=== PATIENT | male | born 1940 | race Caucasian/White ===

== ENCOUNTER 2022-05-11 12:30 | Emergency (ER) | payer MEDICARE, OTHER, SELFPAY ==
[2022-05-11 12:31] VITALS: BP 90/69; PULSE 108; RESP 16; TEMP 36; O2SAT 96; BMI 24.8
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
--- NOTE | 2022-05-11 14:10 | CT_ITS ---
STUDY: CT BRAIN WITHOUT CONTRAST REASON FOR EXAM: Male, 81 years old. Change in mental status, hallucinations RADIATION DOSAGE (If Supplied By Facility): CTDIvol = ( 44.99 ) mGy, DLP = ( 796.11 ) mGycm TECHNIQUE: Transaxial CT imaging of the brain was performed without administration of intravenous contrast material. Individualized dose optimization techniques were used for this CT. COMPARISON: No relevant priors. FINDINGS: Normal soft tissue structures. Normal calvarium. There is mild cerebral atrophy with widening of the extra-axial spaces and ventricular dilatation. There are areas of decreased attenuation within the white matter tracts of the supratentorial brain, consistent with microvascular disease changes. There are small punctate calcifications of the basal ganglia which are seen in the aging brain as a normal variant. Normal brainstem. There is mild cerebellar atrophy. There is no intracranial hemorrhage. There are no findings of an acute ischemic infarction. There is mucoperiosteal inflammatory disease of the paranasal sinuses consistent with moderate chronic sinusitis. CT/Brain/Head without Contrast IMPRESSION: Chronic involutional changes of the brain, no acute hemorrhage. Paranasal sinusitis Electronically Signed: Edgar Mahoney MD at 14:46 EDT ,
[2022-05-11 14:38] LABS: Absolute Lymphocyte Count 2.82 X10^3/uL (0.83-4.51); Absolute Neutrophil Count 9.4 X10^3/uL (2.0-7.7); Basophil# 0.03 X10^3/uL; Basophil% 0.2 % (0-1); Eosinophil# 0.06 X10^3/uL; Eosinophils% 0.4 % (0-5); Hematocrit 38.9 % (40-54); Hemoglobin 12.5 g/dL (13.0-16.5); Lymphocyte # 2.82 X10^3/ul (0.83-4.51); Lymphocyte % 21.1 % (19-41); Mean Corp Hgb Conc 32.1 g/dL (32-36); Mean Corpuscular Volume 90.3 fL (80-94); Mean Platelet Vol. 9.6 fl (6.2-12.0); Monocyte# 0.97 X10^3/uL; Monocyte% 7.3 % (0-10); NRBC Flagged by Analyzer 0 % (0-5); Neutrophil % 70.4 % (47-70); Platelet Count 256 K/mm3 (150-450); RBC Distribution Width CV 14.3 % (11.6-14.6); RBC Distribution Width SD 46.4 fl (35.1-43.9); Red Blood Count 4.31 M/mm3 (4.6-6.2); White Blood Count 13.4 K/mm3 (4.4-11.0)
[2022-05-11 14:55] LABS: Anion Gap 7 (5-15); BUN 29 mg/dL (7-18); BUN/Creat Ratio 23.6 RATIO (10-20); Calcium,Total 9.1 mg/dL (8.5-10.1); Chloride 107 mmol/L (98-107); Creatinine, Serum 1.23 mg/dL (0.70-1.30); EST Glomerular Filtration Rate 60 mL/min (>60); Est Glom Filt Rate - Afr Amer 72 mL/min (>60); Estimated Creatinine Clearance 46.99 ml/min; Glucose 115 mg/dL (74-106); Potassium 4.3 mmol/L (3.5-5.1); Sodium Level 138 mmol/L (136-145)
[2022-05-11 15:15] LABS: Red Blood Cells-Urine 0 SEEN /hpf (0-5)
[2022-05-11 15:17] LABS: Color, Urine Yellow (Yellow); Glucose, Dipstick Normal (Normal); Ketone-Dipstick 5 mg/dl (Negative); Leukocyte Esterase-Dipstick Negative /ul (Negative); Nitrite-Dipstick Negative (Negative); Occult Blood-Urine Negative /ul (Negative); Protein-Dipstick 15 mg/dl (Negative); Specific Gravity, Urine 1.015 (1.002-1.030); Urine Bilirubin Dipstick Negative (Negative); Urine Clarity Clear (Clear); Urine Urobilinogen Normal (Normal)
[2022-05-11 15:28] LABS: Bacteria 1+ /hpf (None Seen); Squamous Epithelial Cells - UA 0-5 SEEN /hpf (0-5); White Blood Cells 0-5 SEEN /hpf (0-5)
[2022-05-11 15:29] LABS: Mucous, Urine 2+ /hpf (<or=2+)
== END 2022-05-11 16:45 | disposition home or self-care (01) ==
PROVIDERS: Emergency Provider Emergency Medicine; Visit Provider Emergency Medicine
DX: S82.441A Displaced spiral fracture of shaft of right fibula, initial encounter for closed fracture (principal); S20.212A Contusion of left front wall of thorax, initial encounter; V18.0XXA Pedal cycle driver injured in noncollision transport accident in nontraffic accident, initial encounter; Y93.55 Activity, bike riding; Y99.8 Other external cause status; Y92.410 Unspecified street and highway as the place of occurrence of the external cause; R41.0 Disorientation, unspecified; E66.9 Obesity, unspecified; Z68.24 Body mass index [BMI] 24.0-24.9, adult
CPT/HCPCS: 70450; 71101; 73610; 80048; 81001; 85025; 87086; 87088; 99284; A4216

== ENCOUNTER 2022-05-19 10:47 | Observation (INO) | payer MEDICARE, SELFPAY ==
[2022-05-19 10:49] VITALS: BP 138/88; PULSE 81; RESP 18; TEMP 36.6; O2SAT 96; BMI 26.3
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
--- NOTE | 2022-05-19 11:50 | EKG12_ITS ---
Test Reason : CONFUSION Blood Pressure : / mmHG Vent. Rate : 083 BPM Atrial Rate : 083 BPM P-R Int : 134 ms QRS Dur : 086 ms QT Int : 374 ms P-R-T Axes : 013 021 012 degrees QTc Int : 439 ms Sinus rhythm with frequent Premature ventricular complexes Otherwise normal ECG Confirmed by FRANCISCO JAVIER TAYLOR, NELSON ([id number]), metropolitan editor MORENITA ARRIAZA ([id number]) on 05/20/2022 2:37:09 P M Referred By: Confirmed By:OUMAR MCINTYRE MD
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
[2022-05-19 12:19] LABS: Absolute Lymphocyte Count 3.65 X10^3/uL (0.83-4.51); Absolute Neutrophil Count 6.6 X10^3/uL (2.0-7.7); Basophil# 0.06 X10^3/uL; Basophil% 0.5 % (0-1); Eosinophil# 0.38 X10^3/uL; Eosinophils% 3.3 % (0-5); Lymphocyte # 3.65 X10^3/ul (0.83-4.51); Lymphocyte % 31.9 % (19-41); Mean Corp Hgb Conc 33.3 g/dL (32-36); Mean Corpuscular Hgb 30.3 pg (27.0-32.0); Mean Corpuscular Volume 90.9 fL (80-94); Mean Platelet Vol. 9.4 fl (6.2-12.0); Monocyte# 0.71 X10^3/uL; Monocyte% 6.2 % (0-10); NRBC Flagged by Analyzer 0 % (0-5); Neutrophil # 6.56 X10^3/uL (2.7-7.7); Neutrophil % 57.4 % (47-70); Platelet Count 243 K/mm3 (150-450); RBC Distribution Width CV 13.8 % (11.6-14.6); RBC Distribution Width SD 45.8 fl (35.1-43.9); Red Blood Count 3.96 M/mm3 (4.6-6.2); White Blood Count 11.4 K/mm3 (4.4-11.0)
--- NOTE | 2022-05-19 12:25 | RAD_ITS ---
STUDY: X-RAY CHEST REASON FOR EXAM: Male, 82 years old. Weakness TECHNIQUE: Single AP portable view of the chest. COMPARISON: Comparison is made with prior study dated 05/11/2021. FINDINGS: EKG electrodes are seen. There is evidence of vascular congestion and mild CHF. Elevation of the right hemidiaphragm. Normal size heart. Normal mediastinum and efrain. Normal visualized pulmonary arteries. There is atherosclerotic calcification of the aortic arch with tortuosity. There are diffuse degenerative changes of the visualized thoracic spine. Dextroscoliosis. Normal visualized ribs, clavicles, and shoulders. There is no demonstrated abnormality of the visualized soft tissue structures of the upper abdomen. RAD/Chest 1 View (Portable) IMPRESSION: Vascular congestion and mild CHF. Electronically Signed: Abimael Isaac MD at 12:58 EDT ,
[2022-05-19 12:32] LABS: ALB/GLOB Ratio 0.7 RATIO (0.9-2.4); AST(SGOT) 26 U/L (15-37); Alanine Aminotransfer ALT/SGPT 54 U/L (16-61); Albumin, Serum 2.8 g/dL (3.2-5.0); Alkaline Phosphatase 106 U/L (45-117); Anion Gap 7 (5-15); BUN 26 mg/dL (7-18); BUN/Creat Ratio 23.4 RATIO (10-20); Calcium,Total 8.6 mg/dL (8.5-10.1); Chloride 103 mmol/L (98-107); Creatinine, Serum 1.11 mg/dL (0.70-1.30); EST Glomerular Filtration Rate 67 mL/min (>60); Est Glom Filt Rate - Afr Amer 81 mL/min (>60); Estimated Creatinine Clearance 47.93 ml/min; Globulin 3.8 g/dL (2.2-4.2); Glucose 102 mg/dL (74-106); Potassium 3.9 mmol/L (3.5-5.1); Protein, Total 6.6 g/dL (6.4-8.2); Sodium Level 135 mmol/L (136-145); Troponin-I HS 15 pg/mL (3.0-78.0)
[2022-05-19 12:48] LABS: Ammonia < 10.0 umol/L (11-32)
[2022-05-19 13:12] VITALS: BP 180/75; PULSE 88; RESP 14; O2SAT 95
[2022-05-19 13:28] LABS: Color, Urine Yellow (Yellow); Glucose, Dipstick Normal (Normal); Ketone-Dipstick Negative (Negative); Leukocyte Esterase-Dipstick Negative /ul (Negative); Nitrite-Dipstick Negative (Negative); Occult Blood-Urine Negative /ul (Negative); Protein-Dipstick 30 mg/dl (Negative); Specific Gravity, Urine 1.015 (1.002-1.030); Urine Bilirubin Dipstick Negative (Negative); Urine Clarity Clear (Clear); Urine Urobilinogen Normal (Normal)
--- NOTE | 2022-05-19 13:32 | NURSING ---
DR ENRIQUEZ FOR DR ELMORE
[2022-05-19 13:36] LABS: BNP,B-Type NATRIURETIC PEPTIDE 51.4 pg/mL (0-100)
[2022-05-19 13:42] LABS: Amphetamine Urine VISTA NEGATIVE (<1000 ng/mL); Barbiturate Urine VISTA NEGATIVE (< 200 ng/mL); Benzodiazepine Urine VISTA NEGATIVE (< 200 ng/mL); Cocaine Urine VISTA NEGATIVE (< 300 ng/mL); Ecstacy Urine VISTA NEGATIVE (< 500 ng/mL); Methadone Urine VISTA NEGATIVE (< 300 ng/mL); PCP Urine VISTA NEGATIVE (< 25 ng/mL); THC Urine VISTA NEGATIVE (< 50 ng/mL); Vista UDS pH Range 5
[2022-05-19 13:44] VITALS: BP 193/91; PULSE 79; RESP 19; TEMP 36.5; O2SAT 95
--- NOTE | 2022-05-19 13:45 | NURSING ---
MED SURG [facility]
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
--- NOTE | 2022-05-19 14:35 | CM.ED ---
SW Note MD Alvarez spoke to this teletypewriter installer. He indicated that patient was sent to the ER from PCP office. said that patient has no history of psych issues but is having hallucinations. SRINIVAS asked if SW needs to do SW assessment for patient and indicated no. said that patient is weak so he thinks that family is interested in SNF. SRINIVAS met with patient and his daughter in law and daughter. SW educated the family that patient does not have traditional medicare but has [employer] which will require precert. Daughter in law said that she had confirmed with the MD that patient does not want extreme measure to be completed (DNR) . Patient said that he has completed the paperwork for that at home but did not bring it with him. SW provided family with [employer] information. SRINIVAS updated MD Alvarez that patient wants a DNR and he indicated hospitalist will take care of that. SRINIVAS called Ilana Rosenbaum and updated her regarding patient. SRINIVAS called Jessica Gutiérrez and updated her regarding patient. Plan: To be determined Velvet LEYVA
[2022-05-19 14:50] VITALS: BMI 27.9
[2022-05-19 14:56] VITALS: BP 170/70; PULSE 88; RESP 18; TEMP 36.8; O2SAT 97
[2022-05-19 15:09] VITALS: PULSE 80
[2022-05-19] MEDS: Aspirin 81 MG TAB.CHEW PO (15:44)
[2022-05-19] MEDS: Ensure Plus High Protein 120 ML LIQUID PO (15:44)
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
[2022-05-19] MEDS: Atorvastatin Calcium 40 MG Tablet PO (21:47)
[2022-05-19 22:00] VITALS: BP 149/63; PULSE 88; RESP 18; TEMP 36.9; O2SAT 98
[2022-05-19] MEDS: MELATONIN 3 MG TABLET PO (23:40)
[2022-05-20 05:00] VITALS: BP 161/84; PULSE 88; RESP 16; TEMP 37.1; O2SAT 96
[2022-05-20 05:06] LABS: Absolute Lymphocyte Count 3.88 X10^3/uL (0.83-4.51); Absolute Neutrophil Count 7.1 X10^3/uL (2.0-7.7); Basophil# 0.08 X10^3/uL; Basophil% 0.6 % (0-1); Eosinophil# 0.42 X10^3/uL; Eosinophils% 3.4 % (0-5); Hematocrit 40.1 % (40-54); Hemoglobin 12.7 g/dL (13.0-16.5); Lymphocyte # 3.88 X10^3/ul (0.83-4.51); Lymphocyte % 31.4 % (19-41); Mean Corp Hgb Conc 31.7 g/dL (32-36); Mean Corpuscular Hgb 29.8 pg (27.0-32.0); Mean Corpuscular Volume 94.1 fL (80-94); Mean Platelet Vol. 9.8 fl (6.2-12.0); Monocyte# 0.76 X10^3/uL; Monocyte% 6.1 % (0-10); NRBC Flagged by Analyzer 0 % (0-5); Neutrophil # 7.12 X10^3/uL (2.7-7.7); Neutrophil % 57.6 % (47-70); Platelet Count 238 K/mm3 (150-450); RBC Distribution Width CV 14.1 % (11.6-14.6); RBC Distribution Width SD 48.6 fl (35.1-43.9); Red Blood Count 4.26 M/mm3 (4.6-6.2); White Blood Count 12.4 K/mm3 (4.4-11.0)
[2022-05-20 05:29] LABS: Anion Gap 6 (5-15); BUN 29 mg/dL (7-18); BUN/Creat Ratio 24.8 RATIO (10-20); Calcium,Total 8.5 mg/dL (8.5-10.1); Chloride 103 mmol/L (98-107); Creatinine, Serum 1.17 mg/dL (0.70-1.30); EST Glomerular Filtration Rate 63 mL/min (>60); Est Glom Filt Rate - Afr Amer 76 mL/min (>60); Estimated Creatinine Clearance 45.47 ml/min; Glucose 105 mg/dL (74-106); Potassium 4.1 mmol/L (3.5-5.1); Sodium Level 135 mmol/L (136-145)
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
[2022-05-20] MEDS: Enoxaparin 40 MG/0.4 ML Syringe SC (08:04)
[2022-05-20] MEDS: Aspirin 81 MG TAB.CHEW PO (08:05)
[2022-05-20 08:24] VITALS: BP 179/78; PULSE 88; RESP 18; TEMP 36.4; O2SAT 97
[2022-05-20] MEDS: Ensure Plus High Protein 120 ML LIQUID PO ×3 (09:38→15:42)
--- NOTE | 2022-05-20 10:03 | ECHOCS_ITS ---
Reason For Study: Heart Failure Procedure This was a 2D Doppler, Color Flow transthoracic echocardiogram. The study was technically difficult. Contrast injection was performed. Exam performed portable in patient room. Left Ventricle Normal LV size. Left ventricular systolic function is normal. The estimated ejection fraction is 65 %. Diastolic function is indeterminate. No regional wall motion abnormalities noted. Right Ventricle Normal RV size. Normal systolic function. Atria The left atrium is mildly enlarged. Normal right atrium. No doppler evidence for ASD. Bubble contrast study negative for right to left interatrial shunt. Mitral Valve There is no mitral annular calcification. Normal mitral valve. Trivial mitral valve insufficiency. Tricuspid Valve Normal tricuspid valve. Trivial tricuspid valve insufficiency. Right ventricular systolic pressure estimated to be 35 mmHg. Aortic Valve Trisinus/trileaflet aortic valve. Mild focal aortic valve thickening. Mild focal aortic valve calcification. Pulmonic Valve The pulmonic valve is not well visualized. Trivial pulmonic valve insufficiency. Great Vessels Normal sized aortic root. Pericardium/Pleural No pericardial effusion. Medication Diluted definity 3ml given slow IV push to enhance endocardial definition. Performed a rapid injection of agitated mix of 9 cc saline and 1cc air to assess for atrial septal defect. MMode/2D Measurements & Calculations LVIDd: 4.9 cm IVSd: 1.2 cm Ao root diam: 3.7 cm LVIDs: 3.7 cm LVPWd: 1.5 cm LA dimension: 3.9 cm RVDd: 3.2 cm FS: 25.4 % LAV(MOD-sp4): 36.5 ml LA A4 area: 15.0 cm2 RA A4 area: 12.2 cm2 Time Measurements MV dec time: 0.24 sec Doppler Measurements & Calculations MV E max talha: 30.3 cm/sec Lat Peak E' Talha: 8.8 cm/sec Med Peak E' Talha: 7.6 cm/sec MV A max talha: 84.9 cm/sec E/E' lat: 3.5 E/E' med: 4.0 MV E/A: 0.36 MV V2 max: 108.9 cm/sec MV P1/2t max talha: 63.4 cm/sec Ao V2 max: 113.9 cm/sec MV max P.7 mmHg MV P1/2t: 106.5 msec Ao max P.2 mmHg MV V2 mean: 51.2 cm/sec MV dec slope: 174.2 cm/sec2 MV mean P.3 mmHg MV V2 VTI: 23.7 cm MVA(P1/2t): 2.1 cm2 LV V1 max: 115.1 cm/sec PA V2 max: 103.8 cm/sec TR max talha: 280.3 cm/sec LV V1 max P.3 mmHg PA V2 mean: 73.0 cm/sec TR max P.5 mmHg ECHO/Echo Complete W/ Contrast Interpretation Summary The study was technically difficult. Contrast injection was performed. Left ventricular systolic function is normal. The estimated ejection fraction is 65 %. The left atrium is mildly enlarged. Trivial mitral valve insufficiency. Trivial tricuspid valve insufficiency. Mild focal aortic valve thickening. Mild focal aortic valve calcification. Trivial pulmonic valve insufficiency. Right ventricular systolic pressure estimated to be 35 mmHg. Diastolic function is indeterminate. Ordering Physician: Oskar Romo Referring Physician: Vinnie Perry M.D. Performed By: Kameron Ramey RCS
[2022-05-20] MEDS: Furosemide 20 MG/2 ML VIAL IV (11:34)
[2022-05-20] MEDS: guaiFENesin/D-Methorphan TAB.SR.12H 1 TABLET PO ×2 (11:34→21:29)
--- NOTE | 2022-05-20 11:52 | CASEMGMT ---
Social Work SRINIVAS met with pt's son and daughter in law Valenzuela and Franny Knott. SW discussed discharge plan and informed family physician feels pt may be ready for discharge tomorrow. Pt family preference to stay at [facility] and also inquiring about Inpatient Rehab options. The following facilities were called and have no bed availability over the weekend: [facility], [facility], [facility], [facility], [facility]. [facility] would have beds available and are in network with insurance. SRINIVAS spoke with [facility] in TCU who states they do have bed availability tomorrow. SRINIVAS met with pt family and informed of above. SW offered to call other SNFs if family would prefer. Family choosing placement at [facility] TCU at this time. Referral to [facility] in TCU and they are able to accept. Family updated and agreeable to TCU. Precert submitted with pt insurance for authorization. Plan: TCU, pending insurance CARMEN Tilley
[2022-05-20 13:48] LABS: BNP,B-Type NATRIURETIC PEPTIDE 39.3 pg/mL (0-100)
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
--- NOTE | 2022-05-20 15:10 | RAD_ITS ---
STUDY: X-RAY - RIGHT ANKLE REASON FOR EXAM: Male, 82 years old. ankle fracture TECHNIQUE: 3 view(s) of the ankle. COMPARISON: 05/11/2022 FINDINGS: No change in the nondisplaced oblique fracture the distal right fibula the level tibial plafond. Normal medial and lateral malleoli. Normal tibiotalar articulation and ankle mortise. Normal visualized talus and calcaneus. Small plantar posterior calcaneal enthesophytes. The visualized subtalar, talonavicular, calcaneocuboid and tarsal articulations are normal. The soft tissue structures are unremarkable. RAD/Ankle min 3 Views IMPRESSION: No change in nondisplaced oblique fracture the distal right fibula the level tibial plafond. Electronically Signed: Brett Paredes MD at 16:42 EDT ,
[2022-05-20] MEDS: Lisinopril 10 MG Tablet PO (15:42)
[2022-05-20 15:45] VITALS: BP 176/81; PULSE 84; RESP 18; TEMP 36.4; O2SAT 94
--- NOTE | 2022-05-20 15:45 | CASEMGMT ---
LISANDRA KHAN completed [place] form with patient's daughter Katy Knott as patient is confused. RN BILL explained M[place] form with daughter, daughter voiced understanding. Daughter signed MCK[place] form and filed in chart. Daughter provided with copy of signed M[place] form. Family had no further questions or concerns at this time.
--- NOTE | 2022-05-20 16:59 | CASEMGMT ---
Social Work Return call from pt insurance and precert has been given for TCU. Auth# [id number]. Pt can discharge to TCU when medically ready. Physician updated. CARMEN Tarango
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
[2022-05-20 21:29] VITALS: BP 154/77; PULSE 84; RESP 16; TEMP 36.5; O2SAT 96
[2022-05-20] MEDS: MELATONIN 3 MG TABLET PO (21:29)
[2022-05-20] MEDS: Atorvastatin Calcium 40 MG Tablet PO (21:29)
[2022-05-21 02:30] VITALS: BP 167/89; PULSE 90; RESP 16; TEMP 36.5; O2SAT 96
[2022-05-21 06:26] LABS: Absolute Lymphocyte Count 3.69 X10^3/uL (0.83-4.51); Absolute Neutrophil Count 7.5 X10^3/uL (2.0-7.7); Basophil# 0.06 X10^3/uL; Basophil% 0.5 % (0-1); Eosinophil# 0.39 X10^3/uL; Eosinophils% 3.1 % (0-5); Hematocrit 37.2 % (40-54); Hemoglobin 12.4 g/dL (13.0-16.5); Lymphocyte # 3.69 X10^3/ul (0.83-4.51); Lymphocyte % 29.5 % (19-41); Mean Corp Hgb Conc 33.3 g/dL (32-36); Mean Corpuscular Hgb 29.6 pg (27.0-32.0); Mean Corpuscular Volume 88.8 fL (80-94); Mean Platelet Vol. 9.2 fl (6.2-12.0); Monocyte% 5.6 % (0-10); NRBC Flagged by Analyzer 0 % (0-5); Neutrophil # 7.54 X10^3/uL (2.7-7.7); Neutrophil % 60.4 % (47-70); Platelet Count 265 K/mm3 (150-450); RBC Distribution Width CV 13.8 % (11.6-14.6); RBC Distribution Width SD 44.5 fl (35.1-43.9); Red Blood Count 4.19 M/mm3 (4.6-6.2); White Blood Count 12.5 K/mm3 (4.4-11.0)
[2022-05-21 06:47] LABS: Anion Gap 7 (5-15); BUN 25 mg/dL (7-18); BUN/Creat Ratio 25.3 RATIO (10-20); Chloride 103 mmol/L (98-107); Creatinine, Serum 0.99 mg/dL (0.70-1.30); EST Glomerular Filtration Rate 77 mL/min (>60); Est Glom Filt Rate - Afr Amer 93 mL/min (>60); Estimated Creatinine Clearance 53.74 ml/min; Glucose 99 mg/dL (74-106); Potassium 4.2 mmol/L (3.5-5.1); Sodium Level 134 mmol/L (136-145)
[2022-05-21] MEDS: Aspirin 81 MG TAB.CHEW PO (08:10)
[2022-05-21] MEDS: Lisinopril 10 MG Tablet PO (08:11)
[2022-05-21] MEDS: guaiFENesin/D-Methorphan TAB.SR.12H 1 TABLET PO (08:11)
[2022-05-21] MEDS: Enoxaparin 40 MG/0.4 ML Syringe SC (08:11)
[2022-05-21] MEDS: Ensure Plus High Protein 120 ML LIQUID PO (08:14)
[2022-05-21] MEDS: Acetaminophen 325 MG Tablet 650 MG PO (08:15)
[2022-05-21 08:30] VITALS: BP 152/79; PULSE 81; RESP 18; TEMP 36.9; O2SAT 95
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
[2022-05-21] MEDS: Carvedilol 6.25 MG Tablet PO (12:52)
[2022-05-21] MEDS: Furosemide 20 MG Tablet PO (12:52)
--- NOTE | 2022-05-21 13:11 | NURSING ---
report called to Padmini in rehab-covid neg
== END 2022-05-21 14:33 | disposition skilled nursing facility (03) ==
LOC: ED 13:28 → MS3 14:01
PROVIDERS: Admitting Provider Family Medicine; Emergency Provider Student in an Organized Health Care Education/Training Program; PCP Internal Medicine; Visit Provider Internal Medicine
DX: G93.89 Other specified disorders of brain (principal); I11.0 Hypertensive heart disease with heart failure; I50.33 Acute on chronic diastolic (congestive) heart failure; M17.0 Bilateral primary osteoarthritis of knee; J32.4 Chronic pansinusitis; S82.61XA Displaced fracture of lateral malleolus of right fibula, initial encounter for closed fracture; Z87.891 Personal history of nicotine dependence; R53.81 Other malaise; V18.9XXD Unspecified pedal cyclist injured in noncollision transport accident in traffic accident, subsequent encounter; R44.1 Visual hallucinations; R44.0 Auditory hallucinations; R06.02 Shortness of breath
CPT/HCPCS: 36415; 70450; 71045; 73610; 80048; 80053; 80307; 81002; 82077; 82140; 83880; 84484; 85025; 87426; 93005; 93306; 96372; 96374; 97162; 97167; 97530; 97535; 99218; 99251; 99284; Q9957; A4216; C8929; G0378; G0463; J1940

== ENCOUNTER 2022-05-21 14:43 | Inpatient (IN) | payer MEDICARE, OTHER, SELFPAY ==
[2022-05-21 15:01] VITALS: BP 108/56; PULSE 80; RESP 16; TEMP 37.2; O2SAT 93; BMI 28.0
--- NOTE | 2022-05-21 15:36 | HP.PCM_ITS ---
HPI - General General Date of Admission: 05/21/22 Date of Service: 05/23/22 Chief Complaint: Here for rehab. HPI Narrative 05/19/2022 ROLAND KASPER, is a 82 Male who presents to [facility] Emergency Department with confusion. Confusion, visual hallucinations (people doing construction on house). Sees hands from behind curtains, no auditory hallucinations. Recent right ankle fracture, CT brain negative urinalysis negative. Weakness of left body, left leg, leg arm, but resolving. Concern with stroke, family borrowed lieft to care for him. WBC 11.4, CMP okay, LFT okay, Ammonia level normal, urinalysis negative. CT brain new encephalomalacia anterior right frontal lobe. Outside window for TPA, Chest X-ray showed mild congestion. 05/19/2022 Admit to Hospital. Aspirin, Atorvastatin, PT/OT/ST for stroke. Hydralazine as needed for elevated blood pressure. Right ankle fracture treated with walking boot. 05/20/2022 Cough for 1 month. 05/20/2022 Echo Left ventricular systolic function normal. EF 65%. RVSP 35mm HG. 05/20/2022 Dr. Kiser recommended CAM walker boot for right ankle fracture. 05/20/2022 Dr. Almonte recommended CAM walker boot for right ankle fracture. 05/21/2022 Admit to TCU with debility, here for rehabilitation, strengthening, prior to discharge home. [facility] Medical History Hearing loss Home Medications acetaminophen 325 mg tablet (Tylenol) 650 mg PO Q4H PRN PRN Pain 1-10 Or Fever #0 tabs 05/21/22 [Rx Last Taken Unknown] aspirin 81 mg tablet,delayed release (Enteric Coated Aspirin) 81 mg PO BID blood thinner 05/21/22 [History Last Taken Unknown] atorvastatin 40 mg tablet 40 mg PO QHS cholesterol 05/21/22 [History Last Taken Unknown] carvedilol 6.25 mg tablet 6.25 mg PO BID BP 05/21/22 [History Last Taken Unknown] dextromethorphan-guaifenesin 30 mg-600 mg tablet extended [id number] hr (Mucinex DM) 1 tab PO BID congestion 05/21/22 [History Last Taken Unknown] furosemide 20 mg tablet 20 mg PO DAILY diuretic 05/21/22 [History Last Taken Unknown] lisinopril 10 mg tablet 10 mg PO DAILY BP 05/21/22 [History Last Taken Unknown] melatonin 3 mg tablet 3 mg PO QHS PRN PRN Insomnia #0 tabs 05/21/22 [Rx Last Taken Unknown] pantoprazole 40 mg tablet,delayed release (Protonix) 40 mg PO DAILY reflux 05/21/22 [History Last Taken Unknown] Allergy/AdvReac Type Severity Reaction Status Date / Time No Known Allergies Allergy Verified 05/19/22 10:52 Social History household members: none Smoking Status: Former smoker alcohol intake: never substance use type: does not use ROS Constitutional Constitutional: Denies chills, fever(s) or weight gain ENT HEENT: Denies headache(s), nasal congestion or nasal discharge Cardiovascular Cardiovascular: Denies chest pain or palpitations Respiratory/Chest Respiratory/Chest: Denies cough, excessive phlegm production or shortness of breath with exertion Gastrointestinal Gastrointestinal: Denies abdominal pain, nausea or vomiting Genitourinary Genitourinary: Denies dysuria Musculoskeletal Musculoskeletal: Denies joint pain or joint swelling Integumentary Integumentary: Denies rash or wounds Neurologic Neurologic: Denies focal weakness, numbness or tingling Psychiatric Psychiatric: Denies anxiety, auditory hallucinations, depression, homicidal ideation or suicidal ideation Vital Signs Vital Signs Vital Signs: 05/21/22 15:01 Temperature 98.9 F Temperature Source Oral Pulse Rate 80 Respiratory Rate 16 Blood Pressure 108/56 L Blood Pressure Mean 73 Blood Pressure Source Monitor Blood Pressure Position Supine Blood Pressure Location Left Arm Pulse Ox 93 Oxygen Delivery Method Room Air Weight Weight: 83.8 kg Body Mass Index (BMI) 28.0 Physical Exam Const alert General Appearance: cooperative HEENT normocephalic Eyes PERRL and EOMs intact bilaterally Neck supple, no JVD and no carotid bruits Resp normal respiratory effort, normal air movement and clear to auscultation bilat erally Cardio regular rate and regular rhythm GI normal to inspection, nondistended, normoactive bowel sounds, non-tender and non-distended Extremity normal capillary refill General Extremity: Negative for edema Skin no rashes or lesions noted General Skin Exam: no breakdown Psych affect normal Appearance: appropriate Results Lab / Micro Data Result Diagrams: 05/22/22 06:01 05/22/22 06:01 Assessment & Plan Assessment/Plan (1) Debility: (2) Acute encephalopathy: (3) Visual hallucination: (4) Stroke: (5) Fracture of lateral malleolus of right ankle: (6) Hearing loss: PLAN: Plan 82 year old male with below past medical history significant for recent right ankle fracture, hospitalized for stroke, admitted to TCU with debility, here for rehabilitation, strengthening, prior to discharge home alone. * Debility - PT/OT/ST. * Pain - Tylenol 650mg q4h prn. * Bowel - senna/colace 1 tablet bid, MOM 30ml po x 1 prn. * Adult immunization - Administer pneumonia vaccine, covid19 vaccine, flu vaccine as appropriate. * DVT prophylaxis - HAS-BLED 3, high risk of bleeding, Tiffani 7 High risk of blood clots, overall risk high, Rx Xarelto 10mg daily x 14 days. * Stroke - Aspirin 81mg daily. * Hyperlipidemia - Atorvastatin 40mg qhs. * Hypertension - Coreg 6.25mg bid, Lisinopril 10mg daily. * Edema - Furosemide 20mg daily. * Insomnia - Melatonin 3mg qhs prn. * GERD - Pantoprazole 40mg daily.
[2022-05-21 17:42] VITALS: BP 132/66; PULSE 60
[2022-05-21] MEDS: Acetaminophen 325 MG Tablet 650 MG PO (17:51)
[2022-05-21] MEDS: Carvedilol 6.25 MG Tablet PO (17:52)
[2022-05-21] MEDS: Rivaroxaban 10 MG Tablet PO (17:52)
[2022-05-21] MEDS: guaiFENesin/D-Methorphan TAB.SR.12H 1 TABLET PO (17:53)
[2022-05-21] MEDS: Senna/Docusate Sodium 1 Tablet PO (17:53)
--- NOTE | 2022-05-21 20:15 | NURSING ---
[id number] from [place] who is an RN is present and would like bladder scan completed. Scan for 290 ml. Unsure when pt last voided. Pt is a poor historian. No bladder distention noted. Abdomen softly distended. Bowel sounds slightly hyperactive x 4 quadrants. No tenderness upon palpation. Denies any abdominal pain when questioned. Will continue to monitor.
[2022-05-21] MEDS: Atorvastatin Calcium 40 MG Tablet PO (21:26)
[2022-05-22] MEDS: Pantoprazole Sodium 40 MG Tablet PO (05:48)
[2022-05-22] MEDS: Senna/Docusate Sodium 1 Tablet PO ×2 (05:48→16:07)
[2022-05-22] MEDS: guaiFENesin/D-Methorphan TAB.SR.12H 1 TABLET PO ×2 (05:48→16:08)
[2022-05-22] MEDS: Furosemide 20 MG Tablet PO (05:49)
[2022-05-22] MEDS: Lisinopril 10 MG Tablet PO (05:49)
[2022-05-22 05:55] VITALS: BP 137/68; PULSE 76
[2022-05-22 06:14] LABS: Absolute Neutrophil Count 6.3 X10^3/uL (2.0-7.7); Basophil# 0.08 X10^3/uL; Basophil% 0.7 % (0-1); Eosinophil# 0.41 X10^3/uL; Eosinophils% 3.6 % (0-5); Hematocrit 35.4 % (40-54); Hemoglobin 11.9 g/dL (13.0-16.5); Lymphocyte % 35.6 % (19-41); Mean Corp Hgb Conc 33.6 g/dL (32-36); Mean Corpuscular Hgb 30.4 pg (27.0-32.0); Mean Corpuscular Volume 90.3 fL (80-94); Mean Platelet Vol. 9.2 fl (6.2-12.0); Monocyte# 0.53 X10^3/uL; Monocyte% 4.6 % (0-10); NRBC Flagged by Analyzer 0 % (0-5); Neutrophil # 6.28 X10^3/uL (2.7-7.7); Neutrophil % 54.5 % (47-70); Platelet Count 261 K/mm3 (150-450); RBC Distribution Width SD 46.4 fl (35.1-43.9); Red Blood Count 3.92 M/mm3 (4.6-6.2); White Blood Count 11.5 K/mm3 (4.4-11.0)
[2022-05-22 06:49] LABS: Anion Gap 7 (5-15); BUN 36 mg/dL (7-18); BUN/Creat Ratio 30.8 RATIO (10-20); Calcium,Total 8.8 mg/dL (8.5-10.1); Chloride 103 mmol/L (98-107); Creatinine, Serum 1.17 mg/dL (0.70-1.30); EST Glomerular Filtration Rate 63 mL/min (>60); Est Glom Filt Rate - Afr Amer 76 mL/min (>60); Estimated Creatinine Clearance 45.47 ml/min; Glucose 101 mg/dL (74-106); Potassium 4.4 mmol/L (3.5-5.1); Sodium Level 133 mmol/L (136-145)
[2022-05-22 08:10] VITALS: BP 159/78; PULSE 74
[2022-05-22] MEDS: Aspirin E.C. 81 MG Tablet PO (08:12)
[2022-05-22] MEDS: Carvedilol 6.25 MG Tablet PO ×2 (08:12→16:07)
[2022-05-22] MEDS: Tuberculin,Purif.prot.deriv. 50 TU/ML Vial 0.1 ML ID (12:25)
[2022-05-22 16:00] VITALS: PULSE 74; RESP 18; TEMP 36.3
[2022-05-22] MEDS: Acetaminophen 325 MG Tablet 650 MG PO (16:08)
[2022-05-22] MEDS: Rivaroxaban 10 MG Tablet PO (16:08)
[2022-05-22 17:24] VITALS: BP 150/64; PULSE 95; RESP 16; O2SAT 95
[2022-05-22 21:20] VITALS: O2SAT 96
[2022-05-22] MEDS: Atorvastatin Calcium 40 MG Tablet PO (21:20)
--- NOTE | 2022-05-22 23:56 | NURSING ---
Pt attempted to void without success. LIDDER bladder scanned for 530ml, with dry brief. Using sterile technique, 15Fr straight cath inserted with immediate return of 500ml of clear, straw colored urine. Pt tolerated well, will bladder scan every 8hrs and PRN. Will continue to monitor.
[2022-05-23] MEDS: guaiFENesin/D-Methorphan TAB.SR.12H 1 TABLET PO ×2 (05:05→17:17)
[2022-05-23] MEDS: Furosemide 20 MG Tablet PO (05:05)
[2022-05-23] MEDS: Pantoprazole Sodium 40 MG Tablet PO (05:05)
[2022-05-23] MEDS: Senna/Docusate Sodium 1 Tablet PO ×2 (05:05→17:17)
[2022-05-23] MEDS: Lisinopril 10 MG Tablet PO (05:06)
[2022-05-23] MEDS: Menthol/Lanolin/Calamine/Znox 113 GM Tube 1 APPLIC TOPICAL ×2 (05:10→17:18)
[2022-05-23 05:12] VITALS: BP 150/71; PULSE 79; O2SAT 97
[2022-05-23 07:30] VITALS: O2SAT 96
[2022-05-23] MEDS: Carvedilol 6.25 MG Tablet PO ×2 (08:11→17:17)
[2022-05-23] MEDS: Aspirin E.C. 81 MG Tablet PO (08:11)
[2022-05-23 08:12] VITALS: BP 168/71; PULSE 77
[2022-05-23] MEDS: Acetaminophen 325 MG Tablet 650 MG PO ×2 (09:02→19:26)
--- NOTE | 2022-05-23 10:59 | CASEMGMT ---
Social Work Met with patient to complete initial assessment. Introduced self and role. Discussed code status and MOLST form. Pt confirms DNR-CCA, no intubation. MOLST placed in Dr folder. Pt wishing to complete advanced directives. Family to discuss whom to name and SW to complete prior to DC. Pts goal is to return home alone. Educated to [employer] insurance with NRD 05/23 and continued stay is not guaranteed with each review. Pt is [facility] and assessment took extended time to complete to ensure comprehension. DIL/son also called pt during assessment and spoke with this worker. DIL/son live in [place]. DIL explained the goal is for pt to return home alone, however, pt was living with dtr, Katy, for a week prior to admission, and is able to return living with dtr/family at DC, if needed. However, pt will still need to be independent with toileting and transfers for dtr, if not more independent. SOHAIL questioned the order for WB with CAM boot. SW deferred to therapy to explain Drs orders. Educated to [employer] insurance. Answered other questions for family as 3 children presented to pt's room. All appreciative. SW to continue to follow for DC planning. Guerline Funk, SENIOR INTERACTION DESIGNER ADVANCED PRACTICE PROVIDER
--- NOTE | 2022-05-23 13:04 | NURSING ---
Activity Coordinators Note; Activity Asst: complete
[2022-05-23 13:51] VITALS: BP 106/54; PULSE 74; RESP 16; TEMP 36.1; O2SAT 93
--- NOTE | 2022-05-23 16:33 | NURSING ---
This nurse was called to pt's room d/t pt sitting on floor. Pt stated I was trying to walk to bed and I slid out of my chair. Pt stated he did not hit head and denies pain at this time. BP 139/53 HR 87 RR 20. Daughter called and left voicemail. Dr. Jackson updated no new orders at this time. Educated pt to use call light to call for help.
[2022-05-23] MEDS: Rivaroxaban 10 MG Tablet PO (17:17)
--- NOTE | 2022-05-23 20:14 | NURSING ---
Patient tried to use urinal, unable to void, bladder scan shows 588cc. Straight cath perfomed, drained 400cc clear yellow urine.
[2022-05-23 21:35] VITALS: PULSE 71; RESP 16; O2SAT 94
[2022-05-23] MEDS: Atorvastatin Calcium 40 MG Tablet PO (21:47)
--- NOTE | 2022-05-24 00:22 | NURSING ---
Addendum entered by Miguelina Hazel 05/24/22 00:40: Left note for Dr Jackson notifying of segal placement. Original Note: Patient restless and trying to climb out of bed multiple times. He indicated he needed to void, helped him use urinal, unable to void. Bladder scan shows around 600cc. Segal cath placed, pt had some discomfort w/ placement but appears comfortable after in place, draining clear yellow urine.
[2022-05-24] MEDS: MELATONIN 3 MG TABLET PO (00:32)
[2022-05-24] MEDS: Acetaminophen 325 MG Tablet 650 MG PO ×2 (00:32→05:14)
--- NOTE | 2022-05-24 01:01 | NURSING ---
Addendum entered by Zabrina Rajput 05/24/22 03:18: Ariadne FRY called Dr. Jackson to update. New order for Ativan 0.5 mg x1 dose. Original Note: Patient continues to try to crawl out of bed. Patient also found to be pulling on segal catheter. Blood noted in catheter. Patient assisted x2 to recliner and brought out to Nurses station.
--- NOTE | 2022-05-24 01:59 | NURSING ---
PRN melatonin ineffective.
[2022-05-24] MEDS: LORazepam 0.5 MG Tablet PO (03:10)
[2022-05-24] MEDS: Furosemide 20 MG Tablet PO (05:08)
[2022-05-24] MEDS: Pantoprazole Sodium 40 MG Tablet PO (05:08)
[2022-05-24] MEDS: Senna/Docusate Sodium 1 Tablet PO (05:08)
[2022-05-24] MEDS: guaiFENesin/D-Methorphan TAB.SR.12H 1 TABLET PO ×2 (05:08→17:26)
[2022-05-24] MEDS: Lisinopril 10 MG Tablet PO (05:08)
[2022-05-24] MEDS: Menthol/Lanolin/Calamine/Znox 113 GM Tube 1 APPLIC TOPICAL ×2 (05:09→17:27)
--- NOTE | 2022-05-24 05:53 | NURSING ---
Patient continues to be 1:1 with Nursing staff.
[2022-05-24] MEDS: Carvedilol 6.25 MG Tablet PO ×2 (07:50→17:26)
[2022-05-24] MEDS: Aspirin E.C. 81 MG Tablet PO (07:50)
[2022-05-24 15:07] VITALS: BP 135/71; PULSE 85; RESP 20; TEMP 36.1; O2SAT 96
[2022-05-24 16:08] VITALS: O2SAT 96
--- NOTE | 2022-05-24 16:35 | PHA.CONS_ITS ---
TCU RX Drug Regimen Review Subjective: TCU Admission. 82 YOM presented to the ER with confusion. Hospitalized for stroke, outside tPA window. Admitted to TCU with debility for strengthening and rehabilitation. Objective: Allergies No Known Allergies Allergy (Verified 05/19/22 10:52) Current Medications Generic Name Dose Route Start Last Admin Trade Name Freq PRN Reason Stop Dose Admin Acetaminophen 650 mg 05/21/22 15:15 05/24/22 05:14 Acetaminophen 325 Mg Tablet PO 650 mg Q4H PRN PRN Administration Pain 1-10 Or Fever Aspirin 81 mg 05/22/22 08:00 05/24/22 07:50 Aspirin E.C. 81 Mg Tablet PO 81 mg BREAKFAST BETH Administration Atorvastatin Calcium 40 mg 05/21/22 22:00 05/23/22 21:47 Atorvastatin Calcium 40 Mg Tablet PO 40 mg QHS BETH Administration Calamine/Phenol 1 applic 05/23/22 06:00 05/24/22 05:09 Menthol/Lanolin/Calamine/Znox 113 Gm Tube TOPICAL 1 applic BID BETH Administration Protocol Carvedilol 6.25 mg 05/22/22 08:00 05/24/22 07:50 Carvedilol 6.25 Mg Tablet PO 6.25 mg BIDCM BETH Administration Furosemide 20 mg 05/22/22 06:00 05/24/22 05:08 Furosemide 20 Mg Tablet PO 20 mg DAILY BETH Administration Guaifenesin 1 tablet 05/21/22 18:00 05/24/22 05:08 Guaifenesin/D-Methorphan Tab.Sr.12h PO 1 tablet BID BETH Administration Lisinopril 10 mg 05/22/22 06:00 05/24/22 05:08 Lisinopril 10 Mg Tablet PO 10 mg DAILY BETH Administration Magnesium Hydroxide 30 ml 05/21/22 15:53 Magnesium Hydroxide 30 Ml Udc PO DAILY PRN Constipation Melatonin 3 mg 05/21/22 15:15 05/24/22 00:32 Melatonin 3 Mg Tablet PO 3 mg QHS PRN PRN Administration Insomnia Pantoprazole Sodium 40 mg 05/22/22 06:00 05/24/22 05:08 Pantoprazole Sodium 40 Mg Tablet PO 40 mg DAILY BETH Administration Rivaroxaban 10 mg 05/21/22 17:00 05/23/22 17:17 Rivaroxaban 10 Mg Tablet PO 06/04/22 17:01 10 mg DINNER BETH Administration Senna/Docusate Sodium 1 tablet 05/21/22 18:00 05/24/22 05:08 Senna/Docusate Sodium 1 Tablet PO 1 tablet BID [facility] Administration Sodium Chloride 10 - 40 ml 05/21/22 15:01 0.9% Saline Lock 10 Ml Syringe IV UD PRN SALINE FLUSH Tamsulosin HCl 0.4 mg 05/24/22 17:30 Tamsulosin Hcl 0.4 Mg Capsule PO DAILY@1730 [facility] Tuberculin PPD 0.1 ml 05/29/22 10:00 Tuberculin,Purif.Prot.Deriv. 50 Tu/Ml Vial ID 05/29/22 10:01 X1 ONE Problem List (Last Reviewed 05/21/22 @ 15:[address] Paul Jackson MD) Hearing loss (Acute) Stroke (Acute) Visual hallucination (Acute) Acute encephalopathy (Acute) Debility (Acute) Fracture of lateral malleolus of right ankle (Acute) Vital Signs Temp Pulse Resp BP Pulse Ox O2 Del Method O2 Flow Rate 96.9 F L 85 20 H 135/71 H 96 Room Air 2 05/24/22 15:07 05/24/22 15:07 05/24/22 15:07 05/24/22 15:07 05/24/22 16:08 05/24/22 16:08 05/22/22 09:30 Oxygen Flow Rate (L/min) 2 Oxygen Delivery Method Room Air Weight: 82.599 kg Body Mass Index (BMI) 28.0 Sodium 133 mmol/L (136-145) L 05/22/22 06:01 Potassium 4.4 mmol/L (3.5-5.1) 05/22/22 06:01 Chloride 103 mmol/L (98-107) 05/22/22 06:01 Carbon Dioxide 23.0 mmol/L (21.0-32.0) 05/22/22 06:01 Anion Gap 7 (5-15) 05/22/22 06:01 BUN 36 mg/dL (7-18) H 05/22/22 06:01 Creatinine 1.17 mg/dL (0.70-1.30) 05/22/22 06:01 Est GFR (MDRD) Af Amer 76 mL/min (>60) 05/22/22 06:01 Est GFR (MDRD) Non-Af 63 mL/min (>60) 05/22/22 06:01 BUN/Creatinine Ratio 30.8 RATIO (10-20) H 05/22/22 06:01 Glucose 101 mg/dL (74-106) 05/22/22 06:01 Assessment/Plan: 1. Pain: acetaminophen 650mg PO Q4H PRN 1-10 or fever. Resident has had 6 doses of acetaminophen for pain scores of 2/3/5/8 for pain in ankle/foot/general. Please continue to monitor for increased pain and PRN usage. 2. Bowel: senna/docusate 1T PO BID and MOM 30mL PO daily PRN constipation. Resident has not received any PRN doses. Please continue to monitor for constipation and PRN usage. Last documented bowel movement with today. 3. DVT prophylaxis: rivaroxaban 10mg PO DINNER thru 06/04/22. Please continue to monitor for S/S of bleeding/DVT and hemoglobin (last 11.9g/dL). 4. Stroke: aspirin 81mg PO breakfast. Please continue to monitor for S/S of bleeding and hemoglobin. 5. Hypertension: carvedilol 6.25mg PO BID and lisinopril 10mg PO daily. Please continue to monitor BP (last 135/71), HR (last 85), potassium (last 4.4mmol/L), renal function and cough. Per H&P, resident has had a cough for about a month. Lisinopril can cause a cough. Please consider stopping Mucinex DM and changing lisinopril to a different agent for blood pressure to see if the cough is YURIY inhibitor induced if clinically appropriate. Thanks. 6. Hyperlipidemia: atorvastatin 40mg PO QHS. Please consider ordering a lipid panel as the resident does not have one in the chart. Thanks. Please continue to monitor AST/ALT (last 05/19/22) and muscle pain. 7. Edema: furosemide 20mg PO daily. Please continue to monitor for edema, renal function, BP, and potassium (last 4.4mmol/L). 8. GERD: pantoprazole 40mg PO daily. Please continue to monitor for S/S of GERD and diarrhea. 9. Insomnia: melatonin 3mg PO QHS PRN insomnia. Please continue to monitor for PRN usage and excessive drowsiness. Resident has had 1 dose so far, per nursing note the dose was ineffective. 10. Cough: Mucinex DM 1T PO BID. Per H&P, resident has had a cough for about a month. Lisinopril can cause a cough. Please consider stopping Mucinex DM and changing lisinopril to a different agent for blood pressure to see if the cough is YURIY inhibitor induced if clinically appropriate. Thanks. 11. Urinary retention (per nursing documentation, resident pulling at segal, residuals in bladder scans): tamsulosin 0.4mg PO daily. Please continue to monitor for urinary retention and BP. Assessment/Plan for indications treated with psychotropic medications: None Medical chart and medication regimen reviewed. The following medication irregularities or issues were identified: *1. Lisinopril 10mg PO daily and Mucinex DM 1T PO BID. Per H&P, resident has had a cough for about a month. Lisinopril can cause a cough. Please consider stopping Mucinex DM and changing lisinopril to a different agent for blood pressure to see if the cough is YURIY inhibitor induced if clinically appropriate. Thanks. *2. Atorvastatin 40mg PO QHS. Please consider ordering a lipid panel as the resident does not have one in the chart. Thanks. . Date of Note:: 05/24/22
[2022-05-24] MEDS: Rivaroxaban 10 MG Tablet PO (17:26)
[2022-05-24] MEDS: Tamsulosin HCl 0.4 MG Capsule PO (17:26)
[2022-05-25] MEDS: Lisinopril 10 MG Tablet PO (06:56)
[2022-05-25] MEDS: guaiFENesin/D-Methorphan TAB.SR.12H 1 TABLET PO ×2 (06:56→17:22)
[2022-05-25] MEDS: Senna/Docusate Sodium 1 Tablet PO ×2 (06:57→17:23)
[2022-05-25] MEDS: Pantoprazole Sodium 40 MG Tablet PO (06:57)
[2022-05-25] MEDS: Furosemide 20 MG Tablet PO (06:57)
[2022-05-25] MEDS: Menthol/Lanolin/Calamine/Znox 113 GM Tube 1 APPLIC TOPICAL ×2 (07:08→17:23)
[2022-05-25 07:16] VITALS: O2SAT 98
[2022-05-25] MEDS: Carvedilol 6.25 MG Tablet PO ×2 (08:04→17:22)
[2022-05-25] MEDS: Aspirin E.C. 81 MG Tablet PO (08:05)
--- NOTE | 2022-05-25 09:39 | ST.MBS ---
Modified Barium Swallow - Patient Information Study Date: 05/25/22 Study Time: 09:00 Direct Billable Minutes: 130 Total Minutes procedure & reportin Diagnosis: STROKE (I63.9), DEBILITY (R53.81) Referring Physician: Paul Jackson Chi Reason for Referral: Objectively assess swallow function, risk for aspiration, and determine recommendations for least restrictive diet textures and compensatory strategies to improve safety of swallow. Medical History: Rudy Knott is a 82 Male who presents to [facility] Emergency Department on 05/19/22 with confusion. Confusion, visual hallucinations (people doing construction on house). Recent right ankle fracture, CT brain negative urinalysis negative. Weakness of left body, left leg, leg arm, but resolving. CT brain new encephalomalacia anterior right frontal lobe. Outside window for TPA, Chest X-ray showed mild congestion. 05/19/2022 admit to Hospital. Aspirin, Atorvastatin, PT/OT/ST for stroke. Cough for 1 month. On 05/21/22 - admit to TCU with debility, here for rehabilitation, strengthening, prior to discharge home. Current Diet Ordered: EASY TO CHEW/THIN LIQUIDS Dentition: Upper Dentures, Lower Dentures Mental Status: WNL Respiratory Status: Oxygenating on Room Air - Penetration-Aspiration Scale Penetration-Aspiration Scale: OBJECTIVE ASSESSMENT OF SWALLOW FUNCTION (QUANTITATIVE ? PER TRIAL): PENETRATION / ASPIRATION SCALE (CUNHA): 1 = does not enter airway 2 = enters airway/above vocal folds/ejected 3 = enters airway/above vocal folds/not ejected 4 = enters airway/contacts vocal folds/ejected 5 = enters airway/contacts vocal folds/not ejected 6 = enters airway/below vocal folds/ejected 7 = enters airway/below vocal folds/not ejected despite effort 8 = enters airway/below vocal folds/no effort VIDEOFLOROSCOPIC SCALE SCORE (CUNHA): Grade I = aspiration of material that has penetrated into the laryngeal vestibule, intact cough reflex Grade II = aspiration < 10 % of the bolus, intact cough reflex Grade III = aspiration of < 10 % of the bolus, reduced cough reflex or aspiration of > 10 % of the bolus, intact cough reflex Grade IV = aspiration of > 10 % of the bolus, reduced cough reflex - Penetration-Aspiration Scale Score Thin Liquid via teaspoon Result: 1= does not enter airway Thin Liquid via teaspoon Trial 2 Result: 1= does not enter airway Thin Liquid via large single sip from cup Result: 1= does not enter airway Thin Liquid via single sip from straw Result: 1= does not enter airway [place] Thick Liquid via small single sip from cup Result: 1= does not enter airway Honey Thick Liquid via small single sip from cup Result: 1= does not enter airway Pudding Result: 1= does not enter airway Cookie Result: 1= does not enter airway Barium Tablet Result: 1= does not enter airway - Oral Phase Labial Seal: No Labial Escape Tongue Control During Bolus Hold: Escape to lateral buccal cavity/floor of mouth Bolus Preparation/Mastication: Slow prolonged chewing/mashing with complete recollection Bolus Transport/Lingual Motion: Slowed tongue motion Oral Residue: Residue collection on oral structures - Pharyngeal Phase Initiation of Pharyngeal Swallow: Bolus head in valleculae Soft Palate Elevation: No bolus between soft palate and pharyngeal wall Laryngeal Elevation: Comp. Superior move thyroid cart w/comp. apprx arytenoid cart-epig pet Anterior Hyoid Excursion: Complete anterior movement Epiglottic Movement: Complete inversion Laryngeal Vestibule Closure at Height of Swallow: Complete; no air/contrast in laryngeal vestibule Pharyngeal Stripping Wave: Present - complete Pharyngoesophageal Segment Opening: Complete distension and complete duration; no obstruction of flow Tongue Base Retraction: Narrow column of contrast between tongue base & post. pharyngeal wall Pharyngeal Residue: Collection of residue within or on pharyngeal structures - Esophageal Phase Esophageal Clearance: Complete clearance - Treatment Strategies Effects of treatment strategies attemped:: multiple swallows = somewhat effective to clear pharyngeal residue - Diagnosis/Impression Diagnosis: mild oropharyngeal dysphagia (R13.12) Impression: Oral phase primarily marked by... - mild mastication insufficiency - suboptimal lingual control contributing to poor oral clearance - mild to moderate oral residue spilling posteriorly to the pharynx after the swallow - poor AP transport of barium tablet, required (2) 8oz glasses to effectively swallow tablet. Patient reports he typically takes medications whole w/ water and denies any difficulty. Pharyngeal phase primarily marked by... - mild pharyngeal residue post deglutition attributed to reduced tongue base retraction - patient is at risk for post prandial penetration / aspiration of oral and pharyngeal residue - prominent cricopharyngeal bar located at the C-5/C-6 level, no effect on pharyngoesophageal motility - Recommendations Diet: Regular Textures - Easy to Chew, Thin Liquids Comment: Recommending medications whole in applesauce if patient demonstrates difficulty at bedside Compensatory Strategies: Small Bites, Small Sips, Slow Rate, Multiple Swallows, Sitting upright, Assist with verbal cues to use recommended strategies Supervision: Distant Supervision Recommend Repeat Modified Barium Swallow: TBD Need for Skilled Speech Therapy Services: Yes Comment: Patient requires skilled speech-language intervention targeting continued diet texture management and training and implementation of recommended compensatory strategies. May additionally consider oropharyngeal strengthening exercises targeting above mentioned oral and pharyngeal deficits, though deficits likely age related in nature with minimal impact on swallowing abilities. Education Completed: 1. Described result of evaluation., 2. Pt understands evaluation & agrees with goals and treatment plan., 4. Family/caregivers understand evaluation & agree w/ goals & tx plan. - Status Active ST Patient: Active - Contact Information [facility] Speech Therapy:: Cassandra Elizondo M.A. CCC-CLINICAL OFFICE TECHNICIAN Speech-Language Pathologist [facility] [address] [place] [address] [email or web address] [phone] 05/25/22 10:30
--- NOTE | 2022-05-25 13:09 | CASEMGMT ---
Social Work IDT met with patient, dtrs and DIL for care plan meeting. Discussed patient's progress in PT/OT/ST/SN. Educated to [employer] insurance with NRD 06/01 and continued stay is not guaranteed. Pts goal is to return home alone. Dtr offered for pt to stay with her and family to assist. However, dtr still needs pt to transfer and toilet independently, but does not have steps to navigate. Pt has a new catheter. SW revisited initial request of pt transferring to RU. Dtr confirmed. Explained to family pt is currently not appropriate for RU and can revisit at a later date, but pt can remain on TCU until insurance issues DC. Family expressed understanding. SW to continue to follow for DC planning. Guerline Funk, PLASMA TABLE OPERATOR NURSE UNIT MANAGER
[2022-05-25] MEDS: Acetaminophen 325 MG Tablet 650 MG PO (15:02)
[2022-05-25 15:56] VITALS: BP 101/42; PULSE 74; RESP 20; TEMP 2.9; TEMP 37.3; O2SAT 93
[2022-05-25] MEDS: Rivaroxaban 10 MG Tablet PO (17:22)
[2022-05-25] MEDS: Tamsulosin HCl 0.4 MG Capsule PO (17:22)
[2022-05-25] MEDS: Ensure Plus High Protein 120 ML LIQUID PO (17:24)
[2022-05-25 20:00] VITALS: PULSE 73; RESP 14; O2SAT 96
[2022-05-25] MEDS: Atorvastatin Calcium 40 MG Tablet PO (21:37)
[2022-05-26] MEDS: Acetaminophen 325 MG Tablet 650 MG PO ×2 (04:50→13:37)
[2022-05-26] MEDS: Senna/Docusate Sodium 1 Tablet PO ×2 (04:51→18:33)
[2022-05-26] MEDS: Furosemide 20 MG Tablet PO (04:51)
[2022-05-26] MEDS: Pantoprazole Sodium 40 MG Tablet PO (04:51)
[2022-05-26] MEDS: Ensure Plus High Protein 120 ML LIQUID PO ×2 (04:51→18:37)
[2022-05-26] MEDS: guaiFENesin/D-Methorphan TAB.SR.12H 1 TABLET PO ×2 (04:51→18:33)
[2022-05-26] MEDS: Lisinopril 10 MG Tablet PO (04:51)
[2022-05-26] MEDS: Menthol/Lanolin/Calamine/Znox 113 GM Tube 1 APPLIC TOPICAL ×2 (04:52→18:38)
[2022-05-26 05:02] VITALS: BP 135/58; PULSE 78; RESP 16
[2022-05-26] MEDS: Aspirin E.C. 81 MG Tablet PO (08:42)
[2022-05-26] MEDS: Carvedilol 6.25 MG Tablet PO ×2 (08:42→18:33)
[2022-05-26 08:50] VITALS: BP 135/60; PULSE 86
[2022-05-26 14:55] VITALS: O2SAT 94
[2022-05-26 16:00] VITALS: BP 132/64; PULSE 78; RESP 16; TEMP 36.2; O2SAT 96
--- NOTE | 2022-05-26 18:23 | PCM.PROGNOTE ---
Subjective Subjective Patient is an 82-year-old male who suffered an ankle fracture of the right lower extremity on 05/11/2022. Patient was placed into the transitional care unit for rehabilitation prior to discharge home. He still complains of some right ankle soreness. He has been wearing the cam boot to the right lower extremity as instructed. He has been trying to stay off his feet is much as possible. He denies any further complaints today. Objective Data Objective Data Vital Signs: Vital Signs Temp Pulse Resp BP Pulse Ox O2 Del Method O2 Flow Rate 97.1 F L 78 16 132/64 H 96 Room Air 2 05/26/22 16:00 05/26/22 16:00 05/26/22 16:00 05/26/22 16:00 05/26/22 16:00 05/26/22 16:00 05/25/22 07:16 Oxygen Flow Rate (L/min) 2 Oxygen Delivery Method Room Air Weight: 82.599 kg Body Mass Index (BMI) 28.0 Intake & Output: Intake and Output for Last 24 Hours 05/24/22 05/25/22 05/26/22 23:59 23:59 23:59 Intake Total 720 / 720 360 / 360 480 / 480 Output Total 1550 / 1550 2500 / 2500 1925 / 1925 Balance -830 / -830 -2140 / -2140 -1445 / -1445 Lab / Micro Data Result Diagrams: 05/22/22 06:01 05/22/22 06:01 Physical Exam Const alert, oriented x3 and no apparent distress General Appearance: cooperative HEENT normocephalic Lymph Lymphatic: no lymphadenopathy noted and no lymphedema noted Resp normal respiratory effort Cardio regular rate and regular rhythm Extremity normal capillary refill, no joint enlargement, no calf tenderness and no pedal edema Extremity Narrative: Right lower extremity: There is some mild soft tissue edema localized about the lateral malleolus. No ecchymosis noted. There is some pain to palpation at the about the distal fibula, specifically anterior medial near the distal tibiofibular syndesmosis. Peripheral Pulses: Yes posterior tibial pulses present and dorsalis pedis pulses present Skin no rashes or lesions noted, skin turgor normal and no jaundice Neuro moves all extremities Assessment & Plan Assessment/Plan (1) Fracture of lateral malleolus of right ankle: (2) Fx lateral malleolus-closed: (3) Debility: (4) Pain in right lower leg: PLAN: Plan Patient seen and evaluated Patient suffered acute ankle fracture 05/11/2022 radiographs obtained demonstrate acute, minimally displaced, spiral fracture of the distal fibula with soft tissue swelling. Updated radiographs were obtained 05/20/2022 demonstrate no change in the nondisplaced oblique fracture of the distal right fibula at the level of the tibial plafond. Patient is currently 2 weeks out from fracture. Right lower extremity: Edema has decreased about the ankle however there is still some minimal soft tissue edema about the lateral malleolus. No evidence of ecchymosis. There remains some pain to palpation about the anterior medial distal fibula near the distal tibiofibular syndesmosis. This is improving. Dressing: Soft cast dressing consisting of Kerlix and Cory wraps. CAM boot right lower extremity. Offloading: CAM boot right lower extremity. Patient may be partial weightbearing for stability purposes during transfer. He is otherwise to remain nonweightbearing to the right lower extremity. Edema: He is to elevate right lower extremity at all times of rest Pain: Patient may take Tylenol 650 mg every 4 hours as needed Recommend continued nonsurgical care secondary to nondisplaced nature of the fracture as well as medical history. Continue with cam boot to the right lower extremity. He will likely remain in the cam boot for the next 4 to 6 weeks as fracture continues to heal. Plan is to update radiographs next week and pending healing status may progress patient to weightbearing in the CAM boot only. Podiatry will continue to follow weekly while in house. Please do not hesitate to call for any questions or concerns. Jr. Miguel Smith.P.M. [facility] [phone] Note: Storactive speech recognition strip mine supervisor software was used to create portions of this document. Sound-alike and misspelled words, as well as other strip mine supervisor errors may be contained in the documentation.
[2022-05-26] MEDS: Rivaroxaban 10 MG Tablet PO (18:33)
[2022-05-26] MEDS: Tamsulosin HCl 0.4 MG Capsule PO (18:33)
[2022-05-26 18:40] VITALS: BP 162/72; PULSE 78
[2022-05-26] MEDS: Atorvastatin Calcium 40 MG Tablet PO (20:20)
[2022-05-26] MEDS: MELATONIN 3 MG TABLET PO (20:43)
[2022-05-27] MEDS: Menthol/Lanolin/Calamine/Znox 113 GM Tube 1 APPLIC TOPICAL ×2 (05:32→17:22)
[2022-05-27] MEDS: Ensure Plus High Protein 120 ML LIQUID PO ×2 (05:32→17:24)
[2022-05-27] MEDS: Pantoprazole Sodium 40 MG Tablet PO (05:33)
[2022-05-27] MEDS: Lisinopril 10 MG Tablet PO (05:34)
[2022-05-27] MEDS: Furosemide 20 MG Tablet PO (05:34)
[2022-05-27] MEDS: guaiFENesin/D-Methorphan TAB.SR.12H 1 TABLET PO ×2 (05:34→17:20)
[2022-05-27] MEDS: Senna/Docusate Sodium 1 Tablet PO ×2 (05:34→17:21)
[2022-05-27 05:37] VITALS: BP 147/62; PULSE 78; RESP 16
[2022-05-27 07:52] VITALS: O2SAT 93
[2022-05-27 08:15] VITALS: BP 132/76; PULSE 108
[2022-05-27] MEDS: Carvedilol 6.25 MG Tablet PO ×2 (08:16→15:58)
[2022-05-27] MEDS: Aspirin E.C. 81 MG Tablet PO (08:17)
[2022-05-27 10:00] VITALS: RESP 16; O2SAT 94
--- NOTE | 2022-05-27 14:10 | MDS.RN ---
Pain interview for CRISPIN 05/28/22.
--- NOTE | 2022-05-27 14:20 | RAD_ITS ---
STUDY: X-RAY - ABDOMEN/PELVIS REASON FOR EXAM: Male, 82 years old. Constipation. TECHNIQUE: Two AP supine views of the abdomen and pelvis. COMPARISON: None. FINDINGS: There are calcified granulomata at the lung bases. There is thickening throughout the colon. There is air in scattered mildly distended small bowel loops in the midabdomen. There is no evidence of obstruction. Contrast is seen in multiple sigmoid diverticuli and within the rectum suggesting a remote barium study. There is no demonstrated free abdominal air. The visualized liver, spleen and kidneys are grossly normal in size and morphology. Vascular calcifications are seen in the pelvis. Degenerative changes of the lumbar spine and hips. RAD/Abdomen Single View IMPRESSION: 1. No evidence for constipation. There is residual barium in sigmoid diverticuli in the rectum. There is no evidence of acute intra-abdominal process. 2. Degenerative changes of the hips and lumbar spine. Electronically Signed: Dilip Van DO at 16:53 EDT ,
--- NOTE | 2022-05-27 14:46 | CASEMGMT ---
Social Work BIMS (04/07) and PHQ-9 () completed for MDS assessment. Pt having extreme difficulty hearing this worker to complete assessment, despite hearing aids and visual cues. Dtr assisted with clarifying in Vietnamese to pt, however, even then pt having difficulty with comprehension and response. Limited exploration with positive responses in PHQ-9 r/t barrier with conversation with hearing and comprehension. Pt did express he is having difficulty with loss of independence and being admitted d/t medical dx. SW empathized with pt. Offered support as needed. Guerline Funk, BARREL TURNER AUTOMATIC FOLDER SEAMER
[2022-05-27 15:01] VITALS: BMI 27.6
[2022-05-27 15:03] LABS: Absolute Lymphocyte Count 2.82 X10^3/uL (0.83-4.51); Absolute Neutrophil Count 7.7 X10^3/uL (2.0-7.7); Basophil# 0.06 X10^3/uL; Basophil% 0.5 % (0-1); Eosinophils% 2.6 % (0-5); Hematocrit 32.8 % (40-54); Hemoglobin 10.8 g/dL (13.0-16.5); Lymphocyte # 2.82 X10^3/ul (0.83-4.51); Lymphocyte % 24.4 % (19-41); Mean Corp Hgb Conc 32.9 g/dL (32-36); Mean Corpuscular Hgb 29.3 pg (27.0-32.0); Mean Corpuscular Volume 89.1 fL (80-94); Mean Platelet Vol. 9.1 fl (6.2-12.0); Monocyte# 0.63 X10^3/uL; Monocyte% 5.4 % (0-10); NRBC Flagged by Analyzer 0 % (0-5); Neutrophil # 7.69 X10^3/uL (2.7-7.7); Neutrophil % 66.6 % (47-70); Platelet Count 329 K/mm3 (150-450); RBC Distribution Width CV 13.8 % (11.6-14.6); RBC Distribution Width SD 44.9 fl (35.1-43.9); Red Blood Count 3.68 M/mm3 (4.6-6.2); White Blood Count 11.6 K/mm3 (4.4-11.0)
[2022-05-27 15:26] LABS: Bacteria 0 SEEN /hpf (None Seen); Squamous Epithelial Cells - UA 0 SEEN /hpf (0-5)
[2022-05-27 15:29] LABS: Anion Gap 8 (5-15); BUN 34 mg/dL (7-18); BUN/Creat Ratio 28.1 RATIO (10-20); Calcium,Total 8.8 mg/dL (8.5-10.1); Chloride 101 mmol/L (98-107); Creatinine, Serum 1.21 mg/dL (0.70-1.30); EST Glomerular Filtration Rate 61 mL/min (>60); Est Glom Filt Rate - Afr Amer 74 mL/min (>60); Estimated Creatinine Clearance 43.97 ml/min; Glucose 144 mg/dL (74-106); Potassium 4.2 mmol/L (3.5-5.1); Sodium Level 132 mmol/L (136-145)
[2022-05-27 15:34] VITALS: BP 134/74; PULSE 81; RESP 16; TEMP 36.2; O2SAT 97
[2022-05-27 15:39] LABS: Color, Urine Yellow (Yellow); Glucose, Dipstick Normal (Normal); Ketone-Dipstick Negative (Negative); Leukocyte Esterase-Dipstick 100 /ul (Negative); Nitrite-Dipstick Negative (Negative); Occult Blood-Urine 250 /ul (Negative); Protein-Dipstick 30 mg/dl (Negative); Specific Gravity, Urine 1.015 (1.002-1.030); Urine Bilirubin Dipstick Negative (Negative); Urine Clarity Clear (Clear); Urine Urobilinogen Normal (Normal)
[2022-05-27 15:50] LABS: Red Blood Cells-Urine 25-50 SEEN /hpf (0-5)
[2022-05-27 15:51] LABS: Mucous, Urine RARE /hpf (<or=2+); White Blood Cells 0-5 SEEN /hpf (0-5)
[2022-05-27] MEDS: Rivaroxaban 10 MG Tablet PO (15:58)
--- NOTE | 2022-05-27 16:38 | NURSING ---
Patient more confused than normal today, usually confused overnight and oriented during the day. Updated Dr Jackson this afternoon, orders for labs, KUB, UA w/ culture, and covid swab.
[2022-05-27] MEDS: Tamsulosin HCl 0.4 MG Capsule PO (17:20)
[2022-05-27] MEDS: MELATONIN 10 MG TABLET PO (20:56)
[2022-05-27] MEDS: Atorvastatin Calcium 40 MG Tablet PO (20:57)
[2022-05-28] MEDS: Ensure Plus High Protein 120 ML LIQUID PO ×2 (05:44→17:29)
[2022-05-28] MEDS: Lisinopril 10 MG Tablet PO (05:45)
[2022-05-28] MEDS: guaiFENesin/D-Methorphan TAB.SR.12H 1 TABLET PO ×2 (05:45→17:28)
[2022-05-28] MEDS: Furosemide 20 MG Tablet PO (05:45)
[2022-05-28] MEDS: Senna/Docusate Sodium 1 Tablet PO (05:45)
[2022-05-28] MEDS: Pantoprazole Sodium 40 MG Tablet PO (05:45)
[2022-05-28] MEDS: Menthol/Lanolin/Calamine/Znox 113 GM Tube 1 APPLIC TOPICAL ×2 (05:49→17:28)
[2022-05-28] MEDS: Carvedilol 6.25 MG Tablet PO ×2 (09:08→17:28)
[2022-05-28] MEDS: Aspirin E.C. 81 MG Tablet PO (09:08)
[2022-05-28 10:00] VITALS: PULSE 86; RESP 18; O2SAT 92
[2022-05-28 14:35] VITALS: BP 118/48; PULSE 72; RESP 18; TEMP 36.1; O2SAT 100
[2022-05-28 16:00] VITALS: O2SAT 100
[2022-05-28] MEDS: Rivaroxaban 10 MG Tablet PO (17:28)
[2022-05-28] MEDS: Tamsulosin HCl 0.4 MG Capsule PO (17:28)
[2022-05-28] MEDS: Atorvastatin Calcium 40 MG Tablet PO (20:18)
[2022-05-28] MEDS: MELATONIN 10 MG TABLET PO (20:18)
[2022-05-29 05:26] LABS: Absolute Lymphocyte Count 3.41 X10^3/uL (0.83-4.51); Absolute Neutrophil Count 5.4 X10^3/uL (2.0-7.7); Basophil# 0.05 X10^3/uL; Basophil% 0.5 % (0-1); Eosinophil# 0.29 X10^3/uL; Hematocrit 32.9 % (40-54); Hemoglobin 10.9 g/dL (13.0-16.5); Lymphocyte # 3.41 X10^3/ul (0.83-4.51); Lymphocyte % 34.9 % (19-41); Mean Corp Hgb Conc 33.1 g/dL (32-36); Mean Corpuscular Hgb 29.3 pg (27.0-32.0); Mean Corpuscular Volume 88.4 fL (80-94); Mean Platelet Vol. 9.3 fl (6.2-12.0); Monocyte# 0.62 X10^3/uL; Monocyte% 6.4 % (0-10); NRBC Flagged by Analyzer 0 % (0-5); Neutrophil # 5.35 X10^3/uL (2.7-7.7); Neutrophil % 54.8 % (47-70); Platelet Count 332 K/mm3 (150-450); RBC Distribution Width CV 13.7 % (11.6-14.6); RBC Distribution Width SD 44.5 fl (35.1-43.9); Red Blood Count 3.72 M/mm3 (4.6-6.2); White Blood Count 9.8 K/mm3 (4.4-11.0)
[2022-05-29 05:30] VITALS: BP 133/64; PULSE 72; RESP 16
[2022-05-29 05:41] LABS: Anion Gap 6 (5-15); BUN 32 mg/dL (7-18); BUN/Creat Ratio 28.1 RATIO (10-20); Calcium,Total 8.8 mg/dL (8.5-10.1); Chloride 101 mmol/L (98-107); Creatinine, Serum 1.14 mg/dL (0.70-1.30); EST Glomerular Filtration Rate 65 mL/min (>60); Est Glom Filt Rate - Afr Amer 79 mL/min (>60); Estimated Creatinine Clearance 46.67 ml/min; Glucose 101 mg/dL (74-106); Potassium 4.6 mmol/L (3.5-5.1); Sodium Level 132 mmol/L (136-145)
[2022-05-29] MEDS: Pantoprazole Sodium 40 MG Tablet PO (05:47)
[2022-05-29] MEDS: guaiFENesin/D-Methorphan TAB.SR.12H 1 TABLET PO ×2 (05:47→17:16)
[2022-05-29] MEDS: Furosemide 20 MG Tablet PO (05:47)
[2022-05-29] MEDS: Lisinopril 10 MG Tablet PO (05:47)
[2022-05-29] MEDS: Menthol/Lanolin/Calamine/Znox 113 GM Tube 1 APPLIC TOPICAL ×2 (05:48→17:17)
[2022-05-29] MEDS: Ensure Plus High Protein 120 ML LIQUID PO ×2 (05:48→17:19)
[2022-05-29] MEDS: Aspirin E.C. 81 MG Tablet PO (08:49)
[2022-05-29] MEDS: Carvedilol 6.25 MG Tablet PO ×2 (08:49→17:15)
[2022-05-29] MEDS: Tuberculin,Purif.prot.deriv. 50 TU/ML Vial 0.1 ML ID (09:58)
[2022-05-29 15:03] VITALS: BP 126/58; PULSE 79; RESP 16; TEMP 36.4; O2SAT 96
[2022-05-29] MEDS: Rivaroxaban 10 MG Tablet PO (17:15)
[2022-05-29] MEDS: Tamsulosin HCl 0.4 MG Capsule PO (17:16)
[2022-05-29 17:19] VITALS: O2SAT 93
[2022-05-29] MEDS: Acetaminophen 325 MG Tablet 650 MG PO (19:50)
[2022-05-29] MEDS: MELATONIN 10 MG TABLET PO (19:51)
[2022-05-29] MEDS: Atorvastatin Calcium 40 MG Tablet PO (19:54)
[2022-05-29 20:00] VITALS: PULSE 73; RESP 16; O2SAT 94
[2022-05-30] MEDS: Menthol/Lanolin/Calamine/Znox 113 GM Tube 1 APPLIC TOPICAL ×2 (05:15→17:59)
[2022-05-30] MEDS: Ensure Plus High Protein 120 ML LIQUID PO ×2 (05:15→17:57)
[2022-05-30] MEDS: Pantoprazole Sodium 40 MG Tablet PO (05:16)
[2022-05-30] MEDS: Furosemide 20 MG Tablet PO (05:16)
[2022-05-30] MEDS: guaiFENesin/D-Methorphan TAB.SR.12H 1 TABLET PO ×2 (05:16→17:57)
[2022-05-30] MEDS: Lisinopril 10 MG Tablet PO (05:16)
[2022-05-30 08:45] VITALS: RESP 16; O2SAT 93
[2022-05-30 08:47] VITALS: BP 128/57; PULSE 78; RESP 16; TEMP 36.6; O2SAT 93
[2022-05-30] MEDS: Carvedilol 6.25 MG Tablet PO ×2 (08:49→17:56)
[2022-05-30] MEDS: Aspirin E.C. 81 MG Tablet PO (08:49)
[2022-05-30 08:51] VITALS: O2SAT 95
--- NOTE | 2022-05-30 09:08 | NURSING ---
Rodriguez removed, patient tolerated well. Bladder scans scheduled Q8hrs.
--- NOTE | 2022-05-30 09:43 | NURSING ---
Credit Risk Associate Note; MDS for 05/28/22 complete
[2022-05-30 17:55] VITALS: BP 141/65; PULSE 74
[2022-05-30] MEDS: Rivaroxaban 10 MG Tablet PO (17:56)
[2022-05-30] MEDS: Tamsulosin HCl 0.4 MG Capsule PO (17:57)
[2022-05-30] MEDS: Senna/Docusate Sodium 1 Tablet PO (17:57)
[2022-05-30] MEDS: Atorvastatin Calcium 40 MG Tablet PO (20:33)
[2022-05-30] MEDS: MELATONIN 10 MG TABLET PO (20:33)
--- NOTE | 2022-05-31 01:32 | NURSING ---
Patient pushed call light, SUPERINTENDENT CONTAINER TERMINAL's answered and went back to assist him. Patient had urinated all over sheets and on floor. SUPERINTENDENT CONTAINER TERMINAL's were attempting to clean patient up when he stated that If another person comes back here and touches me, I am going to hit them. SUPERINTENDENT CONTAINER TERMINAL's were able to redirect patient. Will continue to monitor.
[2022-05-31] MEDS: Menthol/Lanolin/Calamine/Znox 113 GM Tube 1 APPLIC TOPICAL ×2 (05:05→17:43)
[2022-05-31] MEDS: Ensure Plus High Protein 120 ML LIQUID PO ×2 (05:06→17:45)
[2022-05-31] MEDS: Lisinopril 10 MG Tablet PO (05:07)
[2022-05-31] MEDS: Furosemide 20 MG Tablet PO (05:07)
[2022-05-31] MEDS: guaiFENesin/D-Methorphan TAB.SR.12H 1 TABLET PO ×2 (05:07→17:43)
[2022-05-31] MEDS: Pantoprazole Sodium 40 MG Tablet PO (05:07)
[2022-05-31] MEDS: Aspirin E.C. 81 MG Tablet PO (08:31)
[2022-05-31] MEDS: Carvedilol 6.25 MG Tablet PO ×2 (08:31→17:43)
[2022-05-31 14:18] VITALS: BP 132/65; PULSE 82; RESP 17; TEMP 36.4; O2SAT 92
[2022-05-31 15:58] VITALS: O2SAT 94
[2022-05-31] MEDS: Tamsulosin HCl 0.4 MG Capsule PO (17:43)
[2022-05-31] MEDS: Rivaroxaban 10 MG Tablet PO (17:43)
[2022-05-31] MEDS: MELATONIN 10 MG TABLET PO (19:30)
[2022-05-31] MEDS: Atorvastatin Calcium 40 MG Tablet PO (19:30)
[2022-05-31 20:15] VITALS: PULSE 71; RESP 16; O2SAT 92
--- NOTE | 2022-05-31 22:39 | NURSING ---
Patient restless this evening, pushing call light frequently, turning himself around in bed. Assisted up to chair and assisted to common area.
[2022-06-01] MEDS: Lisinopril 10 MG Tablet PO (04:23)
[2022-06-01] MEDS: Pantoprazole Sodium 40 MG Tablet PO (04:23)
[2022-06-01] MEDS: guaiFENesin/D-Methorphan TAB.SR.12H 1 TABLET PO ×2 (04:23→17:33)
[2022-06-01] MEDS: Furosemide 20 MG Tablet PO (04:23)
[2022-06-01] MEDS: Menthol/Lanolin/Calamine/Znox 113 GM Tube 1 APPLIC TOPICAL ×2 (08:29→17:34)
[2022-06-01] MEDS: Ensure Plus High Protein 120 ML LIQUID PO ×2 (08:29→17:33)
[2022-06-01] MEDS: Aspirin E.C. 81 MG Tablet PO (08:30)
[2022-06-01] MEDS: Carvedilol 6.25 MG Tablet PO ×2 (08:30→17:33)
[2022-06-01 13:21] VITALS: BP 99/46; PULSE 72; RESP 20; TEMP 36.3; O2SAT 97
[2022-06-01 17:00] VITALS: O2SAT 97
[2022-06-01] MEDS: Tamsulosin HCl 0.4 MG Capsule PO (17:33)
[2022-06-01] MEDS: Rivaroxaban 10 MG Tablet PO (17:33)
[2022-06-01] MEDS: Atorvastatin Calcium 40 MG Tablet PO (20:15)
[2022-06-01] MEDS: Doxepin Hcl 25 MG Capsule PO (20:15)
[2022-06-02] MEDS: Menthol/Lanolin/Calamine/Znox 113 GM Tube 1 APPLIC TOPICAL ×2 (04:38→17:26)
[2022-06-02] MEDS: Furosemide 20 MG Tablet PO (04:40)
[2022-06-02] MEDS: guaiFENesin/D-Methorphan TAB.SR.12H 1 TABLET PO ×2 (04:40→17:26)
[2022-06-02] MEDS: Senna/Docusate Sodium 1 Tablet PO (04:40)
[2022-06-02] MEDS: Lisinopril 10 MG Tablet PO (04:40)
[2022-06-02] MEDS: Ensure Plus High Protein 120 ML LIQUID PO ×2 (04:40→17:26)
[2022-06-02] MEDS: Pantoprazole Sodium 40 MG Tablet PO (04:40)
[2022-06-02 04:45] VITALS: BP 126/58; PULSE 78; RESP 16
[2022-06-02] MEDS: Carvedilol 6.25 MG Tablet PO ×2 (08:42→17:26)
[2022-06-02] MEDS: Aspirin E.C. 81 MG Tablet PO (08:42)
[2022-06-02 08:44] VITALS: BP 136/66; PULSE 75
[2022-06-02 09:54] LABS: Absolute Lymphocyte Count 2.94 X10^3/uL (0.83-4.51); Absolute Neutrophil Count 6.3 X10^3/uL (2.0-7.7); Basophil# 0.07 X10^3/uL; Basophil% 0.7 % (0-1); Eosinophil# 0.31 X10^3/uL; Hematocrit 35.4 % (40-54); Hemoglobin 12.2 g/dL (13.0-16.5); Lymphocyte # 2.94 X10^3/ul (0.83-4.51); Lymphocyte % 28.8 % (19-41); Mean Corp Hgb Conc 34.5 g/dL (32-36); Mean Corpuscular Hgb 30.3 pg (27.0-32.0); Mean Corpuscular Volume 87.8 fL (80-94); Mean Platelet Vol. 9.4 fl (6.2-12.0); Monocyte# 0.49 X10^3/uL; Monocyte% 4.8 % (0-10); NRBC Flagged by Analyzer 0 % (0-5); Neutrophil # 6.32 X10^3/uL (2.7-7.7); Neutrophil % 61.9 % (47-70); Platelet Count 285 K/mm3 (150-450); RBC Distribution Width CV 13.7 % (11.6-14.6); RBC Distribution Width SD 43.9 fl (35.1-43.9); Red Blood Count 4.03 M/mm3 (4.6-6.2); White Blood Count 10.2 K/mm3 (4.4-11.0)
[2022-06-02 10:22] LABS: Anion Gap 10 (5-15); BUN 46 mg/dL (7-18); BUN/Creat Ratio 33.3 RATIO (10-20); Calcium,Total 9.1 mg/dL (8.5-10.1); Chloride 101 mmol/L (98-107); Creatinine, Serum 1.38 mg/dL (0.70-1.30); EST Glomerular Filtration Rate 52 mL/min (>60); Est Glom Filt Rate - Afr Amer 63 mL/min (>60); Estimated Creatinine Clearance 38.55 ml/min; Glucose 115 mg/dL (74-106); Potassium 4.3 mmol/L (3.5-5.1); Sodium Level 127 mmol/L (136-145)
--- NOTE | 2022-06-02 10:34 | PCA ---
On 05/31 patient became agitated during transfer. Put his hands up in the air & showed me how he was going to hit me if he could. He did this 2 times. About an hour later, patient did apologize to me after his daughter had a talk with him
--- NOTE | 2022-06-02 11:05 | MDS.RN ---
Information for the mds was obtained from review of the clincal record, interview of resident, staff, and direct observation of resident's care.
[2022-06-02 11:21] LABS: Bacteria 0 SEEN /hpf (None Seen); Mucous, Urine 0 SEEN /hpf (<or=2+); Red Blood Cells-Urine 0 SEEN /hpf (0-5); Squamous Epithelial Cells - UA 0 SEEN /hpf (0-5); White Blood Cells 0 SEEN /hpf (0-5)
[2022-06-02 11:34] LABS: Color, Urine Yellow (Yellow); Glucose, Dipstick Normal (Normal); Ketone-Dipstick Negative (Negative); Leukocyte Esterase-Dipstick Negative /ul (Negative); Nitrite-Dipstick Negative (Negative); Occult Blood-Urine Negative /ul (Negative); Protein-Dipstick Negative (Negative); Specific Gravity, Urine 1.015 (1.002-1.030); Urine Bilirubin Dipstick Negative (Negative); Urine Clarity Clear (Clear); Urine Urobilinogen Normal (Normal)
[2022-06-02 11:38] LABS: Urine Sodium 45 mmol/L (Not Establ.)
[2022-06-02 12:30] LABS: Osmolality, Urine 332 mOsm/KG
[2022-06-02 12:31] LABS: Osmolality, Serum 288 mOsm/KG (280-301)
[2022-06-02] MEDS: 0.9% Normal Saline 1,000 ML 75 ML IV (13:20)
[2022-06-02] MEDS: 0.9% Saline Lock 10 ML Syringe IV (13:20)
[2022-06-02 15:19] VITALS: BP 114/56; PULSE 76; RESP 18; TEMP 36.4; O2SAT 98
[2022-06-02] MEDS: Rivaroxaban 10 MG Tablet PO (17:26)
[2022-06-02] MEDS: Tamsulosin HCl 0.4 MG Capsule PO (17:26)
[2022-06-02 17:29] VITALS: BP 140/63; PULSE 76
--- NOTE | 2022-06-02 19:12 | NURSING ---
Pt straight cathed using sterile technique for urinalysis. Pt tolerated procedure well 500ml of yellow clear urine noted. Will continue to monitor.
[2022-06-02] MEDS: Atorvastatin Calcium 40 MG Tablet PO (20:07)
[2022-06-02] MEDS: Doxepin Hcl 25 MG Capsule PO (20:07)
[2022-06-03] MEDS: 0.9% Normal Saline 1,000 ML 75 ML IV ×2 (02:48→16:03)
[2022-06-03] MEDS: Menthol/Lanolin/Calamine/Znox 113 GM Tube 1 APPLIC TOPICAL ×2 (04:58→16:32)
[2022-06-03] MEDS: Ensure Plus High Protein 120 ML LIQUID PO ×2 (05:00→16:32)
[2022-06-03] MEDS: Senna/Docusate Sodium 1 Tablet PO (05:02)
[2022-06-03] MEDS: Pantoprazole Sodium 40 MG Tablet PO (05:02)
[2022-06-03] MEDS: Furosemide 20 MG Tablet PO (05:02)
[2022-06-03] MEDS: guaiFENesin/D-Methorphan TAB.SR.12H 1 TABLET PO ×2 (05:02→16:32)
[2022-06-03] MEDS: Lisinopril 10 MG Tablet PO (05:02)
[2022-06-03 05:15] VITALS: BP 114/58; PULSE 77; RESP 16
[2022-06-03 06:03] LABS: Anion Gap 7 (5-15); BUN 47 mg/dL (7-18); BUN/Creat Ratio 39.8 RATIO (10-20); Calcium,Total 8.7 mg/dL (8.5-10.1); Chloride 105 mmol/L (98-107); Creatinine, Serum 1.18 mg/dL (0.70-1.30); EST Glomerular Filtration Rate 63 mL/min (>60); Est Glom Filt Rate - Afr Amer 76 mL/min (>60); Estimated Creatinine Clearance 45.08 ml/min; Glucose 114 mg/dL (74-106); Potassium 4.4 mmol/L (3.5-5.1); Sodium Level 135 mmol/L (136-145)
[2022-06-03] MEDS: Aspirin E.C. 81 MG Tablet PO (08:14)
[2022-06-03] MEDS: Carvedilol 6.25 MG Tablet PO ×2 (08:14→16:32)
[2022-06-03 14:33] VITALS: BP 119/54; PULSE 78; RESP 18; TEMP 36.1; O2SAT 96
--- NOTE | 2022-06-03 15:46 | RAD_ITS ---
STUDY: X-RAY - RIGHT ANKLE REASON FOR EXAM: Male, 82 years old. Ankle fracture TECHNIQUE: 3 view(s) of the ankle. COMPARISON: 03/20/2022 RAD/Ankle min 3 Views IMPRESSION: There may be mild periosteal reaction about the lateral malleolus fracture, compatible with early healing. No displacement. Electronically Signed: Fito Jaeger MD at 0:20 EST ,
--- NOTE | 2022-06-03 15:59 | NURSING ---
Dr Kiser into see pt. Drsg changed. Per Margi pt is to continue wearing the boot at all time. Drsg can be adjusted if needed (too loose or too tight). Dr Kiser ordered xrays.
--- NOTE | 2022-06-03 16:18 | PN_ITS ---
Subjective Subjective Patient was seen today for follow up on right ankle fracture. He is sitting comfortably in chair. He relates to no pain at this time. He has no new complaints. No fever, chills, nausea or vomiting. Objective Data Objective Data Vital Signs: Vital Signs Temp Pulse Resp BP Pulse Ox O2 Del Method O2 Flow Rate 97.0 F L 74 16 159/76 H 96 Room Air 2 06/03/22 14:33 06/04/22 08:12 06/03/22 20:00 06/04/22 08:12 06/03/22 20:00 06/03/22 20:00 05/25/22 07:16 Oxygen Flow Rate (L/min) 2 Oxygen Delivery Method Room Air Weight: 79.379 kg Body Mass Index (BMI) 27.6 Intake & Output: Intake and Output for Last 24 Hours 06/02/22 06/03/22 06/04/22 23:59 23:59 23:59 Intake Total 600 / 600 2713.75 / 2713.75 1240 / 1240 Balance 600 / 600 2713.75 / 2713.75 1240 / 1240 Lab / Micro Data Result Diagrams: 06/02/22 09:44 06/04/22 07:02 Labs: Laboratory Results - last 24 hr 06/04/22 07:02: Sodium 137, Potassium 4.6, Chloride 109 H, Carbon Dioxide 22.0, Anion Gap 6, BUN 35 H, Creatinine 1.02, Estim Creat Clear Calc 52.16, Est GFR (MDRD) Af Amer 90, Est GFR (MDRD) Non-Af 74, BUN/Creatinine Ratio 34.3 H, Glucose 107 H, Calcium 8.6 Micro: Microbiology 06/02/22 11:00 Urine Catheter - Catheter Urine Culture - Final Culture exhibits no growth. 05/27/22 15:17 Urine Catheter - Rodriguez Urine Culture - Final Culture exhibits no growth. 05/27/22 15:17 Nasal Secretion SARS-CoV-2 Antigen (Rapid) - Final Radiography Diagnostic Testing: Radiology Impression Ankle X-Ray 06/03/22 15:46 IMPRESSION: There may be mild periosteal reaction about the lateral malleolus fracture, compatible with early healing. No displacement. Electronically Signed: Fito Jaeger MD at 0:20 EST , Physical Exam Const alert, oriented x3 and no apparent distress General Appearance: cooperative Extremity normal capillary refill, no joint enlargement, no calf tenderness and no pedal edema Extremity Narrative: Right lower extremity: Minimal residual edema to the ankle, otherwise no edema noted, no open lesions, no drainage, no tissue loss, there is smooth painfree ROM to the foot and ankle with no gross instability, sensation intact to light touch, no evidence of compartment syndrome, CFT < 2 seconds with no evidence of acute ischemia. Assessment & Plan Assessment/Plan (1) Fracture of lateral malleolus of right ankle: (2) Fx lateral malleolus-closed: (3) Debility: (4) Pain in right lower leg: PLAN: Plan Patient seen and evaluated Patient suffered acute ankle fracture 05/11/2022 radiographs obtained demonstrate acute, minimally displaced, spiral fracture of the distal fibula wi th soft tissue swelling. Updated radiographs were ordered. Dressing: Soft cast dressing consisting of Kerlix and Cory wraps. CAM boot right lower extremity. Offloading: CAM boot right lower extremity. Patient may progress to protected weightbearing using CAM Walker and regular walker. Recommend continued nonsurgical care secondary to nondisplaced nature of the fracture as well as medical history. Continue with cam boot to the right lower extremity. Podiatry will continue to follow weekly while in house. Please do not hesitate to call for any questions or concerns.
[2022-06-03] MEDS: Rivaroxaban 10 MG Tablet PO (16:32)
[2022-06-03] MEDS: Tamsulosin HCl 0.4 MG Capsule PO (16:32)
[2022-06-03 20:00] VITALS: PULSE 78; RESP 16; O2SAT 96
[2022-06-03] MEDS: Doxepin Hcl 25 MG Capsule PO (20:44)
[2022-06-03] MEDS: Atorvastatin Calcium 40 MG Tablet PO (20:44)
[2022-06-04] MEDS: Menthol/Lanolin/Calamine/Znox 113 GM Tube 1 APPLIC TOPICAL ×2 (05:33→17:21)
[2022-06-04] MEDS: Furosemide 20 MG Tablet PO (05:34)
[2022-06-04] MEDS: Pantoprazole Sodium 40 MG Tablet PO (05:34)
[2022-06-04] MEDS: Ensure Plus High Protein 120 ML LIQUID PO ×2 (05:34→17:21)
[2022-06-04] MEDS: guaiFENesin/D-Methorphan TAB.SR.12H 1 TABLET PO ×2 (05:34→17:21)
[2022-06-04] MEDS: Lisinopril 10 MG Tablet PO (05:34)
[2022-06-04] MEDS: 0.9% Normal Saline 1,000 ML 75 ML IV (05:36)
[2022-06-04 07:28] LABS: Anion Gap 6 (5-15); BUN 35 mg/dL (7-18); BUN/Creat Ratio 34.3 RATIO (10-20); Calcium,Total 8.6 mg/dL (8.5-10.1); Chloride 109 mmol/L (98-107); Creatinine, Serum 1.02 mg/dL (0.70-1.30); EST Glomerular Filtration Rate 74 mL/min (>60); Est Glom Filt Rate - Afr Amer 90 mL/min (>60); Estimated Creatinine Clearance 52.16 ml/min; Glucose 107 mg/dL (74-106); Potassium 4.6 mmol/L (3.5-5.1); Sodium Level 137 mmol/L (136-145)
[2022-06-04] MEDS: Carvedilol 6.25 MG Tablet PO ×2 (08:10→17:22)
[2022-06-04] MEDS: Aspirin E.C. 81 MG Tablet PO (08:10)
[2022-06-04 08:12] VITALS: BP 159/76; PULSE 74
--- NOTE | 2022-06-04 14:45 | NURSING ---
Dr. Jackson updated on pt's morning labs. N.O. to stop NS.
[2022-06-04 15:13] VITALS: BP 104/54; PULSE 73; RESP 16; TEMP 36.1; O2SAT 96
[2022-06-04] MEDS: Tamsulosin HCl 0.4 MG Capsule PO (17:21)
[2022-06-04] MEDS: Rivaroxaban 10 MG Tablet PO (17:21)
[2022-06-04] MEDS: Doxepin Hcl 25 MG Capsule PO (21:18)
[2022-06-04] MEDS: Atorvastatin Calcium 40 MG Tablet PO (21:18)
[2022-06-05] MEDS: Furosemide 20 MG Tablet PO (05:43)
[2022-06-05] MEDS: Pantoprazole Sodium 40 MG Tablet PO (05:43)
[2022-06-05] MEDS: Ensure Plus High Protein 120 ML LIQUID PO ×2 (05:43→17:09)
[2022-06-05] MEDS: guaiFENesin/D-Methorphan TAB.SR.12H 1 TABLET PO ×2 (05:43→17:09)
[2022-06-05] MEDS: Lisinopril 10 MG Tablet PO (05:43)
[2022-06-05] MEDS: Menthol/Lanolin/Calamine/Znox 113 GM Tube 1 APPLIC TOPICAL ×2 (05:49→17:08)
[2022-06-05 07:10] LABS: Absolute Lymphocyte Count 2.67 X10^3/uL (0.83-4.51); Absolute Neutrophil Count 6.7 X10^3/uL (2.0-7.7); Basophil# 0.05 X10^3/uL; Basophil% 0.5 % (0-1); Eosinophils% 2.9 % (0-5); Hematocrit 31.9 % (40-54); Hemoglobin 10.4 g/dL (13.0-16.5); Lymphocyte # 2.67 X10^3/ul (0.83-4.51); Lymphocyte % 25.7 % (19-41); Mean Corp Hgb Conc 32.6 g/dL (32-36); Mean Corpuscular Volume 88.9 fL (80-94); Mean Platelet Vol. 9.5 fl (6.2-12.0); Monocyte# 0.63 X10^3/uL; Monocyte% 6.1 % (0-10); NRBC Flagged by Analyzer 0 % (0-5); Neutrophil # 6.67 X10^3/uL (2.7-7.7); Neutrophil % 64.2 % (47-70); Platelet Count 258 K/mm3 (150-450); RBC Distribution Width CV 13.8 % (11.6-14.6); RBC Distribution Width SD 44.9 fl (35.1-43.9); Red Blood Count 3.59 M/mm3 (4.6-6.2); White Blood Count 10.4 K/mm3 (4.4-11.0)
[2022-06-05 07:31] LABS: Anion Gap 8 (5-15); BUN 28 mg/dL (7-18); BUN/Creat Ratio 27.5 RATIO (10-20); Calcium,Total 8.7 mg/dL (8.5-10.1); Chloride 108 mmol/L (98-107); Creatinine, Serum 1.02 mg/dL (0.70-1.30); EST Glomerular Filtration Rate 74 mL/min (>60); Est Glom Filt Rate - Afr Amer 90 mL/min (>60); Estimated Creatinine Clearance 52.16 ml/min; Glucose 117 mg/dL (74-106); Potassium 4.3 mmol/L (3.5-5.1); Sodium Level 138 mmol/L (136-145)
[2022-06-05] MEDS: Aspirin E.C. 81 MG Tablet PO (08:11)
[2022-06-05] MEDS: Carvedilol 6.25 MG Tablet PO ×2 (08:11→17:10)
[2022-06-05 08:14] VITALS: BP 148/67; PULSE 83
[2022-06-05 16:00] VITALS: BP 135/63; PULSE 77; RESP 14; TEMP 37; O2SAT 93
[2022-06-05] MEDS: Tamsulosin HCl 0.4 MG Capsule PO (17:10)
[2022-06-05] MEDS: 0.9% Saline Lock 10 ML Syringe IV (17:13)
[2022-06-05 20:15] VITALS: PULSE 79; RESP 16; O2SAT 96
[2022-06-05] MEDS: Atorvastatin Calcium 40 MG Tablet PO (20:41)
[2022-06-05] MEDS: Doxepin Hcl 25 MG Capsule PO (20:41)
[2022-06-06] MEDS: Furosemide 20 MG Tablet PO (05:34)
[2022-06-06] MEDS: Ensure Plus High Protein 120 ML LIQUID PO ×2 (05:34→17:51)
[2022-06-06] MEDS: Menthol/Lanolin/Calamine/Znox 113 GM Tube 1 APPLIC TOPICAL ×2 (05:34→17:50)
[2022-06-06] MEDS: Lisinopril 10 MG Tablet PO (05:34)
[2022-06-06] MEDS: Pantoprazole Sodium 40 MG Tablet PO (05:34)
[2022-06-06] MEDS: guaiFENesin/D-Methorphan TAB.SR.12H 1 TABLET PO ×2 (05:34→17:49)
[2022-06-06] MEDS: Aspirin E.C. 81 MG Tablet PO (08:05)
[2022-06-06] MEDS: Carvedilol 6.25 MG Tablet PO ×2 (08:05→17:48)
[2022-06-06 16:00] VITALS: BP 111/52; PULSE 68; RESP 16; TEMP 36.5; O2SAT 95
[2022-06-06] MEDS: Tamsulosin HCl 0.4 MG Capsule PO (17:48)
[2022-06-06] MEDS: Atorvastatin Calcium 40 MG Tablet PO (20:51)
[2022-06-06] MEDS: Doxepin Hcl 25 MG Capsule PO (20:51)
--- NOTE | 2022-06-07 01:03 | PCA ---
patient keeps ringing call light even after he has been helped. as soon as you walk out he is pushing call button. entry level staff accountant explained to him he cannot keep pushing button like that unless he needs something
[2022-06-07] MEDS: Menthol/Lanolin/Calamine/Znox 113 GM Tube 1 APPLIC TOPICAL ×2 (05:21→17:21)
[2022-06-07] MEDS: Ensure Plus High Protein 120 ML LIQUID PO ×2 (05:21→17:25)
[2022-06-07] MEDS: guaiFENesin/D-Methorphan TAB.SR.12H 1 TABLET PO ×2 (05:21→17:21)
[2022-06-07] MEDS: Pantoprazole Sodium 40 MG Tablet PO (05:22)
[2022-06-07] MEDS: Lisinopril 10 MG Tablet PO (05:22)
[2022-06-07] MEDS: Senna/Docusate Sodium 1 Tablet PO (05:22)
[2022-06-07] MEDS: Furosemide 20 MG Tablet PO (05:22)
[2022-06-07] MEDS: Carvedilol 6.25 MG Tablet PO ×2 (08:02→17:20)
[2022-06-07] MEDS: Aspirin E.C. 81 MG Tablet PO (08:02)
[2022-06-07] MEDS: Acetaminophen 325 MG Tablet 650 MG PO (11:26)
[2022-06-07] MEDS: 0.9% Saline Lock 10 ML Syringe IV ×2 (11:36→19:47)
--- NOTE | 2022-06-07 13:18 | CASEMGMT ---
Social Work SRINIVAS spoke with dtr to follow up from conversation with therapy yesterday. Reiterated pt is needing max-total x2 assist with all tasks, confused, can get agitated at times, and insurance may not approve additional days at review 06/08. Dtr was unable to provide clear answer or seem to understand the need pt has, stating she was wanting to take pt home and she would care for him. SW explained pt can go home but needs 24/7 care x2 people. Offered to complete therapy training/shared care to ensure family can care for pt physically. Dtr stated she would speak with family and notify this worker. SW explained insurance is requesting DC plans with review tomorrow. This worker is available to answer any questions or speak with any othe family members. Dtr expressed understanding. SW to continue to follow. Guerline Funk, BLOCK MECHANIC BLOCKER AUTOMATIC
[2022-06-07 15:02] VITALS: BP 131/59; PULSE 77; RESP 18; TEMP 36.8; O2SAT 95
[2022-06-07] MEDS: Tamsulosin HCl 0.4 MG Capsule PO (17:21)
[2022-06-07] MEDS: Doxepin Hcl 25 MG Capsule PO (19:48)
[2022-06-07] MEDS: Atorvastatin Calcium 40 MG Tablet PO (19:48)
[2022-06-07 20:01] VITALS: PULSE 84; RESP 14; O2SAT 95
[2022-06-08] MEDS: Senna/Docusate Sodium 1 Tablet PO (05:50)
[2022-06-08] MEDS: Furosemide 20 MG Tablet PO (05:50)
[2022-06-08] MEDS: guaiFENesin/D-Methorphan TAB.SR.12H 1 TABLET PO ×2 (05:50→17:21)
[2022-06-08] MEDS: Lisinopril 10 MG Tablet PO (05:50)
[2022-06-08] MEDS: Menthol/Lanolin/Calamine/Znox 113 GM Tube 1 APPLIC TOPICAL ×2 (05:50→17:22)
[2022-06-08] MEDS: Pantoprazole Sodium 40 MG Tablet PO (05:50)
[2022-06-08] MEDS: Ensure Plus High Protein 120 ML LIQUID PO ×2 (05:52→17:21)
[2022-06-08 06:00] VITALS: BP 120/63; PULSE 76
[2022-06-08] MEDS: Aspirin E.C. 81 MG Tablet PO (08:05)
[2022-06-08] MEDS: Carvedilol 6.25 MG Tablet PO ×2 (08:05→17:21)
[2022-06-08 08:07] VITALS: BP 134/65; PULSE 81
[2022-06-08 09:02] VITALS: PULSE 83; O2SAT 93
[2022-06-08] MEDS: 0.9% Saline Lock 10 ML Syringe IV (09:09)
--- NOTE | 2022-06-08 10:44 | NURSING ---
Dr. Kiser's office called and Clarified order for RLE dressing changed. Keep Dry and intact and change PRN. 2 Mariama and 4 in bob.
[2022-06-08 16:00] VITALS: BP 115/52; PULSE 83; RESP 14; TEMP 36.8; O2SAT 94
[2022-06-08] MEDS: Tamsulosin HCl 0.4 MG Capsule PO (17:21)
[2022-06-08] MEDS: Atorvastatin Calcium 40 MG Tablet PO (20:43)
[2022-06-08] MEDS: Doxepin Hcl 25 MG Capsule PO (20:43)
[2022-06-09] MEDS: Ensure Plus High Protein 120 ML LIQUID PO ×2 (04:38→17:22)
[2022-06-09] MEDS: 0.9% Saline Lock 10 ML Syringe IV ×2 (04:38→17:22)
[2022-06-09] MEDS: Furosemide 20 MG Tablet PO (04:39)
[2022-06-09] MEDS: Pantoprazole Sodium 40 MG Tablet PO (04:39)
[2022-06-09] MEDS: Lisinopril 10 MG Tablet PO (04:39)
[2022-06-09] MEDS: guaiFENesin/D-Methorphan TAB.SR.12H 1 TABLET PO ×2 (04:39→17:23)
[2022-06-09] MEDS: Menthol/Lanolin/Calamine/Znox 113 GM Tube 1 APPLIC TOPICAL ×2 (04:46→17:23)
[2022-06-09] MEDS: Aspirin E.C. 81 MG Tablet PO (08:25)
[2022-06-09] MEDS: Carvedilol 6.25 MG Tablet PO ×2 (08:25→17:23)
[2022-06-09 08:26] VITALS: BP 153/66; PULSE 77
[2022-06-09 15:09] VITALS: BP 118/74; PULSE 76; RESP 16; TEMP 36.7; O2SAT 97
--- NOTE | 2022-06-09 15:30 | NURSING ---
Pt noted to be more confused stating that he needs to get back to his room. That Therapy placed him in this random room and left him. Dr. Jackson notified and N.O. for BMP, CBC, Urinalysis and KUB.
--- NOTE | 2022-06-09 16:04 | RAD_ITS ---
INDICATION: Increased Confusion and Diarrhea EXAMINATION/TECHNIQUE: X-RAY - XR Abdomen 1 View COMPARISON: 05/27/2022 FINDINGS: BOWEL GAS PATTERN: Non-obstructive. No bowel or stomach distention. FREE AIR: Not assessed on a single supine view. ORGANOMEGALY: Not seen. CALCIFICATIONS: Probable gallstones in the right upper quadrant. Calcified granulomas again noted at the lung bases and in the spleen. BONES AND SOFT TISSUES: No acute pathology. RAD/Abdomen Single View IMPRESSION: Non-obstructive bowel gas pattern. Electronically Signed: Topher Ann MD at 16:28 EST ,
[2022-06-09 16:16] LABS: Absolute Lymphocyte Count 2.57 X10^3/uL (0.83-4.51); Absolute Neutrophil Count 8.7 X10^3/uL (2.0-7.7); Basophil# 0.06 X10^3/uL; Basophil% 0.5 % (0-1); Eosinophil# 0.47 X10^3/uL; Eosinophils% 3.8 % (0-5); Hematocrit 35.8 % (40-54); Hemoglobin 11.6 g/dL (13.0-16.5); Lymphocyte # 2.57 X10^3/ul (0.83-4.51); Lymphocyte % 20.6 % (19-41); Mean Corp Hgb Conc 32.4 g/dL (32-36); Mean Corpuscular Volume 89.5 fL (80-94); Mean Platelet Vol. 9.2 fl (6.2-12.0); Monocyte# 0.65 X10^3/uL; Monocyte% 5.2 % (0-10); NRBC Flagged by Analyzer 0 % (0-5); Neutrophil # 8.65 X10^3/uL (2.7-7.7); Neutrophil % 69.3 % (47-70); Platelet Count 257 K/mm3 (150-450); RBC Distribution Width SD 45.9 fl (35.1-43.9); White Blood Count 12.5 K/mm3 (4.4-11.0)
--- NOTE | 2022-06-09 16:19 | CASEMGMT ---
Social Work OT provided update from family training. Family stated pt is better functioning that how he was prior, and is prepared to take pt home. Family has all DME needed to care for pt at home. Only requesting skilled HHC. SW to coordinate at time of DC. Insurance NRD 06/15. Guerline Funk ,AMANDO MCNULTYW
[2022-06-09 16:21] LABS: Anion Gap 9 (5-15); BUN 39 mg/dL (7-18); BUN/Creat Ratio 25.8 RATIO (10-20); Calcium,Total 8.7 mg/dL (8.5-10.1); Chloride 103 mmol/L (98-107); Creatinine, Serum 1.51 mg/dL (0.70-1.30); EST Glomerular Filtration Rate 47 mL/min (>60); Est Glom Filt Rate - Afr Amer 57 mL/min (>60); Estimated Creatinine Clearance 35.23 ml/min; Glucose 130 mg/dL (74-106); Potassium 4.1 mmol/L (3.5-5.1); Sodium Level 134 mmol/L (136-145)
--- NOTE | 2022-06-09 16:40 | NURSING ---
Pt straight cathedusing sterile technique for 250ml of yellow clear urine. Pt tolerated well.
[2022-06-09 16:52] LABS: Bacteria 0 SEEN /hpf (None Seen); Mucous, Urine 0 SEEN /hpf (<or=2+); Red Blood Cells-Urine 0 SEEN /hpf (0-5); White Blood Cells 0 SEEN /hpf (0-5)
[2022-06-09 16:54] LABS: Color, Urine Yellow (Yellow); Glucose, Dipstick Normal (Normal); Ketone-Dipstick Negative (Negative); Leukocyte Esterase-Dipstick Negative /ul (Negative); Nitrite-Dipstick Negative (Negative); Occult Blood-Urine Negative /ul (Negative); Protein-Dipstick Negative (Negative); Specific Gravity, Urine 1.015 (1.002-1.030); Urine Bilirubin Dipstick Negative (Negative); Urine Clarity Clear (Clear); Urine Urobilinogen Normal (Normal)
[2022-06-09 17:07] LABS: Squamous Epithelial Cells - UA 0-5 SEEN /hpf (0-5)
[2022-06-09] MEDS: Tamsulosin HCl 0.4 MG Capsule PO (17:23)
[2022-06-09] MEDS: 0.9% Normal Saline 1,000 ML 999 ML IV (18:25)
[2022-06-09 20:45] VITALS: PULSE 76; RESP 16; O2SAT 96
[2022-06-09] MEDS: Atorvastatin Calcium 40 MG Tablet PO (20:56)
[2022-06-09] MEDS: Doxepin Hcl 25 MG Capsule PO (20:56)
[2022-06-10] MEDS: Menthol/Lanolin/Calamine/Znox 113 GM Tube 1 APPLIC TOPICAL ×2 (05:16→17:10)
[2022-06-10] MEDS: Ensure Plus High Protein 120 ML LIQUID PO ×2 (05:17→17:11)
[2022-06-10] MEDS: guaiFENesin/D-Methorphan TAB.SR.12H 1 TABLET PO ×2 (05:17→17:08)
[2022-06-10] MEDS: Pantoprazole Sodium 40 MG Tablet PO (05:17)
[2022-06-10] MEDS: Lisinopril 10 MG Tablet PO (05:17)
[2022-06-10 08:40] LABS: Anion Gap 7 (5-15); BUN 30 mg/dL (7-18); BUN/Creat Ratio 30.4 RATIO (10-20); Chloride 107 mmol/L (98-107); Creatinine, Serum 0.99 mg/dL (0.70-1.30); EST Glomerular Filtration Rate 77 mL/min (>60); Est Glom Filt Rate - Afr Amer 93 mL/min (>60); Estimated Creatinine Clearance 53.74 ml/min; Glucose 109 mg/dL (74-106); Potassium 4.1 mmol/L (3.5-5.1); Sodium Level 140 mmol/L (136-145)
[2022-06-10] MEDS: Carvedilol 6.25 MG Tablet PO ×2 (08:40→17:08)
[2022-06-10] MEDS: Aspirin E.C. 81 MG Tablet PO (08:40)
[2022-06-10] MEDS: 0.9% Saline Lock 10 ML Syringe IV (08:41)
[2022-06-10 08:43] VITALS: BP 160/78; PULSE 75
--- NOTE | 2022-06-10 12:10 | NURSING ---
Dr. Gutierrez up to see pt. Per Dr. Gutierrez okay to remove Cam boot while in bed. Will continue to follow and redo X-rays next week.
--- NOTE | 2022-06-10 12:15 | PN_ITS ---
Subjective Subjective Patient is an 82-year-old male who is seen for follow-up of nondisplaced right ankle fracture. He is seen resting bedside today sitting up eating. He still does state that the right ankle is tender. He denies any further complaints today. Objective Data Objective Data Vital Signs: Vital Signs Temp Pulse Resp BP Pulse Ox O2 Del Method O2 Flow Rate 98.0 F 75 16 160/78 H 96 Room Air 3 06/09/22 15:09 06/10/22 08:43 06/09/22 20:45 06/10/22 08:43 06/09/22 20:45 06/09/22 20:45 06/07/22 20:01 Oxygen Flow Rate (L/min) 3 Oxygen Delivery Method Room Air Weight: 81.448 kg Body Mass Index (BMI) 27.6 Intake & Output: Intake and Output for Last 24 Hours 06/08/22 06/09/22 06/10/22 23:59 23:59 23:59 Intake Total 840 / 840 1720 / 1720 250 / 250 Balance 840 / 840 1720 / 1720 250 / 250 Lab / Micro Data Result Diagrams: 06/09/22 16:02 06/10/22 08:05 Labs: Laboratory Results - last 24 hr 06/09/22 16:02: WBC 12.5 H, RBC 4.00 L, Hgb 11.6 L, Hct 35.8 L, MCV 89.5, MCH 29.0, MCHC 32.4, RDW Std Deviation 45.9 H, RDW Coeff of Dania 14.0, Plt Count 257, MPV 9.2, Immature Gran % (Auto) 0.600, Neut % (Auto) 69.3, Lymph % (Auto) 20.6, Duval % (Auto) 5.2, Eos % (Auto) 3.8, Baso % (Auto) 0.5, Absolute Neuts (auto) 8.7 H, Absolute Lymphs (auto) 2.57, Nucleated RBC % 0 06/09/22 16:02: Sodium 134 L, Potassium 4.1, Chloride 103, Carbon Dioxide 22.0, Anion Gap 9, BUN 39 H, Creatinine 1.51 H, Estim Creat Clear Calc 35.23, Est GFR (MDRD) Af Amer 57 L, Est GFR (MDRD) Non-Af 47 L, BUN/Creatinine Ratio 25.8 H, Glucose 130 H, Calcium 8.7 06/09/22 16:35: Urine Color Yellow, Urine Clarity Clear, Urine pH 5.0, Ur Specific [place] 1.015, Urine Protein Negative, Urine Glucose (UA) Normal, Urine Ketones Negative, Urine Occult Blood Negative, Urine Nitrite Negative, Urine Bilirubin Negative, Urine Urobilinogen Normal, Ur Leukocyte Esterase Negative, Urine RBC 0 SEEN, Urine WBC 0 SEEN, Ur Squamous Epith Cells 0-5 SEEN, Urine Bacteria 0 SEEN, Urine Mucus 0 SEEN 06/10/22 08:05: Sodium 140, Potassium 4.1, Chloride 107, Carbon Dioxide 26.0, Anion Gap 7, BUN 30 H, Creatinine 0.99, Estim Creat Clear Calc 53.74, Est GFR (MDRD) Af Amer 93, Est GFR (MDRD) Non-Af 77, BUN/Creatinine Ratio 30.4 H, Glucose 109 H, Calcium 9.0 Micro: Microbiology 06/02/22 11:00 Urine Catheter - Catheter Urine Culture - Final Culture exhibits no growth. 05/27/22 15:17 Urine Catheter - Rodriguez Urine Culture - Final Culture exhibits no growth. 05/27/22 15:17 Nasal Secretion SARS-CoV-2 Antigen (Rapid) - Final Radiography Diagnostic Testing: Radiology Impression KUB X-Ray 06/09/22 16:04 IMPRESSION: Non-obstructive bowel gas pattern. Electronically Signed: Topher Ann MD at 16:28 EST Reading Location ID and State: [address] [place] [address] Tel , Service support , Physical Exam Const alert and oriented x3 General Appearance: cooperative Lymph Lymphatic: no lymphadenopathy noted and no lymphedema noted Extremity normal capillary refill, no joint enlargement, no calf tenderness and no pedal edema Peripheral Pulses: Yes posterior tibial pulses present and dorsalis pedis pulses present Skin no rashes or lesions noted, skin turgor normal and no jaundice Neuro moves all extremities Assessment & Plan Assessment/Plan (1) Fracture of lateral malleolus of right ankle: (2) Fx lateral malleolus-closed: (3) Debility: (4) Pain in right lower leg: PLAN: Plan Patient seen and evaluated Patient suffered acute ankle fracture 05/11/2022 radiographs obtained demonstrate acute, minimally displaced, spiral fracture of the distal fibula with soft tissue swelling. Updated radiographs 06/03/2022, demonstrating early healing with evidence of periosteal reaction about the fracture site. Dressing: Soft cast dressing consisting of Kerlix and Cory wraps. CAM boot right lower extremity. Offloading: CAM boot right lower extremity. Patient may continue protected weightbearing using CAM Walker and regular walker. Recommend continued nonsurgical care secondary to nondisplaced nature of the fracture as well as medical history. Continue with CAM boot to the right lower extremity. Nursing informs me that patient will be discharged home with daughter next week. I recommended continued weightbearing in his CAM boot when he returns home and he is to follow-up in the office for continued fracture care. Podiatry will continue to follow weekly while in house. Please do not hesitate to call for any questions or concerns. Jr. Brandi SmithP.M. [facility] [place] [phone] Note: [employer] speech recognition pneudraulic systems mechanic software was used to create portions of this document. Sound-alike and misspelled words, as well as other pneudraulic systems mechanic errors may be contained in the documentation.
[2022-06-10 13:47] VITALS: BP 133/63; PULSE 74; RESP 14; TEMP 36.6; O2SAT 97
[2022-06-10] MEDS: Tamsulosin HCl 0.4 MG Capsule PO (17:08)
[2022-06-10 17:24] VITALS: BP 133/45
[2022-06-10] MEDS: Atorvastatin Calcium 40 MG Tablet PO (19:32)
[2022-06-10] MEDS: Doxepin Hcl 25 MG Capsule PO (19:32)
[2022-06-10 19:54] VITALS: PULSE 76; RESP 16; O2SAT 92
[2022-06-11] MEDS: guaiFENesin/D-Methorphan TAB.SR.12H 1 TABLET PO ×2 (06:37→17:31)
[2022-06-11] MEDS: Pantoprazole Sodium 40 MG Tablet PO (06:37)
[2022-06-11] MEDS: Menthol/Lanolin/Calamine/Znox 113 GM Tube 1 APPLIC TOPICAL ×2 (06:38→17:32)
[2022-06-11] MEDS: Ensure Plus High Protein 120 ML LIQUID PO ×2 (06:39→17:34)
[2022-06-11] MEDS: Lisinopril 10 MG Tablet PO (06:40)
[2022-06-11] MEDS: Carvedilol 6.25 MG Tablet PO ×2 (09:07→17:31)
[2022-06-11] MEDS: Aspirin E.C. 81 MG Tablet PO (09:07)
[2022-06-11 09:12] VITALS: RESP 18; O2SAT 92
[2022-06-11 14:51] VITALS: BP 136/62; PULSE 78; RESP 16; TEMP 36.5; O2SAT 94
[2022-06-11] MEDS: Tamsulosin HCl 0.4 MG Capsule PO (17:31)
[2022-06-11] MEDS: Doxepin Hcl 25 MG Capsule PO (20:38)
[2022-06-11] MEDS: Atorvastatin Calcium 40 MG Tablet PO (20:38)
[2022-06-12] MEDS: Menthol/Lanolin/Calamine/Znox 113 GM Tube 1 APPLIC TOPICAL ×2 (05:41→17:19)
[2022-06-12] MEDS: Senna/Docusate Sodium 1 Tablet PO ×2 (05:42→17:17)
[2022-06-12] MEDS: Pantoprazole Sodium 40 MG Tablet PO (05:42)
[2022-06-12] MEDS: Lisinopril 10 MG Tablet PO (05:42)
[2022-06-12] MEDS: Ensure Plus High Protein 120 ML LIQUID PO ×2 (05:42→17:17)
[2022-06-12] MEDS: guaiFENesin/D-Methorphan TAB.SR.12H 1 TABLET PO ×2 (05:42→17:17)
[2022-06-12 06:27] LABS: Absolute Lymphocyte Count 2.35 X10^3/uL (0.83-4.51); Absolute Neutrophil Count 5.5 X10^3/uL (2.0-7.7); Basophil# 0.06 X10^3/uL; Basophil% 0.7 % (0-1); Eosinophil# 0.37 X10^3/uL; Eosinophils% 4.1 % (0-5); Hematocrit 32.3 % (40-54); Hemoglobin 10.5 g/dL (13.0-16.5); Lymphocyte # 2.35 X10^3/ul (0.83-4.51); Lymphocyte % 26.1 % (19-41); Mean Corp Hgb Conc 32.5 g/dL (32-36); Mean Corpuscular Hgb 28.9 pg (27.0-32.0); Mean Platelet Vol. 9.4 fl (6.2-12.0); Monocyte# 0.69 X10^3/uL; Monocyte% 7.7 % (0-10); NRBC Flagged by Analyzer 0 % (0-5); Neutrophil % 61.1 % (47-70); Platelet Count 209 K/mm3 (150-450); RBC Distribution Width CV 13.9 % (11.6-14.6); RBC Distribution Width SD 45.4 fl (35.1-43.9); Red Blood Count 3.63 M/mm3 (4.6-6.2)
[2022-06-12 06:53] LABS: Anion Gap 8 (5-15); BUN 25 mg/dL (7-18); BUN/Creat Ratio 25.2 RATIO (10-20); Calcium,Total 8.7 mg/dL (8.5-10.1); Chloride 104 mmol/L (98-107); Creatinine, Serum 0.99 mg/dL (0.70-1.30); EST Glomerular Filtration Rate 76 mL/min (>60); Est Glom Filt Rate - Afr Amer 93 mL/min (>60); Estimated Creatinine Clearance 53.74 ml/min; Glucose 90 mg/dL (74-106); Potassium 4.5 mmol/L (3.5-5.1); Sodium Level 136 mmol/L (136-145)
[2022-06-12] MEDS: Aspirin E.C. 81 MG Tablet PO (08:08)
[2022-06-12] MEDS: Carvedilol 6.25 MG Tablet PO ×2 (08:08→17:17)
[2022-06-12 15:44] VITALS: BP 140/62; PULSE 77; RESP 16; TEMP 37.1; O2SAT 97
[2022-06-12] MEDS: Tamsulosin HCl 0.4 MG Capsule PO (17:17)
[2022-06-12] MEDS: Doxepin Hcl 25 MG Capsule PO (19:46)
[2022-06-12] MEDS: Atorvastatin Calcium 40 MG Tablet PO (19:46)
[2022-06-12 21:29] VITALS: PULSE 78; RESP 18; O2SAT 95
[2022-06-13] MEDS: Lisinopril 10 MG Tablet PO (05:29)
[2022-06-13] MEDS: Pantoprazole Sodium 40 MG Tablet PO (05:29)
[2022-06-13] MEDS: Senna/Docusate Sodium 1 Tablet PO ×2 (05:29→17:46)
[2022-06-13] MEDS: guaiFENesin/D-Methorphan TAB.SR.12H 1 TABLET PO ×2 (05:29→17:46)
[2022-06-13] MEDS: Ensure Plus High Protein 120 ML LIQUID PO ×2 (05:29→17:46)
[2022-06-13] MEDS: Menthol/Lanolin/Calamine/Znox 113 GM Tube 1 APPLIC TOPICAL ×2 (05:29→17:48)
[2022-06-13] MEDS: Aspirin E.C. 81 MG Tablet PO (08:57)
[2022-06-13] MEDS: Carvedilol 6.25 MG Tablet PO ×2 (08:57→17:46)
[2022-06-13 09:00] VITALS: BP 131/62; PULSE 84
[2022-06-13 09:01] VITALS: PULSE 84
[2022-06-13 14:36] VITALS: BP 132/64; PULSE 81; RESP 16; TEMP 36.4; O2SAT 96
[2022-06-13] MEDS: Tamsulosin HCl 0.4 MG Capsule PO (17:46)
[2022-06-13] MEDS: Doxepin Hcl 25 MG Capsule PO (19:53)
[2022-06-13] MEDS: Atorvastatin Calcium 40 MG Tablet PO (19:53)
[2022-06-14] VITALS (7 sets, daily range): BP systolic 99–140; BP diastolic 51–67; PULSE 60–81; RESP 16–18; TEMP 36.3; O2SAT 94–97
[2022-06-14] MEDS: Menthol/Lanolin/Calamine/Znox 113 GM Tube 1 APPLIC TOPICAL ×2 (04:40→17:06)
[2022-06-14] MEDS: Senna/Docusate Sodium 1 Tablet PO (04:41)
[2022-06-14] MEDS: Lisinopril 10 MG Tablet PO (04:41)
[2022-06-14] MEDS: Pantoprazole Sodium 40 MG Tablet PO (04:41)
[2022-06-14] MEDS: Ensure Plus High Protein 120 ML LIQUID PO ×2 (04:41→17:06)
[2022-06-14] MEDS: guaiFENesin/D-Methorphan TAB.SR.12H 1 TABLET PO ×2 (04:41→17:06)
[2022-06-14] MEDS: Aspirin E.C. 81 MG Tablet PO (07:51)
[2022-06-14] MEDS: Carvedilol 6.25 MG Tablet PO ×2 (07:51→17:06)
[2022-06-14] MEDS: Acetaminophen 325 MG Tablet 650 MG PO (14:23)
--- NOTE | 2022-06-14 16:33 | CASEMGMT ---
Social Work IDT discussed setting DC date for pt as pt has met max. potential at this time. Dtr, Katy, present in room. Spoke with dtr and pt and discussed setting DC date. Dtr expressed understanding and remains agreeable for pt to return home. Set date for 06/21 with [facility] PT/OT/ST/SN/POTTS. No DME needs. Family to transport. SW provided printed list of skilled [facility] agencies with quality and resource data via [employer] Guide. Dtr to select preference and notify this worker. Plan: DC home with family 06/21, [facility] PT/OT/ST/SN/POTTS AMANDO Naidu ECHO TECH
[2022-06-14] MEDS: Tamsulosin HCl 0.4 MG Capsule PO (17:06)
[2022-06-14] MEDS: Acetaminophen 500 MG Tablet 1000 MG PO (21:35)
[2022-06-14] MEDS: Doxepin Hcl 25 MG Capsule PO (21:37)
[2022-06-14] MEDS: Atorvastatin Calcium 40 MG Tablet PO (21:37)
--- NOTE | 2022-06-14 22:37 | NURSING ---
Addendum entered by Lea Naik 06/15/22 05:34: Return call from patient rep Katy at this time, updated on fall, pt. rep expresses thanks for update, no concerns voiced at this time Addendum entered by Lea Naik 06/15/22 02:22: @[id number] CLAY MODELER NOTIFIED OF FALL Original Note: ELECTRONIC SYSTEMS TECHNICIAN (Keila) presents to this nurse states responded to patient bed alarm and observed patient sitting on floor. Patient immediately assessed, observed sitting on floor at side of bed, call light within reach, BLE extended toward wall, no cam boot on, with back leaning against bed and head resting on mattress. Patient alert and oriented at this time but continues with intermittent confusion per usual. When patient asked what he was attempting to do patient states was attempting to self transfer to the bathroom. Patient states I'm not hurt and I didn't hit my head. No inward/outward rotation noted to any extremity. Denies pain. No distress observed or reported. Assisted to bed x3 staff assist, ELECTRONIC SYSTEMS TECHNICIAN x2 assisted with toileting per pt. request. Active ROM x4 extremities. No obvious signs of injury observed or reported. Dr. Jackson contacted via telephone and notified of above, no new orders received. Attempt to contact patient pharmacy sales representative (Katy) per facesheet, no answer at this time, voicemail left with request for return call for update.
[2022-06-15 00:41] VITALS: BP 109/68; PULSE 73; RESP 16
[2022-06-15 05:45] VITALS: BP 127/63; PULSE 75; RESP 16
[2022-06-15] MEDS: Ensure Plus High Protein 120 ML LIQUID PO (05:48)
[2022-06-15] MEDS: Senna/Docusate Sodium 1 Tablet PO ×2 (05:48→19:03)
[2022-06-15] MEDS: Acetaminophen 500 MG Tablet 1000 MG PO ×3 (05:48→20:06)
[2022-06-15] MEDS: guaiFENesin/D-Methorphan TAB.SR.12H 1 TABLET PO ×2 (05:49→19:03)
[2022-06-15] MEDS: Pantoprazole Sodium 40 MG Tablet PO (05:49)
[2022-06-15] MEDS: Lisinopril 10 MG Tablet PO (05:49)
[2022-06-15] MEDS: Menthol/Lanolin/Calamine/Znox 113 GM Tube 1 APPLIC TOPICAL ×2 (05:53→19:04)
[2022-06-15] MEDS: Carvedilol 6.25 MG Tablet PO ×2 (08:55→19:03)
[2022-06-15] MEDS: Aspirin E.C. 81 MG Tablet PO (08:55)
[2022-06-15 13:08] VITALS: BP 111/51; PULSE 72; RESP 16; TEMP 36.5; O2SAT 97
[2022-06-15] MEDS: Tamsulosin HCl 0.4 MG Capsule PO (19:03)
[2022-06-15 19:07] VITALS: BP 130/63; PULSE 74
--- NOTE | 2022-06-15 19:54 | DS.PCM_ITS ---
Providers Date of Admission: 05/21/22 Primary Care Physician: Dr. Vinnie Perry MD Consultations 05/25/22 17:10 Consult: Podiatry Routine Consulting Provider: Robert Kiser Reason for Consult: Right ankle fracture. EMERGENT Consult: No MD Notified: Yes Date Notified: 05/25/22 Time Notified: 17:10 Method of Notification: Answering Service Reason For Visit: WEAKNESS AND DEBILITY Diagnosis Discharge Diagnosis (1) Fracture of lateral malleolus of right ankle: Status: Inactive Code(s): S82.61XA - Displaced fracture of lateral malleolus of right fibula, initial encounter for closed fracture (2) Fx lateral malleolus-closed: Status: Acute Code(s): S82.63XA - Displaced fracture of lateral malleolus of unspecified fibula, ini tial encounter for closed fracture (3) Debility: Status: Acute Code(s): R53.81 - Other malaise (4) Pain in right lower leg: Status: Acute Code(s): M79.661 - Pain in right lower leg Plan 82 year old male with below past medical history significant for recent right ankle fracture, hospitalized for stroke, admitted to TCU with debility, here for rehabilitation, strengthening, prior to discharge home alone. * Debility - PT/OT/ST. * Pain - Tylenol 650mg q4h prn. * Bowel - senna/colace 1 tablet bid, MOM 30ml po x 1 prn. * Adult immunization - Administer pneumonia vaccine, covid19 vaccine, flu vaccine as appropriate. * DVT prophylaxis - HAS-BLED 3, high risk of bleeding, [place] 7 High risk of b lood clots, overall risk high, Rx Xarelto 10mg daily x 14 days. * Stroke - Aspirin 81mg daily. * Hyperlipidemia - Atorvastatin 40mg qhs. * Hypertension - Coreg 6.25mg bid, Lisinopril 10mg daily. * Edema - Furosemide 20mg daily. * Insomnia - Melatonin 3mg qhs prn. * GERD - Pantoprazole 40mg daily. Medications at Discharge Home Medications acetaminophen 500 mg tablet 1,000 mg PO TID #0 tabs 06/15/22 aspirin 81 mg tablet,delayed release 81 mg PO BREAKFAST #0 tabs 06/15/22 atorvastatin 40 mg tablet 40 mg PO QHS 30 days #30 tabs 06/15/22 carvedilol 6.25 mg tablet 6.25 mg PO BIDCM 30 days #60 tabs 06/15/22 doxepin 25 mg capsule 25 mg PO QHS 30 days #30 caps 06/15/22 lisinopril 10 mg tablet 10 mg PO DAILY 30 days #30 tabs 06/15/22 pantoprazole 40 mg tablet,delayed release 40 mg PO DAILY 30 days #30 tabs 06/15/22 tamsulosin 0.4 mg capsule 0.4 mg PO DAILY@1730 30 days #30 caps 06/15/22 Hospital Course Operations None Procedures None Summary of Care Provided Minutes Spent on Discharge: 35 Hospital Course: 82 year old male with below past medical history significant for recent right ankle fracture, hospitalized for stroke, admitted to TCU with debility, here for rehabilitation, strengthening, prior to discharge home alone. Discharge home with family 06/21/2022, Home Health Care PT/OT/ST/SN/POTTS. Physical Exam Const alert General Appearance: cooperative HEENT normocephalic Eyes PERRL and EOMs intact bilaterally Neck supple, no JVD and no carotid bruits Resp normal respiratory effort, normal air movement and clear to auscultation bilaterally Cardio regular rate and regular rhythm GI normal to inspection, nondistended, normoactive bowel sounds, non-tender and non-distended Extremity normal capillary refill General Extremity: Negative for edema Skin no rashes or lesions noted General Skin Exam: no breakdown Psych affect normal Appearance: appropriate Weight / BMI Weight Weight: 81.964 kg Body Mass Index (BMI) 27.6 ABG / Lab / Microbiology Data Result Diagrams: 06/12/22 05:23 06/12/22 05:23 Microbiology: Microbiology 06/09/22 16:35 Urine, Catheterized Urine Culture - Final Culture exhibits no growth. 06/02/22 11:00 Urine Catheter - Catheter Urine Culture - Final Culture exhibits no growth. 05/27/22 15:17 Urine Catheter - Rodriguez Urine Culture - Final Culture exhibits no growth. 05/27/22 15:17 Nasal Secretion SARS-CoV-2 Antigen (Rapid) - Final D/C Instructions Discharge Diet: No restrictions Discharge Activity: Return to Normal Activity, May Shower and Use Walker Weight Bearing Status: Weight bearing as tolerated Call your doctor if you observe: Fever of 101 or Higher, Inability to urinate, Inability to have a bowel movement, Shortness of breath, Dizziness, Fainting spells, Swelling in the ankles, Chest pain and Uncontrolled pain Additional Instructions: Discharge home with family 06/21/2022, Home Health Care PT/OT/ST/SN/POTTS. Please Follow Up With: Vinnie Perry MD When: 1 week. Meaningful Use Info Meaningful Use Diagnoses (Choose all that apply): Ischemic CVA CVA Therapy Assessed for PT,OT and/or ST?: Yes Ischemic Stroke Antithrombotic order at d/c?: Yes Dx of Atrial fib/flutter?: No Statins at discharge?: Yes Primary Dx Acute Ischemic CVA?: Yes IV tPA ordered during stay?: No Reason IV t-PA not ordered: Treatment not Indicated Discharge Plan Admission Admit Date/Time: 05/21/22 14:43 Primary Reason for Your Visit: Debility. Attending Provider: Paul Jackson Chi Primary Care Provider: Vinnie Perry Consulting Providers: Robert Kiser Instructions Additional Instructions / Restrictions: Discharge home with family 06/21/2022, Home Health Care PT/OT/ST/SN/POTTS. Discharge Orders/Prescriptions Prescriptions: New acetaminophen 500 mg Tablet 1,000 mg PO TID Qty: 0 0RF aspirin 81 mg Tablet,Delayed Release (Dr/Ec) 81 mg PO BREAKFAST Qty: 0 0RF atorvastatin 40 mg Tablet 40 mg PO QHS 30 Days Qty: 30 0RF carvedilol 6.25 mg Tablet 6.25 mg PO BIDCM 30 Days Qty: 60 0RF doxepin 25 mg Capsule 25 mg PO QHS 30 Days Qty: 30 0RF tamsulosin 0.4 mg Capsule 0.4 mg PO DAILY@1730 30 Days Qty: 30 0RF pantoprazole 40 mg Tablet,Delayed Release (Dr/Ec) 40 mg PO DAILY 30 Days Qty: 30 0RF lisinopril 10 mg Tablet 10 mg PO DAILY 30 Days Qty: 30 0RF Discontinued acetaminophen [Tylenol] 325 mg Tablet 650 mg PO Q4H PRN PRN (Reason: Pain 1-10 Or Fever) Qty: 0 0RF melatonin 3 mg Tablet 3 mg PO QHS PRN PRN (Reason: Insomnia) Qty: 0 0RF atorvastatin 40 mg tablet 40 mg PO QHS carvedilol 6.25 mg tablet 6.25 mg PO BID aspirin [Enteric Coated Aspirin] 81 mg tablet,delayed release (DR/EC) 81 mg PO BID Rx Instructions: 81 mg twice daily for 2 weeks for DVT prophylaxis and then continue 81 mg daily for stroke prophylaxis pantoprazole [Protonix] 40 mg tablet,delayed release (DR/EC) 40 mg PO DAILY lisinopril 10 mg tablet 10 mg PO DAILY furosemide 20 mg tablet 20 mg PO DAILY Rx Instructions: FOR 2 WEEKS, REPEAT CXR after that Mucinex DM 30-600 mg tablet extended release 12 hr 1 tab PO BID Referrals / Follow Up: Vinnie Perry MD [Primary Care Provider] - Disposition Disposition (needs filled in before D/C Order can be placed): Home Health Service
[2022-06-15] MEDS: Atorvastatin Calcium 40 MG Tablet PO (20:04)
[2022-06-15] MEDS: Doxepin Hcl 25 MG Capsule PO (20:04)
[2022-06-16] MEDS: Lisinopril 10 MG Tablet PO (05:14)
[2022-06-16] MEDS: Pantoprazole Sodium 40 MG Tablet PO (05:14)
[2022-06-16] MEDS: Senna/Docusate Sodium 1 Tablet PO (05:14)
[2022-06-16] MEDS: guaiFENesin/D-Methorphan TAB.SR.12H 1 TABLET PO ×2 (05:14→17:11)
[2022-06-16] MEDS: Acetaminophen 500 MG Tablet 1000 MG PO ×3 (05:16→21:50)
[2022-06-16] MEDS: Ensure Plus High Protein 120 ML LIQUID PO ×2 (05:17→17:11)
[2022-06-16 05:21] VITALS: BP 137/61; PULSE 72
[2022-06-16] MEDS: Carvedilol 6.25 MG Tablet PO ×2 (08:10→17:11)
[2022-06-16] MEDS: Aspirin E.C. 81 MG Tablet PO (08:10)
[2022-06-16] MEDS: Menthol/Lanolin/Calamine/Znox 113 GM Tube 1 APPLIC TOPICAL ×2 (08:11→17:13)
[2022-06-16 14:35] VITALS: BP 134/66; PULSE 64; RESP 18; TEMP 36.2; O2SAT 98
[2022-06-16] MEDS: Tamsulosin HCl 0.4 MG Capsule PO (17:11)
[2022-06-16] MEDS: Atorvastatin Calcium 40 MG Tablet PO (21:50)
[2022-06-16] MEDS: Doxepin Hcl 25 MG Capsule PO (21:50)
[2022-06-17 05:48] VITALS: BP 125/62; PULSE 67
[2022-06-17] MEDS: Menthol/Lanolin/Calamine/Znox 113 GM Tube 1 APPLIC TOPICAL ×2 (05:49→17:02)
[2022-06-17] MEDS: Acetaminophen 500 MG Tablet 1000 MG PO ×3 (05:50→19:58)
[2022-06-17] MEDS: Senna/Docusate Sodium 1 Tablet PO (05:50)
[2022-06-17] MEDS: guaiFENesin/D-Methorphan TAB.SR.12H 1 TABLET PO ×2 (05:50→17:03)
[2022-06-17] MEDS: Lisinopril 10 MG Tablet PO (05:50)
[2022-06-17] MEDS: Pantoprazole Sodium 40 MG Tablet PO (05:50)
[2022-06-17] MEDS: Aspirin E.C. 81 MG Tablet PO (08:54)
[2022-06-17] MEDS: Carvedilol 6.25 MG Tablet PO ×2 (08:54→17:02)
--- NOTE | 2022-06-17 09:28 | RAD_ITS ---
STUDY: X-RAY - RIGHT ANKLE REASON FOR EXAM: Male, 82 years old. Distal fibular fracture. Follow-up. TECHNIQUE: 3 view(s) of the ankle. COMPARISON: June 03, 2022. FINDINGS: Stable osteopenia. Healing oblique fracture of the distal fibula originating at the tibiotalar joint with minimal callus formation. Small inferior calcaneal spur. Mild arthrosis of the midfoot. Soft tissue swelling over the lateral malleolus. RAD/Ankle min 3 Views IMPRESSION: Stable foot with no complications. Electronically Signed: Loi James, at 10:08 EST ,
[2022-06-17 15:35] VITALS: BP 101/51; PULSE 72; RESP 16; TEMP 36.6; O2SAT 94
--- NOTE | 2022-06-17 16:03 | CASEMGMT ---
Social Work Followed up with dtr on HHC choices. First choice is [facility], Second is [facility], Third is [facility]. Referral made to [facility] via [facility] for PT/OT/SN/POTTS. Guerline Funk MSW [employer]IDITY TESTER
[2022-06-17] MEDS: Tamsulosin HCl 0.4 MG Capsule PO (17:01)
[2022-06-17] MEDS: Ensure Plus High Protein 120 ML LIQUID PO (17:02)
[2022-06-17] MEDS: Doxepin Hcl 25 MG Capsule PO (19:52)
[2022-06-17] MEDS: Atorvastatin Calcium 40 MG Tablet PO (19:52)
[2022-06-17 22:16] VITALS: PULSE 68; RESP 16; O2SAT 95
[2022-06-18] MEDS: Ensure Plus High Protein 120 ML LIQUID PO ×2 (05:26→17:32)
[2022-06-18] MEDS: Acetaminophen 500 MG Tablet 1000 MG PO ×3 (05:26→22:47)
[2022-06-18] MEDS: Menthol/Lanolin/Calamine/Znox 113 GM Tube 1 APPLIC TOPICAL ×2 (05:27→17:32)
[2022-06-18] MEDS: Lisinopril 10 MG Tablet PO (05:27)
[2022-06-18] MEDS: Pantoprazole Sodium 40 MG Tablet PO (05:27)
[2022-06-18] MEDS: guaiFENesin/D-Methorphan TAB.SR.12H 1 TABLET PO ×2 (05:27→17:32)
[2022-06-18] MEDS: Senna/Docusate Sodium 1 Tablet PO (05:28)
[2022-06-18] MEDS: Aspirin E.C. 81 MG Tablet PO (08:07)
[2022-06-18] MEDS: Carvedilol 6.25 MG Tablet PO ×2 (08:07→17:32)
[2022-06-18 08:10] VITALS: BP 139/64; PULSE 77
--- NOTE | 2022-06-18 10:59 | PCM.PROGNOTE ---
Subjective Subjective Patient was seen this morning for follow up on right ankle. He relates he does not have any pain. Objective Data Objective Data Vital Signs: Vital Signs Temp Pulse Resp BP Pulse Ox O2 Del Method O2 Flow Rate 97.9 F 77 16 139/64 H 95 Room Air 3 06/17/22 15:35 06/18/22 08:10 06/17/22 22:16 06/18/22 08:10 06/17/22 22:16 06/17/22 22:16 06/07/22 20:01 Oxygen Flow Rate (L/min) 3 Oxygen Delivery Method Room Air Weight: 81.964 kg Body Mass Index (BMI) 27.6 Intake & Output: Intake and Output for Last 24 Hours 06/16/22 06/17/22 06/18/22 23:59 23:59 23:59 Intake Total 720 / 720 480 / 480 120 / 120 Balance 720 / 720 480 / 480 120 / 120 Lab / Micro Data Result Diagrams: 06/12/22 05:23 06/12/22 05:23 Micro: Microbiology 06/09/22 16:35 Urine, Catheterized Urine Culture - Final Culture exhibits no growth. 06/02/22 11:00 Urine Catheter - Catheter Urine Culture - Final Culture exhibits no growth. 05/27/22 15:17 Urine Catheter - Rodriguez Urine Culture - Final Culture exhibits no growth. 05/27/22 15:17 Nasal Secretion SARS-CoV-2 Antigen (Rapid) - Final Physical Exam Narrative Right ankle with no POP or pain on ROM, there is no gross instability to the ankle, and there is smooth painfree ROM, no edema, no open lesions either. Const alert and oriented x3 Extremity normal capillary refill, no joint enlargement, no calf tenderness and no pedal edema Skin no rashes or lesions noted and skin turgor normal Assessment & Plan Assessment/Plan (1) Fracture of lateral malleolus of right ankle: (2) Fx lateral malleolus-closed: (3) Debility: (4) Pain in right lower leg: PLAN: Plan Patient seen and evaluated, Patient suffered acute ankle fracture 05/11/2022 - new radiographs obtained yesterday, these were reviewed, and noted that site is healing well. Clinically site is doing very well. Ok to d/c soft cast dressing. Ok to transition out of CAM Walker to stirrup ankle brace and shoe. Discharge is planned for next week. Patient to follow up with us in office in 2 weeks, sooner if needed.
[2022-06-18 16:00] VITALS: BP 142/55; PULSE 75; RESP 18; TEMP 36.4; O2SAT 100
[2022-06-18] MEDS: Tamsulosin HCl 0.4 MG Capsule PO (17:32)
[2022-06-18] MEDS: Doxepin Hcl 25 MG Capsule PO (22:48)
[2022-06-18] MEDS: Atorvastatin Calcium 40 MG Tablet PO (22:48)
[2022-06-19] MEDS: guaiFENesin/D-Methorphan TAB.SR.12H 1 TABLET PO ×2 (05:01→16:56)
[2022-06-19] MEDS: Acetaminophen 500 MG Tablet 1000 MG PO ×3 (05:01→20:20)
[2022-06-19] MEDS: Lisinopril 10 MG Tablet PO (05:02)
[2022-06-19] MEDS: Pantoprazole Sodium 40 MG Tablet PO (05:02)
[2022-06-19] MEDS: Menthol/Lanolin/Calamine/Znox 113 GM Tube 1 APPLIC TOPICAL ×2 (05:03→16:59)
[2022-06-19] MEDS: Ensure Plus High Protein 120 ML LIQUID PO ×2 (05:05→16:55)
[2022-06-19 05:10] VITALS: BP 123/58; PULSE 73
[2022-06-19 06:00] LABS: Absolute Lymphocyte Count 2.54 X10^3/uL (0.83-4.51); Absolute Neutrophil Count 4.4 X10^3/uL (2.0-7.7); Basophil# 0.06 X10^3/uL; Basophil% 0.8 % (0-1); Eosinophil# 0.39 X10^3/uL; Eosinophils% 4.9 % (0-5); Hematocrit 32.6 % (40-54); Hemoglobin 10.6 g/dL (13.0-16.5); Lymphocyte # 2.54 X10^3/ul (0.83-4.51); Lymphocyte % 31.8 % (19-41); Mean Corp Hgb Conc 32.5 g/dL (32-36); Mean Corpuscular Volume 89.1 fL (80-94); Mean Platelet Vol. 9.2 fl (6.2-12.0); Monocyte# 0.53 X10^3/uL; Monocyte% 6.6 % (0-10); NRBC Flagged by Analyzer 0.3 % (0-5); Neutrophil # 4.42 X10^3/uL (2.7-7.7); Neutrophil % 55.4 % (47-70); Platelet Count 216 K/mm3 (150-450); RBC Distribution Width SD 45.4 fl (35.1-43.9); Red Blood Count 3.66 M/mm3 (4.6-6.2)
[2022-06-19 06:33] LABS: Anion Gap 5 (5-15); BUN 24 mg/dL (7-18); BUN/Creat Ratio 23.8 RATIO (10-20); Calcium,Total 8.7 mg/dL (8.5-10.1); Chloride 105 mmol/L (98-107); Creatinine, Serum 1.01 mg/dL (0.70-1.30); EST Glomerular Filtration Rate 75 mL/min (>60); Est Glom Filt Rate - Afr Amer 91 mL/min (>60); Estimated Creatinine Clearance 52.67 ml/min; Glucose 104 mg/dL (74-106); Potassium 4.5 mmol/L (3.5-5.1); Sodium Level 136 mmol/L (136-145)
[2022-06-19] MEDS: Aspirin E.C. 81 MG Tablet PO (08:19)
[2022-06-19] MEDS: Carvedilol 6.25 MG Tablet PO ×2 (08:20→16:57)
[2022-06-19 15:16] VITALS: BP 126/54; PULSE 70; RESP 18; TEMP 36.5; O2SAT 96
[2022-06-19] MEDS: Tamsulosin HCl 0.4 MG Capsule PO (16:56)
[2022-06-19] MEDS: Atorvastatin Calcium 40 MG Tablet PO (20:21)
[2022-06-19] MEDS: Doxepin Hcl 25 MG Capsule PO (20:21)
[2022-06-20] MEDS: Pantoprazole Sodium 40 MG Tablet PO (05:13)
[2022-06-20] MEDS: Acetaminophen 500 MG Tablet 1000 MG PO ×3 (05:13→21:42)
[2022-06-20] MEDS: Menthol/Lanolin/Calamine/Znox 113 GM Tube 1 APPLIC TOPICAL ×2 (05:13→17:00)
[2022-06-20] MEDS: Ensure Plus High Protein 120 ML LIQUID PO ×2 (05:14→17:00)
[2022-06-20] MEDS: Lisinopril 10 MG Tablet PO (05:14)
[2022-06-20] MEDS: guaiFENesin/D-Methorphan TAB.SR.12H 1 TABLET PO ×2 (05:14→17:00)
[2022-06-20] MEDS: Senna/Docusate Sodium 1 Tablet PO (05:14)
[2022-06-20 05:16] VITALS: BP 129/57; PULSE 70
[2022-06-20 08:30] VITALS: BP 131/59
[2022-06-20] MEDS: Aspirin E.C. 81 MG Tablet PO (08:38)
[2022-06-20] MEDS: Carvedilol 6.25 MG Tablet PO ×2 (08:38→16:59)
[2022-06-20 13:26] VITALS: BP 137/61; PULSE 79; RESP 16; TEMP 36.4; O2SAT 97
--- NOTE | 2022-06-20 15:01 | PCM.PROGNOTE ---
Subjective Subjective Patient was seen today to follow up. He needs toenails reduced, they are elongated, and thickened. Right ankle continues to do well, he continues with CAM Walker boot. Objective Data Objective Data Vital Signs: Vital Signs Temp Pulse Resp BP Pulse Ox O2 Del Method O2 Flow Rate 98.1 F 67 16 127/60 H 96 Room Air 3 06/21/22 11:28 06/21/22 11:28 06/21/22 11:28 06/21/22 11:28 06/21/22 11:06/21/22 11:06/07/22 20:01 Oxygen Flow Rate (L/min) 3 Oxygen Delivery Method Room Air Weight: 81.964 kg Body Mass Index (BMI) 27.6 Intake & Output: Intake and Output for Last 24 Hours 06/19/22 06/20/22 06/21/22 23:59 23:59 23:59 Intake Total 1080 / 1080 970 / 970 360 / 360 Output Total 225 / 225 750 / 750 Balance 855 / 855 220 / 220 360 / 360 Lab / Micro Data Result Diagrams: 06/19/22 05:20 06/19/22 05:20 Micro: Microbiology 06/09/22 16:35 Urine, Catheterized Urine Culture - Final Culture exhibits no growth. 06/02/22 11:00 Urine Catheter - Catheter Urine Culture - Final Culture exhibits no growth. 05/27/22 15:17 Urine Catheter - Rodriguez Urine Culture - Final Culture exhibits no growth. 05/27/22 15:17 Nasal Secretion SARS-CoV-2 Antigen (Rapid) - Final Physical Exam Narrative Right ankle with no POP or pain on ROM, there is no gross instability to the ankle, and there is smooth painfree ROM, no edema, no open lesions either. Toenails 1-5 bilateral are elonagated, thickened, dystrophic, yellow with subungual debris - chronic. No open lesions, no erythema, no ecchymosis bilateral foot or ankle. Const alert and oriented x3 General Appearance: cooperative Lymph Lymphatic: no lymphadenopathy noted and no lymphedema noted Extremity normal capillary refill, no joint enlargement, no calf tenderness and no pedal edema Skin no rashes or lesions noted, skin turgor normal and no jaundice Neuro moves all extremities Assessment & Plan Assessment/Plan (1) Fracture of lateral malleolus of right ankle: (2) Fx lateral malleolus-closed: (3) Debility: (4) Pain in right lower leg: PLAN: Plan Patient seen and evaluated. Patient suffered acute ankle fracture 05/11/2022 - clinically ankle is doing very well. Ok to transition out of CAM Walker to stirrup ankle brace and shoe. He has yet to get brace so continue with CAM Walker boot. Debrided toenails 1-5 bilateral using a nail nipper without incident, removing bulk. Patient to follow up with me in office in 4 weeks, sooner if needed. He can come to office sooner to get brace once discharged. Discussed with patient's .
[2022-06-20 16:30] VITALS: BP 161/59; PULSE 77
[2022-06-20] MEDS: Tamsulosin HCl 0.4 MG Capsule PO (16:59)
--- NOTE | 2022-06-20 18:45 | PN.TCU_ITS ---
Subjective Subjective Resident seen, examined. He is looking forward to going home with family tomorrow. He has no new problems, concerns, issues, complaints. Objective Data Objective Data Vital Signs: Vital Signs Temp Pulse Resp BP Pulse Ox O2 Del Method O2 Flow Rate 97.5 F L 77 16 161/59 H 97 Room Air 3 06/20/22 13:26 06/20/22 16:30 06/20/22 13:26 06/20/22 16:30 06/20/22 13:26 06/20/22 13:26 06/07/22 20:01 Oxygen Flow Rate (L/min) 3 Oxygen Delivery Method Room Air Weight: 81.964 kg Body Mass Index (BMI) 27.6 Intake & Output: Intake and Output for Last 24 Hours 06/18/22 06/19/22 06/20/22 23:59 23:59 23:59 Intake Total 820 / 820 1080 / 1080 730 / 730 Output Total 225 / 225 750 / 750 Balance 820 / 820 855 / 855 -20 / -20 Lab / Micro Data Result Diagrams: 06/19/22 05:20 06/19/22 05:20 Micro: Microbiology 06/09/22 16:35 Urine, Catheterized Urine Culture - Final Culture exhibits no growth. 06/02/22 11:00 Urine Catheter - Catheter Urine Culture - Final Culture exhibits no growth. 05/27/22 15:17 Urine Catheter - Rodriguez Urine Culture - Final Culture exhibits no growth. 05/27/22 15:17 Nasal Secretion SARS-CoV-2 Antigen (Rapid) - Final Physical Exam Const alert General Appearance: cooperative HEENT normocephalic Eyes PERRL and EOMs intact bilaterally Neck supple, no JVD and no carotid bruits Resp normal respiratory effort, normal air movement and clear to auscultation bilaterally Cardio regular rate and regular rhythm GI normal to inspection, nondistended, normoactive bowel sounds, non-tender and non-distended Extremity normal capillary refill General Extremity: Negative for edema Skin no rashes or lesions noted General Skin Exam: no breakdown Psych affect normal Appearance: appropriate Assessment & Plan Assessment/Plan (1) Fracture of lateral malleolus of right ankle: (2) Fx lateral malleolus-closed: (3) Debility: (4) Pain in right lower leg: PLAN: Plan 82 year old male with below past medical history significant for recent right ankle fracture, hospitalized for stroke, admitted to TCU with debility, here for rehabilitation, strengthening, prior to discharge home alone. * Debility - PT/OT/ST. * Pain - Tylenol 1000mg tid. * Bowel - senna/colace 1 tablet bid, MOM 30ml po x 1 prn. * Adult immunization - Administer pneumonia vaccine, covid19 vaccine, flu vaccine as appropriate. * DVT prophylaxis - Off DVT prophylaxis. * Stroke - Aspirin 81mg daily. * Hyperlipidemia - Atorvastatin 40mg qhs. * Hypertension - Coreg 6.25mg bid, Lisinopril 10mg daily. * Insomnia - Doxepin 25mg qhs. * GERD - Pantoprazole 40mg daily. * Nutrition - Ensure 120ml po bid. * Cough - Guaifenesin 1 tablet bid. * Skin irritation - Calmoseptine topical bid. * BPH - Tamsulosin 0.4mg daily. Capacity Capacity Assessment Tool Can the patient make a choice & communicate that choice?: Yes Can the patient understand benefits, risks and alternatives?: Yes Can the patient make a logical, rational choice?: Yes Is the choice the patient makes consistent w/ their values?: Yes Is there an impending, emergent risk to the patient?: No Does the patient have an Advance Directive?: Yes Is there a Surrogate Available?: Yes i.e. HCPOA: Yes i.e. close relative (spouse, child, parent, sibling)?: Yes
[2022-06-20] MEDS: Atorvastatin Calcium 40 MG Tablet PO (21:43)
[2022-06-20] MEDS: Doxepin Hcl 25 MG Capsule PO (21:43)
[2022-06-21] MEDS: Ensure Plus High Protein 120 ML LIQUID PO (06:23)
[2022-06-21] MEDS: Acetaminophen 500 MG Tablet 1000 MG PO (06:23)
[2022-06-21] MEDS: Senna/Docusate Sodium 1 Tablet PO (06:24)
[2022-06-21] MEDS: Pantoprazole Sodium 40 MG Tablet PO (06:24)
[2022-06-21] MEDS: guaiFENesin/D-Methorphan TAB.SR.12H 1 TABLET PO (06:24)
[2022-06-21] MEDS: Menthol/Lanolin/Calamine/Znox 113 GM Tube 1 APPLIC TOPICAL (06:24)
[2022-06-21] MEDS: Lisinopril 10 MG Tablet PO (06:24)
[2022-06-21 06:33] VITALS: BP 133/66; PULSE 68; RESP 16; TEMP 36.4; O2SAT 93
[2022-06-21] MEDS: Aspirin E.C. 81 MG Tablet PO (08:20)
[2022-06-21] MEDS: Carvedilol 6.25 MG Tablet PO (08:20)
--- NOTE | 2022-06-21 09:36 | CASEMGMT ---
Social Work BIMS and PHQ-9 completed for MDS assessment. Guerline Funk, CR[employer] SPECIALIST [employer] DEVELOPER
[2022-06-21 11:28] VITALS: BP 127/60; PULSE 67; RESP 16; TEMP 36.7; O2SAT 96
== END 2022-06-21 11:30 | disposition home health service (06) | DRG 57 ==
PROVIDERS: Admitting Provider Family Medicine Geriatric Medicine; PCP Internal Medicine; Visit Provider Family Medicine Geriatric Medicine
DX: I69.354 Hemiplegia and hemiparesis following cerebral infarction affecting left non-dominant side (principal); E78.5 Hyperlipidemia, unspecified; I10 Essential (primary) hypertension; K21.9 Gastro-esophageal reflux disease without esophagitis; S82.61XD Displaced fracture of lateral malleolus of right fibula, subsequent encounter for closed fracture with routine healing; H91.90 Unspecified hearing loss, unspecified ear; Z87.891 Personal history of nicotine dependence; Z79.82 Long term (current) use of aspirin; Z79.899 Other long term (current) drug therapy; X58.XXXD Exposure to other specified factors, subsequent encounter; N40.0 Benign prostatic hyperplasia without lower urinary tract symptoms
CPT/HCPCS: 36415; 73610; 74018; 74230; 80048; 81001; 83930; 83935; 84300; 85025; 87086; 87811; 92507; 92526; 92610; 92611; 97110; 97116; 97162; 97166; 97530; 97535; 97802; J7030; A4216

== ENCOUNTER 2022-07-22 08:28 | Inpatient (IN) | payer MEDICARE, SELFPAY ==
[2022-07-22] VITALS (8 sets, daily range): BP systolic 149–208; BP diastolic 74–92; PULSE 80–100; RESP 16–20; TEMP 36.4–37.2; O2SAT 90–96; BMI 32.5; BMI 29.2
--- NOTE | 2022-07-22 09:11 | ED.VIS.FALL ---
HPI HPI - Fall History of Present Illness Chief Complaint: Fall Informant: patient Occured/Mechanism Occurred: Today Mechanism/Context: Yes same level fall Pain/Injury Pain Location: lower extremity (Left hip) Quality of Pain: Sharp Worsened by: Movement Relieved by: Rest Associated Symptoms Associated Symptoms: Positive for Inability to ambulate; Negative for Parasthesias, Weakness, Loss of consciousness or Amnesia Narrative Narrative: Patient presents after a fall that occurred this morning. Patient is very hard of hearing and is a poor informant. Patient complains of pain in his left hip. Patient states his pain is worse with any movement. Patient denies any paresthesias or weakness. Patient denies any head injury or loss of consciousness. Patient was unable to ambulate after the fall. Patient does not take any anticoagulants. Patient denies any other injuries. [facility] Medical History Debility Encephalomalacia Fracture of lateral malleolus of right ankle Hearing loss Home Medications acetaminophen 500 mg tablet 1,000 mg PO TID #0 tabs 06/15/22 [Rx Last Taken Unknown] aspirin 81 mg tablet,delayed release 81 mg PO BREAKFAST #0 tabs 06/15/22 [Rx Last Taken Unknown] atorvastatin 40 mg tablet 40 mg PO QHS 30 days #30 tabs 06/15/22 [Rx Last Taken Unknown] carvedilol 6.25 mg tablet 6.25 mg PO BIDCM 30 days #60 tabs 06/15/22 [Rx Last Taken Unknown] doxepin 25 mg capsule 25 mg PO QHS 30 days #30 caps 06/15/22 [Rx Last Taken Unknown] lisinopril 10 mg tablet 10 mg PO DAILY 30 days #30 tabs 06/15/22 [Rx Last Taken Unknown] pantoprazole 40 mg tablet,delayed release 40 mg PO DAILY 30 days #30 tabs 06/15/22 [Rx Last Taken Unknown] tamsulosin 0.4 mg capsule 0.4 mg PO DAILY@1730 30 days #30 caps 06/15/22 [Rx Last Taken Unknown] Allergy/AdvReac Type Severity Reaction Status Date / Time No Known Allergies Allergy Verified 07/22/22 08:33 Social History household members: none Smoking Status: Former smoker alcohol intake: never substance use type: does not use ROS ROS ED Constitutional Constitutional ED: Denies chills or fever(s) Eyes Eyes: Denies blurry vision or change in vision ENT ENT ED: Denies rhinorrhea or sore throat Cardiovascular Cardiovascular: Denies chest pain or palpitations Respiratory/Chest Respiratory/Chest: Denies cough or dyspnea Gastrointestinal Gastrointestinal: Denies nausea or vomiting Genitourinary Genitourinary ED: Denies dysuria or hematuria Musculoskeletal Musculoskeletal: Denies back pain or neck pain Integumentary Denies abscess or rash Neurologic Neurologic: Denies headache(s) or weakness Allergic/Immunologic Allergic/Immunologic ED: Denies mouth swelling or urticaria EXAM Physical Exam Const Vital Signs: 07/22/22 08:29 07/22/22 11:07 Temperature 97.6 F L Temperature Source Temporal Pulse Rate 88 85 Respiratory Rate 16 18 Blood Pressure 175/82 H 201/92 H Blood Pressure Mean 113 128 Pulse Ox 93 96 Oxygen Delivery Method Room Air Positive well nourished and well developed General Appearance ED: well developed and NAD HEENT Reports normocephalic atraumatic Neck full ROM and supple Chest Wall inspection of chest normal and palpation of chest normal Resp normal respiratory effort and clear to auscultation bilaterally Cardio regular rate and regular rhythm Extremity Extremity Narrative: There is tenderness over the left hip. There is shortening and external rotation of the left lower extremity. Range of motion of the left hip was limited in all motions secondary to pain. Pedal pulses are equal bilaterally. Sensation was intact to light touch in all digits. Capillary refill was less than 2 seconds in all digits. Neuro CN's II-XII intact bilaterally, moves all extremities, no focal motor deficits and no sensory deficits noted Sensorium / Orientation: alert Motor Exam: strength 5/5 throughout Psych mental status grossly normal MDM MDM MDM Narrative Medical decision making narrative: X-rays of the left hip were obtained. There are 3 views. On my interpretation, there is an intertrochanteric fracture of the left hip. There is mild displacement. Radiologist also interpreted the x-rays and agrees. EKG was obtained. On my interpretation, it showed a normal sinus rhythm with frequent PVCs and PACs with a rate of 88. ID interval, QRS interval, and QTc intervals were all normal. [place] was normal. There are no acute ST or T wave changes. CBC showed a mild anemia with a hemoglobin of 10.4 hematocrit of 32.5. PT with INR and PTT were within normal limits. Comprehensive metabolic profile was within normal limits. Portable chest x-ray was obtained. There is 1 view. On my interpretation, there is left lower lobe retrocardiac atelectasis versus infiltrate. There is bilateral interstitial prominence and perihilar prominence. Radiologist also interpreted the x-rays and agrees. Case was discussed with Dr. Almonte from orthopedics. He will follow-up with the patient in the hospital. He recommended admitting the patient to the hospitalist for surgery tomorrow. Case was discussed with the hospitalist. He will admit the patient to his service. Patient and family understood and was agreeable with the plan. All questions were answered. Lab Data Attestation: I reviewed the patient's lab results. Labs: Laboratory Results - last 24 hr 07/22/22 07/22/22 07/22/22 08:47 08:47 08:47 WBC 10.4 RBC 3.58 L Hgb 10.4 L Hct 32.5 L MCV 90.8 MCH 29.1 MCHC 32.0 RDW Std Deviation 52.9 H RDW Coeff of Dania 15.9 H Plt Count 221 MPV 9.4 Immature Gran % (Auto) 1.000 H Neut % (Auto) 70.5 H Lymph % (Auto) 19.8 [place] % (Auto) 6.5 Eos % (Auto) 1.9 Baso % (Auto) 0.3 Absolute Neuts (auto) 7.4 Absolute Lymphs (auto) 2.07 Nucleated RBC % 0 PT 14.7 INR 1.2 APTT 28.7 Sodium 140 Potassium 3.8 Chloride 107 Carbon Dioxide 27.0 Anion Gap 6 BUN 24 H Creatinine 1.12 Estim Creat Clear Calc 47.50 Est GFR (MDRD) Af Amer 80 Est GFR (MDRD) Non-Af 66 BUN/Creatinine Ratio 21.4 H Glucose 106 Calcium 8.4 L Total Bilirubin 0.40 AST 15 ALT 29 Alkaline Phosphatase 83 Total Protein 6.3 L Albumin 3.1 L Globulin 3.2 Albumin/Globulin Ratio 1.0 Radiography Diagnostic Testing: Clinical Impression(s) from Imaging Studies Chest X-Ray 07/22/22 09:14 IMPRESSION: 1. Left lower lobe retrocardiac consolidative opacity could relate to atelectasis and/or pneumonia. 2. Bilateral interstitial prominence and bilateral perihilar prominence may relate to pulmonary vascular congestion/edema. Electronically Signed: Chucho Riley, at 10:19 EST , Hip/Pelvis X-Ray 07/22/22 09:15 IMPRESSION: Acute left femoral intertrochanteric fracture with displacement of the lesser trochanter. Electronically Signed: Chucho Riley, at 10:22 EST , EKG Initial EKG: Attestation: I personally reviewed and interpreted this EKG as follows: Interpretation: Sinus Rhythm (With frequent PACs and PVCs with a rate of 88) and No Acute Injury Pattern Prior EKG tracings: available for review Prior: Unchanged (05/19/2022) Discharge Plan Dx/Rx/DC Orders Clinical Impression: Closed intertrochanteric fracture of left hip, Hearing loss, Fall Disposition Disposition: Acute Care Hospital [facility] Discharge Date/Time: 07/22/22 12:30
--- NOTE | 2022-07-22 09:14 | RAD_ITS ---
INDICATION: Cough EXAMINATION/TECHNIQUE: X-RAY - XR Chest 1 View COMPARISON: 05/19/2022 FINDINGS: Support devices: None. Bilateral interstitial prominence and bilateral perihilar prominence. Left lower lobe retrocardiac consolidative opacity. No sizable pleural effusion or pneumothorax. Eventration of the right diaphragm. Cardiomediastinal silhouette is within normal limits. No acute findings in the bones or soft tissues. RAD/Chest 1 View (Portable) IMPRESSION: 1. Left lower lobe retrocardiac consolidative opacity could relate to atelectasis and/or pneumonia. 2. Bilateral interstitial prominence and bilateral perihilar prominence may relate to pulmonary vascular congestion/edema. Electronically Signed: Chucho Riley, at 10:19 EST ,
--- NOTE | 2022-07-22 09:15 | RAD_ITS ---
INDICATION: Injury/Pain EXAMINATION/TECHNIQUE: X-RAY - LEFT XR Hip Unilateral with Pelvis when performed; 2-3 Views 4 VIEWS COMPARISON: None. FINDINGS: Acute left femoral intertrochanteric fracture with displacement of the lesser trochanter. Associated overlying soft tissue swelling. Bilateral femoral heads are well-seated within the acetabulum. 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 Joint spaces are intact. RAD/HIP, UNI W/ Pelvis 2-3 Views IMPRESSION: Acute left femoral intertrochanteric fracture with displacement of the lesser trochanter. Electronically Signed: Chucho Riley, at 10:22 EST ,
--- NOTE | 2022-07-22 09:15 | EKG12_ITS ---
Test Reason : Blood Pressure : / mmHG Vent. Rate : 088 BPM Atrial Rate : 088 BPM P-R Int : 170 ms QRS Dur : 072 ms QT Int : 352 ms P-R-T Axes : 051 043 053 degrees QTc Int : 425 ms Sinus rhythm with frequent Premature ventricular complexes and Premature atrial complexes Otherwise normal ECG Confirmed by OLIVIA TAYLOR, JAM ([id number]), food expeditor MORENITA ARRIAZA ([id number]) on 07/26/2022 10:57:06 AM Referred By: KAYLYNN Confirmed By:JAM BAKER MD
[2022-07-22] MEDS: Ondansetron 4 MG/2 ML Vial IV (09:48)
[2022-07-22] MEDS: Morphine 4 MG/ML Syringe IV ×2 (09:48→12:26)
[2022-07-22 10:05] LABS: Absolute Lymphocyte Count 2.07 X10^3/uL (0.83-4.51); Absolute Neutrophil Count 7.4 X10^3/uL (2.0-7.7); Basophil# 0.03 X10^3/uL; Basophil% 0.3 % (0-1); Eosinophils% 1.9 % (0-5); Hematocrit 32.5 % (40-54); Hemoglobin 10.4 g/dL (13.0-16.5); Lymphocyte # 2.07 X10^3/ul (0.83-4.51); Lymphocyte % 19.8 % (19-41); Mean Corpuscular Hgb 29.1 pg (27.0-32.0); Mean Corpuscular Volume 90.8 fL (80-94); Mean Platelet Vol. 9.4 fl (6.2-12.0); Monocyte# 0.68 X10^3/uL; Monocyte% 6.5 % (0-10); NRBC Flagged by Analyzer 0 % (0-5); Neutrophil # 7.36 X10^3/uL (2.7-7.7); Neutrophil % 70.5 % (47-70); Platelet Count 221 K/mm3 (150-450); RBC Distribution Width CV 15.9 % (11.6-14.6); RBC Distribution Width SD 52.9 fl (35.1-43.9); Red Blood Count 3.58 M/mm3 (4.6-6.2); White Blood Count 10.4 K/mm3 (4.4-11.0)
[2022-07-22 10:22] LABS: AST(SGOT) 15 U/L (15-37); Alanine Aminotransfer ALT/SGPT 29 U/L (16-61); Albumin, Serum 3.1 g/dL (3.2-5.0); Alkaline Phosphatase 83 U/L (45-117); Anion Gap 6 (5-15); BUN 24 mg/dL (7-18); BUN/Creat Ratio 21.4 RATIO (10-20); Calcium,Total 8.4 mg/dL (8.5-10.1); Chloride 107 mmol/L (98-107); Creatinine, Serum 1.12 mg/dL (0.70-1.30); EST Glomerular Filtration Rate 66 mL/min (>60); Est Glom Filt Rate - Afr Amer 80 mL/min (>60); Globulin 3.2 g/dL (2.2-4.2); Glucose 106 mg/dL (74-106); Potassium 3.8 mmol/L (3.5-5.1); Protein, Total 6.3 g/dL (6.4-8.2); Sodium Level 140 mmol/L (136-145)
[2022-07-22 10:23] LABS: International Normalized Ratio 1.2; Prothrombin Time (Protime)PT. 14.7 SECONDS (11.7-14.9)
[2022-07-22 10:24] LABS: Partial Thromboplast Time 28.7 Seconds (24.1-36.2)
[2022-07-22] MEDS: Acetaminophen 500 MG Tablet 1000 MG PO ×2 (14:03→22:00)
[2022-07-22] MEDS: Tamsulosin HCl 0.4 MG Capsule PO (17:59)
[2022-07-22] MEDS: Carvedilol 6.25 MG Tablet PO (17:59)
--- NOTE | 2022-07-22 19:20 | PCM.HP.STD ---
HPI - General General Date of Admission: 07/22/22 Date of Service: 07/22/22 Chief Complaint: Left hip pain, inability to ambulate after fall HPI Narrative ROLAND KASPER, is a 82 M who presents to the emergency room at [facility] after being brought in after he suffered a fall at home when he attempted to walk without assistance. Patient had a stroke approximately 8 weeks ago, this resulted in loss of strength in his left side. Patient was in TCU for approximately 4 weeks and was released the first week in June of this year. Patient attempted to get up today-he lives with his daughter-and he fell on his left hip, he complains of left hip pain. Patient is hard to communicate with due to extreme hearing loss. Information was obtained from the patient's daughter who was present at time of my examination. Work-up in the emergency room included labs which were remarkable for a hemoglobin of 10.4, patient's chemistry profile was remarkable for BUN of 24, chest x-ray showed a left lower lobe retrocardiac consolidative opacity which could be related to atelectasis and or pneumonia-patient is in no respiratory distress, his pulse ox on room air is 90. There is also noted to be bilateral interstitial prominence and perihilar prominence which may be related to vascular congestion, patient's left hip x-ray showed a left femoral intertrochanteric fracture with displacement of the lesser trochanter. Patient will be admitted to [place] [address] for closed left hip fracture, he will undergo a gamma nail insertion tomorrow by Dr. Almonte. [facility] Medical History Debility Encephalomalacia Fracture of lateral malleolus of right ankle Hearing loss Home Medications acetaminophen 500 mg tablet 1,000 mg PO TID #0 tabs 06/15/22 [Rx Last Taken Unknown] aspirin 81 mg tablet,delayed release 81 mg PO BREAKFAST #0 tabs 06/15/22 [Rx Last Taken Unknown] atorvastatin 40 mg tablet 40 mg PO QHS 30 days #30 tabs 06/15/22 [Rx Last Taken Unknown] carvedilol 6.25 mg tablet 6.25 mg PO BIDCM 30 days #60 tabs 06/15/22 [Rx Last Taken Unknown] doxepin 25 mg capsule 25 mg PO QHS 30 days #30 caps 06/15/22 [Rx Last Taken Unknown] lisinopril 10 mg tablet 10 mg PO DAILY 30 days #30 tabs 06/15/22 [Rx Last Taken Unknown] pantoprazole 40 mg tablet,delayed release 40 mg PO DAILY 30 days #30 tabs 06/15/22 [Rx Last Taken Unknown] tamsulosin 0.4 mg capsule 0.4 mg PO DAILY@1730 30 days #30 caps 06/15/22 [Rx Last Taken Unknown] Allergy/AdvReac Type Severity Reaction Status Date / Time No Known Allergies Allergy Verified 07/22/22 08:33 Social History household members: none Smoking Status: Former smoker alcohol intake: never substance use type: does not use ROS ROS Narrative Adequate review of systems was not able to be obtained due to patient's severe hearing loss, information was obtained from the patient's daughters who are present at the time my examination Vital Signs Vital Signs Vital Signs: 07/22/22 08:29 07/22/22 11:07 07/22/22 12:13 Temperature 97.6 F L 97.8 F Temperature Source Temporal Temporal Pulse Rate 88 85 92 Respiratory Rate 16 18 20 H Respiratory Effort Respiratory Depth Respiratory Pattern Blood Pressure 175/82 H 201/92 H 162/84 H Blood Pressure Mean 113 128 110 Blood Pressure Source Blood Pressure Position Blood Pressure Location Pulse Ox 93 96 94 Oxygen Delivery Method Room Air 07/22/22 12:19 07/22/22 13:01 07/22/22 13:29 Temperature 97.8 F 98.2 F Temperature Source Oral Oral Pulse Rate 80 100 94 Respiratory Rate 18 16 18 Respiratory Effort Respiratory Depth Respiratory Pattern Blood Pressure 162/82 H 208/87 H 163/87 H Blood Pressure Mean 108 127 112 Blood Pressure Source Monitor Monitor Blood Pressure Position Semi-Fowlers Semi-Fowlers Blood Pressure Location Right Arm Right Arm Pulse Ox 95 93 91 Oxygen Delivery Method Room Air Room Air Room Air 07/22/22 13:55 Temperature Temperature Source Pulse Rate Respiratory Rate Respiratory Effort Normal Non-Labored Respiratory Depth Normal Respiratory Pattern Normal Blood Pressure Blood Pressure Mean Blood Pressure Source Blood Pressure Position Blood Pressure Location Pulse Ox 90 Oxygen Delivery Method Room Air Weight Weight: 87.09 kg Body Mass Index (BMI) 29.2 Physical Exam Const alert Constitutional Narrative: Patient is alert, he appears sleepy from narcotic administration in the emergency room HEENT normocephalic and head/scalp atraumatic HEENT Narrative: Patient has extreme hearing loss Eyes PERRL and conjunctivae normal Neck supple, no JVD and no carotid bruits Resp normal respiratory effort, no retractions and no use of accessory muscles Resp Narrative: Breath sounds are diminished bilaterally Cardio regular rate, regular rhythm, S1 normal heart sound, S2 normal heart sound and no murmurs GI normal to inspection, nondistended, normoactive bowel sounds, soft to palpation, non-tender and non-distended Neuro CN's II-XII intact bilaterally Neuro Narrative: Patient has low left upper extremity weakness, patient was not ambulated due to his left hip fracture Sensorium / Orientation: awake and alert Psych Psych Narrative: Patient appeared somnolent secondary to narcotic administration for left hip for Results Lab / Micro Data Result Diagrams: 07/22/22 08:47 07/22/22 08:47 Labs: Laboratory Results - last 24 hr 07/22/22 08:47: WBC 10.4, RBC 3.58 L, Hgb 10.4 L, Hct 32.5 L, MCV 90.8, MCH 29.1, MCHC 32.0, RDW Std Deviation 52.9 H, RDW Coeff of Dania 15.9 H, Plt Count 221, MPV 9.4, Immature Gran % (Auto) 1.000 H, Neut % (Auto) 70.5 H, Lymph % (Auto) 19.8, [place] % (Auto) 6.5, Eos % (Auto) 1.9, Baso % (Auto) 0.3, Absolute Neuts (auto) 7.4, Absolute Lymphs (auto) 2.07, Nucleated RBC % 0 07/22/22 08:47: PT 14.7, INR 1.2, APTT 28.7 07/22/22 08:47: Sodium 140, Potassium 3.8, Chloride 107, Carbon Dioxide 27.0, Anion Gap 6, BUN 24 H, Creatinine 1.12, Estim Creat Clear Calc 47.50, Est GFR (MDRD) Af Amer 80, Est GFR (MDRD) Non-Af 66, BUN/Creatinine Ratio 21.4 H, Glucose 106, Calcium 8.4 L, Total Bilirubin 0.40, AST 15, ALT 29, Alkaline Phosphatase 83, Total Protein 6.3 L, Albumin 3.1 L, Globulin 3.2, Albumin/Globulin Ratio 1.0 Radiology Impression Chest X-Ray 07/22/22 09:14 IMPRESSION: 1. Left lower lobe retrocardiac consolidative opacity could relate to atelectasis and/or pneumonia. 2. Bilateral interstitial prominence and bilateral perihilar prominence may relate to pulmonary vascular congestion/edema. Electronically Signed: Chucho Riley, at 10:19 EST , Hip/Pelvis X-Ray 07/22/22 09:15 IMPRESSION: Acute left femoral intertrochanteric fracture with displacement of the lesser trochanter. Electronically Signed: Chucho Riley, at 10:22 EST , Assessment & Plan Assessment/Plan (1) Closed intertrochanteric fracture of left hip: PLAN: Plan 1. Left intertrochanteric hip fracture-patient was admitted to [place] [address], he will be seen in consultation by orthopedic surgery tomorrow and undergo a gamma nail insertion if he remains medically stable, at this time I believe the patient is medically stable for surgery. 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 Patient will remain on aspirin and atorvastatin #3 mild hypoxia-etiology unclear at this time, patient is on low-flow oxygen, he does not appear to have evidence of congestive heart failure or pneumonia at this time, pulse ox will be monitored #4 severe hearing loss-complicates communication with the patient, complicates care, recovery, management, and prognosis #5 status post spiral fracture in the distal fibula of the right ankle #6 essential hypertension-patient will remain on his present medication #7 mild pulmonary hypertension-this is not significant, patient does not need treatment Charges/Coding Visit Charges Inpatient E&M: 66874 Init Hosp L3
[2022-07-22] MEDS: Atorvastatin Calcium 40 MG Tablet PO (22:00)
[2022-07-22] MEDS: Heparin Injection (Vial) 5,000 UNIT/ML VIAL 5000 UNIT SC (22:00)
[2022-07-22] MEDS: Doxepin Hcl 25 MG Capsule PO (22:00)
[2022-07-23] VITALS (12 sets, daily range): BP systolic 144–170; BP diastolic 68–97; PULSE 68–88; RESP 16–20; TEMP 36.1–36.8; O2SAT 90–100; BMI 29.2
--- NOTE | 2022-07-23 05:00 | EKG12_ITS ---
Test Reason : AM EKG Blood Pressure : / mmHG Vent. Rate : 079 BPM Atrial Rate : 079 BPM P-R Int : 164 ms QRS Dur : 082 ms QT Int : 376 ms P-R-T Axes : 063 055 048 degrees QTc Int : 431 ms Sinus rhythm with Premature atrial complexes Otherwise normal ECG Confirmed by OLIVIA TAYLOR, JAM ([id number]), brands editor MORENITA ARRIAZA ([id number]) on 07/27/2022 10:41:09 AM Referred By: Confirmed By:JAM BAKER MD
[2022-07-23] MEDS: 0.9% Saline Lock 10 ML Syringe IV (05:48)
[2022-07-23] MEDS: Carvedilol 6.25 MG Tablet PO ×2 (05:48→16:56)
[2022-07-23] MEDS: Lactated Ringers 1,000 ML 15 ML IV (05:48)
[2022-07-23 06:40] LABS: Absolute Lymphocyte Count 1.93 X10^3/uL (0.83-4.51); Absolute Neutrophil Count 6.3 X10^3/uL (2.0-7.7); Basophil# 0.07 X10^3/uL; Basophil% 0.7 % (0-1); Eosinophil# 0.79 X10^3/uL; Eosinophils% 7.9 % (0-5); Hematocrit 27.9 % (40-54); Hemoglobin 9.1 g/dL (13.0-16.5); Lymphocyte # 1.93 X10^3/ul (0.83-4.51); Lymphocyte % 19.2 % (19-41); Mean Corp Hgb Conc 32.6 g/dL (32-36); Mean Corpuscular Hgb 30.3 pg (27.0-32.0); Mean Platelet Vol. 9.3 fl (6.2-12.0); Monocyte# 0.92 X10^3/uL; Monocyte% 9.2 % (0-10); NRBC Flagged by Analyzer 0 % (0-5); Neutrophil # 6.28 X10^3/uL (2.7-7.7); Neutrophil % 62.6 % (47-70); Platelet Count 168 K/mm3 (150-450); RBC Distribution Width CV 16.1 % (11.6-14.6)
--- NOTE | 2022-07-23 07:12 | CON.PCM.OR_ITS ---
HPI Consult Data Date of Consult: 07/23/22 HPI Narrative Reason for Consultation: Left hip pain HPI Narrative: ROLAND KASPER, is a 82 M who presents today with left hip pain. Patient has multiple medical comorbidities including a stroke 8 weeks ago. Patient has left-sided weakness and difficulty with ambulating after the stroke. He attem pted to ambulate unassisted yesterday and sustained a fall due to his weakness. Complains of left hip pain and inability to ambulate after the fall. He presented to the emergency department was admitted to medicine service and cleared for surgery overnight. He did spend 4 weeks in rehabilitation after his hip fracture and returned home 4 weeks ago. Pain is improved with immobilization, worse with motion. Denies any associated numbness and tingling distally. Prior to his stroke patient lives independently. After his stroke patient requires a walker and is a maximal assist. He lives with his daughter who presents his power of base draw operator today. His daughters are the primary history givers this patient is hard of hearing and somewhat confused this morning. [facility] Medical History Debility Encephalomalacia Fracture of lateral malleolus of right ankle Hearing loss Home Medications acetaminophen 500 mg tablet 1,000 mg PO TID #0 tabs 06/15/22 [Rx Last Taken Unknown] aspirin 81 mg tablet,delayed release 81 mg PO BREAKFAST #0 tabs 06/15/22 [Rx Last Taken Unknown] atorvastatin 40 mg tablet 40 mg PO QHS 30 days #30 tabs 06/15/22 [Rx Last Taken Unknown] carvedilol 6.25 mg tablet 6.25 mg PO BIDCM 30 days #60 tabs 06/15/22 [Rx Last Taken Unknown] doxepin 25 mg capsule 25 mg PO QHS 30 days #30 caps 06/15/22 [Rx Last Taken Unknown] lisinopril 10 mg tablet 10 mg PO DAILY 30 days #30 tabs 06/15/22 [Rx Last Taken Unknown] pantoprazole 40 mg tablet,delayed release 40 mg PO DAILY 30 days #30 tabs 06/15/22 [Rx Last Taken Unknown] tamsulosin 0.4 mg capsule 0.4 mg PO DAILY@1730 30 days #30 caps 06/15/22 [Rx Last Taken Unknown] Allergy/AdvReac Type Severity Reaction Status Date / Time No Known Allergies Allergy Verified 07/22/22 08:33 Family History no significant family his no significant family history Social History household members: none Smoking Status: Former smoker alcohol intake: never substance use type: does not use ROS ROS Narrative Hard of hearing Constitutional Constitutional: Reports systems reviewed and no addt'l complaints, except as documented Eyes Eyes: Reports systems reviewed and no addt'l complaints, except as documented ENT HEENT: Reports systems reviewed and no addt'l complaints, except as documented Cardiovascular Cardiovascular: Reports systems reviewed and no addt'l complaints, except as documented Respiratory/Chest Respiratory/Chest: Reports systems reviewed and no addt'l complaints, except as documented and other Details: Chest x-ray findings noted. Genitourinary Genitourinary: Reports systems reviewed and no addt'l complaints, except as documented Musculoskeletal Musculoskeletal: Reports systems reviewed and no addt'l complaints, except as documented Integumentary Integumentary: Reports systems reviewed and no addt'l complaints, except as documented Neurologic Neurologic: Reports systems reviewed and no addt'l complaints, except as documented Psychiatric Psychiatric: Reports systems reviewed and no addt'l complaints, except as documented Endocrine Endocrinology: Reports systems reviewed and no addt'l complaints, except as documented Vital Signs Vital Signs Vital Signs: 07/22/22 08:29 07/22/22 11:07 07/22/22 12:13 Temperature 97.6 F L 97.8 F Temperature Source Temporal Temporal Pulse Rate 88 85 92 Respiratory Rate 16 18 20 H Respiratory Effort Respiratory Depth Respiratory Pattern Blood Pressure 175/82 H 201/92 H 162/84 H Blood Pressure Mean 113 128 110 Blood Pressure Source Blood Pressure Position Blood Pressure Location Pulse Ox 93 96 94 Oxygen Delivery Method Room Air Oxygen Flow Rate (L/min) 07/22/22 12:19 07/22/22 13:01 07/22/22 13:29 Temperature 97.8 F 98.2 F Temperature Source Oral Oral Pulse Rate 80 100 94 Respiratory Rate 18 16 18 Respiratory Effort Respiratory Depth Respiratory Pattern Blood Pressure 162/82 H 208/87 H 163/87 H Blood Pressure Mean 108 127 112 Blood Pressure Source Monitor Monitor Blood Pressure Position Semi-Fowlers Semi-Fowlers Blood Pressure Location Right Arm Right Arm Pulse Ox 95 93 91 Oxygen Delivery Method Room Air Room Air Room Air Oxygen Flow Rate (L/min) 07/22/22 13:55 07/23/22 05:48 07/22/22 20:00 Temperature 98 F 99 F Temperature Source Oral Temporal Pulse Rate 79 83 Respiratory Rate 16 18 Respiratory Effort Normal Non-Labored Respiratory Depth Normal Respiratory Pattern Normal Blood Pressure 156/78 H 149/74 H Blood Pressure Mean 104 99 Blood Pressure Source Monitor Monitor Blood Pressure Position Semi-Fowlers Semi-Fowlers Blood Pressure Location Right Arm Right Arm Pulse Ox 90 94 96 Oxygen Delivery Method Room Air Nasal Cannula Nasal Cannula Oxygen Flow Rate (L/min) 2 2 07/22/22 20:00 07/23/22 02:00 Temperature 97.8 F Temperature Source Temporal Pulse Rate 80 Respiratory Rate 16 Respiratory Effort Normal Non-Labored Respiratory Depth Normal Respiratory Pattern Normal Blood Pressure 147/79 H Blood Pressure Mean 101 Blood Pressure Source Monitor Blood Pressure Position Semi-Fowlers Blood Pressure Location Right Arm Pulse Ox 95 Oxygen Delivery Method Nasal Cannula Nasal Cannula Oxygen Flow Rate (L/min) 2 2 Weight Weight: 192 lb Body Mass Index (BMI) 29.2 Physical Exam Const alert General Appearance: cooperative Orientation / Consciousness: confused HEENT normocephalic Eyes PERRL Neck no JVD Resp normal respiratory effort Cardio Cardio Narrative: Regular pulse rate GI non-distended Extremity Extremity Narrative: Left lower extremity: Skin clean, dry, and intact. Limb is shortened and externally rotated Motor is intact dorsiflexion, EHL and plantar flexion. Sensation is intact to light touch saphenous, chloé,l superficial peroneal, deep peroneal and tibial distributions. Calves are soft and supple. Skin no rashes or lesions noted Neuro moves all extremities Psych affect normal Medical Records Data Attestation: I reviewed the patient's medical records Lab / Micro Data Result Diagrams: 07/23/22 05:20 07/22/22 08:47 Labs: Laboratory Results - last 24 hr 07/22/22 08:47: WBC 10.4, RBC 3.58 L, Hgb 10.4 L, Hct 32.5 L, MCV 90.8, MCH 29.1, MCHC 32.0, RDW Std Deviation 52.9 H, RDW Coeff of Dania 15.9 H, Plt Count 221, MPV 9.4, Immature Gran % (Auto) 1.000 H, Neut % (Auto) 70.5 H, Lymph % (Auto) 19.8, [place] % (Auto) 6.5, Eos % (Auto) 1.9, Baso % (Auto) 0.3, Absolute Neuts (auto) 7.4, Absolute Lymphs (auto) 2.07, Nucleated RBC % 0 07/22/22 08:47: PT 14.7, INR 1.2, APTT 28.7 07/22/22 08:47: Sodium 140, Potassium 3.8, Chloride 107, Carbon Dioxide 27.0, Anion Gap 6, BUN 24 H, Creatinine 1.12, Estim Creat Clear Calc 47.50, Est GFR (MDRD) Af Amer 80, Est GFR (MDRD) Non-Af 66, BUN/Creatinine Ratio 21.4 H, Glucose 106, Calcium 8.4 L, Total Bilirubin 0.40, AST 15, ALT 29, Alkaline Phosphatase 83, Total Protein 6.3 L, Albumin 3.1 L, Globulin 3.2, Albumin/Globulin Ratio 1.0 07/23/22 05:20: WBC 10.0, RBC 3.00 L, Hgb 9.1 L, Hct 27.9 L, MCV 93.0, MCH 30.3, MCHC 32.6, RDW Std Deviation 55.0 H, RDW Coeff of Dania 16.1 H, Plt Count 168, MPV 9.3, Immature Gran % (Auto) 0.400, Neut % (Auto) 62.6, Lymph % (Auto) 19.2, [place] % (Auto) 9.2, Eos % (Auto) 7.9 H, Baso % (Auto) 0.7, Absolute Neuts (auto) 6.3, Absolute Lymphs (auto) 1.93, Nucleated RBC % 0 07/23/22 05:20: APTT 32.0 Radiology Impression Chest X-Ray 07/22/22 09:14 IMPRESSION: 1. Left lower lobe retrocardiac consolidative opacity could relate to atelectasis and/or pneumonia. 2. Bilateral interstitial prominence and bilateral perihilar prominence may relate to pulmonary vascular congestion/edema. Electronically Signed: Chucho Riley, at 10:19 EST , Hip/Pelvis X-Ray 07/22/22 09:15 IMPRESSION: Acute left femoral intertrochanteric fracture with displacement of the lesser trochanter. Electronically Signed: Chucho Riley, at 10:22 EST , Assessment & Plan Assessment/Plan (1) Closed intertrochanteric fracture of left hip: PLAN: Natural history of the disease process and treatment options were discussed with the family today. Patient was also present during this discussion however due to his hardness of hearing and difficulty with communication as well as confusion the discussion was directed primarily at the family. Based on the intertrochanteric fracture I recommended cephalomedullary nail as appropriate treatment option. Nonoperative treatment was discussed and not recommended. Risk and benefits of the procedure were discussed the family including not limited to blood loss, DVTs, PEs, nervous damage, infection, risk of anesthesia including loss of life. Nonunions, malunions and screw cut out and hardware failure were discussed as well. General recovery expectations were also discussed and at this point patient's expectations are limited secondary to his recent stroke however we do not know what his long-term result will be. Family has agreed to proceed with surgical intervention his daughter was able to sign consent as reported power of base draw operator. We will proceed with surgery today. Ancef is ordered on-call to the operating room. Appropriate consent has been obtained in the preoperative area. Patient is NPO. (2) Fall: PLAN: Per primary service continue PT and OT postoperatively (3) Debility: PLAN: Per primary service continue PT and OT per postoperatively. (4) Hearing loss: PLAN: Patient will continue with his hearing aids postoperatively (5) Stroke: PLAN: Per primary service continue with PT and OT postoperatively. Due to his recent stroke patient [facility] for [facility].
--- NOTE | 2022-07-23 07:15 | NURSING ---
called report to [facility] in [place]. made RN aware pt still has his POTTS on, pt very SOBOBA. pt went down for sx, family with pt.
--- NOTE | 2022-07-23 07:30 | RAD_ITS ---
INDICATION: LEFT HIP SURGERY EXAMINATION/TECHNIQUE: X-RAY - LEFT hip, 9 VIEWS of the left hip were obtained intraoperatively on a C-arm. COMPARISON: 08/22/2021. FINDINGS: Views of the left hip are obtained intraoperatively on a C-arm for left hip pinning. Examination was not performed for diagnostic purposes and is not diagnostic. The fluoroscopy time was 85 seconds. RAD/Hip Min 2 Views (Portable) IMPRESSION: Intraoperative exam as described above. Electronically Signed: David Shelton MD at 11:05 EST ,
[2022-07-23] MEDS: Cefazolin 2 GM in 0.9% Normal Saline 100 ML IV (08:00)
--- NOTE | 2022-07-23 08:36 | OP.PCM_ITS ---
Report of Operation Date of Procedure: 07/23/22 Pre-Operative Diagnosis: Left intertrochanteric hip fracture Post-Operative Diagnosis: Left intertrochanteric hip fracture Surgery/Procedure Performed:: Left hip cephalomedullary nail Description of Surgical Findings:: Stable reduction Surgeon: Jaciel Almonte car dryer: Ann Dorado Type of Anesthesia: General Anesthesiologist: Malik Lopez Special Medications: Ancef Estimated Blood Loss (mL): 200 Fluids Replaced: 300 ml crystalloid Description of Procedure: Components used: 1. [employer] InterTAN nail [id number] nail 2. [employer] InterTAN lag screw 110 mm Procedure: On the date of the procedure the patient's left hip was marked in the preoperative area and patient was taken back to the operating room. Anesthetic was administered and patient was transferred to the table were all bony prominence identified well-padded and the ipsilateral arm was placed across the chest. Patient was then translated down to the perineal post and the operative leg was placed in the boot while the nonoperative leg was lowered and secured. The operative leg was placed in traction and internal rotation and live fluoroscopy was used to verify adequate reduction. The operative leg was then prepped in a sterile fashion with chlorhexidine while the surgeon scrubbed. Upon reentering the room the operative extremity was draped in the standard orthopedic fashion. Skin incision was marked and a timeout was called. Everyone agreed upon the side, the site, the procedure be performed, patient's identity, and antibiotics given. Skin incision was made and the position of the entry guidepin was verified using live fluoroscopy. Once we were satisfied with our position the pin was advanced in the soft tissue protector was placed over the pin. The entry reamer was then advanced into the proximal portion of the femur. a 14 mm reamer was passed over a guidewire. A [employer] short InterTAN 38 cm x 13 mm 125 hip nail was selected. The nail was then attached to the marketing and promotions manager and inserted into the intramedullary canal. The appropriate depth was verified and the skin incision for the lag screw was made. The lag screw guidepin was then placed under live fluoroscopy and when a satisfactory position was obtained the length of the screw was measured and the standard technique to drill for the lag screws was performed. The anti-rotation bar was used. At this time a 110 lag screw was selected with its corresponding compression screw. The lag screw was then passed and traction was left off the leg. The compression screw was then passed and the fracture was compressed. The final position of the lag screw was verified under fluoroscopy. due to good intramedullary fixation no distal locker was needed. Live fluoroscopy was used to verify the position of the interlocking screw and the final position of the hip components. Once we were satisfied with our positioning the wounds were copiously irrigated out with normal saline skin was closed with 2-0 Vicryl and santiago for final skin closure. A sterile dressing was placed with Xeroform. Patient was then awakened by anesthesia transferred from the fracture table back to their hospital bed and transferred to the PACU for recovery. Postoperative plan: Patient will be weight-bear as tolerated. xarelto 10 mg daily recommended for DVT prophylaxis with thigh-high stockings. Follow up in the office in 2 weeks. Complications none Admit VTE Documentation VTE Present on Admission: No VTE Mechan Device Prophylaxis: SCD's and Thigh High DEVEN Hose VTE Pharm Prophylaxis ordered?: Yes
--- NOTE | 2022-07-23 08:40 | RAD_ITS ---
INDICATION: Status post left hip pinning. EXAMINATION/TECHNIQUE: X-RAY - XR Pelvis 1 or 2 Views COMPARISON: 07/22/2022. FINDINGS: Status post left hip pinning securing intertrochanteric fracture of the left hip. Separation of the lesser trochanter. Soft tissue swelling and gas in the soft tissues consistent with recent surgery. Skin santiago seen laterally. Vascular calcifications. RAD/Pelvis 1 or 2 Views IMPRESSION: Status post left hip pinning. Electronically Signed: David Shelton MD at 10:23 EST ,
--- NOTE | 2022-07-23 09:00 | RAD_ITS ---
INDICATION: POST OP EXAMINATION/TECHNIQUE: X-RAY - LEFT XR Femur Min 2 Views 8 VIEWS COMPARISON: 07/22/2022. FINDINGS: SOFT TISSUES: Gas in soft tissues and soft tissue swelling and skin santiago consistent with the recent surgery. BONES/JOINTS: Post left hip pinning securing intertrochanteric fracture of the left hip with long intramedullary lizbeth extending to the distal femoral shaft.. RAD/Femur Min 2 Views IMPRESSION: Status post left hip pinning. Electronically Signed: David Shelton MD at 10:15 EST ,
--- NOTE | 2022-07-23 09:57 | CASEMGMT ---
Addendum entered by Velvet Rodriguez 07/23/22 10:09: Per patient's daughter patient has [facility] and they were out on Monday. Velvet LEYVA Original Note: SW Note Per MD patient is from home and previously was at TCU for one month. TCU vs SNF. SW spoke to patient's daughter and patient's daughter in law. Their first preference for rehab is TCU. SRINIVAS sent message to Xenia Rajput at TCU/ advising of referral. Velvet LEYVA
[2022-07-23] MEDS: Pantoprazole Sodium 40 MG Tablet PO (13:21)
[2022-07-23] MEDS: Aspirin E.C. 81 MG Tablet PO (13:21)
[2022-07-23] MEDS: Lisinopril 10 MG Tablet PO (13:21)
[2022-07-23] MEDS: Acetaminophen 500 MG Tablet 1000 MG PO ×2 (13:25→21:08)
[2022-07-23] MEDS: Senna/Docusate Sodium 1 Tablet 2 TABLET PO ×2 (13:25→21:09)
--- NOTE | 2022-07-23 13:46 | CASEMGMT ---
LISANDRA KHAN NOTE: [facility] and left to notify of admission to [facility] and plan for SNF @ d/c. RN BILL # [email or web address]. Awaiting call back. Kim JIANG RN CM
--- NOTE | 2022-07-23 15:27 | PN.HOSP_ITS ---
Subjective Subjective Was seen and examined today, his family members are in the room and I talked with them briefly. Patient underwent gamma nail insertion into his left hip today for stabilization. Patient will need to be placed in TCU for short-term rehab services. Patient's family agrees with this. Objective Data Objective Data Vital Signs: Vital Signs Temp Pulse Resp BP Pulse Ox O2 Del Method O2 Flow Rate 98 F 68 18 165/70 H 98 Nasal Cannula 2 07/23/22 12:03 07/23/22 12:10 07/23/22 12:10 07/23/22 12:03 07/23/22 12:10 07/23/22 12:10 07/23/22 14:48 Oxygen Flow Rate (L/min) 2 Oxygen Delivery Method Nasal Cannula Weight: 87.09 kg Body Mass Index (BMI) 29.2 Intake & Output: Intake and Output for Last 24 Hours 07/21/22 07/22/22 07/23/22 23:59 23:59 23:59 Intake Total 310 / 310 Output Total 500 / 750 625 / 625 Balance -500 / -750 -315 / -315 Lab / Micro Data Result Diagrams: 07/23/22 05:20 07/22/22 08:47 Labs: Laboratory Results - last 24 hr 07/23/22 05:20: WBC 10.0, RBC 3.00 L, Hgb 9.1 L, Hct 27.9 L, MCV 93.0, MCH 30.3, MCHC 32.6, RDW Std Deviation 55.0 H, RDW Coeff of Dania 16.1 H, Plt Count 168, MPV 9.3, Immature Gran % (Auto) 0.400, Neut % (Auto) 62.6, Lymph % (Auto) 19.2, [place] % (Auto) 9.2, Eos % (Auto) 7.9 H, Baso % (Auto) 0.7, Absolute Neuts (auto) 6.3, Absolute Lymphs (auto) 1.93, Nucleated RBC % 0 07/23/22 05:20: Blood Type A POSITIVE, Antibody Screen NEGATIVE 07/23/22 05:20: APTT 32.0 Radiography Diagnostic Testing: Radiology Impression Hip X-Ray 07/23/22 07:30 IMPRESSION: Intraoperative exam as described above. Electronically Signed: David Shelton MD at 11:05 EST , Pelvis X-Ray 07/23/22 08:40 IMPRESSION: Status post left hip pinning. Electronically Signed: David Shelton MD at 10:23 EST , Femur X-Ray 07/23/22 09:00 IMPRESSION: Status post left hip pinning. Electronically Signed: David Shelton MD at 10:15 EST , Physical Exam Narrative Patient is extremely hard of hearing and difficult to communicate with, he does not appear in any distress Const alert and no apparent distress General Appearance: cooperative, well kempt and well developed Orientation / Consciousness: awake HEENT normocephalic, head/scalp atraumatic and moist oral mucous membranes Eyes PERRL, EOMs intact bilaterally and conjunctivae normal Neck supple, no JVD and thyroid normal General: trachea midline Resp normal respiratory effort, no retractions, no use of accessory muscles and clear to auscultation bilaterally Auscultation: Negative for rales, rhonchi or wheezes Cardio regular rate, regular rhythm, S1 normal heart sound, S2 normal heart sound, no murmurs, no rub and no gallops GI normal to inspection, nondistended, normoactive bowel sounds, soft to palpation, non-tender and non-distended Extremity normal to inspection and no clubbing, cyanosis or edema Skin no rashes or lesions noted General Skin Exam: no breakdown Neuro CN's II-XII intact bilaterally and no sensory deficits noted Neuro Narrative: Patient has left-sided weakness Sensorium / Orientation: awake and alert Psych Psych Narrative: Patient has a flat affect Assessment & Plan Assessment/Plan (1) Closed intertrochanteric fracture of left hip: PLAN: Plan 1. Left intertrochanteric hip fracture-secondary to osteoporosis-postop day 0 gamma nail insertion-PT and OT will see the patient, he will need admission to TCU for short-term rehab services. 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 Patient will remain on aspirin and atorvastatin #3 mild hypoxia-etiology unclear at this time, patient is on low-flow oxygen, he does not appear to have evidence of congestive heart failure or pneumonia at this time, pulse ox will be monitored #4 severe hearing loss-complicates communication with the patient, complicates care, recovery, management, and prognosis #5 status post spiral fracture in the distal fibula of the right ankle #6 essential hypertension-patient will remain on his present medication #7 mild pulmonary hypertension-this is not significant, patient does not need treatment Charges/Coding Visit Charges Inpatient E&M: 73279 Subs Hosp L2
[2022-07-23] MEDS: Cefazolin 1 GM/50 ML BAG IV (16:56)
[2022-07-23] MEDS: Tamsulosin HCl 0.4 MG Capsule PO (16:56)
[2022-07-23] MEDS: Ensure Surgery 237 ML LIQUID PO (16:56)
[2022-07-23] MEDS: Doxepin Hcl 25 MG Capsule PO (21:08)
[2022-07-23] MEDS: Atorvastatin Calcium 40 MG Tablet PO (21:08)
[2022-07-24] MEDS: 0.9% Saline Lock 10 ML Syringe IV (00:09)
[2022-07-24] MEDS: Cefazolin 1 GM/50 ML BAG IV (00:09)
[2022-07-24] MEDS: Temazepam 15 MG Capsule PO ×2 (01:34→21:41)
[2022-07-24 04:29] VITALS: BP 141/75; PULSE 94; RESP 18; TEMP 36.9; O2SAT 94
[2022-07-24] MEDS: Rivaroxaban 10 MG Tablet PO (05:50)
[2022-07-24] MEDS: Acetaminophen 500 MG Tablet 1000 MG PO ×3 (05:50→20:34)
[2022-07-24 08:35] VITALS: BP 151/92; PULSE 110; RESP 18; TEMP 36.8; O2SAT 94
[2022-07-24] MEDS: Aspirin E.C. 81 MG Tablet PO (08:38)
[2022-07-24] MEDS: Carvedilol 6.25 MG Tablet PO ×2 (08:38→16:54)
[2022-07-24] MEDS: Ensure Surgery 237 ML LIQUID PO ×3 (08:39→16:52)
--- NOTE | 2022-07-24 08:39 | PCM.PN.ORT ---
Subjective Subjective 82-year-old male status post left hip nail. Bandage for the proximal incision was changed overnight clean and dry this morning. Patient remains confused, nurse reports significant sundowners overnight. Overall has been stable however does have increased heart rate this morning. No laboratory results have returned yet. Most recent vitals show 2 L of oxygen however patient is breathing normally on room air right now. Objective Data Objective Data Vital Signs: Vital Signs Temp Pulse Resp BP Pulse Ox O2 Del Method O2 Flow Rate 98.2 F 110 H 18 151/92 H 94 Room Air 2 07/24/22 08:35 07/24/22 08:35 07/24/22 08:35 07/24/22 08:35 07/24/22 08:35 07/24/22 08:35 07/23/22 14:48 Oxygen Flow Rate (L/min) 2 Oxygen Delivery Method Room Air Weight: 192 lb Body Mass Index (BMI) 29.2 Intake & Output: Intake and Output for Last 24 Hours 07/22/22 07/23/22 07/24/22 23:59 23:59 23:59 Intake Total 760 / 860 450 / 450 Output Total 500 / 750 1025 / 1525 1000 / 1000 Balance -500 / -750 -265 / -665 -550 / -550 Lab / Micro Data Attestation: I reviewed the patient's lab results. Result Diagrams: 07/23/22 05:20 07/22/22 08:47 Radiography Diagnostic Testing: Radiology Impression Hip X-Ray 07/23/22 07:30 IMPRESSION: Intraoperative exam as described above. Electronically Signed: David Shelton MD at 11:05 EST , Pelvis X-Ray 07/23/22 08:40 IMPRESSION: Status post left hip pinning. Electronically Signed: David Shelton MD at 10:23 EST , Femur X-Ray 07/23/22 09:00 IMPRESSION: Status post left hip pinning. Electronically Signed: David Shelton MD at 10:15 EST , Physical Exam Const alert Constitutional Narrative: Patient is confused and is not oriented to place. He does know the year and the president. HEENT normocephalic Resp normal respiratory effort GI GI Narrative: Nondistended, patient eating breakfast this morning Extremity Extremity Narrative: Left lower extremity: Dressing is clean dry and intact Sensations intact to light touch saphenous, sural, superficial peroneal, deep peroneal, and tibial distributions Motors intact EHL, DF, PF calves are soft and supple Assessment & Plan Assessment/Plan (1) Closed intertrochanteric fracture of left hip: PLAN: Postop day 1 left hip cephalomedullary nail 1. DVT prophylaxis: Xarelto 10 mg daily. Patient will be poorly mobilized is maximal assist. He does have a previous stroke if there contraindication to this level of DVT prophylaxis please contact orthopedics so we can further a stratify. 2. Pain control: Per primary service recommend limiting narcotics 3. Physical therapy: Weightbearing as tolerated, patient was maximum assist prior to his fall. Will need alf postoperatively due to physical limitations 4. Medical management: Medicine is primary service. Patient does have increased heart rate this morning. Otherwise vital signs of been stable. No labs were returned yet. Did have anemia prior to surgery hemoglobin 9.1. Assume likely related to anemia of chronic disease with acute blood loss related to the fracture. 5. Anemia: As noted above likely related to anemia of chronic disease with associated acute exacerbation related to fracture. Expect to be further exacerbated due to surgical intervention. We will review labs once they return today. 6. Mental status changes: Patient was difficult to communicate with yesterday power of family law attorney had to sign consent. Remains confused this morning. 7. Disposition: Patient will need alf facility upon discharge. Was maximum assist 1 possibly 2 at time of fall. Currently was living with his daughter. Remains confused this morning. Should follow-up in the office in 2 weeks. Can discontinue dressing in 5 to 7 days. Xarelto for DVT prophylaxis for minimum of 2 weeks followed by aspirin 81 mg twice daily for an additional 2 weeks. This would be a minimum requirement. If patient is unable to come to outpatient visit recommend removal of santiago on postop day 13 if wound is appropriate and x-rays with images forwarded to the office. [facility] Office:
[2022-07-24 08:53] VITALS: O2SAT 96
[2022-07-24 08:56] LABS: Absolute Lymphocyte Count 2.56 X10^3/uL (0.83-4.51); Absolute Neutrophil Count 7.1 X10^3/uL (2.0-7.7); Basophil# 0.06 X10^3/uL; Basophil% 0.5 % (0-1); Eosinophil# 0.67 X10^3/uL; Eosinophils% 5.9 % (0-5); Hematocrit 25.6 % (40-54); Hemoglobin 8.2 g/dL (13.0-16.5); Lymphocyte # 2.56 X10^3/ul (0.83-4.51); Lymphocyte % 22.7 % (19-41); Mean Corpuscular Hgb 29.3 pg (27.0-32.0); Mean Corpuscular Volume 91.4 fL (80-94); Mean Platelet Vol. 8.9 fl (6.2-12.0); Monocyte# 0.82 X10^3/uL; Monocyte% 7.3 % (0-10); NRBC Flagged by Analyzer 0 % (0-5); Neutrophil # 7.11 X10^3/uL (2.7-7.7); Platelet Count 193 K/mm3 (150-450); RBC Distribution Width CV 15.9 % (11.6-14.6); RBC Distribution Width SD 52.6 fl (35.1-43.9); White Blood Count 11.3 K/mm3 (4.4-11.0)
[2022-07-24 09:08] LABS: Anion Gap 5 (5-15); BUN 20 mg/dL (7-18); BUN/Creat Ratio 20.9 RATIO (10-20); Chloride 110 mmol/L (98-107); Creatinine, Serum 0.96 mg/dL (0.70-1.30); EST Glomerular Filtration Rate 80 mL/min (>60); Est Glom Filt Rate - Afr Amer 97 mL/min (>60); Estimated Creatinine Clearance 55.42 ml/min; Glucose 141 mg/dL (74-106); Potassium 3.8 mmol/L (3.5-5.1); Sodium Level 141 mmol/L (136-145)
[2022-07-24] MEDS: Lisinopril 10 MG Tablet PO (10:09)
[2022-07-24] MEDS: Pantoprazole Sodium 40 MG Tablet PO (10:09)
[2022-07-24] MEDS: Senna/Docusate Sodium 1 Tablet 2 TABLET PO ×2 (10:11→20:34)
[2022-07-24 12:49] VITALS: BP 143/61; PULSE 95; RESP 18; TEMP 36.9; O2SAT 95
--- NOTE | 2022-07-24 16:29 | PN.HOSP_ITS ---
Subjective Subjective Patient was seen and examined today, he appears more alertAnd yesterday. Patient's hemoglobin today was 8.2 Objective Data Objective Data Vital Signs: Vital Signs Temp Pulse Resp BP Pulse Ox O2 Del Method O2 Flow Rate 98.5 F 95 18 143/61 H 95 Room Air 2 07/24/22 12:49 07/24/22 12:49 07/24/22 12:49 07/24/22 12:49 07/24/22 12:49 07/24/22 12:49 07/23/22 14:48 Oxygen Flow Rate (L/min) 2 Oxygen Delivery Method Room Air Weight: 87.09 kg Body Mass Index (BMI) 29.2 Intake & Output: Intake and Output for Last 24 Hours 07/22/22 07/23/22 07/24/22 23:59 23:59 23:59 Intake Total 760 / 860 950 / 950 Output Total 500 / 750 1025 / 1525 1400 / 1400 Balance -500 / -750 -265 / -665 -450 / -450 Lab / Micro Data Result Diagrams: 07/24/22 08:48 07/24/22 08:48 Labs: Laboratory Results - last 24 hr 07/24/22 08:48: WBC 11.3 H, RBC 2.80 L, Hgb 8.2 L, Hct 25.6 L, MCV 91.4, MCH 29.3, MCHC 32.0, RDW Std Deviation 52.6 H, RDW Coeff of Dania 15.9 H, Plt Count 193, MPV 8.9, Immature Gran % (Auto) 0.600, Neut % (Auto) 63.0, Lymph % (Auto) 22.7, [place] % (Auto) 7.3, Eos % (Auto) 5.9 H, Baso % (Auto) 0.5, Absolute Neuts (auto) 7.1, Absolute Lymphs (auto) 2.56, Nucleated RBC % 0 07/24/22 08:48: Sodium 141, Potassium 3.8, Chloride 110 H, Carbon Dioxide 26.0, Anion Gap 5, BUN 20 H, Creatinine 0.96, Estim Creat Clear Calc 55.42, Est GFR (MDRD) Af Amer 97, Est GFR (MDRD) Non-Af 80, BUN/Creatinine Ratio 20.9 H, Glucose 141 H, Calcium 8.0 L Physical Exam Narrative Patient is extremely hard of hearing and difficult to communicate with, he does not appear in any distress Const alert and no apparent distress General Appearance: cooperative, well kempt and well developed Orientation / Consciousness: awake HEENT normocephalic, head/scalp atraumatic and moist oral mucous membranes Eyes PERRL, EOMs intact bilaterally and conjunctivae normal Neck supple, no JVD and thyroid normal General: trachea midline Resp normal respiratory effort, no retractions, no use of accessory muscles and clear to auscultation bilaterally Auscultation: Negative for rales, rhonchi or wheezes Cardio regular rate, regular rhythm, S1 normal heart sound, S2 normal heart sound, no murmurs, no rub and no gallops GI normal to inspection, nondistended, normoactive bowel sounds, soft to palpation, non-tender and non-distended Extremity normal to inspection and no clubbing, cyanosis or edema Skin no rashes or lesions noted General Skin Exam: no breakdown Neuro CN's II-XII intact bilaterally and no sensory deficits noted Neuro Narrative: Patient has left-sided weakness Sensorium / Orientation: awake and alert Psych Psych Narrative: Patient has a flat affect Assessment & Plan Assessment/Plan (1) Closed intertrochanteric fracture of left hip: PLAN: Plan 1. Left intertrochanteric hip fracture-secondary to osteoporosis-postop day 1 gamma nail insertion-PT and OT will see the patient, he will need admission to TCU for short-term rehab services. 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 Patient will remain on aspirin and atorvastatin #3 mild hypoxia-etiology unclear at this time, patient is on low-flow oxygen, he does not appear to have evidence of congestive heart failure or pneumonia at this time, pulse ox will be monitored #4 severe hearing loss-complicates communication with the patient, complicates care, recovery, management, and prognosis #5 status post spiral fracture in the distal fibula of the right ankle #6 essential hypertension-patient will remain on his present medication #7 mild pulmonary hypertension-this is not significant, patient does not need treatment #8 Acute anemia has an expected consequence of left hip fracture-patient does not need transfusion at this time, we will recheck his H&H tomorrow Charges/Coding Visit Charges Inpatient E&M: 24368 Subs Hosp L2
[2022-07-24] MEDS: Tamsulosin HCl 0.4 MG Capsule PO (16:54)
[2022-07-24 20:28] VITALS: BP 164/75; PULSE 91; RESP 20; TEMP 36.9; O2SAT 94
[2022-07-24] MEDS: Atorvastatin Calcium 40 MG Tablet PO (20:34)
[2022-07-24] MEDS: Doxepin Hcl 25 MG Capsule PO (20:34)
[2022-07-25 03:00] VITALS: BP 162/68; PULSE 86; RESP 20; TEMP 36.9; O2SAT 94
[2022-07-25] MEDS: oxyCODONE 5 MG Tablet 10 MG PO (03:44)
[2022-07-25] MEDS: Rivaroxaban 10 MG Tablet PO (06:12)
[2022-07-25] MEDS: Acetaminophen 500 MG Tablet 1000 MG PO ×2 (06:12→14:50)
[2022-07-25 06:28] LABS: Hemoglobin 7.7 g/dL (13.0-16.5)
[2022-07-25 08:30] VITALS: O2SAT 94
[2022-07-25 09:10] VITALS: BP 143/59; PULSE 83; RESP 18; TEMP 36.7; O2SAT 93
[2022-07-25] MEDS: Carvedilol 6.25 MG Tablet PO ×2 (09:16→17:41)
[2022-07-25] MEDS: Aspirin E.C. 81 MG Tablet PO (09:16)
[2022-07-25] MEDS: Ensure Surgery 237 ML LIQUID PO ×2 (09:17→17:43)
[2022-07-25] MEDS: Pantoprazole Sodium 40 MG Tablet PO (11:04)
[2022-07-25] MEDS: Senna/Docusate Sodium 1 Tablet 2 TABLET PO (11:05)
[2022-07-25] MEDS: Lisinopril 10 MG Tablet PO (11:05)
[2022-07-25 14:46] VITALS: BP 133/46; PULSE 87; RESP 18; TEMP 36.7; O2SAT 94
--- NOTE | 2022-07-25 17:21 | PN.HOSP_ITS ---
Subjective Subjective Patient was seen and examined today, he is alert and answer simple questions appropriately. Objective Data Objective Data Vital Signs: Vital Signs Temp Pulse Resp BP Pulse Ox O2 Del Method O2 Flow Rate 98.1 F 87 18 133/46 H 94 Room Air 2 07/25/22 14:46 07/25/22 14:46 07/25/22 14:46 07/25/22 14:46 07/25/22 14:46 07/25/22 14:46 07/23/22 14:48 Oxygen Flow Rate (L/min) 2 Oxygen Delivery Method Room Air Weight: 87.09 kg Body Mass Index (BMI) 29.2 Intake & Output: Intake and Output for Last 24 Hours 07/23/22 07/24/22 07/25/22 23:59 23:59 23:59 Intake Total 760 / 860 2048.5 / 2048.5 350 / 350 Output Total 1025 / 1525 1550 / 1550 Balance -265 / -665 498.5 / 498.5 350 / 350 Lab / Micro Data Result Diagrams: 07/25/22 05:15 07/24/22 08:48 Labs: Laboratory Results - last 24 hr 07/25/22 05:15: Hgb 7.7 L, Hct 24.0 L Physical Exam Narrative Patient is extremely hard of hearing and difficult to communicate with, he does not appear in any distress Const alert and no apparent distress General Appearance: cooperative, well kempt and well developed Orientation / Consciousness: awake HEENT normocephalic, head/scalp atraumatic and moist oral mucous membranes Eyes PERRL, EOMs intact bilaterally and conjunctivae normal Neck supple, no JVD and thyroid normal General: trachea midline Resp normal respiratory effort, no retractions, no use of accessory muscles and clear to auscultation bilaterally Auscultation: Negative for rales, rhonchi or wheezes Cardio regular rate, regular rhythm, S1 normal heart sound, S2 normal heart sound, no murmurs, no rub and no gallops GI normal to inspection, nondistended, normoactive bowel sounds, soft to palpation, non-tender and non-distended Extremity normal to inspection and no clubbing, cyanosis or edema Skin no rashes or lesions noted General Skin Exam: no breakdown Neuro CN's II-XII intact bilaterally and no sensory deficits noted Neuro Narrative: Patient has left-sided weakness Sensorium / Orientation: awake and alert Psych Psych Narrative: Patient has a flat affect Assessment & Plan Assessment/Plan (1) Closed intertrochanteric fracture of left hip: PLAN: Plan 1. Left intertrochanteric hip fracture-secondary to osteoporosis-postop day 2 gamma nail insertion-PT and OT will see the patient, he will need admission to TCU for short-term rehab services. 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 Patient will remain on aspirin and atorvastatin #3 mild hypoxia-etiology unclear-resolved at this time, patient is currently on room air #4 severe hearing loss-complicates communication with the patient, complicates care, recovery, management, and prognosis #5 status post spiral fracture in the distal fibula of the right ankle #6 essential hypertension-patient will remain on his present medication #7 mild pulmonary hypertension-this is not significant, patient does not need treatment #8 Acute anemia has an expected consequence of left hip fracture-patient does not need transfusion at this time, we will recheck his H&H tomorrow, hemoglobin today was 7.7 Total clinical time spent by myself addressing the patient's medical issues, reviewing the data, and collaborating with patient's care team: 25 minutes Charges/Coding Visit Charges Inpatient E&M: 28594 [facility] L1
[2022-07-25] MEDS: Tamsulosin HCl 0.4 MG Capsule PO (17:41)
[2022-07-25 20:50] VITALS: BP 164/63; PULSE 95; RESP 18; TEMP 37; O2SAT 94
[2022-07-25] MEDS: Doxepin Hcl 25 MG Capsule PO (20:50)
[2022-07-26] VITALS (7 sets, daily range): BP systolic 165–179; BP diastolic 63–103; PULSE 84–95; RESP 17–20; TEMP 36.9–37.1; O2SAT 93–99
[2022-07-26] MEDS: Acetaminophen 500 MG Tablet 1000 MG PO ×2 (04:15→13:42)
[2022-07-26] MEDS: Rivaroxaban 10 MG Tablet PO (04:15)
[2022-07-26] MEDS: Carvedilol 6.25 MG Tablet PO ×2 (04:15→17:19)
[2022-07-26 06:18] LABS: Hematocrit 26.3 % (40-54); Hemoglobin 8.2 g/dL (13.0-16.5)
[2022-07-26] MEDS: Lisinopril 10 MG Tablet PO (06:39)
[2022-07-26] MEDS: Ensure Surgery 237 ML LIQUID PO ×3 (07:50→17:19)
[2022-07-26] MEDS: Aspirin E.C. 81 MG Tablet PO (07:50)
[2022-07-26] MEDS: Pantoprazole Sodium 40 MG Tablet PO (09:01)
[2022-07-26] MEDS: Senna/Docusate Sodium 1 Tablet 2 TABLET PO (09:02)
--- NOTE | 2022-07-26 10:13 | CASEMGMT ---
Addendum entered by Marixa Cardenas 07/26/22 16:25: SRINIVAS called pt Daughter, Katy, of insurance auth and pt d/c to [facility] today. Katy voiced understanding. Will come visit pt tomorrow at [facility]. Addendum entered by Marixa Cardenas 07/26/22 16:11: SW received auth from [facility]. Reference number [id number] Pt has used /100 skilled days. Auth good from 07/26-07/28. Xenia at [facility] notified pt has obtained precert and will likely d/c tonight. SRINIVAS updated MD Helm of precert. CARMEN Dumont Original Note: Social Work SW received weekend handoff stating pt/family wants [facility]. SRINIVAS discussed with Xenia Rajput at [facility]. Xenia confirmed bed open for pt. SRINIVAS sent information to [facility] to begin insurance auth. PLAN: [facility], pending precert. CARMEN Dumont
[2022-07-26] MEDS: Tamsulosin HCl 0.4 MG Capsule PO (17:19)
--- NOTE | 2022-07-26 17:55 | PCM.TXEXTCAR ---
Diet Diet Order/Speech Therapy: 07/23/22 13:48 Diet: Regular - General Is pt able to select menu?: Yes Routine Orders/Code Status Code Status: Full Code Wound(s) left hip: Wound Type: Surgical Incision Dressing Change: Dry Sterile Dressing (Remove dressing on 07/29/2022, do not shower until dressing is removed) left hip upper thigh: Wound Type: Surgical Incision Therapies Weight Bearing: Weight bearing as tolerated Physical Therapy: Eval and Treat Occupational Therapy: Eval and Treat Problem/Diagnosis (1) Closed intertrochanteric fracture of left hip: Status: Acute Code(s): S72.142A - Displaced intertrochanteric fracture of left femur, initial encounter for closed fracture Plan 1. Left intertrochanteric hip fracture-secondary to osteoporosis-postop day 3 gamma nail insertion-PT and OT will see the patient, he will need admission to TCU for short-term rehab services. 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 Patient will remain on aspirin and atorvastatin #3 mild hypoxia-etiology unclear-resolved at this time, patient is currently on room air #4 severe hearing loss-complicates communication with the patient, complicates care, recovery, management, and prognosis #5 status post spiral fracture in the distal fibula of the right ankle #6 essential hypertension-patient will remain on his present medication #7 mild pulmonary hypertension-this is not significant, patient does not need treatment #8 Acute anemia has an expected consequence of left hip fracture-patient does not need transfusion at this time, we will recheck his H&H tomorrow, hemoglobin today was 8.2 Total clinical time spent by myself addressing the patient's medical issues, reviewing the data, and collaborating with patient's care team: 31 minutes Allergies/Procedures Done in Hospital Allergies No Known Allergies Allergy (Verified 07/22/22 08:33) Procedures: - (Insertion of the left cephalic medullary nail 07/23/2022) Type of Care/Length of Stay Estimated LOS: Convalescent Care Less Than 30 days Type of Care Needed: Skilled Rehab Potential: Good Prognosis: Good Additional Orders/Day of Discharge H&P will serve as current which was dated: 07/22/22 Day of Discharge: 07/26/22 Discharge Plan Admission Admit Date/Time: 07/22/22 11:53 Primary Reason for Your Visit: Closed left hip fracture Attending Provider: William Helm Primary Care Provider: Vinnie Perry Consulting Providers: Jaciel Almonte Discharge Orders/Prescriptions Prescriptions: New sennosides-docusate sodium [Stool Softener-Stimulant Laxat] 8.6-50 mg Tablet 2 tab PO BID Qty: 1 0RF Xarelto 10 mg Tablet 10 mg PO DAILY@0600 Qty: 0 0RF Continued acetaminophen 500 mg Tablet 1,000 mg PO TID Qty: 0 0RF aspirin 81 mg Tablet,Delayed Release (Dr/Ec) 81 mg PO BREAKFAST Qty: 0 0RF atorvastatin 40 mg Tablet 40 mg PO QHS 30 Days Qty: 30 0RF carvedilol 6.25 mg Tablet 6.25 mg PO BIDCM 30 Days Qty: 60 0RF doxepin 25 mg Capsule 25 mg PO QHS 30 Days Qty: 30 0RF tamsulosin 0.4 mg Capsule 0.4 mg PO DAILY@1730 30 Days Qty: 30 0RF pantoprazole 40 mg Tablet,Delayed Release (Dr/Ec) 40 mg PO DAILY 30 Days Qty: 30 0RF lisinopril 10 mg Tablet 10 mg PO DAILY 30 Days Qty: 30 0RF Referrals / Follow Up: Jaciel Almonte MD [Med Staff - Active Staff] - See Referral Note (on 08/04/22 or 08/05/22-call for appointment) Vinnie Perry MD [Primary Care Provider] - Disposition Disposition (needs filled in before D/C Order can be placed): Intermediate Facility
--- NOTE | 2022-07-26 18:26 | PCM.DC.SUM ---
Providers Date of Admission: 07/22/22 Date of Discharge: 07/26/22 Primary Care Physician: Dr. Vinnie Perry MD Consultations 07/22/22 12:52 Consult: Orthopedics Routine Consulting Provider: Jaciel Almonte Reason for Consult: left hip fracture EMERGENT Consult: No MD Notified: Yes Date Notified: 07/22/22 Time Notified: 12:04 Method of Notification: Verbal Reason For Visit: HIP FRACTURE Diagnosis Discharge Diagnosis (1) Closed intertrochanteric fracture of left hip: Status: Acute Code(s): S72.142A - Displaced intertrochanteric fracture of left femur, initial encounter for closed fracture Plan 1. Left intertrochanteric hip fracture-secondary to osteoporosis-postop day 3 gamma nail insertion-PT and OT will see the patient, he will need admission to TCU for short-term rehab services. 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 Patient will remain on aspirin and atorvastatin #3 mild hypoxia-etiology unclear-resolved at this time, patient is currently on room air #4 severe hearing loss-complicates communication with the patient, complicates care, recovery, management, and prognosis #5 status post spiral fracture in the distal fibula of the right ankle #6 essential hypertension-patient will remain on his present medication #7 mild pulmonary hypertension-this is not significant, patient does not need treatment #8 Acute anemia has an expected consequence of left hip fracture-patient does not need transfusion at this time, we will recheck his H&H tomorrow, hemoglobin today was 8.2 Total clinical time spent by myself addressing the patient's medical issues, reviewing the data, and collaborating with patient's care team: 31 minutes Medications at Discharge Home Medications acetaminophen 500 mg tablet 1,000 mg PO TID Pain 07/26/22 aspirin 81 mg tablet,delayed release 81 mg PO BREAKFAST Check with primary doctor 07/26/22 atorvastatin 40 mg tablet 40 mg PO QHS Cholesterol 07/26/22 carvedilol 6.25 mg tablet 6.25 mg PO BIDCM Check with primary doctor 07/26/22 doxepin 25 mg capsule 25 mg PO QHS Check with primary doctor 07/26/22 lisinopril 10 mg tablet 10 mg PO DAILY Check with primary doctor 07/26/22 pantoprazole 40 mg tablet,delayed release 40 mg PO DAILY Check with primary doctor 07/26/22 rivaroxaban 10 mg tablet (Xarelto) 10 mg PO DAILY@0600 Check with primary doctor 07/26/22 sennosides 8.6 mg-docusate sodium 50 mg tablet (Stool Softener-Stimulant Laxative) 2 tab PO BID constipation 07/26/22 tamsulosin 0.4 mg capsule 0.4 mg PO DAILY@1730 bladder spasms 07/26/22 Hospital Course Operations - (Gamma nail insertion to repair left intertrochanteric hip fracture) Procedures None Summary of Care Provided Minutes Spent on Discharge: 32 Hospital Course: This 82-year-old white male was seen in the emergency room at [facility] after sustaining a fall at home and landing on his left hip, patient was not able to ambulate, he had been living with his daughter due to a stroke approximately a month prior. X-rays in the emergency room showed a left intertrochanteric hip fracture, patient required minimal flow O2 to maintain his pulse ox above 90%. Patient was admitted to [place] [id number], he was seen in consultation by orthopedic surgery, he was taken to surgery and had a gamma nail inserted to stabilize his left hip fracture. Patient was seen by PT and OT, his oxygen was able to be weaned off. Patient had no complications during his hospitalization, his hemoglobin did drop somewhat due to his hip fracture. It was felt he would benefit from inpatient rehab services, arrangements were made for [facility] services. On 07/26/2022, patient was seen and examined:Patient is extremely hard of hearing and difficult to communicate with, he does not appear in any distress Const alert and no apparent distress General Appearance: cooperative, well kempt and well developed Orientation / Consciousness: awake HEENT normocephalic, head/scalp atraumatic and moist oral mucous membranes Eyes PERRL, EOMs intact bilaterally and conjunctivae normal Neck supple, no JVD and thyroid normal General: trachea midline Resp normal respiratory effort, no retractions, no use of accessory muscles and clear to auscultation bilaterally Auscultation: Negative for rales, rhonchi or wheezes Cardio regular rate, regular rhythm, S1 normal heart sound, S2 normal heart sound, no murmurs, no rub and no gallops GI normal to inspection, nondistended, normoactive bowel sounds, soft to palpation, non-tender and non-distended Extremity normal to inspection and no clubbing, cyanosis or edema Skin no rashes or lesions noted General Skin Exam: no breakdown Neuro CN's II-XII intact bilaterally and no sensory deficits noted Neuro Narrative: Patient has left-sided weakness Sensorium / Orientation: awake and alert Psych Psych Narrative: Patient has a flat affect Patient was discharged in stable condition to TCU on 07/26/2022 Weight / BMI Weight Weight: 87.09 kg Body Mass Index (BMI) 29.2 ABG / Lab / Microbiology Data Result Diagrams: 07/26/22 06:05 07/24/22 08:48 Laboratory: Laboratory Results - last 24 hr 07/26/22 06:05: Hgb 8.2 L, Hct 26.3 L Microbiology: Microbiology 07/26/22 16:15 Nasal Secretion SARS-CoV-2 Antigen (Rapid) - Final Meaningful Use Info Meaningful Use Diagnoses (Choose all that apply): None applicable Discharge Plan Admission Admit Date/Time: 07/22/22 11:53 Primary Reason for Your Visit: Closed left hip fracture Attending Provider: William Helm Primary Care Provider: Vinnie Perry Consulting Providers: Jaciel Almonte Discharge Orders/Prescriptions Prescriptions: No Action atorvastatin 40 mg tablet 40 mg PO QHS carvedilol 6.25 mg tablet 6.25 mg PO BIDCM doxepin 25 mg capsule 25 mg PO QHS sennosides-docusate sodium [Stool Softener-Stimulant Laxat] 8.6-50 mg tablet 2 tab PO BID aspirin 81 mg tablet,delayed release (DR/EC) 81 mg PO BREAKFAST acetaminophen 500 mg tablet 1,000 mg PO TID tamsulosin 0.4 mg capsule 0.4 mg PO DAILY@1730 pantoprazole 40 mg tablet,delayed release (DR/EC) 40 mg PO DAILY lisinopril 10 mg tablet 10 mg PO DAILY Xarelto 10 mg tablet 10 mg PO DAILY@0600 Referrals / Follow Up: Jaciel Almonte MD [Med Staff - Active Staff] - See Referral Note (on 08/04/22 or 08/05/22-call for appointment) Vinnie Perry MD [Primary Care Provider] - Disposition Disposition (needs filled in before D/C Order can be placed): [facility] Charges/Coding Visit Charges Inpatient E&M: 10134 Disch Hosp >30min
== END 2022-07-26 18:40 | disposition skilled nursing facility (03) | DRG 481 ==
LOC: ED 12:06 → MS3 12:17
PROVIDERS: Anesthesiology; Specialist; Admitting Provider Internal Medicine; Emergency Provider Emergency Medicine; PCP Internal Medicine; Visit Provider Internal Medicine
PROC: 0QS706Z Reposition Left Upper Femur with Intramedullary Internal Fixation Device, Open Approach (ICD-10-PCS; CPT 27245; principal; 2022-07-23 07:00)
DX: M80.052A Age-related osteoporosis with current pathological fracture, left femur, initial encounter for fracture (principal); I69.354 Hemiplegia and hemiparesis following cerebral infarction affecting left non-dominant side; D63.8 Anemia in other chronic diseases classified elsewhere; I27.20 Pulmonary hypertension, unspecified; I10 Essential (primary) hypertension; W18.30XA Fall on same level, unspecified, initial encounter; Z87.891 Personal history of nicotine dependence; R09.02 Hypoxemia; R53.81 Other malaise; H91.90 Unspecified hearing loss, unspecified ear; Z79.82 Long term (current) use of aspirin; Z79.899 Other long term (current) drug therapy; Y93.01 Activity, walking, marching and hiking; Y92.009 Unspecified place in unspecified non-institutional (private) residence as the place of occurrence of the external cause
CPT/HCPCS: 36415; 71045; 72170; 73502; 73552; 76000; 80048; 80053; 85014; 85018; 85025; 85610; 85730; 86850; 86900; 86901; 87811; 93005; 97110; 97116; 97163; 97166; 97530; 97535; 99251; 99285; C1776; J7120; A4216; G0463; J2405

== ENCOUNTER 2022-07-26 19:01 | Inpatient (IN) | payer MEDICARE, SELFPAY ==
[2022-07-26 19:13] VITALS: PULSE 75; RESP 18; O2SAT 94
[2022-07-26 19:20] VITALS: BP 129/60; PULSE 75; RESP 18; TEMP 36.3; O2SAT 94; BMI 30.2
[2022-07-26] MEDS: Atorvastatin Calcium 40 MG Tablet PO (20:43)
[2022-07-26] MEDS: Doxepin Hcl 25 MG Capsule PO (20:43)
[2022-07-26] MEDS: Acetaminophen 500 MG Tablet 1000 MG PO (20:43)
--- NOTE | 2022-07-26 20:57 | PCM.HP.STD ---
HPI - General General Date of Admission: 07/26/22 Date of Service: 07/27/22 Chief Complaint: Here for rehabilitation. HPI Narrative 07/22/2022 ROLAND KASPER, is a 82 Male who presents to [facility] Emergency Department with fall. 07/22/2022 EKG sinus rhythm with frequent premature ventricular contractinos, premature atrial contractions, otherwise normal. Fall, Hard of Hearing, left hip pain, pain worse with movement. Unable to walk. X-ray showed left hip fracture, Hemoglobin 10.4, Hematocrit 32.5. CMP okay, Chest X-ray left lower lobe atelectasis versus infiltrate. 07/22/2022 Admit to Hospital. Prepare for surgery. 07/23/2022 Dr. Almonte performed left hip cephalomedullary nail fixation. 07/23/2022 Family agrees with TCU. Mild hypoxia, etiology unknown. 07/24/2022 More alert, Hemoglobin 8.2. 07/25/2022 Alert, answers simple questions appropriately. Hemoglobin 7.7. 07/26/2022 Admit to TCU with debility, here for rehabilitation, strengthening, prior to discharge home alone. [facility] Medical History Debility Encephalomalacia Fracture of lateral malleolus of right ankle Hearing loss Home Medications acetaminophen 500 mg tablet 1,000 mg PO TID Pain 07/26/22 [History Last Taken Unknown] aspirin 81 mg tablet,delayed release 81 mg PO BREAKFAST Check with primary doctor 07/26/22 [History Last Taken Unknown] atorvastatin 40 mg tablet 40 mg PO QHS Cholesterol 07/26/22 [History Last Taken Unknown] carvedilol 6.25 mg tablet 6.25 mg PO BIDCM Check with primary doctor 07/26/22 [History Last Taken Unknown] doxepin 25 mg capsule 25 mg PO QHS Check with primary doctor 07/26/22 [History Last Taken Unknown] lisinopril 10 mg tablet 10 mg PO DAILY Check with primary doctor 07/26/22 [History Last Taken Unknown] pantoprazole 40 mg tablet,delayed release 40 mg PO DAILY Check with primary doctor 07/26/22 [History Last Taken Unknown] rivaroxaban 10 mg tablet (Xarelto) 10 mg PO DAILY@0600 Check with primary doctor 07/26/22 [History Last Taken Unknown] sennosides 8.6 mg-docusate sodium 50 mg tablet (Stool Softener-Stimulant Laxative) 2 tab PO BID constipation 07/26/22 [History Last Taken Unknown] tamsulosin 0.4 mg capsule 0.4 mg PO DAILY@1730 bladder spasms 07/26/22 [History Last Taken Unknown] Allergy/AdvReac Type Severity Reaction Status Date / Time No Known Allergies Allergy Verified 07/22/22 08:33 Social History household members: none Smoking Status: Former smoker alcohol intake: never substance use type: does not use ROS Constitutional Constitutional: Denies chills, fever(s) or weight gain ENT HEENT: Denies headache(s), nasal congestion or nasal discharge Cardiovascular Cardiovascular: Denies chest pain or palpitations Respiratory/Chest Respiratory/Chest: Denies cough, excessive phlegm production or shortness of breath with exertion Gastrointestinal Gastrointestinal: Denies abdominal pain, nausea or vomiting Genitourinary Genitourinary: Denies dysuria Musculoskeletal Musculoskeletal: Denies joint pain or joint swelling Integumentary Integumentary: Denies rash or wounds Neurologic Neurologic: Denies focal weakness, numbness or tingling Psychiatric Psychiatric: Denies anxiety, auditory hallucinations, depression, homicidal ideation or suicidal ideation Physical Exam Const alert General Appearance: cooperative HEENT normocephalic Eyes PERRL and EOMs intact bilaterally Neck supple, no JVD and no carotid bruits Resp normal respiratory effort, normal air movement and clear to auscultation bilaterally Cardio regular rate and regular rhythm GI normal to inspection, nondistended, normoactive bowel sounds, non-tender and non-distended Extremity normal capillary refill General Extremity: Negative for edema Skin no rashes or lesions noted General Skin Exam: no breakdown Psych affect normal Appearance: appropriate Results Lab / Micro Data Result Diagrams: 07/27/22 05:20 07/27/22 05:20 Assessment & Plan Assessment/Plan (1) Debility: (2) Closed intertrochanteric fracture of left hip: (3) Hypertension: (4) Hyperlipidemia: (5) GERD (gastroesophageal reflux disease): (6) BPH (benign prostatic hyperplasia): (7) Insomnia: (8) Stroke: PLAN: Plan 82 year old male with below past medical history hospitalized for left hip fracture, underwent left hip cephalomedullary nail 07/23/[address] Almonte, complicated by postoperative delirium, admitted to TCU with debility, here for rehabilitation, strengthening, prior to discharge home alone. Debility - PT/OT. Pain - Tylenol 1000mg tid, Tramadol 50mg q6h prn pain (1-5), Oxycodone 2.5mg q4h prn pain (6-10). Bowel - Miralax 17gm daily, senna/colace 2 tablets bid, Dulcolax 10mg pr x 1 prn, MOM 30ml po x 1 prn. Adult immunization - Administer pneumonia vaccine, covid19 vaccine, flu vaccine. DVT prophylaxis - Xarelto 10mg daily thru 08/06/2021, then Aspirin 81mg twice daily thru 08/21/2021. Hyperlipidemia - Atorvastatin 40mg qhs. Hypertension - Coreg 6.25mg bid, Lisinopril 10mg daily. Insomnia - Doxepin 25mg qhs. GERD - Pantoprazole 40mg daily. BPH - Tamsulosin 0.4mg daily.
[2022-07-27] MEDS: Acetaminophen 500 MG Tablet 1000 MG PO ×3 (05:04→20:01)
[2022-07-27] MEDS: Pantoprazole Sodium 40 MG Tablet PO (05:04)
[2022-07-27] MEDS: Rivaroxaban 10 MG Tablet PO (05:05)
[2022-07-27] MEDS: Lisinopril 10 MG Tablet PO (05:05)
[2022-07-27] MEDS: Senna/Docusate Sodium 1 Tablet 2 TABLET PO (05:05)
[2022-07-27] MEDS: Polyethylene Glycol 3350 17 GM PACKET PO (05:07)
[2022-07-27 05:53] LABS: Absolute Lymphocyte Count 2.92 X10^3/uL (0.83-4.51); Absolute Neutrophil Count 6.8 X10^3/uL (2.0-7.7); Basophil# 0.07 X10^3/uL; Basophil% 0.6 % (0-1); Eosinophil# 0.63 X10^3/uL; Eosinophils% 5.6 % (0-5); Hematocrit 24.9 % (40-54); Hemoglobin 7.7 g/dL (13.0-16.5); Lymphocyte # 2.92 X10^3/ul (0.83-4.51); Lymphocyte % 25.7 % (19-41); Mean Corp Hgb Conc 30.9 g/dL (32-36); Mean Corpuscular Hgb 29.3 pg (27.0-32.0); Mean Corpuscular Volume 94.7 fL (80-94); Mean Platelet Vol. 9.5 fl (6.2-12.0); Monocyte# 0.87 X10^3/uL; Monocyte% 7.7 % (0-10); NRBC Flagged by Analyzer 0.3 % (0-5); Neutrophil # 6.75 X10^3/uL (2.7-7.7); Neutrophil % 59.4 % (47-70); Platelet Count 265 K/mm3 (150-450); RBC Distribution Width CV 16.4 % (11.6-14.6); RBC Distribution Width SD 55.9 fl (35.1-43.9); Red Blood Count 2.63 M/mm3 (4.6-6.2); White Blood Count 11.4 K/mm3 (4.4-11.0)
[2022-07-27 06:25] LABS: Anion Gap 6 (5-15); BUN 27 mg/dL (7-18); BUN/Creat Ratio 33.5 RATIO (10-20); Calcium,Total 8.2 mg/dL (8.5-10.1); Chloride 108 mmol/L (98-107); EST Glomerular Filtration Rate 97 mL/min (>60); Est Glom Filt Rate - Afr Amer 118 mL/min (>60); Glucose 110 mg/dL (74-106); Potassium 3.7 mmol/L (3.5-5.1); Sodium Level 141 mmol/L (136-145)
--- NOTE | 2022-07-27 08:17 | NURSING ---
THIS NURSE AND 2 AIDS IN ROOM TO HELP PT UP TO BSC. PT VERY GROUCHY AND DEMANDING STATED GET ME UP NOW BEFORE I SHIT MY PANTS. STATED TO PT WE WOULD HELP GET HIM UP TO BSC. PT STATED THIS IS MY HOUSE GET OUT. STATED TO PT THIS IS [facility] AND HE WAS HERE FOR THERAPY. GOT PT TO SIDE OF BED AND TRIED TO HELP PT UP WITH WALKER. PT STATED I DONT WANT THE DAM THING GET OUT OF MY WAY I WILL DO IT MY SELF AND PRECEDED TO SOLITARIO THE WALKER INTO THIS NURSES LEGS AND STATED I WANT OUT OF HERE. THIS NURSE STATED TO PT WE ARE HERE TO HELP YOU AND HE WILL NOT ABUSE THE STAFF AND IF HE WANTS TO LEAVE I WOULD BE MORE THEN HAPPY TO LET THE DIETIST KNOW. PT DIDNT SAY A WORD STOOD UP WITH HELP OF 3 STAFF AND GOT HIM ON BSC. RN AWARE
[2022-07-27] MEDS: Carvedilol 6.25 MG Tablet PO ×2 (08:40→17:25)
[2022-07-27 08:44] VITALS: BP 150/59; PULSE 83; RESP 16
[2022-07-27] MEDS: Tuberculin,Purif.prot.deriv. 50 TU/ML Vial 0.1 ML ID (10:43)
[2022-07-27 10:49] VITALS: PULSE 84; RESP 16; O2SAT 92
--- NOTE | 2022-07-27 11:46 | NURSING ---
Personnel Security Assistant Note; Activity Asset: Complete Rudy is independent in his choice of daily activities. He watch tv, reads the paper and visit with family daily. Rudy will visit w/stockbroking dealer or his weiss. Rudy's family is very active in his care.
[2022-07-27 14:33] VITALS: BP 127/76; PULSE 75; RESP 16; TEMP 36.4; O2SAT 95
--- NOTE | 2022-07-27 15:34 | PHA.CONS_ITS ---
TCU RX Drug Regimen Review Subjective: TCU Admission. 82 YOM presented to the ER with a fall. Hospitalized for left hip fracture, underwent left hip cephalomedullary nail 07/23/[address] Almonte, complicated by postoperative delirium. Admitted to TCU with debility for strengthening and rehabilitation. Objective: Allergies No Known Allergies Allergy (Verified 07/22/22 08:33) Current Medications Generic Name Dose Route Start Last Admin Trade Name Freq PRN Reason Stop Dose Admin Acetaminophen 1,000 mg 07/26/22 22:00 07/27/22 13:34 Acetaminophen 500 Mg Tablet PO 1,000 mg TID [facility] Administration Aspirin 81 mg 08/07/22 08:00 Aspirin 81 Mg Tab.Chew PO BIDCM [facility] Atorvastatin Calcium 40 mg 07/26/22 22:00 07/26/22 20:43 Atorvastatin Calcium 40 Mg Tablet PO 40 mg QHS [facility] Administration Bisacodyl 10 mg 07/26/22 21:13 Bisacodyl 10 Mg Suppository RC X1 PRN CONSTIPATION Carvedilol 6.25 mg 07/27/22 08:00 07/27/22 08:40 Carvedilol 6.25 Mg Tablet PO 6.25 mg BIDCM [facility] Administration Doxepin HCl 25 mg 07/26/22 22:00 07/26/22 20:43 Doxepin Hcl 25 Mg Capsule PO 25 mg QHS [facility] Administration Lisinopril 10 mg 07/27/22 06:00 07/27/22 05:05 Lisinopril 10 Mg Tablet PO 10 mg DAILY [facility] Administration Magnesium Hydroxide 30 ml 07/26/22 21:13 Magnesium Hydroxide 30 Ml Udc PO X1 PRN Constipation Oxycodone HCl 2.5 mg 07/26/22 21:13 Oxycodone 5 Mg Tablet PO Q4H PRN PRN Pain Score 6-10 Pantoprazole Sodium 40 mg 07/27/22 06:00 07/27/22 05:04 Pantoprazole Sodium 40 Mg Tablet PO 40 mg DAILY [facility] Administration Polyethylene Glycol 17 gm 07/27/22 06:00 07/27/22 05:07 Polyethylene Glycol 3350 17 Gm Packet PO 17 gm DAILY [facility] Administration Rivaroxaban 10 mg 07/27/22 06:00 07/27/22 05:05 Rivaroxaban 10 Mg Tablet PO 08/06/22 23:55 10 mg DAILY@0600 [facility] Administration Senna/Docusate Sodium 2 tablet 07/26/22 21:15 07/27/22 05:05 Senna/Docusate Sodium 1 Tablet PO 2 tablet BID [facility] Administration Tamsulosin HCl 0.4 mg 07/27/22 17:30 Tamsulosin Hcl 0.4 Mg Capsule PO DAILY@1730 [facility] Tramadol HCl 50 mg 07/26/22 21:13 Tramadol 50 Mg Tablet PO Q6H PRN PRN Pain Score 1-5 Problem List (Last Reviewed 07/26/22 @ 21:[address] Paul Jackson MD) Stroke (Acute) Insomnia (Acute) BPH (benign prostatic hyperplasia) (Acute) GERD (gastroesophageal reflux disease) (Acute) Hyperlipidemia (Acute) Hypertension (Chronic) Debility (Acute) Closed intertrochanteric fracture of left hip (Acute) Vital Signs Temp Pulse Resp BP Pulse Ox O2 Del Method 97.5 F L 75 16 127/76 H 95 Room Air 07/27/22 14:33 07/27/22 14:33 07/27/22 14:33 07/27/22 14:33 07/27/22 14:33 07/27/22 14:33 Oxygen Delivery Method Room Air Weight: 90.293 kg Body Mass Index (BMI) 30.2 Sodium 141 mmol/L (136-145) 07/27/22 05:20 Potassium 3.7 mmol/L (3.5-5.1) 07/27/22 05:20 Chloride 108 mmol/L (98-107) H 07/27/22 05:20 Carbon Dioxide 27.0 mmol/L (21.0-32.0) 07/27/22 05:20 Anion Gap 6 (5-15) 07/27/22 05:20 BUN 27 mg/dL (7-18) H 07/27/22 05:20 Creatinine 0.80 mg/dL (0.70-1.30) 07/27/22 05:20 Est GFR (MDRD) Af Amer 118 mL/min (>60) 07/27/22 05:20 Est GFR (MDRD) Non-Af 97 mL/min (>60) 07/27/22 05:20 BUN/Creatinine Ratio 33.5 RATIO (10-20) H 07/27/22 05:20 Glucose 110 mg/dL (74-106) H 07/27/22 05:20 Assessment/Plan: 1. Pain: acetaminophen 1000mg PO Q8, tramadol 50mg PO Q6H PRN pain 1-5 and oxycodone 2.5mg PO Q4H PRN pain 6-10. Resident has not used any PRN doses. Please continue to monitor for increased pain and PRN usage. 2. Bowel: Miralax 17gm PO daily, senna/docusate 2T PO BID, bisacodyl 10mg RC x1 PRN constipation and MOM 30mL PO x1 PRN constipation. Resident has not used any PRN doses. Please continue to monitor for constipation (last documented BM 07/26) and PRN usage. 3. DVT prophylaxis: rivaroxaban 10mg PO daily thru 08/06/22, then aspirin 81mg PO BIDCM thru 08/21/22. Please continue to monitor for S/S of bleeding/DVT and hemoglobin (last 7.7g/dL). 4. Hyperlipidemia: atorvastatin 40mg PO QHS. Please consider ordering a lipid panel as this resident does not have one in the chart. Thanks. Please continue to monitor LFTs (last 07/22/22) and muscle pain. 5. Hypertension: carvedilol 6.25mg PO BID and lisinopril 10mg PO daily. Please continue to monitor BP (last 127/76), HR (last 75), potassium (last 3.7mmol/L), cough and renal function. 6. GERD: pantoprazole 40mg PO daily. Please continue to monitor for S/S of GERD and diarrhea (BEERs medication due to increased risk of C. diff infections). 7. BPH: tamsulosin 0.4mg PO daily. Please continue to monitor for S/S of BPH and BP. Assessment/Plan for indications treated with psychotropic medications: 1. Insomnia: doxepin 25mg PO QHS. Please consider GDR if clinically appropriate. This medication is on the BEERs list for dementia/delirium and falls/fractures both of which he experienced recently. It is also recommended to avoid in men due to the highly anticholinergic side effects which can exacerbate BPH by causing decreased urinary flow and increased urinary retention. Thanks. Medical chart and medication regimen reviewed. The following medication irregularities or issues were identified: *1. Atorvastatin 40mg PO QHS. Please consider ordering a lipid panel as this resident does not have one in the chart. Thanks. *2. Doxepin 25mg PO QHS. Please consider GDR if clinically appropriate. This medication is on the BEERs list for dementia/delirium and falls/fractures both of which he experienced recently. It is also recommended to avoid in men due to the highly anticholinergic side effects which can exacerbate BPH by causing decreased urinary flow and increased urinary retention. Thanks. Date of Note:: 07/27/22
[2022-07-27] MEDS: Tamsulosin HCl 0.4 MG Capsule PO (17:25)
[2022-07-27] MEDS: Doxepin Hcl 25 MG Capsule PO (20:01)
[2022-07-27] MEDS: Atorvastatin Calcium 40 MG Tablet PO (20:01)
[2022-07-28 05:52] LABS: Hematocrit 23.5 % (40-54); Hemoglobin 7.4 g/dL (13.0-16.5)
[2022-07-28] MEDS: Polyethylene Glycol 3350 17 GM PACKET PO (06:02)
[2022-07-28] MEDS: Acetaminophen 500 MG Tablet 1000 MG PO ×2 (06:03→19:54)
[2022-07-28] MEDS: Pantoprazole Sodium 40 MG Tablet PO (06:04)
[2022-07-28] MEDS: Lisinopril 10 MG Tablet PO (06:04)
[2022-07-28] MEDS: Rivaroxaban 10 MG Tablet PO (06:04)
[2022-07-28] MEDS: Carvedilol 6.25 MG Tablet PO ×2 (08:16→18:00)
--- NOTE | 2022-07-28 11:31 | CASEMGMT ---
Social Work Met with patient to complete initial assessment. Pt known to this worker from previous stay. Pt is more oriented this admission. Pt is active with [facility] for PT/OT/SN. Pt's goal is to return home with dtr receiving 13/02 care. Discussed code status. Pt wishes to be DNR-CCA, no intubation. Used previous DNR and MOLST form - no changes. Placed on chart. Notified nursing. Pt has [facility] insurance with NRD 08/02 and continued stay is not guaranteed with each stay. SW to continue to follow for DC planning. Guerline Funk ,FUEL MANAGER AGRONOMY MANAGER
[2022-07-28] MEDS: traMADol 50 MG Tablet PO (15:20)
[2022-07-28 15:35] VITALS: BP 131/70; PULSE 77; RESP 18; TEMP 36.4; O2SAT 96
[2022-07-28] MEDS: Tamsulosin HCl 0.4 MG Capsule PO (17:59)
--- NOTE | 2022-07-28 18:32 | NURSING ---
Called and notified family of positive covid case on the unit.
[2022-07-28] MEDS: Atorvastatin Calcium 40 MG Tablet PO (19:54)
[2022-07-28] MEDS: Doxepin Hcl 25 MG Capsule PO (19:55)
[2022-07-28 20:59] VITALS: PULSE 82; RESP 18; O2SAT 95
[2022-07-29 05:45] VITALS: BP 124/58; PULSE 76
[2022-07-29] MEDS: Pantoprazole Sodium 40 MG Tablet PO (05:47)
[2022-07-29] MEDS: Acetaminophen 500 MG Tablet 1000 MG PO ×3 (05:47→20:50)
[2022-07-29] MEDS: Senna/Docusate Sodium 1 Tablet 2 TABLET PO (05:47)
[2022-07-29] MEDS: Rivaroxaban 10 MG Tablet PO (05:48)
[2022-07-29] MEDS: Lisinopril 10 MG Tablet PO (05:48)
[2022-07-29] MEDS: Polyethylene Glycol 3350 17 GM PACKET PO (05:48)
[2022-07-29] MEDS: Carvedilol 6.25 MG Tablet PO ×2 (08:22→16:17)
[2022-07-29 08:27] VITALS: BP 153/53; PULSE 84
[2022-07-29 13:15] LABS: Hematocrit 29.4 % (40-54); Hemoglobin 9.2 g/dL (13.0-16.5)
[2022-07-29 14:33] VITALS: BP 144/72; PULSE 82; RESP 17; TEMP 36.3; O2SAT 95
--- NOTE | 2022-07-29 14:54 | NURSING ---
Dr. Almonte's office called and would like [place] removed on 08/06/22 and X-rays taken of Left hip. Call Office once X-ray is completed on 08/05/22
--- NOTE | 2022-07-29 15:06 | CHAPLAIN ---
Type of Pastoral Visit _x__ Initial Visit ___ Follow-up Visit ___ On-call Visit ___ General Patient Visit ___ Spiritual Assessment ___ Family Conference ___ Bereavement ___ Rapid Response ___ Code Blue ___ Other (describe below) Pastoral Care Referral From _x__ Patient _x__ Family ___ Nurse ___ Physician ___ Meat Counter Clerk ___ Membership Correspondent ___ Other (describe below) Sacrament/Intervention _x__ Active listening ___ Anointing ___ Restoration ___ Bereavement ___ Communion _x__ Ciara exploration ___ _x__ Life review _x__ Prayer ___ Reconciliation ___ Sacrament of Sick _x__ Supportive presence ___ Wedding ___ Other (describe below) Pastoral Comments patient is eating lunch; pt is alert although hard of hearing which required effort to be heard; pt is quite talkative especially in discussing his and her decline and ; pt is tearful; pt gives more information on his work and on his family; pt reports that he is able to get through his trials with the presence and help of God; pt welcomes a prayer; a daughter was in the room but she excused herself early in the visit so the two could talk
[2022-07-29] MEDS: traMADol 50 MG Tablet PO (16:16)
[2022-07-29] MEDS: Tamsulosin HCl 0.4 MG Capsule PO (16:31)
[2022-07-29] MEDS: Atorvastatin Calcium 40 MG Tablet PO (20:49)
[2022-07-29] MEDS: Doxepin Hcl 25 MG Capsule PO (20:51)
[2022-07-29 21:00] VITALS: PULSE 82; RESP 18; O2SAT 95
[2022-07-30] MEDS: Pantoprazole Sodium 40 MG Tablet PO (05:26)
[2022-07-30] MEDS: Lisinopril 10 MG Tablet PO (05:26)
[2022-07-30] MEDS: Rivaroxaban 10 MG Tablet PO (05:26)
[2022-07-30] MEDS: Senna/Docusate Sodium 1 Tablet 2 TABLET PO ×2 (05:26→16:07)
[2022-07-30] MEDS: Acetaminophen 500 MG Tablet 1000 MG PO ×3 (05:26→21:05)
[2022-07-30] MEDS: Carvedilol 6.25 MG Tablet PO ×2 (08:28→16:05)
[2022-07-30] MEDS: traMADol 50 MG Tablet PO ×2 (08:34→21:05)
[2022-07-30 15:12] VITALS: BP 154/66; PULSE 77; RESP 18; TEMP 36.3
[2022-07-30] MEDS: Tamsulosin HCl 0.4 MG Capsule PO (16:06)
[2022-07-30] MEDS: oxyCODONE 5 MG Tablet 2.5 MG PO (16:14)
[2022-07-30 20:24] VITALS: PULSE 80; RESP 16; O2SAT 96
[2022-07-30] MEDS: Atorvastatin Calcium 40 MG Tablet PO (21:05)
[2022-07-30] MEDS: Doxepin Hcl 25 MG Capsule PO (21:05)
[2022-07-31 05:04] VITALS: BP 152/64; PULSE 75
[2022-07-31] MEDS: Lisinopril 10 MG Tablet PO (05:06)
[2022-07-31] MEDS: Acetaminophen 500 MG Tablet 1000 MG PO ×3 (05:06→22:19)
[2022-07-31] MEDS: Pantoprazole Sodium 40 MG Tablet PO (05:06)
[2022-07-31] MEDS: Rivaroxaban 10 MG Tablet PO (05:07)
[2022-07-31] MEDS: Carvedilol 6.25 MG Tablet PO ×2 (09:19→18:15)
[2022-07-31 09:22] VITALS: RESP 18; O2SAT 92
[2022-07-31] MEDS: oxyCODONE 5 MG Tablet 2.5 MG PO (11:49)
[2022-07-31 15:27] VITALS: BP 150/66; PULSE 80; RESP 16; TEMP 36.3; O2SAT 92
[2022-07-31] MEDS: Tamsulosin HCl 0.4 MG Capsule PO (18:14)
--- NOTE | 2022-07-31 20:00 | NURSING ---
Pt called for staff multiple times within the past hour with primarily the same request. Requesting to be moved to his room, room 19. Pt was in room 19 during previous stay. Redirected to time and place multiple times throughout this time frame with little to no success. Informed pt he is in room 8 and will not be moved to the previous room he was in. Pt also thinks his account manager relief is downstairs. This nurse informed pt his account manager relief is plugged in the outlet behind the head of the bed. Cell phone connected to the account manager relief. Will continue to monitor.
--- NOTE | 2022-07-31 21:00 | NURSING ---
Pt continues to call for staff. Thinks there is a hole in the wall and that several children are in the room. Again, reoriented to time and place. Informed pt children are prohibited from visiting the hospital at this time due to COVID, flu, and RSV. Will continue to monitor.
[2022-07-31] MEDS: Atorvastatin Calcium 40 MG Tablet PO (22:18)
[2022-07-31] MEDS: Doxepin Hcl 25 MG Capsule PO (22:18)
[2022-08-01] MEDS: Polyethylene Glycol 3350 17 GM PACKET PO (05:16)
[2022-08-01] MEDS: Acetaminophen 500 MG Tablet 1000 MG PO ×3 (05:18→19:47)
[2022-08-01] MEDS: Pantoprazole Sodium 40 MG Tablet PO (05:18)
[2022-08-01] MEDS: Senna/Docusate Sodium 1 Tablet 2 TABLET PO (05:18)
[2022-08-01] MEDS: Rivaroxaban 10 MG Tablet PO (05:18)
[2022-08-01] MEDS: Lisinopril 10 MG Tablet PO (05:18)
[2022-08-01 05:23] VITALS: BP 166/63; PULSE 86
--- NOTE | 2022-08-01 05:45 | NURSING ---
Bed changed per BODY TRIMMER UPHOLSTERER d/t incontinence or spilled urinal. Cell phone found under the head of the bed and was open. Phone near fully charged, closed, and placed on overbed table.
[2022-08-01] MEDS: Carvedilol 6.25 MG Tablet PO ×2 (09:06→17:13)
--- NOTE | 2022-08-01 14:28 | NURSING ---
Notified patient's daughter that staff member tested positive
[2022-08-01 14:49] VITALS: BP 159/70; PULSE 78; RESP 16; TEMP 36.4; O2SAT 96
--- NOTE | 2022-08-01 16:32 | NURSING ---
Provided education on Covid 19 vaccine and patient does not want to receive it.
[2022-08-01] MEDS: Tamsulosin HCl 0.4 MG Capsule PO (17:13)
[2022-08-01] MEDS: Doxepin Hcl 25 MG Capsule PO (19:47)
[2022-08-01] MEDS: Atorvastatin Calcium 40 MG Tablet PO (19:47)
[2022-08-01 20:00] VITALS: PULSE 79; RESP 18; O2SAT 97
[2022-08-02] MEDS: Acetaminophen 500 MG Tablet 1000 MG PO ×3 (06:24→22:05)
[2022-08-02] MEDS: Pantoprazole Sodium 40 MG Tablet PO (06:24)
[2022-08-02] MEDS: Polyethylene Glycol 3350 17 GM PACKET PO (06:24)
[2022-08-02] MEDS: Rivaroxaban 10 MG Tablet PO (06:24)
[2022-08-02] MEDS: Senna/Docusate Sodium 1 Tablet 2 TABLET PO ×2 (06:25→17:33)
[2022-08-02] MEDS: Lisinopril 10 MG Tablet PO (06:25)
[2022-08-02 06:30] VITALS: BP 155/83; PULSE 79
[2022-08-02] MEDS: Carvedilol 6.25 MG Tablet PO ×2 (08:01→17:33)
[2022-08-02 08:09] VITALS: BP 167/70; PULSE 86
--- NOTE | 2022-08-02 10:00 | CASEMGMT ---
Social Work BIMS (12/05) and PHQ-9 () completed for MDS assessment. AMANDO NaiduW
[2022-08-02 16:00] VITALS: BP 142/60; PULSE 80; RESP 17; TEMP 36.1; O2SAT 93
[2022-08-02] MEDS: Tamsulosin HCl 0.4 MG Capsule PO (17:33)
[2022-08-02] MEDS: traMADol 50 MG Tablet PO (17:36)
[2022-08-02 18:05] VITALS: BP 161/88; PULSE 90
[2022-08-02] MEDS: Atorvastatin Calcium 40 MG Tablet PO (22:05)
[2022-08-02] MEDS: Doxepin Hcl 25 MG Capsule PO (22:06)
[2022-08-03] MEDS: Polyethylene Glycol 3350 17 GM PACKET PO (05:13)
[2022-08-03] MEDS: Lisinopril 10 MG Tablet PO (05:13)
[2022-08-03] MEDS: Acetaminophen 500 MG Tablet 1000 MG PO ×3 (05:14→20:08)
[2022-08-03] MEDS: Pantoprazole Sodium 40 MG Tablet PO (05:14)
[2022-08-03] MEDS: Senna/Docusate Sodium 1 Tablet 2 TABLET PO ×2 (05:14→17:39)
[2022-08-03] MEDS: Rivaroxaban 10 MG Tablet PO (05:17)
[2022-08-03 05:18] VITALS: BP 130/59; PULSE 73
--- NOTE | 2022-08-03 05:25 | NURSING ---
Pt uncooperative w/ rapid COVID swab. Shook head from side to side several times. Will send specimen to the lab.
[2022-08-03 05:55] LABS: Absolute Lymphocyte Count 2.35 X10^3/uL (0.83-4.51); Absolute Neutrophil Count 5.7 X10^3/uL (2.0-7.7); Eosinophils% 6.3 % (0-5); Hematocrit 27.6 % (40-54); Hemoglobin 8.6 g/dL (13.0-16.5); Lymphocyte # 2.35 X10^3/ul (0.83-4.51); Lymphocyte % 24.5 % (19-41); Mean Corp Hgb Conc 31.2 g/dL (32-36); Mean Corpuscular Hgb 29.6 pg (27.0-32.0); Mean Corpuscular Volume 94.8 fL (80-94); Mean Platelet Vol. 9.2 fl (6.2-12.0); Monocyte# 0.74 X10^3/uL; Monocyte% 7.7 % (0-10); NRBC Flagged by Analyzer 0 % (0-5); Neutrophil # 5.71 X10^3/uL (2.7-7.7); Neutrophil % 59.6 % (47-70); Platelet Count 346 K/mm3 (150-450); RBC Distribution Width CV 15.9 % (11.6-14.6); RBC Distribution Width SD 55.2 fl (35.1-43.9); Red Blood Count 2.91 M/mm3 (4.6-6.2); White Blood Count 9.6 K/mm3 (4.4-11.0)
[2022-08-03 06:51] LABS: Anion Gap 6 (5-15); BUN 24 mg/dL (7-18); BUN/Creat Ratio 26.1 RATIO (10-20); Calcium,Total 8.5 mg/dL (8.5-10.1); Chloride 105 mmol/L (98-107); Creatinine, Serum 0.92 mg/dL (0.70-1.30); EST Glomerular Filtration Rate 83 mL/min (>60); Est Glom Filt Rate - Afr Amer 101 mL/min (>60); Estimated Creatinine Clearance 57.83 ml/min; Glucose 101 mg/dL (74-106); Potassium 4.2 mmol/L (3.5-5.1); Sodium Level 137 mmol/L (136-145)
[2022-08-03] MEDS: Carvedilol 6.25 MG Tablet PO ×2 (07:44→17:39)
[2022-08-03 07:47] VITALS: BP 143/73; PULSE 78
--- NOTE | 2022-08-03 08:30 | NURSING ---
Third Hand Note; MDS for 05/02/2023 Complete
--- NOTE | 2022-08-03 13:25 | CASEMGMT ---
Social Work IDT met with patient and dtr for care plan meeting. Discussed patient's progress in PT/OT/SN. Educated to [facility] insurance with NRD 08/09 and continued stay is not guaranteed. Inquired about DC plans. Dtr confirms pt will return home with her and family continuing to assist. SW to restart skilled HHC at time of DC. SW to continue to follow. Guerline Funk, CREDIT RATING INSPECTOR HEALTH AIDE
[2022-08-03 16:00] VITALS: BP 135/55; PULSE 79; RESP 19; TEMP 36.4; O2SAT 94
[2022-08-03] MEDS: Tamsulosin HCl 0.4 MG Capsule PO (17:39)
[2022-08-03] MEDS: Ensure Plus High Protein 120 ML LIQUID PO (17:39)
[2022-08-03 17:41] VITALS: BP 151/61; PULSE 80
[2022-08-03 20:00] VITALS: PULSE 80; RESP 18; O2SAT 93
[2022-08-03] MEDS: Atorvastatin Calcium 40 MG Tablet PO (20:01)
[2022-08-03] MEDS: Doxepin Hcl 25 MG Capsule PO (20:01)
[2022-08-04 04:30] VITALS: BP 119/50; PULSE 82
[2022-08-04] MEDS: Acetaminophen 500 MG Tablet 1000 MG PO ×3 (04:32→20:48)
[2022-08-04] MEDS: Senna/Docusate Sodium 1 Tablet 2 TABLET PO ×2 (04:32→17:16)
[2022-08-04] MEDS: Pantoprazole Sodium 40 MG Tablet PO (04:33)
[2022-08-04] MEDS: Lisinopril 10 MG Tablet PO (04:33)
[2022-08-04] MEDS: Carvedilol 6.25 MG Tablet PO ×2 (07:56→17:16)
[2022-08-04] MEDS: Ensure Plus High Protein 120 ML LIQUID PO ×3 (07:57→17:15)
[2022-08-04 09:16] VITALS: PULSE 103
--- NOTE | 2022-08-04 12:50 | MDS.RN ---
Information for the mds was obtained from review of the clinical record, interview of resident, staff, and direct observation of resident's care.
[2022-08-04 14:26] VITALS: BP 133/65; PULSE 83; RESP 16; TEMP 36.3; O2SAT 98
[2022-08-04] MEDS: Tamsulosin HCl 0.4 MG Capsule PO (17:15)
[2022-08-04] MEDS: Menthol/Lanolin/Calamine/Znox 113 GM Tube 1 APPLIC TOPICAL (17:16)
[2022-08-04] MEDS: Doxepin Hcl 25 MG Capsule 50 MG PO (20:48)
[2022-08-04] MEDS: Atorvastatin Calcium 40 MG Tablet PO (20:48)
[2022-08-05] MEDS: Acetaminophen 500 MG Tablet 1000 MG PO ×3 (05:07→21:31)
[2022-08-05] MEDS: Pantoprazole Sodium 40 MG Tablet PO (05:07)
[2022-08-05] MEDS: Lisinopril 10 MG Tablet PO (05:07)
[2022-08-05] MEDS: Senna/Docusate Sodium 1 Tablet 2 TABLET PO ×2 (05:07→17:45)
[2022-08-05] MEDS: Menthol/Lanolin/Calamine/Znox 113 GM Tube 1 APPLIC TOPICAL ×2 (05:07→17:46)
[2022-08-05 05:11] VITALS: BP 142/62; PULSE 76
[2022-08-05 05:29] LABS: Hematocrit 28.9 % (40-54); Hemoglobin 9.5 g/dL (13.0-16.5)
--- NOTE | 2022-08-05 06:00 | RAD_ITS ---
INDICATION: Post Op EXAMINATION/TECHNIQUE: X-RAY - LEFT XR Hip Unilateral with Pelvis when performed; 2-3 Views 5 VIEWS COMPARISON: July 23, 2022 FINDINGS: SOFT TISSUES: No soft tissue swelling or gas. Surgical santiago are seen within the soft tissues of the lateral hip.. BONES/JOINTS: Postsurgical changes status post open reduction internal fixation left hip fracture with indwelling orthopedic hardware. There is fracture of the left trochanter with interval callus deposition since previous exam consistent with early healing. No acute fracture or subluxation.. Normal alignment. Preservation of the joint space.. No sclerotic or destructive changes observed. RAD/HIP, UNI W/ Pelvis 2-3 Views IMPRESSION: Early healing fracture of the left hip status post ORIF Electronically Signed: Robert Richmond MD at 17:08 EST ,
[2022-08-05] MEDS: Ensure Plus High Protein 120 ML LIQUID PO ×2 (08:08→12:01)
[2022-08-05] MEDS: Carvedilol 6.25 MG Tablet PO ×2 (08:08→16:03)
[2022-08-05 09:30] VITALS: PULSE 98; RESP 18; O2SAT 94
[2022-08-05 14:38] VITALS: BP 160/70; PULSE 82; RESP 20; TEMP 36.6; O2SAT 96
[2022-08-05] MEDS: traMADol 50 MG Tablet PO (16:00)
[2022-08-05] MEDS: Tamsulosin HCl 0.4 MG Capsule PO (17:45)
[2022-08-05] MEDS: Doxepin Hcl 25 MG Capsule 50 MG PO (21:31)
[2022-08-05] MEDS: Atorvastatin Calcium 40 MG Tablet PO (21:31)
[2022-08-06 04:45] VITALS: BP 143/67; PULSE 77
[2022-08-06] MEDS: Acetaminophen 500 MG Tablet 1000 MG PO ×3 (05:24→20:00)
[2022-08-06] MEDS: Menthol/Lanolin/Calamine/Znox 113 GM Tube 1 APPLIC TOPICAL ×2 (05:24→17:31)
[2022-08-06] MEDS: Pantoprazole Sodium 40 MG Tablet PO (05:25)
[2022-08-06] MEDS: Lisinopril 10 MG Tablet PO (05:25)
[2022-08-06] MEDS: Senna/Docusate Sodium 1 Tablet 2 TABLET PO ×2 (05:25→17:32)
[2022-08-06] MEDS: Ensure Plus High Protein 120 ML LIQUID PO ×3 (07:39→17:31)
[2022-08-06] MEDS: Carvedilol 6.25 MG Tablet PO ×2 (07:40→17:31)
[2022-08-06 15:53] VITALS: BP 134/64; PULSE 80; RESP 16; TEMP 36.8; O2SAT 95
[2022-08-06] MEDS: Tamsulosin HCl 0.4 MG Capsule PO (17:31)
[2022-08-06 17:36] VITALS: BP 153/59; PULSE 77
--- NOTE | 2022-08-06 19:46 | NURSING ---
Heavy max assist x2 SPT from bed to BSC. Pt was holding on top side rail and mattress, resistant to transfer. Pt becoming agitated and repeatedly informed to let go of the side rail and mattress to promote a safe transfer. Difficulty moving from bed to BSC. Did not want to move feet. Will continue to monitor.
[2022-08-06] MEDS: Doxepin Hcl 25 MG Capsule 50 MG PO (19:59)
[2022-08-06] MEDS: Atorvastatin Calcium 40 MG Tablet PO (19:59)
[2022-08-07] MEDS: Menthol/Lanolin/Calamine/Znox 113 GM Tube 1 APPLIC TOPICAL ×2 (04:40→17:46)
[2022-08-07] MEDS: Senna/Docusate Sodium 1 Tablet 2 TABLET PO ×2 (04:41→17:42)
[2022-08-07] MEDS: Pantoprazole Sodium 40 MG Tablet PO (04:42)
[2022-08-07] MEDS: Acetaminophen 500 MG Tablet 1000 MG PO ×3 (04:42→19:22)
[2022-08-07] MEDS: Lisinopril 10 MG Tablet PO (04:42)
[2022-08-07] MEDS: Polyethylene Glycol 3350 17 GM PACKET PO (04:43)
[2022-08-07 04:46] VITALS: BP 148/64; PULSE 80
[2022-08-07] MEDS: Ensure Plus High Protein 120 ML LIQUID PO ×3 (07:59→17:43)
[2022-08-07] MEDS: Aspirin 81 MG TAB.CHEW PO ×2 (08:03→17:43)
[2022-08-07] MEDS: Carvedilol 6.25 MG Tablet PO ×2 (08:03→17:44)
[2022-08-07 08:08] VITALS: BP 159/72; PULSE 88
[2022-08-07 14:47] VITALS: BP 139/64; PULSE 69; RESP 18; TEMP 36.3; O2SAT 96
[2022-08-07] MEDS: Tamsulosin HCl 0.4 MG Capsule PO (17:42)
[2022-08-07] MEDS: Doxepin Hcl 25 MG Capsule 50 MG PO (19:23)
[2022-08-07] MEDS: Atorvastatin Calcium 40 MG Tablet PO (19:24)
[2022-08-07] MEDS: traMADol 50 MG Tablet PO (23:54)
[2022-08-08] MEDS: Lisinopril 10 MG Tablet PO (06:15)
[2022-08-08] MEDS: Senna/Docusate Sodium 1 Tablet 2 TABLET PO ×2 (06:15→17:36)
[2022-08-08] MEDS: Acetaminophen 500 MG Tablet 1000 MG PO ×3 (06:16→20:34)
[2022-08-08] MEDS: Pantoprazole Sodium 40 MG Tablet PO (06:16)
[2022-08-08] MEDS: Menthol/Lanolin/Calamine/Znox 113 GM Tube 1 APPLIC TOPICAL ×2 (06:16→17:38)
[2022-08-08] MEDS: Ensure Plus High Protein 120 ML LIQUID PO ×3 (08:13→17:36)
[2022-08-08] MEDS: Aspirin 81 MG TAB.CHEW PO ×2 (08:13→17:36)
[2022-08-08] MEDS: Carvedilol 6.25 MG Tablet PO ×2 (08:13→17:36)
[2022-08-08 15:00] VITALS: BP 129/65; PULSE 82; RESP 17; TEMP 36.4; O2SAT 93
[2022-08-08] MEDS: Tamsulosin HCl 0.4 MG Capsule PO (17:36)
[2022-08-08] MEDS: traMADol 50 MG Tablet PO (20:33)
[2022-08-08] MEDS: Doxepin Hcl 25 MG Capsule 50 MG PO (20:34)
[2022-08-08] MEDS: Atorvastatin Calcium 40 MG Tablet PO (20:35)
[2022-08-08 21:05] VITALS: PULSE 86; RESP 18; O2SAT 92
[2022-08-09 05:10] VITALS: BP 159/63; PULSE 88
[2022-08-09] MEDS: Senna/Docusate Sodium 1 Tablet 2 TABLET PO (05:18)
[2022-08-09] MEDS: Acetaminophen 500 MG Tablet 1000 MG PO ×3 (05:18→21:01)
[2022-08-09] MEDS: Pantoprazole Sodium 40 MG Tablet PO (05:19)
[2022-08-09] MEDS: Menthol/Lanolin/Calamine/Znox 113 GM Tube 1 APPLIC TOPICAL ×2 (05:19→17:44)
[2022-08-09] MEDS: Lisinopril 10 MG Tablet PO (05:19)
[2022-08-09] MEDS: Aspirin 81 MG TAB.CHEW PO ×2 (08:30→17:43)
[2022-08-09] MEDS: Ensure Plus High Protein 120 ML LIQUID PO ×3 (08:30→17:42)
[2022-08-09] MEDS: Carvedilol 6.25 MG Tablet PO ×2 (08:30→17:43)
--- NOTE | 2022-08-09 12:36 | CHAPLAIN ---
Type of Pastoral Visit ___ Initial Visit _x__ Follow-up Visit ___ On-call Visit ___ General Patient Visit ___ Spiritual Assessment ___ Family Conference ___ Bereavement ___ Rapid Response ___ Code Blue ___ Other (describe below) Pastoral Care Referral From _x__ Patient _x__ Family ___ Nurse ___ Physician ___ Issue Clerk ___ Wharf Laborer ___ Other (describe below) Sacrament/Intervention ___ Active listening ___ Anointing ___ Scientology ___ Bereavement ___ Communion ___ Ciara exploration ___ ___ Life review _x__ Prayer ___ Reconciliation ___ Sacrament of Sick _x__ Supportive presence ___ Wedding ___ Other (describe below) Pastoral Comments patient is in bed; pt states that I'm not very good; otherwise patient answers questions in one word but does not engage in a conversation; daughter is with him; pt is not able to define anything except have a cold that is bothering him; when asked if he would like prayer, the pt says if you want to; this is different experience from the initial visit; daughter expresses thanks for the visit and prayer is what we needed;
[2022-08-09 14:25] VITALS: BP 140/59; PULSE 80; RESP 18; TEMP 36.4; O2SAT 96
[2022-08-09] MEDS: Tamsulosin HCl 0.4 MG Capsule PO (17:43)
[2022-08-09] MEDS: Doxepin Hcl 25 MG Capsule 50 MG PO (20:49)
[2022-08-09] MEDS: Atorvastatin Calcium 40 MG Tablet PO (20:50)
[2022-08-10] MEDS: Menthol/Lanolin/Calamine/Znox 113 GM Tube 1 APPLIC TOPICAL ×2 (05:22→17:03)
[2022-08-10] MEDS: Acetaminophen 500 MG Tablet 1000 MG PO ×3 (05:23→21:37)
[2022-08-10] MEDS: Pantoprazole Sodium 40 MG Tablet PO (05:23)
[2022-08-10] MEDS: Lisinopril 10 MG Tablet PO (05:24)
[2022-08-10] MEDS: Senna/Docusate Sodium 1 Tablet 2 TABLET PO (05:24)
[2022-08-10 05:35] VITALS: BP 152/70; PULSE 78
--- NOTE | 2022-08-10 05:36 | NURSING ---
POST COMMANDER's were performing care/hygiene to patient this AM when patient raised his fist at one of them. POST COMMANDER redirected patient, he put his fist down. No further issues. Patient changed, hearing aids put in and glasses on. Patient resting in bed and watching in TV. Will continue to monitor.
[2022-08-10 05:58] LABS: Absolute Lymphocyte Count 2.35 X10^3/uL (0.83-4.51); Absolute Neutrophil Count 6.3 X10^3/uL (2.0-7.7); Basophil# 0.05 X10^3/uL; Basophil% 0.5 % (0-1); Eosinophil# 0.68 X10^3/uL; Eosinophils% 6.7 % (0-5); Hematocrit 32.3 % (40-54); Hemoglobin 10.1 g/dL (13.0-16.5); Lymphocyte # 2.35 X10^3/ul (0.83-4.51); Lymphocyte % 23.2 % (19-41); Mean Corp Hgb Conc 31.3 g/dL (32-36); Mean Corpuscular Hgb 29.2 pg (27.0-32.0); Mean Corpuscular Volume 93.4 fL (80-94); Mean Platelet Vol. 9.1 fl (6.2-12.0); Monocyte# 0.67 X10^3/uL; Monocyte% 6.6 % (0-10); NRBC Flagged by Analyzer 0 % (0-5); Neutrophil % 62.4 % (47-70); Platelet Count 340 K/mm3 (150-450); RBC Distribution Width CV 14.9 % (11.6-14.6); Red Blood Count 3.46 M/mm3 (4.6-6.2); White Blood Count 10.1 K/mm3 (4.4-11.0)
[2022-08-10 06:48] LABS: Anion Gap 5 (5-15); BUN 21 mg/dL (7-18); BUN/Creat Ratio 23.5 RATIO (10-20); Calcium,Total 9.1 mg/dL (8.5-10.1); Chloride 103 mmol/L (98-107); Creatinine, Serum 0.89 mg/dL (0.70-1.30); EST Glomerular Filtration Rate 86 mL/min (>60); Est Glom Filt Rate - Afr Amer 104 mL/min (>60); Estimated Creatinine Clearance 59.78 ml/min; Glucose 101 mg/dL (74-106); Potassium 4.4 mmol/L (3.5-5.1); Sodium Level 136 mmol/L (136-145)
[2022-08-10] MEDS: Ensure Plus High Protein 120 ML LIQUID PO ×2 (08:04→11:53)
[2022-08-10] MEDS: Aspirin 81 MG TAB.CHEW PO ×2 (08:04→17:02)
[2022-08-10] MEDS: Carvedilol 6.25 MG Tablet PO ×2 (08:04→17:02)
[2022-08-10 08:10] VITALS: BP 157/62; PULSE 77
[2022-08-10 14:23] VITALS: BP 119/62; PULSE 87; RESP 18; TEMP 36.1; O2SAT 94
[2022-08-10] MEDS: Tamsulosin HCl 0.4 MG Capsule PO (17:02)
[2022-08-10 17:06] VITALS: BP 145/59; PULSE 84
[2022-08-10] MEDS: Doxepin Hcl 25 MG Capsule 50 MG PO (21:38)
[2022-08-10] MEDS: Atorvastatin Calcium 40 MG Tablet PO (21:38)
[2022-08-10 21:42] VITALS: PULSE 81; RESP 14; O2SAT 94
[2022-08-11 05:50] VITALS: BP 141/62; PULSE 82
[2022-08-11] MEDS: Pantoprazole Sodium 40 MG Tablet PO (06:01)
[2022-08-11] MEDS: Lisinopril 10 MG Tablet PO (06:01)
[2022-08-11] MEDS: Menthol/Lanolin/Calamine/Znox 113 GM Tube 1 APPLIC TOPICAL ×2 (06:01→18:10)
[2022-08-11] MEDS: Acetaminophen 500 MG Tablet 1000 MG PO ×3 (06:01→22:19)
[2022-08-11] MEDS: Senna/Docusate Sodium 1 Tablet 2 TABLET PO ×2 (06:01→18:10)
[2022-08-11] MEDS: Ensure Plus High Protein 120 ML LIQUID PO ×3 (08:46→18:12)
[2022-08-11] MEDS: Aspirin 81 MG TAB.CHEW PO ×2 (08:46→18:09)
[2022-08-11] MEDS: Carvedilol 6.25 MG Tablet PO ×2 (08:46→18:10)
[2022-08-11 13:42] VITALS: BP 142/76; PULSE 87; RESP 16; TEMP 36.3; O2SAT 93
--- NOTE | 2022-08-11 17:06 | NURSING ---
Patient rang out stating that he wanted to lay down. This nurse and other nurse educated patient that he has some difficulty swallowing since his stroke previously, and is at higher risk to aspirate and get pneumonia. Patient stated that that is not a risk I want to lay down. patient was placed in bed and call light left beside him.
[2022-08-11] MEDS: Tamsulosin HCl 0.4 MG Capsule PO (18:10)
[2022-08-11] MEDS: Atorvastatin Calcium 40 MG Tablet PO (22:19)
[2022-08-11] MEDS: Doxepin Hcl 25 MG Capsule 50 MG PO (22:19)
[2022-08-12] MEDS: Menthol/Lanolin/Calamine/Znox 113 GM Tube 1 APPLIC TOPICAL ×2 (05:52→17:10)
[2022-08-12] MEDS: Polyethylene Glycol 3350 17 GM PACKET PO (05:53)
[2022-08-12] MEDS: Acetaminophen 500 MG Tablet 1000 MG PO ×3 (05:54→20:22)
[2022-08-12] MEDS: Pantoprazole Sodium 40 MG Tablet PO (05:54)
[2022-08-12] MEDS: Lisinopril 10 MG Tablet PO (05:54)
[2022-08-12] MEDS: Senna/Docusate Sodium 1 Tablet 2 TABLET PO ×2 (05:54→17:11)
[2022-08-12] MEDS: Ensure Plus High Protein 120 ML LIQUID PO ×3 (08:18→17:10)
[2022-08-12] MEDS: Carvedilol 6.25 MG Tablet PO ×2 (08:19→17:13)
[2022-08-12] MEDS: Aspirin 81 MG TAB.CHEW PO ×2 (08:19→17:12)
[2022-08-12 08:22] VITALS: BP 160/72; PULSE 83
[2022-08-12 14:32] VITALS: BP 125/65; PULSE 91; RESP 16; TEMP 36.6; O2SAT 96
[2022-08-12] MEDS: Tamsulosin HCl 0.4 MG Capsule PO (17:12)
[2022-08-12] MEDS: Atorvastatin Calcium 40 MG Tablet PO (20:22)
[2022-08-12] MEDS: Doxepin Hcl 25 MG Capsule 50 MG PO (20:22)
[2022-08-12 20:26] VITALS: PULSE 83; RESP 16; O2SAT 94
[2022-08-13] MEDS: Acetaminophen 500 MG Tablet 1000 MG PO ×3 (05:54→21:45)
[2022-08-13] MEDS: Pantoprazole Sodium 40 MG Tablet PO (05:54)
[2022-08-13] MEDS: Lisinopril 10 MG Tablet PO (05:54)
[2022-08-13] MEDS: Senna/Docusate Sodium 1 Tablet 2 TABLET PO ×2 (05:54→17:17)
[2022-08-13] MEDS: Menthol/Lanolin/Calamine/Znox 113 GM Tube 1 APPLIC TOPICAL ×2 (05:55→17:18)
[2022-08-13] MEDS: Carvedilol 6.25 MG Tablet PO ×2 (07:37→17:16)
[2022-08-13] MEDS: Ensure Plus High Protein 120 ML LIQUID PO ×3 (07:37→17:16)
[2022-08-13] MEDS: Aspirin 81 MG TAB.CHEW PO ×2 (07:38→17:17)
[2022-08-13 14:40] VITALS: BP 108/71; PULSE 84; RESP 18; TEMP 36.3; O2SAT 97
[2022-08-13] MEDS: Tamsulosin HCl 0.4 MG Capsule PO (17:17)
[2022-08-13] MEDS: Doxepin Hcl 25 MG Capsule 50 MG PO (21:45)
[2022-08-13] MEDS: Atorvastatin Calcium 40 MG Tablet PO (21:45)
[2022-08-14] MEDS: Acetaminophen 500 MG Tablet 1000 MG PO ×3 (06:08→21:41)
[2022-08-14] MEDS: Senna/Docusate Sodium 1 Tablet 2 TABLET PO ×2 (06:09→18:27)
[2022-08-14] MEDS: Pantoprazole Sodium 40 MG Tablet PO (06:09)
[2022-08-14] MEDS: Lisinopril 10 MG Tablet PO (06:09)
[2022-08-14] MEDS: Menthol/Lanolin/Calamine/Znox 113 GM Tube 1 APPLIC TOPICAL ×2 (06:10→18:26)
[2022-08-14] MEDS: Polyethylene Glycol 3350 17 GM PACKET PO (06:10)
[2022-08-14] MEDS: Ensure Plus High Protein 120 ML LIQUID PO ×2 (09:15→18:26)
[2022-08-14] MEDS: Carvedilol 6.25 MG Tablet PO ×2 (09:16→18:26)
[2022-08-14] MEDS: Aspirin 81 MG TAB.CHEW PO ×2 (09:17→18:26)
[2022-08-14 14:25] VITALS: BP 142/74; PULSE 87; RESP 18; TEMP 36.3; O2SAT 98
[2022-08-14] MEDS: Tamsulosin HCl 0.4 MG Capsule PO (18:25)
[2022-08-14] MEDS: Doxepin Hcl 25 MG Capsule 50 MG PO (21:40)
[2022-08-14] MEDS: Atorvastatin Calcium 40 MG Tablet PO (21:40)
--- NOTE | 2022-08-14 21:45 | NURSING ---
Pt requesting this nurse get Vicks out of his nightstand to apply to his left foot. Informs this nurse the collections attorney told his to apply it to his foot to soften his toenails. Informed pt no Vicks is in any of the nightstand drawers and that we would need an order to apply Vicks.
--- NOTE | 2022-08-15 02:26 | NURSING ---
Pt calls c/o left heel heeling hot. Sock removed. No redness, warmth, or swelling noted. Mild pain noted when affected area palpated. Heel is slightly mushy. In no acute distress. Pt asking this nurse again this shift to apply Vicks. Reiterated there is no order for Vicks and there is no supply of Vicks in his room. LLE elevated on a pillow to float heel. Will continue to monitor.
[2022-08-15] MEDS: Pantoprazole Sodium 40 MG Tablet PO (06:02)
[2022-08-15] MEDS: Acetaminophen 500 MG Tablet 1000 MG PO ×3 (06:02→20:14)
[2022-08-15] MEDS: Senna/Docusate Sodium 1 Tablet 2 TABLET PO ×2 (06:02→17:17)
[2022-08-15] MEDS: Lisinopril 10 MG Tablet PO (06:03)
[2022-08-15] MEDS: Menthol/Lanolin/Calamine/Znox 113 GM Tube 1 APPLIC TOPICAL ×2 (06:03→17:16)
[2022-08-15] MEDS: Polyethylene Glycol 3350 17 GM PACKET PO (06:03)
[2022-08-15 06:07] VITALS: BP 158/70; PULSE 75
[2022-08-15] MEDS: Aspirin 81 MG TAB.CHEW PO ×2 (08:23→17:17)
[2022-08-15] MEDS: Carvedilol 6.25 MG Tablet PO ×2 (08:23→17:17)
[2022-08-15] MEDS: Ensure Plus High Protein 120 ML LIQUID PO ×3 (08:25→17:16)
[2022-08-15 08:27] VITALS: BP 164/63; PULSE 86
[2022-08-15 10:45] VITALS: PULSE 65; RESP 18; O2SAT 94
[2022-08-15 14:26] VITALS: BP 129/63; PULSE 79; RESP 14; TEMP 36.4; O2SAT 94
--- NOTE | 2022-08-15 14:33 | NURSING ---
PER PT DAUGHTER, PT BROTHER TODAY AND PT MAY BE SAMUEL.
--- NOTE | 2022-08-15 15:31 | CASEMGMT ---
Social Work Met with patient and dtr in room. Offered condolences for loss of pt's brother. Provided emotional support. Offered any assistance. Dtr requesting for pt to have [facility] for services on 08/17 from 8a-3p. SW left written communication to Dr, verbal to nurse, and written to therapy. Both appreciative. Guerline Funk, [place] GUIDE RUBY [employer] RAILS SOFTWARE DEVELOPER
--- NOTE | 2022-08-15 17:13 | NURSING ---
APPROVED [facility] FOR PT FROM 8AM -3PM ON Monday08/17/22 FOR PT BROTHERS .
[2022-08-15] MEDS: Tamsulosin HCl 0.4 MG Capsule PO (17:17)
[2022-08-15] MEDS: Doxepin Hcl 25 MG Capsule 50 MG PO (20:14)
[2022-08-15] MEDS: traMADol 50 MG Tablet PO (20:15)
[2022-08-15] MEDS: Atorvastatin Calcium 40 MG Tablet PO (20:15)
[2022-08-16] MEDS: Senna/Docusate Sodium 1 Tablet 2 TABLET PO ×2 (06:05→17:48)
[2022-08-16] MEDS: Acetaminophen 500 MG Tablet 1000 MG PO ×3 (06:05→20:30)
[2022-08-16] MEDS: Menthol/Lanolin/Calamine/Znox 113 GM Tube 1 APPLIC TOPICAL ×2 (06:05→17:49)
[2022-08-16] MEDS: Lisinopril 10 MG Tablet PO (06:05)
[2022-08-16] MEDS: Pantoprazole Sodium 40 MG Tablet PO (06:05)
[2022-08-16] MEDS: Ensure Plus High Protein 120 ML LIQUID PO ×3 (08:40→17:47)
[2022-08-16] MEDS: Carvedilol 6.25 MG Tablet PO ×2 (08:41→17:48)
[2022-08-16] MEDS: Aspirin 81 MG TAB.CHEW PO ×2 (08:41→17:48)
[2022-08-16 08:43] VITALS: BP 137/70; PULSE 90
[2022-08-16 10:00] VITALS: PULSE 84; RESP 16; O2SAT 93
[2022-08-16 14:00] VITALS: BP 132/68; PULSE 79; RESP 18; TEMP 36.3; O2SAT 90
[2022-08-16] MEDS: Tamsulosin HCl 0.4 MG Capsule PO (17:48)
--- NOTE | 2022-08-16 18:13 | NURSING ---
PT DAUGHTER WILL PICK PT UP TOMORROW 08/17/22 AT 0730 FOR [facility] TO BROTHERS . PT HAS CLOTHES IN CLOSET TO WEAR AND THIS NURSE LEFT MESSAGE FOR DIETARY TO BRING BREAKFAST UP AT 0630.
[2022-08-16] MEDS: Doxepin Hcl 25 MG Capsule 50 MG PO (20:29)
[2022-08-16] MEDS: Atorvastatin Calcium 40 MG Tablet PO (20:30)
[2022-08-17] MEDS: Pantoprazole Sodium 40 MG Tablet PO (04:59)
[2022-08-17] MEDS: Lisinopril 10 MG Tablet PO (04:59)
[2022-08-17] MEDS: Polyethylene Glycol 3350 17 GM PACKET PO (04:59)
[2022-08-17] MEDS: Menthol/Lanolin/Calamine/Znox 113 GM Tube 1 APPLIC TOPICAL ×2 (04:59→17:07)
[2022-08-17] MEDS: Acetaminophen 500 MG Tablet 1000 MG PO ×2 (05:00→19:37)
[2022-08-17] MEDS: Senna/Docusate Sodium 1 Tablet 2 TABLET PO ×2 (05:00→17:05)
[2022-08-17 05:59] LABS: Absolute Lymphocyte Count 2.57 X10^3/uL (0.83-4.51); Absolute Neutrophil Count 5.9 X10^3/uL (2.0-7.7); Basophil# 0.05 X10^3/uL; Basophil% 0.5 % (0-1); Eosinophil# 0.64 X10^3/uL; Eosinophils% 6.4 % (0-5); Hematocrit 29.4 % (40-54); Hemoglobin 9.8 g/dL (13.0-16.5); Lymphocyte # 2.57 X10^3/ul (0.83-4.51); Lymphocyte % 25.8 % (19-41); Mean Corp Hgb Conc 33.3 g/dL (32-36); Mean Corpuscular Hgb 29.9 pg (27.0-32.0); Mean Corpuscular Volume 89.6 fL (80-94); Monocyte# 0.65 X10^3/uL; Monocyte% 6.5 % (0-10); NRBC Flagged by Analyzer 0 % (0-5); Neutrophil # 5.92 X10^3/uL (2.7-7.7); Neutrophil % 59.6 % (47-70); Platelet Count 285 K/mm3 (150-450); Red Blood Count 3.28 M/mm3 (4.6-6.2)
[2022-08-17 06:31] LABS: Anion Gap 7 (5-15); BUN 37 mg/dL (7-18); BUN/Creat Ratio 35.9 RATIO (10-20); Calcium,Total 8.9 mg/dL (8.5-10.1); Chloride 103 mmol/L (98-107); Creatinine, Serum 1.03 mg/dL (0.70-1.30); EST Glomerular Filtration Rate 73 mL/min (>60); Est Glom Filt Rate - Afr Amer 88 mL/min (>60); Estimated Creatinine Clearance 51.65 ml/min; Glucose 121 mg/dL (74-106); Potassium 4.5 mmol/L (3.5-5.1); Sodium Level 135 mmol/L (136-145)
--- NOTE | 2022-08-17 10:26 | CASEMGMT ---
Social Work This worker updated dtr that pt was approved by insurance with [facility]/ Guerline Funk, CHILDREN'S TUTOR NURSERY DESTINATION IMAGINATION COORDINATOR
[2022-08-17 16:00] VITALS: BP 132/69; PULSE 99; RESP 17; TEMP 36
[2022-08-17] MEDS: Carvedilol 6.25 MG Tablet PO (17:04)
[2022-08-17] MEDS: Ensure Plus High Protein 120 ML LIQUID PO (17:04)
[2022-08-17] MEDS: Tamsulosin HCl 0.4 MG Capsule PO (17:04)
[2022-08-17] MEDS: Aspirin 81 MG TAB.CHEW PO (17:05)
[2022-08-17] MEDS: traMADol 50 MG Tablet PO (19:33)
[2022-08-17] MEDS: Atorvastatin Calcium 40 MG Tablet PO (19:37)
[2022-08-17] MEDS: Doxepin Hcl 25 MG Capsule 50 MG PO (19:38)
[2022-08-18 00:54] VITALS: O2SAT 95
[2022-08-18] MEDS: Lisinopril 10 MG Tablet PO (05:19)
[2022-08-18] MEDS: Acetaminophen 500 MG Tablet 1000 MG PO ×3 (05:19→20:38)
[2022-08-18] MEDS: Polyethylene Glycol 3350 17 GM PACKET PO (05:19)
[2022-08-18] MEDS: Pantoprazole Sodium 40 MG Tablet PO (05:20)
[2022-08-18] MEDS: Senna/Docusate Sodium 1 Tablet 2 TABLET PO ×2 (05:20→17:41)
[2022-08-18] MEDS: Menthol/Lanolin/Calamine/Znox 113 GM Tube 1 APPLIC TOPICAL ×2 (05:22→17:46)
[2022-08-18] MEDS: Ensure Plus High Protein 120 ML LIQUID PO ×2 (05:22→17:43)
[2022-08-18] MEDS: Aspirin 81 MG TAB.CHEW PO ×2 (08:20→17:40)
[2022-08-18] MEDS: Carvedilol 6.25 MG Tablet PO ×2 (08:20→17:41)
[2022-08-18 10:00] VITALS: O2SAT 94
[2022-08-18 15:55] VITALS: BP 129/67; PULSE 79; RESP 16; TEMP 36.7; O2SAT 92
[2022-08-18] MEDS: Tamsulosin HCl 0.4 MG Capsule PO (17:41)
[2022-08-18] MEDS: Doxepin Hcl 25 MG Capsule 50 MG PO (20:39)
[2022-08-18] MEDS: Atorvastatin Calcium 40 MG Tablet PO (20:39)
[2022-08-19] MEDS: Lisinopril 10 MG Tablet PO (06:08)
[2022-08-19] MEDS: Senna/Docusate Sodium 1 Tablet 2 TABLET PO ×2 (06:08→18:06)
[2022-08-19] MEDS: Pantoprazole Sodium 40 MG Tablet PO (06:09)
[2022-08-19] MEDS: Ensure Plus High Protein 120 ML LIQUID PO (06:09)
[2022-08-19] MEDS: Acetaminophen 500 MG Tablet 1000 MG PO ×3 (06:09→20:39)
[2022-08-19] MEDS: Menthol/Lanolin/Calamine/Znox 113 GM Tube 1 APPLIC TOPICAL ×2 (06:10→18:06)
[2022-08-19 08:57] VITALS: BP 128/53; PULSE 91
[2022-08-19] MEDS: Carvedilol 6.25 MG Tablet PO ×2 (08:57→18:05)
[2022-08-19] MEDS: Aspirin 81 MG TAB.CHEW PO ×2 (08:57→18:05)
[2022-08-19 14:08] VITALS: BP 130/66; PULSE 92; RESP 18; TEMP 36.5; O2SAT 93
[2022-08-19] MEDS: Tamsulosin HCl 0.4 MG Capsule PO (18:05)
[2022-08-19] MEDS: Doxepin Hcl 25 MG Capsule 50 MG PO (20:38)
[2022-08-19] MEDS: Atorvastatin Calcium 40 MG Tablet PO (20:39)
[2022-08-19 22:00] VITALS: PULSE 98; RESP 18; O2SAT 95
[2022-08-20] MEDS: Menthol/Lanolin/Calamine/Znox 113 GM Tube 1 APPLIC TOPICAL ×2 (05:51→17:11)
[2022-08-20] MEDS: Senna/Docusate Sodium 1 Tablet 2 TABLET PO ×2 (05:53→17:08)
[2022-08-20] MEDS: Acetaminophen 500 MG Tablet 1000 MG PO ×3 (05:53→21:13)
[2022-08-20] MEDS: Lisinopril 10 MG Tablet PO (05:54)
[2022-08-20] MEDS: Pantoprazole Sodium 40 MG Tablet PO (05:54)
[2022-08-20] MEDS: Ensure Plus High Protein 120 ML LIQUID PO ×2 (05:58→17:07)
[2022-08-20 06:04] VITALS: BP 150/71; PULSE 78
[2022-08-20] MEDS: Carvedilol 6.25 MG Tablet PO ×2 (08:35→17:08)
[2022-08-20] MEDS: Aspirin 81 MG TAB.CHEW PO ×2 (08:35→17:07)
--- NOTE | 2022-08-20 10:34 | NURSING ---
PT VERY CONFUSED TODAY. THINKS HE NEEDS TO GO UP STAIRS IN ANOTHER BUILDING. THIS NURSE REORIENT PT AND EXPLAINED TO HIM. PT THEN STATED I HAVE BEEN IN THIS CHAIR ALL DAY. THIS NURSE EXPLAINED TO PT THAT HE HAS ONLY BEEN IN [facility] 1 HOUR AND NEEDS TO SIT UP FOR A WHILE SO HE DON'T GET PNEUMONIA. PT STATED IF I WOULD HAVE A CHANCE OF GETTING THAT MY DOCTOR WOULD TELL ME. THIS NURSE STATED TO PT I CAN HAVE THE DOCTOR TALK TO YOU ON MONDAY. PT DID NOT REPLIE.
--- NOTE | 2022-08-20 14:41 | NURSING ---
THIS NURSE IN ROOM AND SAW BLOOD ON PT T SHIRT. ASKED PT WHERE HE WAS BLEEDING FROM,PT STATED I HAD A NOSE BLEED. ASKED IF HE HAS HAD THEM BEFORE PT STATED YES WHEN I BLOW MY NOSE. ASKED PT IF HE WOULD LIKE A NOSE SPRAY DUE TO THE DRY AIR MAYBE CAUSING THE BLEEDING. PT STATED NO. RN AWARE WILL CONTINUE TO MONITOR.
[2022-08-20 15:40] VITALS: BP 138/68; PULSE 77; RESP 15; TEMP 36.3; O2SAT 91
[2022-08-20] MEDS: Tamsulosin HCl 0.4 MG Capsule PO (17:08)
[2022-08-20 20:05] VITALS: PULSE 80; RESP 16; O2SAT 95
[2022-08-20] MEDS: Doxepin Hcl 25 MG Capsule 50 MG PO (21:13)
[2022-08-20] MEDS: Atorvastatin Calcium 40 MG Tablet PO (21:13)
[2022-08-21] MEDS: Pantoprazole Sodium 40 MG Tablet PO (05:16)
[2022-08-21] MEDS: Acetaminophen 500 MG Tablet 1000 MG PO ×3 (05:16→20:54)
[2022-08-21] MEDS: Polyethylene Glycol 3350 17 GM PACKET PO (05:16)
[2022-08-21] MEDS: Lisinopril 10 MG Tablet PO (05:16)
[2022-08-21] MEDS: Menthol/Lanolin/Calamine/Znox 113 GM Tube 1 APPLIC TOPICAL ×2 (05:16→17:14)
[2022-08-21] MEDS: Senna/Docusate Sodium 1 Tablet 2 TABLET PO ×2 (05:16→17:11)
[2022-08-21] MEDS: Ensure Plus High Protein 120 ML LIQUID PO ×2 (05:21→17:10)
[2022-08-21 05:23] VITALS: BP 116/47; PULSE 75; RESP 16
[2022-08-21] MEDS: Aspirin 81 MG TAB.CHEW PO ×2 (07:52→17:11)
[2022-08-21] MEDS: Carvedilol 6.25 MG Tablet PO ×2 (07:52→17:11)
[2022-08-21 07:54] VITALS: BP 149/56; PULSE 80
[2022-08-21 09:45] VITALS: PULSE 77; RESP 18; O2SAT 95
[2022-08-21 15:29] VITALS: BP 148/65; PULSE 80; RESP 20; TEMP 36.6; O2SAT 93
[2022-08-21] MEDS: Tamsulosin HCl 0.4 MG Capsule PO (17:11)
[2022-08-21] MEDS: Doxepin Hcl 25 MG Capsule 50 MG PO (20:54)
[2022-08-21] MEDS: Atorvastatin Calcium 40 MG Tablet PO (20:54)
[2022-08-22] MEDS: Ensure Plus High Protein 120 ML LIQUID PO ×2 (05:42→16:11)
[2022-08-22] MEDS: Menthol/Lanolin/Calamine/Znox 113 GM Tube 1 APPLIC TOPICAL ×2 (05:43→16:12)
[2022-08-22] MEDS: Lisinopril 10 MG Tablet PO (05:43)
[2022-08-22] MEDS: Acetaminophen 500 MG Tablet 1000 MG PO ×3 (05:43→19:33)
[2022-08-22] MEDS: Senna/Docusate Sodium 1 Tablet 2 TABLET PO ×2 (05:43→16:12)
[2022-08-22] MEDS: Pantoprazole Sodium 40 MG Tablet PO (05:43)
[2022-08-22 05:48] VITALS: BP 131/53; PULSE 77; RESP 16
[2022-08-22 08:36] VITALS: BP 157/79; PULSE 90
[2022-08-22] MEDS: Carvedilol 6.25 MG Tablet PO ×2 (08:37→16:11)
[2022-08-22 14:46] VITALS: BP 133/62; PULSE 76; RESP 18; TEMP 36.4; O2SAT 95
[2022-08-22] MEDS: oxyCODONE 5 MG Tablet 2.5 MG PO (16:07)
[2022-08-22] MEDS: Tamsulosin HCl 0.4 MG Capsule PO (16:11)
--- NOTE | 2022-08-22 19:00 | PN.TCU_ITS ---
Subjective Subjective Resident seen, examined for regulatory visit. Resident currently shaving with electric razor. He has no new problems, concerns, issues, complaints today. He is progressing with therapy. Objective Data Objective Data Vital Signs: Vital Signs Temp Pulse Resp BP Pulse Ox O2 Del Method 97.6 F L 76 18 133/62 H 95 Room Air 08/22/22 14:46 08/22/22 14:46 08/22/22 14:46 08/22/22 14:46 08/22/22 14:46 08/22/22 14:46 Oxygen Delivery Method Room Air Weight: 83.064 kg Body Mass Index (BMI) 30.2 Intake & Output: Intake and Output for Last 24 Hours 08/20/22 08/21/22 08/22/22 23:59 23:59 23:59 Intake Total 720 / 720 420 / 420 720 / 720 Balance 720 / 720 420 / 420 720 / 720 Lab / Micro Data Result Diagrams: 08/17/22 05:12 08/17/22 05:12 Micro: Microbiology 08/05/22 10:33 Nasal Secretion SARS-CoV-2 Antigen (Rapid) - Final 08/03/22 05:24 Nasal Secretion SARS-CoV-2 Antigen (Rapid) - Final 08/01/22 16:30 Nasal Secretion SARS-CoV-2 Antigen (Rapid) - Final 07/30/22 05:20 Nasal Secretion SARS-CoV-2 Antigen (Rapid) - Final 07/28/22 10:30 Nasal Secretion SARS-CoV-2 Antigen (Rapid) - Final Physical Exam Const alert General Appearance: cooperative HEENT normocephalic Eyes PERRL and EOMs intact bilaterally Neck supple, no JVD and no carotid bruits Resp normal respiratory effort, normal air movement and clear to auscultation bilaterally Cardio regular rate and regular rhythm GI normal to inspection, nondistended, normoactive bowel sounds, non-tender and non-distended Extremity normal capillary refill General Extremity: Negative for edema Skin no rashes or lesions noted General Skin Exam: no breakdown Psych affect normal Appearance: appropriate Assessment & Plan Assessment/Plan (1) Debility: (2) Closed intertrochanteric fracture of left hip: (3) Hypertension: (4) Hyperlipidemia: (5) GERD (gastroesophageal reflux disease): (6) BPH (benign prostatic hyperplasia): (7) Insomnia: (8) Stroke: PLAN: Plan 82 year old male with below past medical history hospitalized for left hip fracture, underwent left hip cephalomedullary nail 07/23/[address] Almonte, complicated by postoperative delirium, admitted to TCU with debility, here for rehabilitation, strengthening, prior to discharge home alone. * Debility - PT/OT. * Pain - Tylenol 1000mg tid, Tramadol 50mg q6h prn pain (1-5), Oxycodone 2.5mg q4h prn pain (6-10). * Bowel - Miralax 17gm daily, senna/colace 2 tablets bid, Dulcolax 10mg pr x 1 prn, MOM 30ml po x 1 prn. * Adult immunization - Administer pneumonia vaccine, covid19 vaccine, flu vaccine. * DVT prophylaxis - Done. * Hyperlipidemia - Atorvastatin 40mg qhs. * Hypertension - Coreg 6.25mg bid, Lisinopril 10mg daily. * Insomnia - Doxepin 50mg qhs. * GERD - Pantoprazole 40mg daily. * BPH - Tamsulosin 0.4mg daily. * Nutrition - Ensure Plus 120ml bid. * Cough - Robitussin DM 10ml q6h prn. * Skin irritation - Calmoseptine topical bid. Capacity Capacity Assessment Tool Can the patient make a choice & communicate that choice?: Yes Can the patient understand benefits, risks and alternatives?: Yes Can the patient make a logical, rational choice?: Yes Is the choice the patient makes consistent w/ their values?: Yes Is there an impending, emergent risk to the patient?: No Does the patient have an Advance Directive?: Yes Is there a Surrogate Available?: Yes i.e. HCPOA: Yes i.e. close relative (spouse, child, parent, sibling)?: Yes
[2022-08-22] MEDS: traMADol 50 MG Tablet PO (19:32)
[2022-08-22] MEDS: Doxepin Hcl 25 MG Capsule 50 MG PO (19:34)
[2022-08-22] MEDS: Atorvastatin Calcium 40 MG Tablet PO (19:35)
[2022-08-22 19:45] VITALS: PULSE 80; RESP 18; O2SAT 94
[2022-08-23] MEDS: Ensure Plus High Protein 120 ML LIQUID PO ×2 (05:03→17:49)
[2022-08-23] MEDS: Menthol/Lanolin/Calamine/Znox 113 GM Tube 1 APPLIC TOPICAL ×2 (05:03→17:46)
[2022-08-23] MEDS: Polyethylene Glycol 3350 17 GM PACKET PO (05:05)
[2022-08-23] MEDS: Lisinopril 10 MG Tablet PO (05:06)
[2022-08-23] MEDS: Senna/Docusate Sodium 1 Tablet 2 TABLET PO ×2 (05:06→17:47)
[2022-08-23] MEDS: Pantoprazole Sodium 40 MG Tablet PO (05:06)
[2022-08-23] MEDS: Acetaminophen 500 MG Tablet 1000 MG PO ×3 (05:07→20:14)
[2022-08-23] MEDS: Carvedilol 6.25 MG Tablet PO ×2 (07:51→17:46)
[2022-08-23 08:00] VITALS: BP 173/72; PULSE 88
[2022-08-23 10:30] VITALS: PULSE 79; RESP 18; O2SAT 96
[2022-08-23 15:27] VITALS: BP 137/61; PULSE 74; RESP 18; TEMP 36.3; O2SAT 96
--- NOTE | 2022-08-23 15:47 | CASEMGMT ---
Social Work IDT spoke as a Team about pt's progress. Pt has returned to baseline. Dtr is present daily and is seeing how pt is functioning. PT suggested shared care with dtr to ensure she can care for pt at home. IDT agreed to setting DC date if insurance does not issue LCD at [facility]. SW to follow up with dtr on preparing for DC within a week. Guerline Funk, TOOLMAKER HOSPITALITY MANAGER
[2022-08-23] MEDS: Tamsulosin HCl 0.4 MG Capsule PO (17:46)
[2022-08-23] MEDS: Doxepin Hcl 25 MG Capsule 50 MG PO (20:14)
[2022-08-23] MEDS: Atorvastatin Calcium 40 MG Tablet PO (20:14)
[2022-08-24] MEDS: Ensure Plus High Protein 120 ML LIQUID PO (04:49)
[2022-08-24] MEDS: Menthol/Lanolin/Calamine/Znox 113 GM Tube 1 APPLIC TOPICAL ×2 (04:49→22:02)
[2022-08-24] MEDS: Acetaminophen 500 MG Tablet 1000 MG PO ×3 (04:50→22:02)
[2022-08-24] MEDS: Polyethylene Glycol 3350 17 GM PACKET PO (04:50)
[2022-08-24] MEDS: Pantoprazole Sodium 40 MG Tablet PO (04:50)
[2022-08-24] MEDS: Lisinopril 10 MG Tablet PO (04:51)
[2022-08-24] MEDS: Senna/Docusate Sodium 1 Tablet 2 TABLET PO ×2 (04:51→17:36)
[2022-08-24 05:44] LABS: Absolute Lymphocyte Count 2.57 X10^3/uL (0.83-4.51); Absolute Neutrophil Count 5.9 X10^3/uL (2.0-7.7); Basophil# 0.07 X10^3/uL; Basophil% 0.7 % (0-1); Eosinophil# 0.52 X10^3/uL; Eosinophils% 5.4 % (0-5); Hematocrit 30.1 % (40-54); Hemoglobin 9.9 g/dL (13.0-16.5); Lymphocyte # 2.57 X10^3/ul (0.83-4.51); Lymphocyte % 26.9 % (19-41); Mean Corp Hgb Conc 32.9 g/dL (32-36); Mean Corpuscular Hgb 29.7 pg (27.0-32.0); Mean Corpuscular Volume 90.4 fL (80-94); Mean Platelet Vol. 8.8 fl (6.2-12.0); Monocyte# 0.49 X10^3/uL; Monocyte% 5.1 % (0-10); NRBC Flagged by Analyzer 0 % (0-5); Neutrophil # 5.85 X10^3/uL (2.7-7.7); Neutrophil % 61.4 % (47-70); Platelet Count 250 K/mm3 (150-450); RBC Distribution Width CV 15.4 % (11.6-14.6); RBC Distribution Width SD 50.7 fl (35.1-43.9); Red Blood Count 3.33 M/mm3 (4.6-6.2); White Blood Count 9.6 K/mm3 (4.4-11.0)
[2022-08-24 06:12] LABS: Anion Gap 8 (5-15); BUN 26 mg/dL (7-18); BUN/Creat Ratio 27.9 RATIO (10-20); Chloride 104 mmol/L (98-107); Creatinine, Serum 0.93 mg/dL (0.70-1.30); EST Glomerular Filtration Rate 82 mL/min (>60); Est Glom Filt Rate - Afr Amer 99 mL/min (>60); Glucose 107 mg/dL (74-106); Potassium 4.5 mmol/L (3.5-5.1); Sodium Level 137 mmol/L (136-145)
[2022-08-24] MEDS: Carvedilol 6.25 MG Tablet PO ×2 (07:47→17:36)
[2022-08-24 07:55] VITALS: BP 148/72; PULSE 72
[2022-08-24 16:00] VITALS: BP 131/67; PULSE 85; RESP 17; TEMP 36.4; O2SAT 96
--- NOTE | 2022-08-24 16:17 | CASEMGMT ---
Social Work Spoke with dtr about setting DC date and offered dates. Dtr prefers 08/30. IDT agreeable. Dtr requesting to use [facility] again. Family to provide transportation. No DME needs. Referral made to [facility] PT/OT/ST/SN/POTTS via [facility]. Plan: DC home 08/30 with family, [facility] AMANDO NaiduW
[2022-08-24] MEDS: Tamsulosin HCl 0.4 MG Capsule PO (17:36)
--- NOTE | 2022-08-24 19:28 | DS.PCM_ITS ---
Providers Date of Admission: 07/26/22 Primary Care Physician: Dr. Vinnie Perry MD Reason For Visit: LEFT HIP FRACTURE Diagnosis Discharge Diagnosis (1) Debility: Status: Acute Code(s): R53.81 - Other malaise (2) Closed intertrochanteric fracture of left hip: Status: Acute Code(s): S72.142A - Displaced intertrochanteric fracture of left femur, initial encounter for closed fracture (3) Hypertension: Status: Chronic Code(s): I10 - Essential (primary) hypertension (4) Hyperlipidemia: Status: Acute Code(s): E78.5 - Hyperlipidemia, unspecified (5) GERD (gastroesophageal reflux disease): Status: Acute Code(s): K21.9 - Gastro-esophageal reflux disease without esophagitis (6) BPH (benign prostatic hyperplasia): Status: Acute Code(s): N40.0 - Benign prostatic hyperplasia without lower urinary tract symptoms (7) Insomnia: Status: Acute Code(s): G47.00 - Insomnia, unspecified (8) Stroke: Status: Acute Code(s): I63.9 - Cerebral infarction, unspecified Plan 82 year old male with below past medical history hospitalized for left hip fracture, underwent left hip cephalomedullary nail 07/23/[address] Almonte, complicated by postoperative delirium, admitted to TCU with debility, here for rehabilitation, strengthening, prior to discharge home alone. * Debility - PT/OT. * Pain - Tylenol 1000mg tid, Tramadol 50mg q6h prn pain (1-5), Oxycodone 2.5mg q4h prn pain (6-10). * Bowel - Miralax 17gm daily, senna/colace 2 tablets bid, Dulcolax 10mg pr x 1 prn, MOM 30ml po x 1 prn. * Adult immunization - Administer pneumonia vaccine, covid19 vaccine, flu vaccine. * DVT prophylaxis - Done. * Hyperlipidemia - Atorvastatin 40mg qhs. * Hypertension - Coreg 6.25mg bid, Lisinopril 10mg daily. * Insomnia - Doxepin 50mg qhs. * GERD - Pantoprazole 40mg daily. * BPH - Tamsulosin 0.4mg daily. * Nutrition - Ensure Plus 120ml bid. * Cough - Robitussin DM 10ml q6h prn. * Skin irritation - Calmoseptine topical bid. Medications at Discharge Home Medications acetaminophen 500 mg tablet 1,000 mg PO TID Pain 07/26/22 atorvastatin 40 mg tablet 40 mg PO QHS Cholesterol 07/26/22 carvedilol 6.25 mg tablet 6.25 mg PO BIDCM Check with primary doctor 07/26/22 lisinopril 10 mg tablet 10 mg PO DAILY Check with primary doctor 07/26/22 pantoprazole 40 mg tablet,delayed release 40 mg PO DAILY Check with primary doctor 07/26/22 tamsulosin 0.4 mg capsule 0.4 mg PO DAILY@1730 bladder spasms 07/26/22 doxepin 25 mg capsule 50 mg PO QHS 30 days #60 caps 08/24/22 oxycodone 5 mg tablet 2.5 mg PO Q4H PRN PRN Pain Score 6-10 7 days #14 tabs 08/24/22 sennosides 8.6 mg-docusate sodium 50 mg tablet (Stool Softener-Stimulant Laxative) 2 tab PO BID 30 days #120 tabs 08/24/22 tramadol 50 mg tablet 50 mg PO Q6H PRN PRN Pain Score 1-5 7 days #28 tabs 08/24/22 Hospital Course Operations - (Left hip cephalomedullary nail fixation.) Procedures None Summary of Care Provided Minutes Spent on Discharge: 35 Hospital Course: 82 year old male with below past medical history hospitalized for left hip fracture, underwent left hip cephalomedullary nail 07/23/[address] Almonte, complicated by postoperative delirium, admitted to TCU with debility, here for rehabilitation, strengthening, prior to discharge home alone. Discharge home with family 08/30/2022, [facility] PT/OT/ST/SN/POTTS. Physical Exam Const alert General Appearance: cooperative HEENT normocephalic Eyes PERRL and EOMs intact bilaterally Neck supple, no JVD and no carotid bruits Resp normal respiratory effort, normal air movement and clear to auscultation bilat erally Cardio regular rate and regular rhythm GI normal to inspection, nondistended, normoactive bowel sounds, non-tender and non-distended Extremity normal capillary refill General Extremity: Negative for edema Skin no rashes or lesions noted General Skin Exam: no breakdown Psych affect normal Appearance: appropriate Weight / BMI Weight Weight: 84.141 kg Body Mass Index (BMI) 30.2 ABG / Lab / Microbiology Data Result Diagrams: 08/24/22 05:29 08/24/22 05:29 Laboratory: Laboratory Results - last 24 hr 08/24/22 05:29: WBC 9.6, RBC 3.33 L, Hgb 9.9 L, Hct 30.1 L, MCV 90.4, MCH 29.7, MCHC 32.9, RDW Std Deviation 50.7 H, RDW Coeff of Dania 15.4 H, Plt Count 250, MPV 8.8, Immature Gran % (Auto) 0.500, Neut % (Auto) 61.4, Lymph % (Auto) 26.9, Early % (Auto) 5.1, Eos % (Auto) 5.4 H, Baso % (Auto) 0.7, Absolute Neuts (auto) 5.9, Absolute Lymphs (auto) 2.57, Nucleated RBC % 0 08/24/22 05:29: Sodium 137, Potassium 4.5, Chloride 104, Carbon Dioxide 25.0, An ion Gap 8, BUN 26 H, Creatinine 0.93, Estim Creat Clear Calc 57.20, Est GFR ( MDRD) Af Amer 99, Est GFR (MDRD) Non-Af 82, BUN/Creatinine Ratio 27.9 H, Glucose 107 H, Calcium 9.0 Microbiology: Microbiology 08/05/22 10:33 Nasal Secretion SARS-CoV-2 Antigen (Rapid) - Final 08/03/22 05:24 Nasal Secretion SARS-CoV-2 Antigen (Rapid) - Final 08/01/22 16:30 Nasal Secretion SARS-CoV-2 Antigen (Rapid) - Final 07/30/22 05:20 Nasal Secretion SARS-CoV-2 Antigen (Rapid) - Final 07/28/22 10:30 Nasal Secretion SARS-CoV-2 Antigen (Rapid) - Final D/C Instructions Discharge Diet: No restrictions Discharge Activity: Return to Normal Activity, May Shower and Use Walker Weight Bearing Status: Weight bearing as tolerated Call your doctor if you observe: Fever of 101 or Higher, Inability to urinate, Inability to have a bowel movement, Shortness of breath, Dizziness, Fainting spells, Swelling in the ankles, Chest pain and Uncontrolled pain Additional Instructions: Discharge home with family 08/30/2022, [facility] PT/OT/ST/SN/POTTS. Please Follow Up With: Dr. Jaciel Amlonte When: As scheduled. Meaningful Use Info Meaningful Use Diagnoses (Choose all that apply): None applicable Discharge Plan Admission Admit Date/Time: 07/26/22 19:01 Primary Reason for Your Visit: Debility. Attending Provider: Paul Jackson Chi Primary Care Provider: Vinnie Perry Instructions Additional Instructions / Restrictions: Discharge home with family 08/30/2022, [facility] PT/OT/ST/SN/POTTS. Discharge Orders/Prescriptions Prescriptions: New doxepin 25 mg Capsule 50 mg PO QHS 30 Days Qty: 60 0RF sennosides-docusate sodium [Stool Softener-Stimulant Laxat] 8.6-50 mg Tablet 2 tab PO BID 30 Days Qty: 120 0RF tramadol 50 mg Tablet 50 mg PO Q6H PRN PRN (Reason: Pain Score 1-5) 7 Days Qty: 28 0RF oxycodone 5 mg Tablet 2.5 mg PO Q4H PRN PRN (Reason: Pain Score 6-10) 7 Days Qty: 14 0RF Continued atorvastatin 40 mg tablet 40 mg PO QHS carvedilol 6.25 mg tablet 6.25 mg PO BIDCM acetaminophen 500 mg tablet 1,000 mg PO TID tamsulosin 0.4 mg capsule 0.4 mg PO DAILY@1730 pantoprazole 40 mg tablet,delayed release (DR/EC) 40 mg PO DAILY lisinopril 10 mg tablet 10 mg PO DAILY Discontinued doxepin 25 mg capsule 25 mg PO QHS sennosides-docusate sodium [Stool Softener-Stimulant Laxat] 8.6-50 mg tablet 2 tab PO BID aspirin 81 mg tablet,delayed release (DR/EC) 81 mg PO BREAKFAST Xarelto 10 mg tablet 10 mg PO DAILY@0600 Referrals / Follow Up: Jaciel Almonte MD [Med Staff - Active Staff] - Vinnie Perry MD [Primary Care Provider] - Disposition Disposition (needs filled in before D/C Order can be placed): Home Health Service
[2022-08-24 22:00] VITALS: O2SAT 96
[2022-08-24] MEDS: Doxepin Hcl 25 MG Capsule 50 MG PO (22:02)
[2022-08-24] MEDS: Atorvastatin Calcium 40 MG Tablet PO (22:03)
[2022-08-25 04:55] VITALS: BP 147/69; PULSE 79
[2022-08-25] MEDS: Pantoprazole Sodium 40 MG Tablet PO (04:55)
[2022-08-25] MEDS: Lisinopril 10 MG Tablet PO (04:55)
[2022-08-25] MEDS: Acetaminophen 500 MG Tablet 1000 MG PO ×3 (04:55→19:52)
[2022-08-25] MEDS: Senna/Docusate Sodium 1 Tablet 2 TABLET PO (04:55)
[2022-08-25] MEDS: Polyethylene Glycol 3350 17 GM PACKET PO (04:55)
[2022-08-25] MEDS: Menthol/Lanolin/Calamine/Znox 113 GM Tube 1 APPLIC TOPICAL ×3 (05:00→19:52)
[2022-08-25] MEDS: Carvedilol 6.25 MG Tablet PO ×2 (08:58→17:25)
[2022-08-25 09:04] VITALS: PULSE 89; O2SAT 96
[2022-08-25 09:18] VITALS: BP 139/75; PULSE 89
[2022-08-25 15:15] VITALS: BP 130/70; PULSE 85; RESP 16; TEMP 36.4; O2SAT 95
[2022-08-25] MEDS: Tamsulosin HCl 0.4 MG Capsule PO (17:25)
[2022-08-25 17:26] VITALS: BP 135/61; PULSE 83
[2022-08-25] MEDS: DOXEPIN HCL 50 MG CAPSULE PO (19:53)
[2022-08-25] MEDS: Atorvastatin Calcium 40 MG Tablet PO (19:53)
--- NOTE | 2022-08-25 23:59 | NURSING ---
911 dispatch contacts unit, stating patient contacted 911 via phone and unable to determine why patient called and sounds confused. Patient immediately assessed, TRIALS MANAGER at bedside assisting patient, patient holding cellphone, when patient asked why he had contacted 911, patient points to call light and states I was just pushing that. No distress observed or reported. Patient safe in bed with personal items within reach. Primary nurse (Elle) presents to room to assist patient. 911 dispatch notified patient safe and needs being met. Intermittent confusion not new for patient.
[2022-08-26] MEDS: Acetaminophen 500 MG Tablet 1000 MG PO ×3 (05:08→20:59)
[2022-08-26] MEDS: Pantoprazole Sodium 40 MG Tablet PO (05:08)
[2022-08-26] MEDS: Polyethylene Glycol 3350 17 GM PACKET PO (05:08)
[2022-08-26] MEDS: Senna/Docusate Sodium 1 Tablet 2 TABLET PO (05:09)
[2022-08-26] MEDS: Lisinopril 10 MG Tablet PO (05:09)
[2022-08-26] MEDS: Carvedilol 6.25 MG Tablet PO ×2 (08:37→16:45)
[2022-08-26 08:38] VITALS: BP 130/66; PULSE 96
[2022-08-26 10:00] VITALS: PULSE 85; RESP 16; O2SAT 92
--- NOTE | 2022-08-26 13:42 | RAD_ITS ---
STUDY: X-RAY - LEFT KNEE REASON FOR EXAM: Male, 82 years old. Knee pain TECHNIQUE: 3 view(s) of the knee. COMPARISON: None. FINDINGS: There is demineralization of the visualized distal femur. There is demineralization of the tibia and fibula. Normal proximal tibiofibular articulation. Intramedullary lizbeth within the distal femur. 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 There is moderate degenerative arthrosis of the lateral femorotibial compartment with moderate joint space narrowing. There is mild degenerative arthrosis of the patellofemoral articulation. There is a moderate volume joint effusion. The soft tissue structures are unremarkable. RAD/Knee 3 Views IMPRESSION: Degenerative arthrosis. Electronically Signed: Brett Paredes MD at 16:58 EST ,
--- NOTE | 2022-08-26 13:54 | NURSING ---
dr schaefer notified of pt family requesting xray of knee d/t pain. states that pt has had difficulty with it in past and has never had xray to see whats wrong. new order for xray.
[2022-08-26 15:11] VITALS: BP 136/72; PULSE 87; RESP 18; TEMP 36.4; O2SAT 96
[2022-08-26] MEDS: Menthol/Lanolin/Calamine/Znox 113 GM Tube 1 APPLIC TOPICAL (16:45)
[2022-08-26] MEDS: Tamsulosin HCl 0.4 MG Capsule PO (16:45)
[2022-08-26] MEDS: DOXEPIN HCL 50 MG CAPSULE PO (20:59)
[2022-08-26] MEDS: Atorvastatin Calcium 40 MG Tablet PO (20:59)
[2022-08-27] MEDS: Polyethylene Glycol 3350 17 GM PACKET PO (05:05)
[2022-08-27] MEDS: Menthol/Lanolin/Calamine/Znox 113 GM Tube 1 APPLIC TOPICAL ×2 (05:05→16:55)
[2022-08-27] MEDS: Pantoprazole Sodium 40 MG Tablet PO (05:12)
[2022-08-27] MEDS: Senna/Docusate Sodium 1 Tablet 2 TABLET PO ×2 (05:12→16:55)
[2022-08-27] MEDS: Lisinopril 10 MG Tablet PO (05:12)
[2022-08-27] MEDS: Acetaminophen 500 MG Tablet 1000 MG PO ×3 (05:12→19:30)
[2022-08-27] MEDS: Carvedilol 6.25 MG Tablet PO ×2 (08:47→16:55)
[2022-08-27 09:01] VITALS: BP 153/67; PULSE 89
[2022-08-27 15:22] VITALS: BP 138/57; PULSE 72; RESP 16; TEMP 36.6; O2SAT 96
[2022-08-27] MEDS: Tamsulosin HCl 0.4 MG Capsule PO (16:55)
[2022-08-27] MEDS: traMADol 50 MG Tablet PO (19:29)
[2022-08-27] MEDS: DOXEPIN HCL 50 MG CAPSULE PO (19:31)
[2022-08-27] MEDS: Atorvastatin Calcium 40 MG Tablet PO (19:31)
--- NOTE | 2022-08-28 01:46 | NURSING ---
Alarm sounds. Pt standing beside his bed. Alert to self. Attempted to reorient to time and place but is not agreeable to the information he is told. Pt does not recall why he is in the hospital. This is the second time pt has completed an unassisted transfer within a short period of time. Brought out to nurses station in [facility]. Chair alarm activated. Mask applied. Will continue to monitor.
[2022-08-28] MEDS: Acetaminophen 500 MG Tablet 1000 MG PO ×3 (06:16→19:44)
[2022-08-28] MEDS: Pantoprazole Sodium 40 MG Tablet PO (06:16)
[2022-08-28] MEDS: Lisinopril 10 MG Tablet PO (06:16)
[2022-08-28] MEDS: Menthol/Lanolin/Calamine/Znox 113 GM Tube 1 APPLIC TOPICAL ×2 (06:18→17:42)
[2022-08-28] MEDS: Carvedilol 6.25 MG Tablet PO ×2 (08:03→17:39)
[2022-08-28 17:36] VITALS: BP 154/64; PULSE 72; RESP 18; TEMP 36.7; O2SAT 95
[2022-08-28] MEDS: Senna/Docusate Sodium 1 Tablet 2 TABLET PO (17:39)
[2022-08-28] MEDS: Tamsulosin HCl 0.4 MG Capsule PO (17:39)
[2022-08-28] MEDS: traMADol 50 MG Tablet PO (19:43)
[2022-08-28] MEDS: Atorvastatin Calcium 40 MG Tablet PO (19:44)
[2022-08-28] MEDS: DOXEPIN HCL 50 MG CAPSULE PO (19:44)
[2022-08-28 19:47] VITALS: O2SAT 94
[2022-08-29] MEDS: Senna/Docusate Sodium 1 Tablet 2 TABLET PO ×2 (05:26→17:07)
[2022-08-29] MEDS: Polyethylene Glycol 3350 17 GM PACKET PO (05:26)
[2022-08-29] MEDS: Acetaminophen 500 MG Tablet 1000 MG PO ×3 (05:27→20:31)
[2022-08-29] MEDS: Lisinopril 10 MG Tablet PO (05:27)
[2022-08-29] MEDS: Pantoprazole Sodium 40 MG Tablet PO (05:27)
[2022-08-29] MEDS: Menthol/Lanolin/Calamine/Znox 113 GM Tube 1 APPLIC TOPICAL ×2 (05:30→18:47)
[2022-08-29] MEDS: Carvedilol 6.25 MG Tablet PO ×2 (07:53→17:07)
[2022-08-29 07:57] VITALS: BP 183/75; PULSE 91
[2022-08-29 11:15] VITALS: PULSE 66; RESP 18; O2SAT 92
[2022-08-29 16:00] VITALS: BP 139/68; PULSE 81; RESP 16; TEMP 36.2; O2SAT 94
[2022-08-29] MEDS: Tamsulosin HCl 0.4 MG Capsule PO (17:07)
--- NOTE | 2022-08-29 19:13 | CASEMGMT ---
Social Work BIMS (12/05) and PHQ-9 () completed for MDS assessment. AMANDO NaiduW
[2022-08-29] MEDS: traMADol 50 MG Tablet PO (20:30)
[2022-08-29] MEDS: Atorvastatin Calcium 40 MG Tablet PO (20:32)
[2022-08-29] MEDS: DOXEPIN HCL 50 MG CAPSULE PO (20:32)
--- NOTE | 2022-08-30 04:12 | NURSING ---
Patient making repeated attempts to self transfer, eventually got pt dressed and brought him out by nurses station.
[2022-08-30] MEDS: Polyethylene Glycol 3350 17 GM PACKET PO (04:24)
[2022-08-30] MEDS: Acetaminophen 500 MG Tablet 1000 MG PO (04:24)
[2022-08-30] MEDS: Pantoprazole Sodium 40 MG Tablet PO (04:25)
[2022-08-30] MEDS: Lisinopril 10 MG Tablet PO (04:25)
[2022-08-30] MEDS: Senna/Docusate Sodium 1 Tablet 2 TABLET PO (04:25)
[2022-08-30] MEDS: Carvedilol 6.25 MG Tablet PO (08:15)
[2022-08-30 08:16] VITALS: BP 167/78; PULSE 89
[2022-08-30 09:25] VITALS: PULSE 61; RESP 18; O2SAT 94
[2022-08-30 11:33] VITALS: BP 132/61; PULSE 93; RESP 18; TEMP 36.4; O2SAT 94
== END 2022-08-30 11:10 | disposition home health service (06) | DRG 561 ==
PROVIDERS: Admitting Provider Family Medicine Geriatric Medicine; PCP Internal Medicine; Visit Provider Family Medicine Geriatric Medicine
DX: S72.142D Displaced intertrochanteric fracture of left femur, subsequent encounter for closed fracture with routine healing (principal); E78.5 Hyperlipidemia, unspecified; I10 Essential (primary) hypertension; K21.9 Gastro-esophageal reflux disease without esophagitis; W19.XXXD Unspecified fall, subsequent encounter; M17.12 Unilateral primary osteoarthritis, left knee; Z87.891 Personal history of nicotine dependence; G47.00 Insomnia, unspecified; N40.0 Benign prostatic hyperplasia without lower urinary tract symptoms; Z79.899 Other long term (current) drug therapy; Z79.82 Long term (current) use of aspirin; Z79.01 Long term (current) use of anticoagulants
CPT/HCPCS: 36415; 73502; 73562; 80048; 85014; 85018; 85025; 86850; 86900; 86901; 86920; 86922; 87426; 87811; 97110; 97116; 97162; 97166; 97530; 97535; 97802

== ENCOUNTER → 2022-07-28 | Outpatient (CLI) | payer MEDICARE, SELFPAY ==
[2022-07-28 13:07] VITALS: BP 129/57; PULSE 95; RESP 20; TEMP 36.2; O2SAT 96
[2022-07-28 14:03] VITALS: BP 125/47; PULSE 88; RESP 16; TEMP 36.5; O2SAT 96
[2022-07-28 15:03] VITALS: BP 140/53; PULSE 85; RESP 20; TEMP 36.4
[2022-07-28] MEDS: Furosemide 20 MG/2 ML VIAL IV (15:43)
[2022-07-28 15:48] VITALS: BP 148/59; PULSE 82; RESP 18; TEMP 36.6; O2SAT 97
== END | disposition home or self-care (01) ==
LOC: MEDOUTP 13:01
PROVIDERS: PCP Internal Medicine; Referring Provider Family Medicine Geriatric Medicine; Visit Provider Family Medicine Geriatric Medicine
DX: D64.9 Anemia, unspecified (principal)
CPT/HCPCS: 36415; 36430; 86850; 86900; 86901; 86920; 86922; J7040; J7050; P9016; A4216; J1940

== ENCOUNTER 2022-09-08 14:48 | Inpatient (IN) | payer MEDICARE, SELFPAY ==
[2022-09-08 14:49] VITALS: BP 176/78; PULSE 82; RESP 22; TEMP 2.8; TEMP 37; O2SAT 94; BMI 27.3
--- NOTE | 2022-09-08 16:45 | ED.VIS.DYS ---
HPI History of Present Illness Chief Complaint: Shortness of Breath Narrative Narrative: Patient presents with cough for the past few days, per daughter and [id number] who are in the room there have been no other symptoms. Patient has some baseline confusion and tells me he is asymptomatic and has no dyspnea. Patient was seen by home nurse and sent to the ED for evaluation apparently his SPO2 was low but they do not know exactly the number. [facility] Medical History Debility Encephalomalacia Fracture of lateral malleolus of right ankle Hearing loss Stroke Home Medications acetaminophen 500 mg tablet 1,000 mg PO TID Pain 07/26/22 [History Last Taken Unknown] atorvastatin 40 mg tablet 40 mg PO QHS Cholesterol 07/26/22 [History Last Taken Unknown] carvedilol 6.25 mg tablet 6.25 mg PO BIDCM Check with primary doctor 07/26/22 [History Last Taken Unknown] lisinopril 10 mg tablet 10 mg PO DAILY Check with primary doctor 07/26/22 [History Last Taken Unknown] pantoprazole 40 mg tablet,delayed release 40 mg PO DAILY Check with primary doctor 07/26/22 [History Last Taken Unknown] tamsulosin 0.4 mg capsule 0.4 mg PO DAILY@1730 bladder spasms 07/26/22 [History Last Taken Unknown] doxepin 25 mg capsule 50 mg PO QHS 30 days #60 caps 08/24/22 [Rx Last Taken Unknown] oxycodone 5 mg tablet 2.5 mg PO Q4H PRN PRN Pain Score 6-10 7 days #14 tabs 08/24/22 [Rx Last Taken Unknown] sennosides 8.6 mg-docusate sodium 50 mg tablet (Stool Softener-Stimulant Laxative) 2 tab PO BID 30 days #120 tabs 08/24/22 [Rx Last Taken Unknown] tramadol 50 mg tablet 50 mg PO Q6H PRN PRN Pain Score 1-5 7 days #28 tabs 08/24/22 [Rx Last Taken Unknown] Allergy/AdvReac Type Severity Reaction Status Date / Time No Known Allergies Allergy Verified 09/08/22 14:49 Social History household members: none Smoking Status: Former smoker alcohol intake: never substance use type: does not use ROS ROS ED ROS Narrative Past medical history: Reviewed Medications: Reviewed Social history: Noncontributory Review of systems: Most of the history is from daughter and [id number], patient has baseline confusion and other than tell me he is asymptomatic cannot give me a full review of systems. EXAM Physical Exam Narrative Exam Narrative: Physical exam General: Patient appears chronically ill but he is quite comfortable in bed without any distress. Head: Normocephalic, Atraumatic Eyes: Conjunctiva not pale ENT: Moist mucous membranes Neck: Supple, Nontender, No lymphadenopathy Cardiovascular: Regular rate, Regular rhythm Respiratory: No respiratory distress, speaking in full sentences. He has coarse bilateral breath sounds no obvious wheezing. No retractions. Abdomen: Soft, Nontender, Nondistended Back: Nontender, Normal Inspection. Negative for: CVA tenderness Extremities: Nontender, No edema Skin: Normal color, No rash Neurological: Alert person, he knows his daughter and [id number], Normal Strength, Normal Sensation Const Vital Signs: 09/08/22 14:49 Temperature 37.0 F L Temperature Source Oral Pulse Rate 82 Respiratory Rate 22 H Blood Pressure 176/78 H Blood Pressure Mean 110 Pulse Ox 94 Oxygen Delivery Method Room Air MDM MDM Lab Data Labs: Laboratory Results - last 24 hr 09/08/22 09/08/22 09/08/22 17:05 17:16 17:16 WBC 10.9 RBC 3.32 L Hgb 9.6 L Hct 30.2 L MCV 91.0 MCH 28.9 MCHC 31.8 L RDW Std Deviation 51.7 H RDW Coeff of Dania 15.6 H Plt Count 240 MPV 9.7 Immature Gran % (Auto) 0.600 Neut % (Auto) 76.0 H Lymph % (Auto) 15.5 L [place] % (Auto) 6.9 Eos % (Auto) 0.8 Baso % (Auto) 0.2 Absolute Neuts (auto) 8.3 H Absolute Lymphs (auto) 1.68 Nucleated RBC % 0.2 PT 14.5 INR 1.2 APTT 34.2 Sodium Potassium Chloride Carbon Dioxide Anion Gap BUN Creatinine Estim Creat Clear Calc Est GFR (MDRD) Af Amer Est GFR (MDRD) Non-Af BUN/Creatinine Ratio Glucose Lactic Acid Calcium Total Bilirubin AST ALT Alkaline Phosphatase B-Natriuretic Peptide Total Protein Albumin Globulin Albumin/Globulin Ratio Urine Color Yellow Urine Clarity Sl. Cloudy Urine pH 6.0 Ur Specific [place] 1.010 Urine Protein 15 H Urine Glucose (UA) Normal Urine Ketones Negative Urine Occult Blood 10 H Urine Nitrite Negative Urine Bilirubin Negative Urine Urobilinogen Normal Ur Leukocyte Esterase 500 H Urine RBC 0 SEEN Urine WBC 10-25 SEEN Ur Squamous Epith Cells 0-5 SEEN Urine Bacteria 2+ Urine Mucus 0 SEEN 09/08/22 09/08/22 09/08/22 17:16 17:16 17:16 WBC RBC Hgb Hct MCV MCH MCHC RDW Std Deviation RDW Coeff of Dania Plt Count MPV Immature Gran % (Auto) Neut % (Auto) Lymph % (Auto) [place] % (Auto) Eos % (Auto) Baso % (Auto) Absolute Neuts (auto) Absolute Lymphs (auto) Nucleated RBC % PT INR APTT Sodium 139 Potassium 3.8 Chloride 107 Carbon Dioxide 24.0 Anion Gap 8 BUN 25 H Creatinine 1.26 Estim Creat Clear Calc 42.22 Est GFR (MDRD) Af Amer 70 Est GFR (MDRD) Non-Af 58 L BUN/Creatinine Ratio 19.8 Glucose 131 H Lactic Acid 1.7 Calcium 8.7 Total Bilirubin 0.30 AST 14 L ALT 20 Alkaline Phosphatase 135 H B-Natriuretic Peptide 284.4 H Total Protein 6.6 Albumin 2.9 L Globulin 3.7 Albumin/Globulin Ratio 0.8 L Urine Color Urine Clarity Urine pH Ur Specific [place] Urine Protein Urine Glucose (UA) Urine Ketones Urine Occult Blood Urine Nitrite Urine Bilirubin Urine Urobilinogen Ur Leukocyte Esterase Urine RBC Urine WBC Ur Squamous Epith Cells Urine Bacteria Urine Mucus Radiography Diagnostic Testing: Clinical Impression(s) from Imaging Studies Chest X-Ray 09/08/22 17:28 IMPRESSION: Right sided pneumonia. Electronically Signed: Denzel Donald MD at 17:50 EST , Chest x-ray read by me as right-sided pneumonia. EKG Initial EKG: Comments: Sinus rhythm with a rate of 90. Normal LA and QTc intervals. Nonspecific ST changes. Interpreted by emergency doctor. Treatment and Re-Evaluation Narrative: A. Problems addressed Patient has borderline hypoxia. He has pneumonia found on the x-ray. I try to ambulate him he requires quite a bit of help. He does not desaturate but he cannot walk any significant distance without help because of his weakness. He will need to be admitted. I will talk to the hospitalist for admission. B. Amount and/or complexity of the data 1. CBC CMP and natruretic peptide and other blood work or interpreted by me I discussed with daughter at the bedside 2. Independent interpretation of test Telemetry: Sinus rhythm with a rate in the 90s with PVCs. 3. I discussed with hospitalist for admission C. Risk of complications and/or morbidity Differential diagnosis: See above, I thought about pneumonia, I thought about pneumothorax, I thought about Anemia bacteremia. Patient will be admitted Discharge Plan Triage Chief Complaint: Shortness of Breath Other Complaint: Palpitations ED Provider: Fito Bhandari Dx/Rx/DC Orders Clinical Impression: Pneumonia, Weakness, Fever Prescriptions: No Action atorvastatin 40 mg tablet 40 mg PO QHS carvedilol 6.25 mg tablet 6.25 mg PO BIDCM acetaminophen 500 mg tablet 1,000 mg PO TID tamsulosin 0.4 mg capsule 0.4 mg PO DAILY@1730 pantoprazole 40 mg tablet,delayed release (DR/EC) 40 mg PO DAILY lisinopril 10 mg tablet 10 mg PO DAILY doxepin 25 mg Capsule 50 mg PO QHS 30 Days Qty: 60 0RF sennosides-docusate sodium [Stool Softener-Stimulant Laxat] 8.6-50 mg Tablet 2 tab PO BID 30 Days Qty: 120 0RF tramadol 50 mg Tablet 50 mg PO Q6H PRN PRN (Reason: Pain Score 1-5) 7 Days Qty: 28 0RF oxycodone 5 mg Tablet 2.5 mg PO Q4H PRN PRN (Reason: Pain Score 6-10) 7 Days Qty: 14 0RF Primary Care Provider: Vinnie Perry Referrals: Vinnie Perry MD [Primary Care Provider] - Disposition Disposition: Acute Care Hospital [facility]
--- NOTE | 2022-09-08 17:28 | RAD_ITS ---
STUDY: XR Chest 2 Views 09/08/2022 5:35 PM REASON FOR EXAM: Male, 82 years old. CHEST PAIN sob COMPARISON: 12.30.22 TECHNIQUE: XR Chest 2 Views FINDINGS: There is no demonstrated pleural abnormality. Right lower lobe pneumonia. Normal heart size. Normal mediastinum. Normal efrain. Prominent appearing increased interstitial lung markings. Normal visualized pulmonary arteries. There is atherosclerotic calcification of the aortic arch with tortuosity. There are diffuse degenerative changes of the visualized thoracic spine. There is degenerative osteoarthritis of the bilateral shoulders. There is no demonstrated abnormality of the visualized soft tissue structures of the upper abdomen. RAD/Chest PA and Lateral IMPRESSION: Right sided pneumonia. Electronically Signed: Denzel Donald MD at 17:50 EST ,
[2022-09-08 17:32] LABS: Mucous, Urine 0 SEEN /hpf (<or=2+); Red Blood Cells-Urine 0 SEEN /hpf (0-5)
[2022-09-08 17:33] LABS: Color, Urine Yellow (Yellow); Glucose, Dipstick Normal (Normal); Ketone-Dipstick Negative (Negative); Leukocyte Esterase-Dipstick 500 /ul (Negative); Nitrite-Dipstick Negative (Negative); Occult Blood-Urine 10 /ul (Negative); Protein-Dipstick 15 mg/dl (Negative); Urine Bilirubin Dipstick Negative (Negative); Urine Clarity Sl. Cloudy (Clear); Urine Urobilinogen Normal (Normal)
[2022-09-08 17:44] LABS: Bacteria 2+ /hpf (None Seen); Squamous Epithelial Cells - UA 0-5 SEEN /hpf (0-5); White Blood Cells 10-25 SEEN /hpf (0-5)
[2022-09-08 17:49] LABS: ALB/GLOB Ratio 0.8 RATIO (0.9-2.4); AST(SGOT) 14 U/L (15-37); Alanine Aminotransfer ALT/SGPT 20 U/L (16-61); Albumin, Serum 2.9 g/dL (3.2-5.0); Alkaline Phosphatase 135 U/L (45-117); Anion Gap 8 (5-15); BUN 25 mg/dL (7-18); BUN/Creat Ratio 19.8 RATIO (10-20); Calcium,Total 8.7 mg/dL (8.5-10.1); Chloride 107 mmol/L (98-107); Creatinine, Serum 1.26 mg/dL (0.70-1.30); EST Glomerular Filtration Rate 58 mL/min (>60); Est Glom Filt Rate - Afr Amer 70 mL/min (>60); Estimated Creatinine Clearance 42.22 ml/min; Globulin 3.7 g/dL (2.2-4.2); Glucose 131 mg/dL (74-106); Potassium 3.8 mmol/L (3.5-5.1); Protein, Total 6.6 g/dL (6.4-8.2); Sodium Level 139 mmol/L (136-145)
[2022-09-08 17:55] LABS: International Normalized Ratio 1.2; Prothrombin Time (Protime)PT. 14.5 SECONDS (11.7-14.9)
[2022-09-08 17:56] LABS: Partial Thromboplast Time 34.2 Seconds (24.1-36.2)
[2022-09-08 18:02] LABS: Lactic Acid 1.7 mmol/L (0.4-1.9)
[2022-09-08 18:23] LABS: Absolute Lymphocyte Count 1.68 X10^3/uL (0.83-4.51); Absolute Neutrophil Count 8.3 X10^3/uL (2.0-7.7); Basophil# 0.02 X10^3/uL; Basophil% 0.2 % (0-1); Eosinophil# 0.09 X10^3/uL; Eosinophils% 0.8 % (0-5); Hematocrit 30.2 % (40-54); Hemoglobin 9.6 g/dL (13.0-16.5); Lymphocyte # 1.68 X10^3/ul (0.83-4.51); Lymphocyte % 15.5 % (19-41); Mean Corp Hgb Conc 31.8 g/dL (32-36); Mean Corpuscular Hgb 28.9 pg (27.0-32.0); Mean Platelet Vol. 9.7 fl (6.2-12.0); Monocyte# 0.75 X10^3/uL; Monocyte% 6.9 % (0-10); NRBC Flagged by Analyzer 0.2 % (0-5); Neutrophil # 8.27 X10^3/uL (2.7-7.7); Platelet Count 240 K/mm3 (150-450); RBC Distribution Width CV 15.6 % (11.6-14.6); RBC Distribution Width SD 51.7 fl (35.1-43.9); Red Blood Count 3.32 M/mm3 (4.6-6.2); White Blood Count 10.9 K/mm3 (4.4-11.0)
[2022-09-08 18:47] LABS: BNP,B-Type NATRIURETIC PEPTIDE 284.4 pg/mL (0-100)
[2022-09-08 19:31] VITALS: BP 168/78; PULSE 86; RESP 24; TEMP 36.8; O2SAT 94
--- NOTE | 2022-09-08 20:24 | PCM.HP.STD ---
HPI - General General Date of Admission: 09/08/22 Date of Service: 09/08/22 Chief Complaint: SOB HPI Narrative ROLAND KASPER, is an 82-year-old male with a history of hypertension, GERD, BPH who presented to [facility] 09/08/2022 with worsening shortness of breath, fever, cough. Chest x-ray showed right-sided pneumonia and he was given Rocephin and azithromycin. He was going to be ambulated to assess for hypoxia and need for inpatient versus outpatient treatment however he was so weak they were unable to ambulate him. He was just discharged from TCU on 08/24 after a left hip fracture. Hospitalist contacted for admission. With patient and family at bedside, reportedly he has been generally unwell after having multiple bone breaks and hospitalizations and has been short of breath over a couple weeks but over the past several days this is escalated, he has been having home therapy and a healthcare worker listen to his lungs and checked his oxygen saturation and sent him to the ED. He has had some cough that worsened after lisinopril but also has possibly worsened over the past several days as well. Denies known COPD but does have a smoking history. Denies chest pain, no fever or sick contacts noted. Denies any other complaints other than generalized weakness at this time. [facility] Medical History Debility Encephalomalacia Fracture of lateral malleolus of right ankle Hearing loss Stroke Home Medications acetaminophen 500 mg tablet 1,000 mg PO TID Pain 07/26/22 [History Last Taken Unknown] atorvastatin 40 mg tablet 40 mg PO QHS Cholesterol 07/26/22 [History Last Taken Unknown] carvedilol 6.25 mg tablet 6.25 mg PO BIDCM Check with primary doctor 07/26/22 [History Last Taken Unknown] lisinopril 10 mg tablet 10 mg PO DAILY Check with primary doctor 07/26/22 [History Last Taken Unknown] pantoprazole 40 mg tablet,delayed release 40 mg PO DAILY Check with primary doctor 07/26/22 [History Last Taken Unknown] tamsulosin 0.4 mg capsule 0.4 mg PO DAILY@1730 bladder spasms 07/26/22 [History Last Taken Unknown] doxepin 25 mg capsule 50 mg PO QHS 30 days #60 caps 08/24/22 [Rx Last Taken Unknown] oxycodone 5 mg tablet 2.5 mg PO Q4H PRN PRN Pain Score 6-10 7 days #14 tabs 08/24/22 [Rx Last Taken Unknown] sennosides 8.6 mg-docusate sodium 50 mg tablet (Stool Softener-Stimulant Laxative) 2 tab PO BID 30 days #120 tabs 08/24/22 [Rx Last Taken Unknown] tramadol 50 mg tablet 50 mg PO Q6H PRN PRN Pain Score 1-5 7 days #28 tabs 08/24/22 [Rx Last Taken Unknown] Allergy/AdvReac Type Severity Reaction Status Date / Time No Known Allergies Allergy Verified 09/08/22 14:49 Social History household members: none Smoking Status: Former smoker alcohol intake: never substance use type: does not use ROS ROS Narrative General: Denies fever or chills, denies weight change HENT: Denies headache, denies stuffy nose, denies sore throat EYES: Denies changes in vision Resp: Sporadic cough, shortness of breath Cardiac: Denies chest pain GI: Denies abdominal pain, denies changes in bowel, denies nausea, denies vomiting : Denies changes in urination Extremity: Denies swelling MSK: Generalized weakness Neuro: Denies any numbness, denies tingling Heme: Denies any bleeding or bruising Skin: Denies rashes Psychiatric: No complaints voiced Vital Signs Vital Signs Vital Signs: 09/08/22 14:49 09/08/22 19:33 09/08/22 19:42 Temperature 37.0 F L Temperature Source Oral Pulse Rate 82 Respiratory Rate 22 H Respiratory Effort Short of Breath Labored Respiratory Depth Normal Respiratory Pattern Tachypnea Blood Pressure 176/78 H Blood Pressure Mean 110 Pulse Ox 94 Oxygen Delivery Method Room Air Room Air Room Air 09/08/22 19:31 Temperature 98.3 F Temperature Source Oral Pulse Rate 86 Respiratory Rate 24 H Respiratory Effort Respiratory Depth Respiratory Pattern Blood Pressure 168/78 H Blood Pressure Mean 106 Pulse Ox 94 Oxygen Delivery Method Room Air Weight Weight: 81.647 kg Body Mass Index (BMI) 27.3 Physical Exam Narrative General: Alert, no acute distress HEENT: Atraumatic, normocephalic Eyes: Anicteric, normal conjunctiva, extraocular movements grossly intact Neck: Supple Respiratory: Diffuse wheezes, inspiratory crackles at right base Cardiovascular: Regular rate and rhythm though some PVCs GI: Soft, nontender, nondistended Extremities: No edema Musculoskeletal: Moving all extremities Neuro: No overt focal neurological deficits Skin: No rashes appreciated Psych: Cooperative Results Lab / Micro Data Result Diagrams: 09/08/22 17:16 09/08/22 17:16 Labs: Laboratory Results - last 24 hr 09/08/22 17:05: Urine Color Yellow, Urine Clarity Sl. Cloudy, Urine pH 6.0, Ur Specific [place] 1.010, Urine Protein 15 H, Urine Glucose (UA) Normal, Urine Ketones Negative, Urine Occult Blood 10 H, Urine Nitrite Negative, Urine Bilirubin Negative, Urine Urobilinogen Normal, Ur Leukocyte Esterase 500 H, Urine RBC 0 SEEN, Urine WBC 10-25 SEEN, Ur Squamous Epith Cells 0-5 SEEN, Urine Bacteria 2+, Urine Mucus 0 SEEN 09/08/22 17:16: WBC 10.9, RBC 3.32 L, Hgb 9.6 L, Hct 30.2 L, MCV 91.0, MCH 28.9, MCHC 31.8 L, RDW Std Deviation 51.7 H, RDW Coeff of Dania 15.6 H, Plt Count 240, MPV 9.7, Immature Gran % (Auto) 0.600, Neut % (Auto) 76.0 H, Lymph % (Auto) 15.5 L, [place] % (Auto) 6.9, Eos % (Auto) 0.8, Baso % (Auto) 0.2, Absolute Neuts (auto) 8.3 H, Absolute Lymphs (auto) 1.68, Nucleated RBC % 0.2 09/08/22 17:16: PT 14.5, INR 1.2, APTT 34.2 09/08/22 17:16: Sodium 139, Potassium 3.8, Chloride 107, Carbon Dioxide 24.0, Anion Gap 8, BUN 25 H, Creatinine 1.26, Estim Creat Clear Calc 42.22, Est GFR (MDRD) Af Amer 70, Est GFR (MDRD) Non-Af 58 L, BUN/Creatinine Ratio 19.8, Glucose 131 H, Calcium 8.7, Total Bilirubin 0.30, AST 14 L, ALT 20, Alkaline Phosphatase 135 H, Total Protein 6.6, Albumin 2.9 L, Globulin 3.7, Albumin/Globulin Ratio 0.8 L 09/08/22 17:16: Lactic Acid 1.7 09/08/22 17:16: B-Natriuretic Peptide 284.4 H Micro: Microbiology 09/08/22 17:50 Mucosa - Nose Influenza Types A,B Direct FA (ASHLEY) - Final 09/08/22 17:05 Nasal Secretion SARS-CoV-2 Antigen (Rapid) - Final Radiology Impression Chest X-Ray 09/08/22 17:28 IMPRESSION: Right sided pneumonia. Electronically Signed: Denzel Donald MD at 17:50 EST , Assessment & Plan Assessment/Plan (1) Pneumonia: PLAN: Plan #Community-acquired pneumonia -Chest x-ray concerning for right-sided pneumonia patient also has fever, cough, dyspnea -Continue Rocephin and azithromycin -We will obtain urine antigens -Respiratory panel, sputum culture -Did have some wheezing and will no known COPD does have smoking history, will add DuoNebs -Incentive spirometry -Mucinex #Generalized weakness -PT/OT #Hypertension -Continue Coreg and lisinopril #DVT ppx: Lovenox [place] Gaspar MD Time spent in the patient's overall evaluation,decision-making process, review of diagnostic data, adjustment of management, discussion with other providers, nursing nursing and ancillary staff involved in patient's care documentation, 60 minutes Charges/Coding Visit Charges Inpatient E&M: 66396 Init Hosp L2
[2022-09-08] MEDS: Ceftriaxone 1 GM/50 ML BAG IV (20:50)
[2022-09-08 20:52] VITALS: BMI 28.6
[2022-09-08 20:53] LABS: Magnesium 2.3 mg/dL (1.6-2.6)
[2022-09-08 21:00] VITALS: BP 183/87; PULSE 86; RESP 22; TEMP 37.4; O2SAT 96
[2022-09-08 23:05] VITALS: PULSE 90; RESP 22; RESP 24; O2SAT 94
[2022-09-08] MEDS: Ipratropium/Albuterol Sulfate 3 ML AMPUL.NEB INHALATION (23:05)
[2022-09-08] MEDS: MELATONIN 3 MG TABLET PO (23:20)
[2022-09-08] MEDS: 0.9% Saline Lock 10 ML Syringe IV (23:20)
[2022-09-08] MEDS: guaiFENesin 1,200 MG Tablet 1200 MG PO (23:21)
[2022-09-09] VITALS (10 sets, daily range): BP systolic 135–169; BP diastolic 54–90; PULSE 75–95; RESP 20–24; TEMP 36.7–37.2; O2SAT 93–96
[2022-09-09 06:39] LABS: Absolute Lymphocyte Count 2.06 X10^3/uL (0.83-4.51); Absolute Neutrophil Count 6.9 X10^3/uL (2.0-7.7); Basophil# 0.02 X10^3/uL; Basophil% 0.2 % (0-1); Eosinophil# 0.26 X10^3/uL; Eosinophils% 2.6 % (0-5); Hematocrit 27.2 % (40-54); Hemoglobin 8.9 g/dL (13.0-16.5); Lymphocyte # 2.06 X10^3/ul (0.83-4.51); Lymphocyte % 20.6 % (19-41); Mean Corp Hgb Conc 32.7 g/dL (32-36); Mean Corpuscular Volume 91.6 fL (80-94); Monocyte# 0.64 X10^3/uL; Monocyte% 6.4 % (0-10); NRBC Flagged by Analyzer 0.2 % (0-5); Neutrophil # 6.92 X10^3/uL (2.7-7.7); Neutrophil % 69.4 % (47-70); Platelet Count 215 K/mm3 (150-450); RBC Distribution Width CV 15.7 % (11.6-14.6); RBC Distribution Width SD 51.7 fl (35.1-43.9); Red Blood Count 2.97 M/mm3 (4.6-6.2)
[2022-09-09 07:14] LABS: ALB/GLOB Ratio 0.7 RATIO (0.9-2.4); AST(SGOT) 12 U/L (15-37); Alanine Aminotransfer ALT/SGPT 18 U/L (16-61); Albumin, Serum 2.4 g/dL (3.2-5.0); Alkaline Phosphatase 116 U/L (45-117); Anion Gap 7 (5-15); BUN 20 mg/dL (7-18); BUN/Creat Ratio 23.2 RATIO (10-20); Calcium,Total 8.2 mg/dL (8.5-10.1); Chloride 108 mmol/L (98-107); Creatinine, Serum 0.86 mg/dL (0.70-1.30); EST Glomerular Filtration Rate 90 mL/min (>60); Est Glom Filt Rate - Afr Amer 109 mL/min (>60); Estimated Creatinine Clearance 61.86 ml/min; Globulin 3.3 g/dL (2.2-4.2); Glucose 95 mg/dL (74-106); Potassium 3.7 mmol/L (3.5-5.1); Protein, Total 5.7 g/dL (6.4-8.2); Sodium Level 139 mmol/L (136-145); Thyroid Stim Hormone (TSH) 2.46 uIU/mL (0.358-3.74)
[2022-09-09] MEDS: Ipratropium/Albuterol Sulfate 3 ML AMPUL.NEB INHALATION ×4 (07:33→18:59)
[2022-09-09] MEDS: guaiFENesin 1,200 MG Tablet 1200 MG PO ×2 (09:05→22:23)
[2022-09-09] MEDS: Pantoprazole Sodium 40 MG Tablet PO (09:06)
[2022-09-09] MEDS: 0.9% Saline Lock 10 ML Syringe IV ×3 (09:06→22:24)
[2022-09-09] MEDS: Carvedilol 6.25 MG Tablet PO ×2 (09:06→18:40)
[2022-09-09] MEDS: Lisinopril 10 MG Tablet PO (09:06)
[2022-09-09] MEDS: Enoxaparin 40 MG/0.4 ML Syringe SC (09:06)
--- NOTE | 2022-09-09 14:28 | CASEMGMT ---
Addendum entered by Milena Bolanos 09/09/22 17:22: 1530: Call received from pt's dtr, Katy. The following information obtained from her. PCP: Dr Perry. Pt has an appt 09/21/[address]ists: Dr Ramirez. 1st appt is pending. Insurance: [employer] Prescription Benefit:?Yes Living Will/HPOA:?Dtr states pt started working on these, but she does not know if they were completed. She was made aware they are not on file @ [facility]. She states she will look for them. LNOK: 2 dtrs. One dtr is Katy Living Arrangements: Lives w/Katy, Katy's , and 6 grandkids. Dtr takes care of pt--she assists pt w/ADL's, manages his medications, and does all home mgmt tasks. Transportation: Family DME: ?Dtr states pt has the following DME:?shower chair, BSC, hospital bed, walker,lift recliner, rt ankle brace, and W/C HHC/SNF: [facility] TCU after recent hip fx. Pt is active w/[facility]. Discussed discharge planning. Dtr states she feels it would be beneficial for pt to return to TCU, as he has become more weak over the past few days. She states she has spoken w/pt about this and that he is agreeable, stating that he really liked the therapists over there. Jessica ESPINO, made aware and states there are no beds available in TCU. Dtr made aware. SW to provide list of other SNF's to dtr to review. PLAN:??SNF. Original Note: LISANDRA KHAN NOTE: RN BILL to room. Introduced self and role. Pt is very [place]. He gave RN CM permission to contact his daughter, Katy, who he lives w/to complete assessment. He stated if she feels he needs to go somewhere for therapy after discharge, then he would be agreeable. Call placed to pt's daughter, Katy. No answer. VM left for her to return call to this RN CM, if able to call today before 4 PM. Also left her Samira, RN BILL's , # who will be working tomorrow, if she is unable to call this RN CM today. Pt is active w/[facility]. Call placed to Minnie @ [facility]. No answer. VM left to inform her pt has been admitted to [facility] and discharge plan is TBD. Kim MCCLAINN LISANDRA KHAN
--- NOTE | 2022-09-09 16:41 | CASEMGMT ---
Social Work Per RNCM pt dgt would like pt to go to TCU. Referral to [facility] in TCU and they do not have a bed available. A list of SNF providers including quality and resource use data and consistent with the patient?s preferred geographic region, medical needs, and insurance network were provided via the [employer] Guide Link. Family to review list and make choices. Plan: SNF, SW to follow [facility] Benavidez
--- NOTE | 2022-09-09 19:11 | PN.HOSP_ITS ---
Reason for Visit Reason for Visit: Diagnoses Pneumonia, unspecified organism (09/08/22) Subjective Subjective Patient was seen and examined today, he remains on room air at this time, on examination the patient has a lot of expiratory wheezing noted, he does not appear to be in any respiratory distress however. Patient is coughing up green thick sputum. Objective Data Objective Data Vital Signs: Vital Signs Temp Pulse Resp BP Pulse Ox O2 Del Method 98.4 F 78 24 H 169/68 H 93 Room Air 09/09/22 14:13 09/09/22 15:02 09/09/22 15:02 09/09/22 14:13 09/09/22 14:13 09/09/22 14:24 Oxygen Delivery Method Room Air Weight: 85.5 kg Body Mass Index (BMI) 28.6 Intake & Output: Intake and Output for Last 24 Hours 09/07/22 09/08/22 09/09/22 23:59 23:59 23:59 Intake Total 50 / 50 981.5 / 981.5 Output Total 1350 / 1350 Balance 50 / 50 -368.5 / -368.5 Lab / Micro Data Result Diagrams: 09/09/22 06:21 09/09/22 06:21 Labs: Laboratory Results - last 24 hr 09/08/22 17:16: Magnesium 2.3 09/09/22 06:21: WBC 10.0, RBC 2.97 L, Hgb 8.9 L, Hct 27.2 L, MCV 91.6, MCH 30.0, MCHC 32.7, RDW Std Deviation 51.7 H, RDW Coeff of Dania 15.7 H, Plt Count 215, MPV 9.0, Immature Gran % (Auto) 0.800, Neut % (Auto) 69.4, Lymph % (Auto) 20.6, [place] % (Auto) 6.4, Eos % (Auto) 2.6, Baso % (Auto) 0.2, Absolute Neuts (auto) 6.9, Absolute Lymphs (auto) 2.06, Nucleated RBC % 0.2 09/09/22 06:21: Sodium 139, Potassium 3.7, Chloride 108 H, Carbon Dioxide 24.0, Anion Gap 7, BUN 20 H, Creatinine 0.86, Estim Creat Clear Calc 61.86, Est GFR (MDRD) Af Amer 109, Est GFR (MDRD) Non-Af 90, BUN/Creatinine Ratio 23.2 H, Glucose 95, Calcium 8.2 L, Total Bilirubin 0.30, AST 12 L, ALT 18, Alkaline Phosphatase 116, Total Protein 5.7 L, Albumin 2.4 L, Globulin 3.3, Albumin/Globulin Ratio 0.7 L, TSH 2.46 Micro: Microbiology 09/09/22 09:45 Sputum, Expectorated/Coughed Gram Stain - Final 09/08/22 17:05 Urine, Clean Catch Urine Culture - Preliminary GPC Poss Enterococcus sp 09/08/22 Unknown Mucosa - Nasopharyngeal Respiratory Panel (PCR) - Final 09/08/22 17:05 Urine, Clean Catch Legionella Antigen - Final 09/08/22 17:05 Urine, Clean Catch Streptococcus pneumoniae Antigen (M - Final 09/08/22 17:50 Mucosa - Nose Influenza Types A,B Direct FA (ASHLEY) - Final 09/08/22 17:05 Nasal Secretion SARS-CoV-2 Antigen (Rapid) - Final Physical Exam Const alert, oriented x3 and no apparent distress General Appearance: cooperative, well kempt and well developed Orientation / Consciousness: awake, oriented to person, oriented to place and oriented to time HEENT normocephalic, head/scalp atraumatic and moist oral mucous membranes Eyes PERRL, EOMs intact bilaterally and conjunctivae normal Neck supple, no JVD and thyroid normal General: trachea midline Resp normal respiratory effort, no retractions and no use of accessory muscles Resp Narrative: Patient has expiratory wheezes bilaterally Auscultation: wheezes; Negative for rales or rhonchi Cardio regular rate, regular rhythm, S1 normal heart sound, S2 normal heart sound, no murmurs, no rub and no gallops GI normal to inspection, nondistended, normoactive bowel sounds, soft to palpation, non-tender and non-distended Extremity normal to inspection and no clubbing, cyanosis or edema Skin no rashes or lesions noted General Skin Exam: no breakdown Neuro oriented x3, CN's II-XII intact bilaterally, moves all extremities, no focal motor deficits and no sensory deficits noted Sensorium / Orientation: awake and alert Speech: speech normal Psych affect normal Assessment & Plan Assessment/Plan (1) Debility: PLAN: Plan 1. Community-acquired right-sided bacterial pneumonia-patient will remain on Zithromax and Rocephin, continue aerosol treatments #2 acute debility secondary to #1-PT and OT will see the patient #3 Essential hypertension-patient will remain on Coreg and lisinopril Total clinical time spent by myself addressing the patient's medical issues, reviewing all the data, and collaborating with patient's care team: 35 minutes Charges/Coding Visit Charges Inpatient E&M: 49259 Subs Hosp L2
[2022-09-09] MEDS: MELATONIN 3 MG TABLET PO (22:23)
[2022-09-09] MEDS: Doxepin Hcl 25 MG Capsule 50 MG PO (22:23)
[2022-09-09] MEDS: Atorvastatin Calcium 40 MG Tablet PO (22:23)
[2022-09-10] VITALS (8 sets, daily range): BP systolic 142–168; BP diastolic 64–78; PULSE 75–100; RESP 15–22; TEMP 36.4–36.8; O2SAT 93–95
[2022-09-10] MEDS: 0.9% Saline Lock 10 ML Syringe IV ×2 (05:34→09:22)
[2022-09-10] MEDS: Ipratropium/Albuterol Sulfate 3 ML AMPUL.NEB INHALATION ×3 (07:32→19:24)
--- NOTE | 2022-09-10 07:33 | NURSING ---
pt is frustrated and attempting to move chair out of pt's room. chair alarm on. resp. therapy giving him a treatment now.
[2022-09-10] MEDS: Enoxaparin 40 MG/0.4 ML Syringe SC (09:22)
[2022-09-10] MEDS: Pantoprazole Sodium 40 MG Tablet PO (09:23)
[2022-09-10] MEDS: Carvedilol 6.25 MG Tablet PO ×2 (09:23→16:12)
[2022-09-10] MEDS: Lisinopril 10 MG Tablet PO (09:23)
[2022-09-10] MEDS: guaiFENesin 1,200 MG Tablet 1200 MG PO ×2 (09:23→21:56)
--- NOTE | 2022-09-10 13:33 | RAD_ITS ---
HISTORY: pneumonia. TECHNIQUE: XR Chest 2 Views. COMPARISON: 09/08/2022. FINDINGS: LINES/TUBES: None. CARDIOMEDIASTINAL BORDERS: Stable. LUNGS: Right greater than left bibasilar opacities. PLEURA: No pleural effusion or pneumothorax. RAD/Chest PA and Lateral IMPRESSION: No significant interval change in bibasilar atelectasis and pneumonia. Electronically Signed: Edna Diaz MD at 14:10 EST ,
--- NOTE | 2022-09-10 13:55 | PCM.PN.HOSP ---
Reason for Visit Reason for Visit: Diagnoses Pneumonia, unspecified organism (09/08/22) Other malaise (09/08/22) Subjective Subjective Patient was seen and examined today, nursing states that he was exhibiting some agitation this morning, patient is calm now, I talked with his family member who was in the room at the time my examination today, patient has consented to go to TCU for short-term inpatient rehab services. I have decided to take the patient off IV corticosteroids today with the thought that this may be causing some behavioral problems, I placed him on Pulmicort aerosols instead. Objective Data Objective Data Vital Signs: Vital Signs Temp Pulse Resp BP Pulse Ox O2 Del Method 98.3 F 81 18 168/78 H 95 Room Air 09/10/22 09:08 09/10/22 10:17 09/10/22 10:17 09/10/22 09:08 09/10/22 09:08 09/10/22 09:08 Oxygen Delivery Method Room Air Weight: 86.1 kg Body Mass Index (BMI) 28.6 Intake & Output: Intake and Output for Last 24 Hours 09/08/22 09/09/22 09/10/22 23:59 23:59 23:59 Intake Total 50 / 50 981.5 / 981.5 368.25 / 368.25 Output Total 1350 / 3550 2500 / 2500 Balance 50 / 50 -368.5 / -2568.5 -2131.75 / -2131.75 Lab / Micro Data Result Diagrams: 09/09/22 06:21 09/09/22 06:21 Micro: Microbiology 09/09/22 09:45 Sputum, Expectorated/Coughed Gram Stain - Final 09/09/22 09:45 Sputum, Expectorated/Coughed Respiratory Culture - Preliminary Appears to be normal respiratory dago. Further studies to follow. 09/08/22 17:05 Urine, Clean Catch Urine Culture - Final Enterococcus faecalis 09/08/22 Unknown Mucosa - Nasopharyngeal Respiratory Panel (PCR) - Final 09/08/22 17:05 Urine, Clean Catch Legionella Antigen - Final 09/08/22 17:05 Urine, Clean Catch Streptococcus pneumoniae Antigen (M - Final 09/08/22 17:50 Mucosa - Nose Influenza Types A,B Direct FA ([facility]) - Final 09/08/22 17:05 Nasal Secretion SARS-CoV-2 Antigen (Rapid) - Final Physical Exam Const alert, oriented x3 and no apparent distress General Appearance: cooperative, well kempt and well developed Orientation / Consciousness: awake, oriented to person, oriented to place and oriented to time HEENT normocephalic, head/scalp atraumatic and moist oral mucous membranes Eyes PERRL, EOMs intact bilaterally and conjunctivae normal Neck supple, no JVD, thyroid normal and no carotid bruits General: trachea midline Resp normal respiratory effort, no retractions and no use of accessory muscles Resp Narrative: Decreased breath sounds are noted bilaterally. Auscultation: Negative for rales, rhonchi or wheezes Cardio regular rate, regular rhythm, S1 normal heart sound, S2 normal heart sound, no murmurs, no rub and no gallops GI normal to inspection, nondistended, normoactive bowel sounds, soft to palpation, non-tender and non-distended Extremity no clubbing, cyanosis or edema Skin no rashes or lesions noted General Skin Exam: no breakdown Neuro oriented x3, CN's II-XII intact bilaterally, no focal motor deficits and no sensory deficits noted Sensorium / Orientation: awake, alert, oriented to person, oriented to place and oriented to time Speech: speech normal Psych affect normal Assessment & Plan Assessment/Plan (1) Pneumonia: (2) Debility: PLAN: Plan 1. Community-acquired right-sided bacterial pneumonia-patient will remain on Zithromax and Rocephin, continue aerosol treatments, I have added Pulmicort aerosols and stopped his IV Solu-Medrol. #2 acute debility secondary to #1-PT and OT are seeing the patient. #3 Essential hypertension-patient will remain on Coreg and lisinopril Total clinical time spent by myself addressing the patient's medical issues, reviewing all the data, and collaborating with patient's care team: 36 minutes Charges/Coding Visit Charges Inpatient E&M: 62191 Subs Hosp L2
--- NOTE | 2022-09-10 16:11 | CASEMGMT ---
Social Work Note SW contacted patient's daughter and introduced herself and role as [facility] Dairy Farm Manager. SW inquired about SNF choices as TCU has no beds currently. Patient's daughter states TCU is still their first choice, second choice would e [facility] and third choice is [facility]. SW explained TCU admissions staff is aware of patient's interest and a referral will be sent to the second choice. Patient's daughter in agreement for referral to be sent. Plan: SNF. referral sent to [facility] GO[facility], ALISON
[2022-09-10] MEDS: Budesonide Respules 0.5 MG/2 ML AMPUL.NEB. INHALATION (19:25)
[2022-09-10] MEDS: Doxepin Hcl 25 MG Capsule 50 MG PO (21:56)
[2022-09-10] MEDS: MELATONIN 3 MG TABLET PO (21:56)
[2022-09-10] MEDS: Atorvastatin Calcium 40 MG Tablet PO (21:56)
[2022-09-11] VITALS (11 sets, daily range): BP systolic 145–150; BP diastolic 69–78; PULSE 70–98; RESP 14–20; TEMP 36.6–37.1; O2SAT 93–96
--- NOTE | 2022-09-11 | NURSING ---
confused,restless in bed setting off bed exit repeatedly, threw his water across room, reorientation, reassurance not effective. pt did void in his urinal. throwing his legs over bed rail. staff assisted to chair and brought pt to desk for safety
[2022-09-11] MEDS: RisperiDONE 0.5 MG Tablet PO (02:35)
[2022-09-11] MEDS: Ipratropium/Albuterol Sulfate 3 ML AMPUL.NEB INHALATION ×4 (07:26→19:15)
[2022-09-11] MEDS: Budesonide Respules 0.5 MG/2 ML AMPUL.NEB. INHALATION ×2 (07:26→19:15)
[2022-09-11] MEDS: Carvedilol 6.25 MG Tablet PO ×2 (09:09→16:56)
[2022-09-11] MEDS: Enoxaparin 40 MG/0.4 ML Syringe SC (11:31)
[2022-09-11] MEDS: guaiFENesin 1,200 MG Tablet 1200 MG PO ×2 (11:31→19:43)
[2022-09-11] MEDS: Pantoprazole Sodium 40 MG Tablet PO (11:32)
[2022-09-11] MEDS: Lisinopril 10 MG Tablet PO (11:32)
--- NOTE | 2022-09-11 17:30 | PN.HOSP_ITS ---
Reason for Visit Reason for Visit: Diagnoses Pneumonia, unspecified organism (09/08/22) Other malaise (09/08/22) Subjective Subjective Patient was seen and examined today, he does not appear in any distress, he is not on any oxygen. Family members were in the room, they stated for the last several months patient has had confusion at times, they stated that this happened since he had a stroke last fall. Objective Data Objective Data Vital Signs: Vital Signs Temp Pulse Resp BP Pulse Ox O2 Del Method 98 F 82 18 150/78 H 94 Room Air 09/11/22 14:00 09/11/22 15:52 09/11/22 15:52 09/11/22 14:00 09/11/22 15:52 09/11/22 15:52 Oxygen Delivery Method Room Air Weight: 86.1 kg Body Mass Index (BMI) 28.6 Intake & Output: Intake and Output for Last 24 Hours 09/09/22 09/10/22 09/11/22 23:59 23:59 23:59 Intake Total 981.5 / 981.5 368.25 / 568.25 905 / 905 Output Total 1350 / 3550 2500 / 2500 Balance -368.5 / -2568.5 -2131.75 / -1931.75 905 / 905 Lab / Micro Data Result Diagrams: 09/09/22 06:21 09/09/22 06:21 Micro: Microbiology 09/08/22 19:20 Blood Culture (Wb) - Anticubital Left Blood Culture - Preliminary No growth in 48 hours. 09/08/22 17:16 Blood Culture (Wb) - Anticubital Left Blood Culture - Preliminary No growth in 48 hours. 09/09/22 09:45 Sputum, Expectorated/Coughed Gram Stain - Final 09/09/22 09:45 Sputum, Expectorated/Coughed Respiratory Culture - Final Mixed normal respiratory dago. No Streptococcus pneumoniae, beta-hemolytic Streptococcus or Staphylococcus aureus isolated. 09/08/22 17:05 Urine, Clean Catch Urine Culture - Final Enterococcus faecalis 09/08/22 Unknown Mucosa - Nasopharyngeal Respiratory Panel (PCR) - Final 09/08/22 17:05 Urine, Clean Catch Legionella Antigen - Final 09/08/22 17:05 Urine, Clean Catch Streptococcus pneumoniae Antigen (M - Final 09/08/22 17:50 Mucosa - Nose Influenza Types A,B Direct FA ([facility]) - Final 09/08/22 17:05 Nasal Secretion SARS-CoV-2 Antigen (Rapid) - Final Physical Exam Const alert, oriented x3 and no apparent distress General Appearance: cooperative, well kempt and well developed Orientation / Consciousness: awake, oriented to person, oriented to place and oriented to time HEENT normocephalic, head/scalp atraumatic and moist oral mucous membranes Eyes PERRL, EOMs intact bilaterally and conjunctivae normal Neck supple, no JVD and thyroid normal General: trachea midline Resp normal respiratory effort, no retractions, no use of accessory muscles and clear to auscultation bilaterally Auscultation: Negative for rales, rhonchi or wheezes Cardio regular rate, regular rhythm, S1 normal heart sound, S2 normal heart sound, no murmurs, no rub and no gallops GI normal to inspection, nondistended, normoactive bowel sounds, soft to palpation, non-tender and non-distended Extremity no clubbing, cyanosis or edema Skin no rashes or lesions noted General Skin Exam: no breakdown Neuro oriented x3, CN's II-XII intact bilaterally, no focal motor deficits and no sen theodore deficits noted Sensorium / Orientation: awake, alert, oriented to person and oriented to place Speech: speech normal Psych affect normal Assessment & Plan Assessment/Plan (1) Pneumonia: (2) Debility: PLAN: Plan 1. Community-acquired right-sided bacterial pneumonia-patient will be changed to Augmentin starting on 09/12/2022, continue aerosol treatments, patient remains on aerosol treatments with DuoNeb and Pulmicort, due to debility, he will need temporary placement in a detention facility, we are trying to have him placed in TCU at this time. #2 acute debility secondary to #1-PT and OT are seeing the patient. #3 Essential hypertension-patient will remain on Coreg and lisinopril #4 mild cognitive impairment-probably as a result of cerebrovascular disease, complicates care, medical course, recovery, and prognosis Total clinical time spent by myself addressing the patient's medical issues, reviewing all the data, and collaborating with patient's care team: 36 minutes Charges/Coding Visit Charges Inpatient E&M: 45991 Subs Hosp L2
[2022-09-11] MEDS: MELATONIN 3 MG TABLET PO (19:43)
[2022-09-11] MEDS: Doxepin Hcl 25 MG Capsule 50 MG PO (19:44)
[2022-09-11] MEDS: Atorvastatin Calcium 40 MG Tablet PO (19:44)
--- NOTE | 2022-09-11 19:44 | NURSING ---
pt requesting his hs meds at this time
[2022-09-12] VITALS (9 sets, daily range): BP systolic 124–184; BP diastolic 66–85; PULSE 76–91; RESP 16–21; TEMP 36.6–36.8; O2SAT 93–95
[2022-09-12] MEDS: Budesonide Respules 0.5 MG/2 ML AMPUL.NEB. INHALATION ×2 (06:39→19:09)
[2022-09-12] MEDS: Ipratropium/Albuterol Sulfate 3 ML AMPUL.NEB INHALATION ×3 (06:39→19:09)
[2022-09-12] MEDS: Carvedilol 6.25 MG Tablet PO ×2 (07:47→16:03)
[2022-09-12] MEDS: Lisinopril 10 MG Tablet PO (07:48)
[2022-09-12] MEDS: Amox/Clavulanate 875 MG Tablet PO ×2 (07:48→20:55)
[2022-09-12] MEDS: Enoxaparin 40 MG/0.4 ML Syringe SC (07:48)
[2022-09-12] MEDS: guaiFENesin 1,200 MG Tablet 1200 MG PO ×2 (07:48→20:54)
[2022-09-12] MEDS: Pantoprazole Sodium 40 MG Tablet PO (07:48)
--- NOTE | 2022-09-12 10:25 | CASEMGMT ---
Social Work SW followed up with [facility] regarding referral. [facility] asking when anticipated d/c would be. SW informed, according to MD Mcfarlane, that pt is medically ready and can d/c as soon as there is accepting facility and insurance auth. Will await Srini decision. CARMEN Dumont
--- NOTE | 2022-09-12 13:06 | CASEMGMT ---
Addendum entered by Marixa Cardenas 09/12/22 13:10: SW in to pt room to inform of acceptance at [facility]. Family and pt voiced understanding. Discussed transport, family asked if able to find a ride would it be acceptable to take pt. SW informed family is allowed to do this or an ambulance can be arranged. Family stated to plan for ambulance and if able to find transport that SW/[employer] would be updated that family will transport. Original Note: Social Work [facility] reached out. Able to accept patient. Bed available tomorrow. SW sent prior auth requested to [facility] to obtain precert. PLAN: [facility], pending precert CARMEN Dumont
--- NOTE | 2022-09-12 13:38 | PN.HOSP_ITS ---
Reason for Visit Reason for Visit: Diagnoses Pneumonia, unspecified organism (09/08/22) Other malaise (09/08/22) Subjective Subjective Patient seen nad examined. He had no active complaitns. He was very hard of hearing. He had an uneventful night. Review of systems is otherwise negative. He has remained hemodynamically stable. Objective Data Objective Data Vital Signs: Vital Signs Temp Pulse Resp BP Pulse Ox O2 Del Method 98.3 F 76 20 H 168/74 H 93 Room Air 09/12/22 08:53 09/12/22 08:53 09/12/22 08:53 09/12/22 08:53 09/12/22 10:11 09/12/22 08:53 Oxygen Delivery Method Room Air Weight: 186 lb 8.016 oz Body Mass Index (BMI) 28.6 Intake & Output: Intake and Output for Last 24 Hours 09/10/22 09/11/22 09/12/22 23:59 23:59 23:59 Intake Total 368.25 / 568.25 1205 / 1455 250 / 250 Output Total 2500 / 2500 600 / 600 Balance -2131.75 / -1931.75 1205 / 1055 -350 / -350 Lab / Micro Data Result Diagrams: 09/09/22 06:21 09/09/22 06:21 Micro: Microbiology 09/08/22 19:20 Blood Culture (Wb) - Anticubital Left Blood Culture - Preliminary No growth in 48 hours. 09/08/22 17:16 Blood Culture (Wb) - Anticubital Left Blood Culture - Preliminary No growth in 48 hours. 09/09/22 09:45 Sputum, Expectorated/Coughed Gram Stain - Final 09/09/22 09:45 Sputum, Expectorated/Coughed Respiratory Culture - Final Mixed normal respiratory dago. No Streptococcus pneumoniae, beta-hemolytic Streptococcus or Staphylococcus aureus isolated. 09/08/22 17:05 Urine, Clean Catch Urine Culture - Final Enterococcus faecalis 09/08/22 Unknown Mucosa - Nasopharyngeal Respiratory Panel (PCR) - Final 09/08/22 17:05 Urine, Clean Catch Legionella Antigen - Final 09/08/22 17:05 Urine, Clean Catch Streptococcus pneumoniae Antigen (M - Final 09/08/22 17:50 Mucosa - Nose Influenza Types A,B Direct FA ([facility]) - Final 09/08/22 17:05 Nasal Secretion SARS-CoV-2 Antigen (Rapid) - Final Physical Exam Const alert and no apparent distress Constitutional Narrative: confused HEENT head/scalp atraumatic, moist oral mucous membranes and oropharynx normal Head and Scalp: normocephalic Mouth: oral and palatal mucosa normal Eyes PERRL, EOMs intact bilaterally and conjunctivae normal Neck no lymphadenopathy and supple Resp normal respiratory effort, no retractions and no use of accessory muscles Cardio regular rate, regular rhythm, S1 normal heart sound, S2 normal heart sound and no murmurs GI normal to inspection, nondistended, normoactive bowel sounds, soft to palpation, non-tender and non-distended Extremity normal to inspection, full ROM and no clubbing, cyanosis or edema Neuro oriented x3, CN's II-XII intact bilaterally, moves all extremities and no focal motor deficits Sensorium / Orientation: awake and alert Motor Exam: strength 5/5 throughout Psych affect normal Assessment & Plan Assessment/Plan (1) Pneumonia: (2) Weakness: PLAN: Plan #Community acquired pneumonia * On room air. Now on Augmentin. * On breathing treatments bronchodilators. * #Debility and weakness due to community-acquired pneumonia: PT OT on board. Fall precautions. 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 Stable. DVT prophylaxis: Lovenox Disposition: Awaiting placement Total time spent evaluating patient's chart and all data, seeing patient: On evaluation and management as well as documentation: 38 minutes. Charges/Coding Visit Charges Inpatient E&M: 54951 Subs Hosp L2
--- NOTE | 2022-09-12 13:59 | CHAPLAIN ---
Type of Pastoral Visit _x__ Initial Visit ___ Follow-up Visit ___ On-call Visit ___ General Patient Visit ___ Spiritual Assessment ___ Family Conference ___ Bereavement ___ Rapid Response ___ Code Blue ___ Other (describe below) Pastoral Care Referral From _x__ Patient ___ Family ___ Nurse ___ Physician ___ Campaign Assistant ___ Weekday Babysitter ___ Other (describe below) Sacrament/Intervention _x__ Active listening ___ Anointing ___ Bahai ___ Bereavement ___ Communion ___ Ciara exploration ___ ___ Life review _x__ Prayer ___ Reconciliation ___ Sacrament of Sick _x__ Supportive presence ___ Wedding ___ Other (describe below) Pastoral Comments patient has been seen in previous and recent admissions; pt is DOUGLAS and thus conversation was slow going and needed time to get the words/meaning; pt speaks of his going elsewhere for further care; pt welcomes presence and prayer but does not speak much; daughter is present
--- NOTE | 2022-09-12 15:01 | CASEMGMT ---
Social Work SW recieved call from [facility]. Precert has been obtained. Reference # [id number] Pt has used 66 out of 100 skilled days. [facility] has been updated that precert has been obtained. No bed open until tomorrow. Pt can d/c to [facility] tomorrow. MD Mcfarlane updated of plan. PLAN: [facility], tomorrow CARMEN Dumont
[2022-09-12] MEDS: Doxepin Hcl 25 MG Capsule 50 MG PO (20:54)
[2022-09-12] MEDS: 0.9% Saline Lock 10 ML Syringe IV (20:54)
[2022-09-12] MEDS: Atorvastatin Calcium 40 MG Tablet PO (20:55)
[2022-09-13 04:59] VITALS: BP 181/76; PULSE 76; RESP 20; TEMP 36.9; O2SAT 93
[2022-09-13] MEDS: 0.9% Saline Lock 10 ML Syringe IV (05:00)
[2022-09-13 05:01] VITALS: BP 181/76; PULSE 76
[2022-09-13] MEDS: hydrALAZINE 20 MG/ML Vial 5 MG IV (05:01)
[2022-09-13 06:50] VITALS: BP 177/80; PULSE 84
[2022-09-13 06:59] LABS: Absolute Lymphocyte Count 3.94 X10^3/uL (0.83-4.51); Absolute Neutrophil Count 8.9 X10^3/uL (2.0-7.7); Basophil# 0.06 X10^3/uL; Basophil% 0.4 % (0-1); Eosinophil# 0.43 X10^3/uL; Hematocrit 34.5 % (40-54); Hemoglobin 10.9 g/dL (13.0-16.5); Lymphocyte # 3.94 X10^3/ul (0.83-4.51); Lymphocyte % 27.4 % (19-41); Mean Corp Hgb Conc 31.6 g/dL (32-36); Mean Corpuscular Volume 91.8 fL (80-94); Mean Platelet Vol. 9.5 fl (6.2-12.0); Monocyte# 0.73 X10^3/uL; Monocyte% 5.1 % (0-10); NRBC Flagged by Analyzer 0 % (0-5); Neutrophil # 8.92 X10^3/uL (2.7-7.7); Neutrophil % 62.1 % (47-70); Platelet Count 318 K/mm3 (150-450); RBC Distribution Width CV 15.8 % (11.6-14.6); RBC Distribution Width SD 52.2 fl (35.1-43.9); Red Blood Count 3.76 M/mm3 (4.6-6.2); White Blood Count 14.4 K/mm3 (4.4-11.0)
[2022-09-13] MEDS: Ipratropium/Albuterol Sulfate 3 ML AMPUL.NEB INHALATION ×2 (07:16→11:20)
[2022-09-13] MEDS: Budesonide Respules 0.5 MG/2 ML AMPUL.NEB. INHALATION (07:16)
[2022-09-13 07:18] VITALS: PULSE 93; RESP 14
[2022-09-13 07:27] LABS: Anion Gap 6 (5-15); BUN 18 mg/dL (7-18); Calcium,Total 8.8 mg/dL (8.5-10.1); Chloride 105 mmol/L (98-107); Creatinine, Serum 0.86 mg/dL (0.70-1.30); EST Glomerular Filtration Rate 90 mL/min (>60); Est Glom Filt Rate - Afr Amer 109 mL/min (>60); Estimated Creatinine Clearance 61.86 ml/min; Glucose 105 mg/dL (74-106); Potassium 3.9 mmol/L (3.5-5.1); Sodium Level 138 mmol/L (136-145)
[2022-09-13 07:49] VITALS: BMI 27.6
--- NOTE | 2022-09-13 08:15 | CPS ---
Pt is confused, needs direction with I.S each time therapy is given.
[2022-09-13] MEDS: Amox/Clavulanate 875 MG Tablet PO (08:57)
[2022-09-13] MEDS: Carvedilol 6.25 MG Tablet PO (08:57)
[2022-09-13] MEDS: Lisinopril 10 MG Tablet PO (08:57)
[2022-09-13] MEDS: guaiFENesin 1,200 MG Tablet 1200 MG PO (08:57)
[2022-09-13] MEDS: Enoxaparin 40 MG/0.4 ML Syringe SC (08:57)
[2022-09-13] MEDS: Pantoprazole Sodium 40 MG Tablet PO (08:57)
[2022-09-13 09:52] VITALS: BP 179/78; PULSE 82; RESP 18; TEMP 36.9; O2SAT 94
--- NOTE | 2022-09-13 10:21 | TREXTCAR_ITS ---
Diet Diet Order/Speech Therapy: 09/08/22 20:37 Diet: Cardiac - Heart Healthy Food consistency:: Regular Liquid Consistency:: Regular/Thin Routine Orders/Code Status Enema Type: Fleetz Enema Frequency: Daily PRN Suppository Type: Dulcolax 10mg Suppository Frequency: Daily PRN O2 Frequency: PRN Keep PO Greater than or Equal to (%): 90 Therapies Weight Bearing: Weight bearing as tolerated Physical Therapy: Eval and Treat Occupational Therapy: Eval and Treat Problem/Diagnosis (1) Pneumonia: Status: Acute Code(s): J18.9 - Pneumonia, unspecified organism (2) Weakness: Status: Acute Code(s): R53.1 - Weakness Plan #Community acquired pneumonia * On room air. Now on Augmentin. * On breathing treatments bronchodilators. * #Debility and weakness due to community-acquired pneumonia: PT OT on board. Fall precautions. 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 Stable. DVT prophylaxis: Lovenox Disposition: Awaiting placement Total time spent evaluating patient's chart and all data, seeing patient: On evaluation and management as well as documentation: 38 minutes. Allergies/Procedures Done in Hospital Allergies No Known Allergies Allergy (Verified 09/08/22 14:49) Procedures: None Type of Care/Length of Stay Estimated LOS: Convalescent Care Less Than 30 days Type of Care Needed: Skilled Rehab Potential: Fair Prognosis: Good Additional Orders/Day of Discharge Day of Discharge: 09/13/22 Discharge Plan Admission Admit Date/Time: 09/08/22 19:35 Primary Reason for Your Visit: community acquired pneumonia Attending Provider: Arleth Mcfarlane Primary Care Provider: Vinnie Perry Consulting Providers: [place] Gaspar ; William Helm Instructions Patient Instructions: ED Pneumonia (Adult) Discharge Orders/Prescriptions Prescriptions: New amoxicillin-pot clavulanate 875-125 mg Tablet 875 mg PO BID Qty: 10 0RF Continued atorvastatin 40 mg tablet 40 mg PO QHS carvedilol 6.25 mg tablet 6.25 mg PO BIDCM acetaminophen 500 mg tablet 1,000 mg PO TID tamsulosin 0.4 mg capsule 0.4 mg PO DAILY@1730 pantoprazole 40 mg tablet,delayed release (DR/EC) 40 mg PO DAILY lisinopril 10 mg tablet 10 mg PO DAILY doxepin 25 mg capsule 50 mg PO QHS sennosides-docusate sodium [Stool Softener-Stimulant Laxat] 8.6-50 mg tablet 2 tab PO BID PRN (Reason: Constipation) Discontinued tramadol 50 mg Tablet 50 mg PO Q6H PRN PRN (Reason: Pain Score 1-5) 7 Days Qty: 28 0RF oxycodone 5 mg Tablet 2.5 mg PO Q4H PRN PRN (Reason: Pain Score 6-10) 7 Days Qty: 14 0RF Referrals / Follow Up: Vinnie Perry MD [Primary Care Provider] - 09/21/22 (As previously scheduled. ) Disposition Disposition (needs filled in before D/C Order can be placed): Prison Facility
--- NOTE | 2022-09-13 10:22 | DS.PCM_ITS ---
Providers Date of Admission: 09/08/22 Date of Discharge: 09/13/22 Primary Care Physician: Dr. Vinnie Perry MD Reason For Visit: CAP Diagnosis Discharge Diagnosis (1) Pneumonia: Status: Acute Code(s): J18.9 - Pneumonia, unspecified organism (2) Weakness: Status: Acute Code(s): R53.1 - Weakness Plan #Community acquired pneumonia * On room air. Now on Augmentin. * On breathing treatments bronchodilators. * #Debility and weakness due to community-acquired pneumonia: PT OT on board. Fall precautions. 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 Stable. DVT prophylaxis: Lovenox Disposition: Awaiting placement Total time spent evaluating patient's chart and all data, seeing patient: On evaluation and management as well as documentation: 38 minutes. Medications at Discharge Home Medications acetaminophen 500 mg tablet 1,000 mg PO TID Pain 07/26/22 atorvastatin 40 mg tablet 40 mg PO QHS Cholesterol 07/26/22 carvedilol 6.25 mg tablet 6.25 mg PO BIDCM Check with primary doctor 07/26/22 lisinopril 10 mg tablet 10 mg PO DAILY Check with primary doctor 07/26/22 pantoprazole 40 mg tablet,delayed release 40 mg PO DAILY Check with primary doctor 07/26/22 tamsulosin 0.4 mg capsule 0.4 mg PO DAILY@1730 bladder spasms 07/26/22 doxepin 25 mg capsule 50 mg PO QHS Check with primary doctor 09/08/22 sennosides 8.6 mg-docusate sodium 50 mg tablet (Stool Softener-Stimulant Laxative) 2 tab PO BID PRN Constipation 09/08/22 amoxicillin 875 mg-potassium clavulanate 125 mg tablet 875 mg PO BID #10 tabs 09/13/22 Hospital Course Operations None Procedures None Summary of Care Provided Minutes Spent on Discharge: 48 Hospital Course: Patient is an 82-year-old male with a past medical history as outlined was admitted through the ED on 09/08/2022 with a complaint of worsening shortness of breath, fever and cough. Chest x-ray showed evidence of right-sided pneumonia. Patient could not ambulate in the ED and was very weak. He had just been discharged from the TCU on 08/24/2022 after being there for left hip fracture. Hospitalist service was consulted for admission on account of patient's debility and community-acquired pneumonia. He was placed on ceftriaxone and azithromycin. Patient's symptoms resolved and he felt much better. However he was called as needing SNF because of his ongoing weakness and debility. He was transitioned to Augmentin. Patient remained stable and was discharged to [facility] on 09/13/[facility]. He is to follow-up with his primary care doctor within 1 to 2 weeks. He was given a prescription for p.o. Augmentin to complete a 5-day course. Patient seen and examined prior to discharge. He had no active complaints and had an uneventful night. Review of systems otherwise negative. Labs and vitals reviewed. Home medication reviewed and reconciled. Physical Exam Const alert and no apparent distress Constitutional Narrative: confused General Appearance: cooperative, well kempt and well developed Orientation / Consciousness: awake HEENT normocephalic, head/scalp atraumatic, moist oral mucous membranes and oropharynx normal Mouth: oral and palatal mucosa normal Eyes PERRL, EOMs intact bilaterally and conjunctivae normal Neck no lymphadenopathy, supple, no JVD, thyroid normal and no carotid bruits General: trachea midline Resp normal respiratory effort, no retractions, no use of accessory muscles and clear to auscultation bilaterally Resp Narrative: Decreased breath sounds are noted bilaterally. Auscultation: Negative for rales, rhonchi or wheezes Cardio regular rate, regular rhythm, S1 normal heart sound, S2 normal heart sound, no murmurs, no rub and no gallops GI normal to inspection, nondistended, normoactive bowel sounds, soft to palpation, non-tender and non-distended Extremity normal to inspection, full ROM and no clubbing, cyanosis or edema Skin no rashes or lesions noted General Skin Exam: no breakdown Neuro CN's II-XII intact bilaterally, moves all extremities, no focal motor deficits and no sensory deficits noted Neuro Narrative: confused Sensorium / Orientation: awake and alert Speech: speech normal Motor Exam: strength 5/5 throughout Psych affect normal Weight / BMI Weight Weight: 181 lb 6 oz Body Mass Index (BMI) 27.6 ABG / Lab / Microbiology Data Result Diagrams: 09/13/22 05:52 09/13/22 05:52 Laboratory: Laboratory Results - last 24 hr 09/13/22 05:52: WBC 14.4 H, RBC 3.76 L, Hgb 10.9 L, Hct 34.5 L, MCV 91.8, MCH 29.0, MCHC 31.6 L, RDW Std Deviation 52.2 H, RDW Coeff of Dania 15.8 H, Plt Count 318, MPV 9.5, Immature Gran % (Auto) 2.000 H, Neut % (Auto) 62.1, Lymph % (Auto) 27.4, Clinton % (Auto) 5.1, Eos % (Auto) 3.0, Baso % (Auto) 0.4, Absolute Neuts (auto) 8.9 H, Absolute Lymphs (auto) 3.94, Nucleated RBC % 0 09/13/22 05:52: Sodium 138, Potassium 3.9, Chloride 105, Carbon Dioxide 27.0, Anion Gap 6, BUN 18, Creatinine 0.86, Estim Creat Clear Calc 61.86, Est GFR (MDRD) Af Amer 109, Est GFR (MDRD) Non-Af 90, BUN/Creatinine Ratio 21.0 H, Glucose 105, Calcium 8.8 Microbiology: Microbiology 09/08/22 19:20 Blood Culture (Wb) - Anticubital Left Blood Culture - Preliminary No growth in 48 hours. 09/08/22 17:16 Blood Culture (Wb) - Anticubital Left Blood Culture - Preliminary No growth in 48 hours. 09/09/22 09:45 Sputum, Expectorated/Coughed Gram Stain - Final 09/09/22 09:45 Sputum, Expectorated/Coughed Respiratory Culture - Final Mixed normal respiratory dago. No Streptococcus pneumoniae, beta-hemolytic Streptococcus or Staphylococcus aureus isolated. 09/08/22 17:05 Urine, Clean Catch Urine Culture - Final Enterococcus faecalis 09/08/22 Unknown Mucosa - Nasopharyngeal Respiratory Panel (PCR) - Final 09/08/22 17:05 Urine, Clean Catch Legionella Antigen - Final 09/08/22 17:05 Urine, Clean Catch Streptococcus pneumoniae Antigen (M - Final 09/08/22 17:50 Mucosa - Nose Influenza Types A,B Direct FA (ASHLEY) - Final 09/08/22 17:05 Nasal Secretion SARS-CoV-2 Antigen (Rapid) - Final D/C Instructions Discharge Diet: Low fat / Low cholesterol Discharge Activity: Return to Normal Activity Weight Bearing Status: Weight bearing as tolerated Call your doctor if you observe: Fever of 101 or Higher, Shortness of breath, Dizziness, Swelling in the ankles and Chest pain Meaningful Use Info Meaningful Use Diagnoses (Choose all that apply): None applicable Discharge Plan Admission Admit Date/Time: 09/08/22 19:35 Primary Reason for Your Visit: community acquired pneumonia Attending Provider: Arleth Mcfarlane Primary Care Provider: Vinnie Perry Consulting Providers: [place] Gaspar ; William Helm Instructions Patient Instructions: ED Pneumonia (Adult) Discharge Orders/Prescriptions Prescriptions: New amoxicillin-pot clavulanate 875-125 mg Tablet 875 mg PO BID Qty: 10 0RF Continued atorvastatin 40 mg tablet 40 mg PO QHS carvedilol 6.25 mg tablet 6.25 mg PO BIDCM acetaminophen 500 mg tablet 1,000 mg PO TID tamsulosin 0.4 mg capsule 0.4 mg PO DAILY@1730 pantoprazole 40 mg tablet,delayed release (DR/EC) 40 mg PO DAILY lisinopril 10 mg tablet 10 mg PO DAILY doxepin 25 mg capsule 50 mg PO QHS sennosides-docusate sodium [Stool Softener-Stimulant Laxat] 8.6-50 mg tablet 2 tab PO BID PRN (Reason: Constipation) Discontinued tramadol 50 mg Tablet 50 mg PO Q6H PRN PRN (Reason: Pain Score 1-5) 7 Days Qty: 28 0RF oxycodone 5 mg Tablet 2.5 mg PO Q4H PRN PRN (Reason: Pain Score 6-10) 7 Days Qty: 14 0RF Referrals / Follow Up: Vinnie Perry MD [Primary Care Provider] - 09/21/22 (As previously scheduled. ) Disposition Disposition (needs filled in before D/C Order can be placed): Assisted Facility Charges/Coding Visit Charges Inpatient E&M: 98799 Disch Hosp >30min
--- NOTE | 2022-09-13 10:35 | PHA.DC.MR ---
Pharmacy Service has performed discharge medication reconciliation for this patient. The patient's discharge medication list was reviewed for discrepancies and discrepancies were resolved. Home Medications acetaminophen 500 mg tablet 1,000 mg PO TID Pain 07/26/22 atorvastatin 40 mg tablet 40 mg PO QHS Cholesterol 07/26/22 carvedilol 6.25 mg tablet 6.25 mg PO BIDCM Check with primary doctor 07/26/22 lisinopril 10 mg tablet 10 mg PO DAILY Check with primary doctor 07/26/22 pantoprazole 40 mg tablet,delayed release 40 mg PO DAILY Check with primary doctor 07/26/22 tamsulosin 0.4 mg capsule 0.4 mg PO DAILY@1730 bladder spasms 07/26/22 doxepin 25 mg capsule 50 mg PO QHS Check with primary doctor 09/08/22 sennosides 8.6 mg-docusate sodium 50 mg tablet (Stool Softener-Stimulant Laxative) 2 tab PO BID PRN Constipation 09/08/22 amoxicillin 875 mg-potassium clavulanate 125 mg tablet 875 mg PO BID #10 tabs 09/13/22
[2022-09-13 11:20] VITALS: PULSE 62; RESP 17
--- NOTE | 2022-09-13 12:03 | CASEMGMT ---
Social Work? SRINIVAS notified pt and pt daughter, Katy, of discharge to [facility] today. SRINIVAS completed 7000 convalescent form in [facility]. Set up wheelchair transportation through [facility] for 1:00 pm. SRINIVAS faxed all discharge orders to [facility] via [facility] and notified of discharge time. SRINIVAS notified pt nurse of transport time. SRINIVAS made copies of discharge orders and placed on pt chart. Sent original orders in envelope with pt upon discharge.?? Disposition: [facility], skilled, convalescent, level of care? CARMEN Dumont
--- NOTE | 2022-09-13 13:07 | NURSING ---
Report called to nurse Guerrero at [facility] and transportation is here now to get patient.
--- NOTE | 2022-09-13 16:30 | CASEMGMT ---
TC to Franny at [facility], made aware pt dc'd today to [facility].
== END 2022-09-13 13:20 | disposition skilled nursing facility (03) | DRG 195 ==
LOC: ED 19:15 → MS3 19:43
PROVIDERS: Admitting Provider Internal Medicine; Emergency Provider Emergency Medicine; PCP Internal Medicine; Visit Provider Student in an Organized Health Care Education/Training Program
DX: J18.9 Pneumonia, unspecified organism (principal); I10 Essential (primary) hypertension; I69.315 Cognitive social or emotional deficit following cerebral infarction; R53.1 Weakness; R53.81 Other malaise; Z79.899 Other long term (current) drug therapy; Z87.891 Personal history of nicotine dependence
CPT/HCPCS: 36415; 71046; 80048; 80053; 81001; 83605; 83735; 83880; 84443; 85025; 85610; 85730; 87040; 87070; 87077; 87086; 87088; 87186; 87205; 87426; 87449; 87633; 87804; 87811; 93005; 94640; 94668; 97110; 97116; 97162; 97166; 97530; 97533; 97535; 99252; 99285; J7050; A4216; G0463; J0696

== ENCOUNTER 2023-01-06 12:45 | Observation (INO) | payer MEDICARE, SELFPAY ==
[2023-01-06] VITALS (11 sets, daily range): BP systolic 112–160; BP diastolic 62–85; PULSE 71–90; RESP 16–22; TEMP 35.6–36.8; O2SAT 89–98; BMI 31.7; BMI 30.3
--- NOTE | 2023-01-06 13:03 | RAD_ITS ---
STUDY: X-RAY CHEST REASON FOR EXAM: Male, 82 years old. cad . Syncopal episode. TECHNIQUE: Single AP portable view of the chest. COMPARISON: Comparison is made with prior study dated September 10, 2022. FINDINGS: EKG electrodes are seen. Elevation of the right hemidiaphragm. There is no demonstrated pleural abnormality. There is mild cardiac enlargement. Normal mediastinum and efrain. Normal visualized pulmonary arteries. There is atherosclerotic calcification of the aortic arch with tortuosity. There are diffuse degenerative changes of the visualized thoracic spine. Normal visualized ribs, clavicles, and shoulders. There is no demonstrated abnormality of the visualized soft tissue structures of the upper abdomen. RAD/Chest 1 View (Portable) IMPRESSION: Mild cardiomegaly. The lungs are clear. Electronically Signed: Abimael Isaac MD at 13:38 EDT ,
--- NOTE | 2023-01-06 13:03 | CT_ITS ---
STUDY: CT BRAIN WITHOUT CONTRAST REASON FOR EXAM: Male, 82 years old. Mental status change following syncopal episode and fall. RADIATION DOSAGE (If Supplied By Facility): CTDIvol = ( 44.99 ) mGy, DLP = ( 779.24 ) mGycm TECHNIQUE: Transaxial CT imaging of the brain was performed without administration of intravenous contrast material. Individualized dose optimization techniques were used for this CT. COMPARISON: Comparison is made with prior study dated May 19, 2022. FINDINGS: Normal soft tissue structures. Normal calvarium. There is mild cerebral atrophy with widening of the extra-axial spaces and ventricular dilatation. Since prior study, there has been progressive area of decreased attenuation in the right frontal lobe. This may represent progressive infarction on chronic changes. There are small punctate calcifications of the basal ganglia which are seen in the aging brain as a normal variant. Normal brainstem. There is mild cerebellar atrophy. There is no intracranial hemorrhage. There are no findings of an acute ischemic infarction. Atherosclerotic calcification of the cavernous portions of the internal carotid arteries. Mucosal thickening of the ethmoid sinuses bilaterally. CT/Brain/Head without Contrast IMPRESSION: Chronic involutional changes of the brain. Since prior study, there has been progression of the decreased attenuation in the right frontal lobe suggestive of progressive ischemic change. Electronically Signed: Abimael Isaac MD at 13:41 EDT ,
--- NOTE | 2023-01-06 13:04 | EKG12_ITS ---
Test Reason : SYNCOPE Blood Pressure : / mmHG Vent. Rate : 070 BPM Atrial Rate : 070 BPM P-R Int : 178 ms QRS Dur : 084 ms QT Int : 388 ms P-R-T Axes : 028 002 029 degrees QTc Int : 419 ms Normal sinus rhythm Normal ECG Confirmed by FRANCISCO JAVIER TAYLOR, NELSON ([id number]), news editor MORENITA ARRIAZA ([id number]) on 01/09/2023 10:52:15 A M Referred By: LIT Confirmed By:OUMAR MCINTYRE MD
--- NOTE | 2023-01-06 13:06 | EX.ED.DYSGE1 ---
HPI History of Present Illness Chief Complaint: Syncope Narrative Narrative: 82-year-old male past medical history of hypertension, hyperlipidemia, was at his primary care provider's office today getting a hip x-ray after a fall last evening. His family reports that when the provider was asking if he had any questions, patient's eyes rolled in the back of his head, and he had a syncopal episode for approximately 2 minutes. Reportedly, the doctor left the room, shouted 911, then return to the room and started compressions for questionable loss of pulse. There was no noted tonic-clonic activity, but the patient awoke and appeared to recognize his daughter and son that were with him. They state that they had already received results of the x-rays of the hip were negative, and the patient went unresponsive. Upon arrival to the ED, RN reports that pulse ox is 89% on room air. Patient denies any prodromal chest pain or shortness of breath, no recent fevers or chills, no cough. His history and physical is mildly limited secondary to his age. His family reports that he does have a DO NOT RESUSCITATE order in place. [facility] Medical History (Updated 01/06/23 @ 17:[address] Hayley White MD) Debility Debility Encephalomalacia Fracture of lateral malleolus of right ankle Hearing loss Hip fx Stroke Weakness Home Medications acetaminophen 500 mg tablet 1,000 mg PO TID Pain 07/26/22 [History Last Taken 09/08/22] atorvastatin 40 mg tablet 40 mg PO QHS Cholesterol 07/26/22 [History Last Taken 09/07/22] carvedilol 6.25 mg tablet 12.5 mg PO BIDCM Check with primary doctor 07/26/22 [History Last Taken 09/08/22] lisinopril 10 mg tablet 10 mg PO DAILY Check with primary doctor 07/26/22 [History Last Taken 09/08/22] pantoprazole 40 mg tablet,delayed release 40 mg PO DAILY Check with primary doctor 07/26/22 [History Last Taken 09/07/22] tamsulosin 0.4 mg capsule 0.4 mg PO DAILY@1730 bladder spasms 07/26/22 [History Last Taken 09/07/22] doxepin 25 mg capsule 50 mg PO QHS Check with primary doctor 09/08/22 [History Last Taken 09/07/22] sennosides 8.6 mg-docusate sodium 50 mg tablet (Stool Softener-Stimulant Laxative) 2 tab PO BID PRN Constipation 09/08/22 [History Last Taken Unknown] Allergy/AdvReac Type Severity Reaction Status Date / Time No Known Allergies Allergy Verified 01/06/23 12:47 Family History (Updated 01/06/23 @ 16:[address] Hayley White MD) Father Pancreatic cancer Mother Blood clot in vein Bowel disease Son Protein S deficiency Sister Blood clot in vein Brother Blood clot in vein Surgical History (Updated 01/06/23 @ 16:[address] Hayley White MD) H/O elbow surgery H/O knee surgery History of ear surgery S/P ORIF (open reduction internal fixation) fracture Social History (Updated 01/06/23 @ 16:[address] 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 HEENT: No sore throat. No neck pain. No loss of vision. No rhinorrhea. Cardiovascular: No chest pain. No palpitations. No pedal edema. Respiratory: No cough, no shortness of breath. Abdominal: No abdominal pain. No nausea. No vomiting. Genitourinary: No dysuria. No hematuria. Musculoskeletal: No myalgias. Hip pain secondary to fall. Neurologic: No headaches. No dizziness. No lightheadedness. Syncopal episode/unresponsive x2 minutes Skin: No rash. No change in color. Psychiatric: No depression. No anxiety. EXAM Physical Exam Narrative Exam Narrative: Afebrile. Vital signs noted. HEENT: Normocephalic. Atraumatic. PERRL, EOMI. Neck soft and supple. No point tenderness or step off. Cardiovascular: Regular rate and rhythm. No murmurs, rubs, or gallops appreciated. Respiratory: No tachypnea. Lungs clear to auscultation bilaterally. Gastrointestinal: Abdomen soft, nontender, with normoactive bowel sounds. No rebound or guarding. Neurological: Awake. Alert. Nonfocal, nonlateralizing. Skin: No rash. Normal color. No pallor. Musculoskeletal: No pedal edema. Full range of motion extremities. Const Vital Signs: 01/06/23 12:48 01/06/23 12:51 01/06/23 12:54 Temperature 96.1 F L Temperature Source Temporal Pulse Rate 71 Respiratory Rate 18 Respiratory Effort Normal Non-Labored Respiratory Pattern Normal Blood Pressure 160/80 H Blood Pressure Mean 106 Pulse Ox 89 98 Oxygen Delivery Method Room Air Nasal Cannula Oxygen Flow Rate (L/min) 2 01/06/23 14:04 01/06/23 15:51 01/06/23 16:22 Temperature 96.1 F L Temperature Source Temporal Pulse Rate 73 76 76 Respiratory Rate 20 H 18 18 Respiratory Effort Respiratory Pattern Blood Pressure 113/62 112/85 H 112/85 H Blood Pressure Mean 79 94 94 Pulse Ox 98 93 93 Oxygen Delivery Method Nasal Cannula Room Air Room Air Oxygen Flow Rate (L/min) 2 MDM MDM MDM Narrative Medical decision making narrative: In the differential diagnosis is transient hypoglycemia versus respiratory arrest versus syncopal episode. Comprehensive work-up was pursued. I did review his EMR, and he has a DO NOT RESUSCITATE Comfort Care arrest no intubation order as of August of this year, approximately 4 months ago. Comprehensive work-up was pursued. I reviewed his radiology reports, and I reviewed his laboratory work, he has an elevated white count of 13.3 with hemoglobin stable at 10.5, platelet count normal at 191. Electrolyte panel shows a BUN of 28 and a creatinine of 1.38 consistent with acute kidney injury. Glucose appropriately elevated at 117 with a normal anion gap of 7. Lactic acid normal at 1.7, I do think he had a seizure. Troponin is normal at 7. Chest x-ray in 1 view interpreted by myself independently shows cardiomegaly but no evidence of pneumothorax. I reviewed the CT of the brain report and there is no acute hemorrhage, positive involutional changes. EKG interpreted by myself shows no acute ST changes, no STEMI. It shows normal sinus rhythm at 70 bpm. At this point in time, given his reported syncopal episode, I question if he did have loss of pulse with normal troponin, I discussed patient with Dr. White for observation in the PCU. She requested that given his syncope and previous shortness of breath with family history of blood clots that CTA be performed. I reviewed the CTA report which shows no evidence of pulmonary embolism or dissection. His pulse ox was 99% on room air without evidence of hypoxia after reevaluation. Disposition is assigned to observation in the PCU. Patient is in stable condition. History & Record Review Discussion w/independent historian: Patient and Family Additional record(s) reviewed:: Prior ED visit and Prior labs Lab Data Attestation: I reviewed the patient's lab results. Labs: Laboratory Results - last 24 hr 01/06/23 01/06/23 01/06/23 13:03 13:03 13:03 WBC 13.3 H RBC 3.36 L Hgb 10.5 L Hct 31.8 L MCV 94.6 H MCH 31.3 MCHC 33.0 RDW Std Deviation 53.9 H RDW Coeff of Dania 15.7 H Plt Count 191 MPV 9.7 Immature Gran % (Auto) 2.000 H Neut % (Auto) 63.5 Lymph % (Auto) 27.5 Spencer % (Auto) 4.7 Eos % (Auto) 1.9 Baso % (Auto) 0.4 Absolute Neuts (auto) 8.4 H Absolute Lymphs (auto) 3.66 Nucleated RBC % 0 Sodium 139 Potassium 4.6 Chloride 105 Carbon Dioxide 27.0 Anion Gap 7 BUN 28 H Creatinine 1.38 H Estim Creat Clear Calc 38.55 Est GFR (MDRD) Af Amer 63 Est GFR (MDRD) Non-Af 52 L BUN/Creatinine Ratio 20.3 H Glucose 117 H Lactic Acid 1.7 Calcium 8.7 Total Bilirubin 0.70 AST 15 ALT 29 Alkaline Phosphatase 86 Troponin I High Sens 7 Total Protein 6.2 L Albumin 2.9 L Globulin 3.3 Albumin/Globulin Ratio 0.9 Urine Color Urine Clarity Urine pH Ur Specific Mylo Urine Protein Urine Glucose (UA) Urine Ketones Urine Occult Blood Urine Nitrite Urine Bilirubin Urine Urobilinogen Ur Leukocyte Esterase Urine RBC Urine WBC Ur Squamous Epith Cells Urine Bacteria Hyaline Casts Urine Mucus 01/06/23 14:15 WBC RBC Hgb Hct MCV MCH MCHC RDW Std Deviation RDW Coeff of Dania Plt Count MPV Immature Gran % (Auto) Neut % (Auto) Lymph % (Auto) Spencer % (Auto) Eos % (Auto) Baso % (Auto) Absolute Neuts (auto) Absolute Lymphs (auto) Nucleated RBC % Sodium Potassium Chloride Carbon Dioxide Anion Gap BUN Creatinine Estim Creat Clear Calc Est GFR (MDRD) Af Amer Est GFR (MDRD) Non-Af BUN/Creatinine Ratio Glucose Lactic Acid Calcium Total Bilirubin AST ALT Alkaline Phosphatase Troponin I High Sens Total Protein Albumin Globulin Albumin/Globulin Ratio Urine Color Yellow Urine Clarity Clear Urine pH 6.5 Ur Specific Mylo 1.010 Urine Protein 15 H Urine Glucose (UA) Normal Urine Ketones Negative Urine Occult Blood Negative Urine Nitrite Negative Urine Bilirubin Negative Urine Urobilinogen 4 H Ur Leukocyte Esterase 25 H Urine RBC 0 SEEN Urine WBC 0-5 SEEN Ur Squamous Epith Cells 0 SEEN Urine Bacteria 0 SEEN Hyaline Casts 0-5 SEEN Urine Mucus 0 SEEN Radiography Diagnostic Testing: Clinical Impression(s) from Imaging Studies Brain CT 01/06/23 13:03 IMPRESSION: Chronic involutional changes of the brain. Since prior study, there has been progression of the decreased attenuation in the right frontal lobe suggestive of progressive ischemic change. Electronically Signed: Abimael Isaac MD at 13:41 EDT , Chest X-Ray 01/06/23 13:03 IMPRESSION: Mild cardiomegaly. The lungs are clear. Electronically Signed: Abimael Isaac MD at 13:38 EDT , Chest CTA 01/06/23 15:55 IMPRESSION: Normal CTA chest examination, without a demonstrated pulmonary embolism or arterial dissection. Low lung volumes with probable scarring and/or atelectasis in both posterior lung bellamy worse on the right. Electronically Signed: Ras Land MD at 16:54 EDT , Discharge Plan Dx/Rx/DC Orders Clinical Impression: Syncope, Acute kidney injury, Mental status alteration Disposition Disposition: Acute Care Hospital [facility] Discharge Date/Time: 01/06/23 16:36
[2023-01-06 13:29] LABS: Absolute Lymphocyte Count 3.66 X10^3/uL (0.83-4.51); Absolute Neutrophil Count 8.4 X10^3/uL (2.0-7.7); Basophil# 0.05 X10^3/uL; Basophil% 0.4 % (0-1); Eosinophil# 0.25 X10^3/uL; Eosinophils% 1.9 % (0-5); Hematocrit 31.8 % (40-54); Hemoglobin 10.5 g/dL (13.0-16.5); Lymphocyte # 3.66 X10^3/ul (0.83-4.51); Lymphocyte % 27.5 % (19-41); Mean Corpuscular Hgb 31.3 pg (27.0-32.0); Mean Corpuscular Volume 94.6 fL (80-94); Mean Platelet Vol. 9.7 fl (6.2-12.0); Monocyte# 0.62 X10^3/uL; Monocyte% 4.7 % (0-10); NRBC Flagged by Analyzer 0 % (0-5); Neutrophil # 8.44 X10^3/uL (2.7-7.7); Neutrophil % 63.5 % (47-70); Platelet Count 191 K/mm3 (150-450); RBC Distribution Width CV 15.7 % (11.6-14.6); RBC Distribution Width SD 53.9 fl (35.1-43.9); Red Blood Count 3.36 M/mm3 (4.6-6.2); White Blood Count 13.3 K/mm3 (4.4-11.0)
[2023-01-06 13:42] LABS: ALB/GLOB Ratio 0.9 RATIO (0.9-2.4); AST(SGOT) 15 U/L (15-37); Alanine Aminotransfer ALT/SGPT 29 U/L (16-61); Albumin, Serum 2.9 g/dL (3.2-5.0); Alkaline Phosphatase 86 U/L (45-117); Anion Gap 7 (5-15); BUN 28 mg/dL (7-18); BUN/Creat Ratio 20.3 RATIO (10-20); Calcium,Total 8.7 mg/dL (8.5-10.1); Chloride 105 mmol/L (98-107); Creatinine, Serum 1.38 mg/dL (0.70-1.30); EST Glomerular Filtration Rate 52 mL/min (>60); Est Glom Filt Rate - Afr Amer 63 mL/min (>60); Estimated Creatinine Clearance 38.55 ml/min; Globulin 3.3 g/dL (2.2-4.2); Glucose 117 mg/dL (74-106); Potassium 4.6 mmol/L (3.5-5.1); Protein, Total 6.2 g/dL (6.4-8.2); Sodium Level 139 mmol/L (136-145); Troponin-I HS 7 pg/mL (3.0-78.0)
[2023-01-06 14:01] LABS: Lactic Acid 1.7 mmol/L (0.4-1.9)
[2023-01-06] MEDS: 0.9% Normal Saline 1,000 ML 15 ML IV (14:04)
[2023-01-06 14:19] LABS: Bacteria 0 SEEN /hpf (None Seen); Mucous, Urine 0 SEEN /hpf (<or=2+); Red Blood Cells-Urine 0 SEEN /hpf (0-5); Squamous Epithelial Cells - UA 0 SEEN /hpf (0-5)
[2023-01-06 14:24] LABS: Color, Urine Yellow (Yellow); Glucose, Dipstick Normal (Normal); Ketone-Dipstick Negative (Negative); Leukocyte Esterase-Dipstick 25 /ul (Negative); Nitrite-Dipstick Negative (Negative); Occult Blood-Urine Negative /ul (Negative); Protein-Dipstick 15 mg/dl (Negative); Urine Bilirubin Dipstick Negative (Negative); Urine Clarity Clear (Clear); Urine Urobilinogen 4 mg/dl (Normal); Urine pH 6.5 (5.0 - 8.0)
[2023-01-06 14:44] LABS: Hyaline Cast 0-5 SEEN /lpf (0-5); White Blood Cells 0-5 SEEN /hpf (0-5)
--- NOTE | 2023-01-06 15:55 | CT_ITS ---
STUDY: CTA CHEST REASON FOR EXAM: Male, 82 years old. shortness of breath with syncope RADIATION DOSAGE (If Supplied By Facility): CTDIvol = ( 13.44 ) mGy, DLP = ( 452.43 ) mGycm TECHNIQUE: The examination was performed with the intravenous administration of IV 100mL Isovue-370. Post-processing of the angiographic images was performed, with multiplanar reformation and 3D reconstruction. Individualized dose optimization techniques were used for this CT. COMPARISON: None. FINDINGS: Normal enhancement of the main pulmonary artery and right and left pulmonary arteries. Normal enhancement of the bilateral peripheral pulmonary arteries. There is no demonstrated pulmonary embolism. There is atherosclerotic calcification of the aortic arch with tortuosity. There is no demonstrated aortic dissection. Normal heart and pericardium. There are calcifications of the coronary arteries. Normal mediastinum. Normal hilar regions. Normal visualized trachea and bronchi. The lungs are under expanded. Areas of consolidation are seen along the posterior surfaces of both lungs, worse on the right. Findings are probably combinations of atelectasis and scarring, but active infiltrates are not excluded. No effusions. There are degenerative changes of thoracic spine. Images through the upper abdomen show cholelithiasis. CT/CTA Chest W/WO Contrast IMPRESSION: Normal CTA chest examination, without a demonstrated pulmonary embolism or arterial dissection. Low lung volumes with probable scarring and/or atelectasis in both posterior lung bellamy worse on the right. Electronically Signed: Ras Land MD at 16:54 EDT ,
--- NOTE | 2023-01-06 16:35 | HP.PCM.HOS_ITS ---
HPI - General General Date of Admission: 01/06/23 Date of Service: 01/06/23 Chief Complaint: Unresponsive episode HPI Narrative ROLAND KASPER, is a 82 M with PMH of HTN, HLD, CVA who presents as a transfer from [facility] urgent care following an episode of unresponsiveness. The patient is hard of hearing and slightly confused so most of the history is obtained from his family. The patient had a fall last night. The son reports that he was using the restroom. He is unable to pull his pants up and normally requests help before getting up, however, last night, he got up with his pants down and stumbled trying to get out of the restroom. His son witnessed the event and reports that he fell against the vanity and then down to the ground. He hit the left side of his back. He did not hit his head or lose consciousness. Following the fall, however, he did complain of left hip pain. He went to the urgent care this morning to have it checked as the patient had surgery on that hip following a fracture earlier this year. He had an XR which was negative for any acute findings. The provider was discussing this with the patient and inq uired if he had any questions. At that time, the patient's eyes rolled back and he became unresponsive. Per the urgent care provider, Dr. Cesar, the patient had a couple myoclonic jerks and then began having agonal breathing. They were then unable to find a pulse and initiated CPR and bagging him for approximately 2-3 minutes. At that time, the patient's family informed them of his DNR/DNI status so the AED was not placed. The patient did regain consciousness at that time and was transferred for further management. Glucose level at the time of the incident was 119. While in the ED, the patient was noted to be hypoxic at 89%. His WBC and creatinine were slightly elevated. It was felt he would benefit from admission for further management. The patient's family does report that his mental status has waxed and waned ever since his stroke last April. He did not recognize a friend in the hospital, however, which they thought was unusual. [facility] Medical History (Updated 01/06/23 @ 17:[address] Hayley White MD) Debility Debility Encephalomalacia Fracture of lateral malleolus of right ankle Hearing loss Hip fx Stroke Weakness Home Medications acetaminophen 500 mg tablet 1,000 mg PO TID Pain 07/26/22 [History Last Taken 09/08/22] atorvastatin 40 mg tablet 40 mg PO QHS Cholesterol 07/26/22 [History Last Taken 09/07/22] carvedilol 6.25 mg tablet 12.5 mg PO BIDCM Check with primary doctor 07/26/22 [History Last Taken 09/08/22] lisinopril 10 mg tablet 10 mg PO DAILY Check with primary doctor 07/26/22 [History Last Taken 09/08/22] pantoprazole 40 mg tablet,delayed release 40 mg PO DAILY Check with primary doctor 07/26/22 [History Last Taken 09/07/22] tamsulosin 0.4 mg capsule 0.4 mg PO DAILY@1730 bladder spasms 07/26/22 [History Last Taken 09/07/22] doxepin 25 mg capsule 50 mg PO QHS Check with primary doctor 09/08/22 [History Last Taken 09/07/22] sennosides 8.6 mg-docusate sodium 50 mg tablet (Stool Softener-Stimulant Laxative) 2 tab PO BID PRN Constipation 09/08/22 [History Last Taken Unknown] Allergy/AdvReac Type Severity Reaction Status Date / Time No Known Allergies Allergy Verified 01/06/23 12:47 Family History (Updated 01/06/23 @ 16:[address] Hayley White MD) Father Pancreatic cancer Mother Blood clot in vein Bowel disease Son Protein S deficiency Sister Blood clot in vein Brother Blood clot in vein Surgical History (Updated 01/06/23 @ 16:[address] Hayley White MD) H/O elbow surgery H/O knee surgery History of ear surgery S/P ORIF (open reduction internal fixation) fracture Social History (Updated 01/06/23 @ 16:[address] 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 Constitutional Constitutional: Denies change in weight or fever(s) ENT HEENT: Reports abnormal hearing Cardiovascular Cardiovascular: Reports syncope; Denies chest pain, dyspnea on exertion, lightheadedness or palpitations Respiratory/Chest Respiratory/Chest: Denies cough or dyspnea Gastrointestinal Gastrointestinal: Denies abdominal pain, constipation, diarrhea, nausea or vomiting Genitourinary Genitourinary: Denies burning urination, difficulty urinating or dysuria Musculoskeletal Musculoskeletal: Reports other Details: pain over chest wall Neurologic Neurologic: Reports syncope; Denies abnormal gait or dizziness Vital Signs Vital Signs Vital Signs: 01/06/23 12:48 01/06/23 12:51 01/06/23 12:54 Temperature 96.1 F L Temperature Source Temporal Pulse Rate 71 Respiratory Rate 18 Respiratory Effort Normal Non-Labored Respiratory Pattern Normal Blood Pressure 160/80 H Blood Pressure Mean 106 Pulse Ox 89 98 Oxygen Delivery Method Room Air Nasal Cannula Oxygen Flow Rate (L/min) 2 01/06/23 14:04 01/06/23 15:51 01/06/23 16:22 Temperature 96.1 F L Temperature Source Temporal Pulse Rate 73 76 76 Respiratory Rate 20 H 18 18 Respiratory Effort Respiratory Pattern Blood Pressure 113/62 112/85 H 112/85 H Blood Pressure Mean 79 94 94 Pulse Ox 98 93 93 Oxygen Delivery Method Nasal Cannula Room Air Room Air Oxygen Flow Rate (L/min) 2 Weight Weight: 208 lb 15.971 oz Body Mass Index (BMI) 31.7 Physical Exam Const alert, oriented x3, no apparent distress and healthy appearing Constitutional Narrative: Sleeping, but arouses easily General Appearance: cooperative Orientation / Consciousness: Negative for confused HEENT normocephalic and head/scalp atraumatic; Negative for hearing grossly normal bilaterally HEENT Narrative: hard of hearing, hearing aids in place Mouth: moist mucous membranes abnormal parched Eyes PERRL and conjunctivae normal Resp normal respiratory effort and clear to auscultation bilaterally Auscultation: Negative for crackles, rhonchi or wheezes Cardio regular rate and regular rhythm; Negative for no murmurs Cardio Narrative: extrasystoles on exam and monitor GI soft to palpation GI Narrative: Normoactive bowel sounds Palpation: tender other (mild generalized to palpation); Negative for guarding Skin Skin Narrative: No bruising over back, no rashes appreciated Neuro oriented x3 and moves all extremities Sensorium / Orientation: awake, alert, oriented to person, oriented to place and oriented to time Speech: speech normal Psych affect normal Results Lab / Micro Data Attestation: I reviewed the patient's lab results. Result Diagrams: 01/06/23 13:03 01/06/23 13:03 Labs: Laboratory Results - last 24 hr 01/06/23 13:03: WBC 13.3 H, RBC 3.36 L, Hgb 10.5 L, Hct 31.8 L, MCV 94.6 H, MCH 31.3, MCHC 33.0, RDW Std Deviation 53.9 H, RDW Coeff of Dania 15.7 H, Plt Count 191, MPV 9.7, Immature Gran % (Auto) 2.000 H, Neut % (Auto) 63.5, Lymph % (Auto) 27.5, [place] % (Auto) 4.7, Eos % (Auto) 1.9, Baso % (Auto) 0.4, Absolute Neuts (auto) 8.4 H, Absolute Lymphs (auto) 3.66, Nucleated RBC % 0 01/06/23 13:03: Sodium 139, Potassium 4.6, Chloride 105, Carbon Dioxide 27.0, Anion Gap 7, BUN 28 H, Creatinine 1.38 H, Estim Creat Clear Calc 38.55, Est GFR (MDRD) Af Amer 63, Est GFR (MDRD) Non-Af 52 L, BUN/Creatinine Ratio 20.3 H, Glucose 117 H, Calcium 8.7, Total Bilirubin 0.70, AST 15, ALT 29, Alkaline Phosphatase 86, Troponin I High Sens 7, Total Protein 6.2 L, Albumin 2.9 L, Globulin 3.3, Albumin/Globulin Ratio 0.9 01/06/23 13:03: Lactic Acid 1.7 01/06/23 14:15: Urine Color Yellow, Urine Clarity Clear, Urine pH 6.5, Ur Specific [place] 1.010, Urine Protein 15 H, Urine Glucose (UA) Normal, Urine Ketones Negative, Urine Occult Blood Negative, Urine Nitrite Negative, Urine Bilirubin Negative, Urine Urobilinogen 4 H, Ur Leukocyte Esterase 25 H, Urine RBC 0 SEEN, Urine WBC 0-5 SEEN, Ur Squamous Epith Cells 0 SEEN, Urine Bacteria 0 SEEN, Hyaline Casts 0-5 SEEN, Urine Mucus 0 SEEN Radiology Impression Brain CT 01/06/23 13:03 IMPRESSION: Chronic involutional changes of the brain. Since prior study, there has been progression of the decreased attenuation in the right frontal lobe suggestive of progressive ischemic change. Electronically Signed: Abimael Isaac MD at 13:41 EDT , Chest X-Ray 01/06/23 13:03 IMPRESSION: Mild cardiomegaly. The lungs are clear. Electronically Signed: Abimael Isaac MD at 13:38 EDT , Assessment & Plan Assessment/Plan (1) Unresponsive episode: PLAN: The patient was unresponsive at an outside hospital for approximately 2-3 minutes. During that time, compressions were done. Unclear etiology. The patient is currently alert and oriented, however, family feel he is slightly more confused than his baseline (ie. not recognizing a friend). Will admit to observation in the PCU. The patient has a strong family history of blood clots, so I did request the ED do a CT to rule out a PE. No evidence of infection at this time. Will cycle troponins, get an echo and maintain on telemetry. CT brain showed chronic involutional changes with progression of ischemic change. Will order an MRI for am for further assessment. (2) Acute respiratory failure with hypoxia: PLAN: As above. The patient is currently saturating well on 2L. Will wean as able. (3) Acute kidney injury: PLAN: Patient does appear dry on exam. Will continue with IVF and repeat labs in the morning. (4) GERD (gastroesophageal reflux disease): PLAN: Stable. Will continue home medications. (5) Hypertension: PLAN: Blood pressure is mildly elevated. Will continue to monitor and continue home medications. (6) Stroke: PLAN: Patient has a history of a stroke back in April. It does not appear he is on aspirin. Will order and maintain him on his statin. Family reports residual weakness on his left side which has not changed recently. (7) Insomnia: PLAN: Stable. Will continue home medications. (8) BPH (benign prostatic hyperplasia): PLAN: Stable. Will continue home medications. PLAN: Plan DNR CCA DNI, confirmed with family DVT prophylaxis - Ambulate patient Disposition - The patient is hemodynamically stable. Will continue to monitor. If he remains stable, will consider discharge home in the next 24-48 hours. Charges/Coding Visit Charges Inpatient E&M: 40602 Init Hosp L2
[2023-01-06] MEDS: 0.9% Normal Saline 1,000 ML 75 ML IV (17:40)
[2023-01-06 18:09] LABS: Troponin-I HS 12 pg/mL (3.0-78.0)
[2023-01-06] MEDS: Carvedilol 6.25 MG Tablet 12.5 MG PO (18:48)
[2023-01-06] MEDS: 0.9% Saline Lock 10 ML Syringe IV (18:48)
[2023-01-06] MEDS: Tamsulosin HCl 0.4 MG Capsule PO (18:48)
[2023-01-06 19:38] LABS: Troponin-I HS 16 pg/mL (3.0-78.0)
[2023-01-06] MEDS: Acetaminophen 500 MG Tablet 1000 MG PO (21:26)
[2023-01-06] MEDS: Atorvastatin Calcium 40 MG Tablet PO (21:27)
[2023-01-06] MEDS: Doxepin Hcl 25 MG Capsule 50 MG PO (21:27)
[2023-01-07 03:39] VITALS: BP 138/63; PULSE 85; RESP 18; TEMP 36; O2SAT 92
[2023-01-07] MEDS: Acetaminophen 500 MG Tablet 1000 MG PO ×3 (05:54→21:14)
[2023-01-07] MEDS: 0.9% Normal Saline 1,000 ML 75 ML IV ×2 (05:55→19:20)
[2023-01-07 06:05] LABS: Absolute Neutrophil Count 6.8 X10^3/uL (2.0-7.7); Basophil# 0.05 X10^3/uL; Basophil% 0.5 % (0-1); Eosinophil# 0.29 X10^3/uL; Eosinophils% 2.6 % (0-5); Hemoglobin 9.9 g/dL (13.0-16.5); Lymphocyte % 29.2 % (19-41); Mean Corp Hgb Conc 30.9 g/dL (32-36); Mean Corpuscular Hgb 30.3 pg (27.0-32.0); Mean Corpuscular Volume 97.9 fL (80-94); Mean Platelet Vol. 9.2 fl (6.2-12.0); Monocyte# 0.54 X10^3/uL; Monocyte% 4.9 % (0-10); NRBC Flagged by Analyzer 0.2 % (0-5); Neutrophil # 6.77 X10^3/uL (2.7-7.7); Neutrophil % 61.8 % (47-70); Platelet Count 169 K/mm3 (150-450); RBC Distribution Width CV 15.9 % (11.6-14.6); RBC Distribution Width SD 56.4 fl (35.1-43.9); Red Blood Count 3.27 M/mm3 (4.6-6.2)
[2023-01-07 06:35] LABS: ALB/GLOB Ratio 0.9 RATIO (0.9-2.4); AST(SGOT) 13 U/L (15-37); Alanine Aminotransfer ALT/SGPT 25 U/L (16-61); Albumin, Serum 2.7 g/dL (3.2-5.0); Alkaline Phosphatase 78 U/L (45-117); Anion Gap 6 (5-15); BUN 30 mg/dL (7-18); Calcium,Total 8.2 mg/dL (8.5-10.1); Chloride 106 mmol/L (98-107); Creatinine, Serum 1.25 mg/dL (0.70-1.30); EST Glomerular Filtration Rate 58 mL/min (>60); Est Glom Filt Rate - Afr Amer 71 mL/min (>60); Estimated Creatinine Clearance 42.56 ml/min; Globulin 3.1 g/dL (2.2-4.2); Glucose 100 mg/dL (74-106); Potassium 4.3 mmol/L (3.5-5.1); Protein, Total 5.8 g/dL (6.4-8.2); Sodium Level 136 mmol/L (136-145)
[2023-01-07 07:38] VITALS: O2SAT 91
--- NOTE | 2023-01-07 08:03 | PN.HOSP_ITS ---
Reason for Visit Reason for Visit: Diagnoses Insomnia, unspecified (01/06/23) Essential (primary) hypertension (01/06/23) Cerebral infarction, unspecified (01/06/23) Acute respiratory failure with hypoxia (01/06/23) Gastro-esophageal reflux disease without esophagitis (01/06/23) Acute kidney failure, unspecified (01/06/23) Benign prostatic hyperplasia without lower urinary tract symptoms (01/06/23) Transient alteration of awareness (01/06/23) Subjective Subjective Follow-up for unresponsiveness/syncope. Objective Data Objective Data Vital Signs: Vital Signs Temp Pulse Resp BP Pulse Ox O2 Del Method O2 Flow Rate 96.8 F L 85 18 138/63 H 92 Room Air 2 01/07/23 03:39 01/07/23 03:39 01/07/23 03:39 01/07/23 03:39 01/07/23 03:39 01/07/23 03:39 01/06/23 14:04 Oxygen Flow Rate (L/min) 2 Oxygen Delivery Method Room Air Weight: 199 lb 8.293 oz Body Mass Index (BMI) 30.3 Intake & Output: Intake and Output for Last 24 Hours 01/05/23 01/06/23 01/07/23 23:59 23:59 23:59 Intake Total 111.75 / 311.75 1238.75 / 1238.75 Output Total 650 / 950 800 / 800 Balance -538.25 / -638.25 438.75 / 438.75 Lab / Micro Data Result Diagrams: 01/07/23 05:40 01/07/23 05:40 Labs: Laboratory Results - last 24 hr 01/06/23 13:03: WBC 13.3 H, RBC 3.36 L, Hgb 10.5 L, Hct 31.8 L, MCV 94.6 H, MCH 31.3, MCHC 33.0, RDW Std Deviation 53.9 H, RDW Coeff of Dania 15.7 H, Plt Count 1 91, MPV 9.7, Immature Gran % (Auto) 2.000 H, Neut % (Auto) 63.5, Lymph % (Auto) 27.5, [place] % (Auto) 4.7, Eos % (Auto) 1.9, Baso % (Auto) 0.4, Absolute Neuts (auto) 8.4 H, Absolute Lymphs (auto) 3.66, Nucleated RBC % 0 01/06/23 13:03: Sodium 139, Potassium 4.6, Chloride 105, Carbon Dioxide 27.0, Anion Gap 7, BUN 28 H, Creatinine 1.38 H, Estim Creat Clear Calc 38.55, Est GFR (MDRD) Af Amer 63, Est GFR (MDRD) Non-Af 52 L, BUN/Creatinine Ratio 20.3 H, Glucose 117 H, Calcium 8.7, Total Bilirubin 0.70, AST 15, ALT 29, Alkaline Phosphatase 86, Troponin I High Sens 7, Total Protein 6.2 L, Albumin 2.9 L, Globulin 3.3, Albumin/Globulin Ratio 0.9 01/06/23 13:03: Lactic Acid 1.7 01/06/23 14:15: Urine Color Yellow, Urine Clarity Clear, Urine pH 6.5, Ur Specific [place] 1.010, Urine Protein 15 H, Urine Glucose (UA) Normal, Urine Ketones Negative, Urine Occult Blood Negative, Urine Nitrite Negative, Urine Bilirubin Negative, Urine Urobilinogen 4 H, Ur Leukocyte Esterase 25 H, Urine RBC 0 SEEN, Urine WBC 0-5 SEEN, Ur Squamous Epith Cells 0 SEEN, Urine Bacteria 0 SEEN, Hyaline Casts 0-5 SEEN, Urine Mucus 0 SEEN 01/06/23 17:37: Troponin I High Sens 12 01/06/23 18:55: Troponin I High Sens 16 01/07/23 05:40: WBC 11.0, RBC 3.27 L, Hgb 9.9 L, Hct 32.0 L, MCV 97.9 H, MCH 30.3, MCHC 30.9 L D, RDW Std Deviation 56.4 H, RDW Coeff of Dania 15.9 H, Plt Count 169, MPV 9.2, Immature Gran % (Auto) 1.000 H, Neut % (Auto) 61.8, Lymph % (Auto) 29.2, [place] % (Auto) 4.9, Eos % (Auto) 2.6, Baso % (Auto) 0.5, Absolute Neuts (auto) 6.8, Absolute Lymphs (auto) 3.20, Nucleated RBC % 0.2 01/07/23 05:40: Sodium 136, Potassium 4.3, Chloride 106, Carbon Dioxide 24.0, Anion Gap 6, BUN 30 H, Creatinine 1.25, Estim Creat Clear Calc 42.56, Est GFR (MDRD) Af Amer 71, Est GFR (MDRD) Non-Af 58 L, BUN/Creatinine Ratio 24.0 H, Glucose 100, Calcium 8.2 L, Total Bilirubin 0.70, AST 13 L, ALT 25, Alkaline Phosphatase 78, Total Protein 5.8 L, Albumin 2.7 L, Globulin 3.1, Albumin/Globulin Ratio 0.9 Radiography Diagnostic Testing: Radiology Impression Brain CT 01/06/23 13:03 IMPRESSION: Chronic involutional changes of the brain. Since prior study, there has been progression of the decreased attenuation in the right frontal lobe suggestive of progressive ischemic change. Electronically Signed: Abimael Isaac MD at 13:41 EDT , Chest X-Ray 01/06/23 13:03 IMPRESSION: Mild cardiomegaly. The lungs are clear. Electronically Signed: Abimael Isaac MD at 13:38 EDT , Chest CTA 01/06/23 15:55 IMPRESSION: Normal CTA chest examination, without a demonstrated pulmonary embolism or arterial dissection. Low lung volumes with probable scarring and/or atelectasis in both posterior lung bellamy worse on the right. Electronically Signed: Ras Land MD at 16:54 EDT , Physical Exam Narrative Patient is very hard of hearing. Uses hearing aid on right ear. Also had inner ear surgery and does not want to remove hearing aid. MRI could not be done. Physical exam General: Alert, Oriented x3, Cooperative HEENT: Atraumatic, PERRLA, EOMI, Normocephalic, chronic profound hearing impairment Oral: Oral mucosa moist. No Gingival or Mucosal Lesions/ Ulcerations Neck: Supple, No JVD, Negative Carotid Bruits Lungs: Air entry diminished in bilateral lung bases. No crepitation/rhonchi Cardiovascular: Regular rate, Regular Rhythm, Normal S1, Normal S2, no murmur Abdomen: Bowel Sounds Present, Soft, Non Tender, Non-Distended : No renal angle tenderness. No suprapubic tenderness. Extremities: Subtle bilateral ankle edema, Capillary Refill Less than 3 Seconds Skin: No rashes, No breakdown Musculoskeletal: No Tenderness to Palpation of Joints or Extremities Neurological: Cranial nerves II-XII grossly intact, DTR 2+/4 and Symmetrical, Neuro grossly intact Psych/Mental Status: Flat affect. Assessment & Plan Assessment/Plan (1) Unresponsive episode: PLAN: Patient was at PCP office and his eyes rolled back and had an unresponsive/syncopal episode for approximately 2?3 minutes. No tonic-clonic seizure-like activity noted. Patient was started on CPR for questionable loss of pulse but the patient woke up and recognized his daughter and son. X-rays of the hip were negative. Patient did not had chest pain or shortness of breath or cough prior to passing out. 1. Unresponsiveness/Syncope: Exact etiology unclear. Patient is being admitted in PCU on telemetry. CTA chest was done which did not show PE or aortic dissection. Low lung volumes with probable scarring/atelectasis in both posterior lung bellamy worse on the right. Patient does not have acute symptoms of cough, fever or URI or acute shortness of breath therefore I do not think in fectious process or pneumonia. Patient feels her breathing is normal baseline. 2D echo is done report pending. Serial troponins are negative. MRI was ordered but patient could not have it because of suspicion of metallic wire in inner ear surgery and patient does not want to remove hearing aid. Patient was on 98% on 2 L of oxygen and then 93% on room air therefore no hypoxia or respiratory failure Patient has a history of a stroke back in April. It does not appear he is on aspirin. Continue aspirin and statin. Family reports residual weakness on his left side which has not changed recently. (2) Acute kidney injury: PLAN: Patient does appear dry on exam. Baseline creatinine 0.86. Admitted with creatinine 1.38 and after hydration 1.25. Continue IV fluid 75 mill per hour. (3) GERD (gastroesophageal reflux disease): PLAN: Stable. Will continue home medications. (4) Hypertension: PLAN: Blood pressure is mildly elevated. Will continue to monitor and continue home medications. (5) BPH (benign prostatic hyperplasia): PLAN: Stable. Will continue home medications. PLAN: Plan DNR CCA DNI, confirmed with family DVT prophylaxis - Ambulate patient Disposition - The patient is hemodynamically stable. Will continue to monitor. If he remains stable, will consider discharge home in the next 24-48 hours. Charges/Coding Visit Charges Inpatient E&M: 06171 Subs Hosp L2
[2023-01-07] MEDS: Pantoprazole Sodium 40 MG Tablet PO (08:35)
[2023-01-07] MEDS: Carvedilol 6.25 MG Tablet 12.5 MG PO ×2 (08:35→16:04)
[2023-01-07] MEDS: Aspirin 81 MG TAB.CHEW PO (08:35)
[2023-01-07] MEDS: Lisinopril 10 MG Tablet PO (08:35)
[2023-01-07 09:39] VITALS: BP 146/70; PULSE 84; RESP 18; TEMP 36.7
--- NOTE | 2023-01-07 11:25 | DCINST_ITS ---
Discharge Instructions Follow Up Care Test Results: Test results from this visit will be discussed in further detail at your follow- up appointment, if applicable. Discharge Plan Admission Admit Date/Time: 01/06/23 16:26 Attending Provider: Oskar Romo Primary Care Provider: Vinnie Perry Consulting Providers: Hayley White Discharge Orders/Prescriptions Prescriptions: No Action atorvastatin 40 mg tablet 40 mg PO QHS carvedilol 6.25 mg tablet 12.5 mg PO BIDCM acetaminophen 500 mg tablet 1,000 mg PO TID tamsulosin 0.4 mg capsule 0.4 mg PO DAILY@1730 pantoprazole 40 mg tablet,delayed release (DR/EC) 40 mg PO DAILY lisinopril 10 mg tablet 10 mg PO DAILY doxepin 25 mg capsule 50 mg PO QHS sennosides-docusate sodium [Stool Softener-Stimulant Laxat] 8.6-50 mg tablet 2 tab PO BID PRN (Reason: Constipation) Referrals / Follow Up: Vinnie Perry MD [Primary Care Provider] -
--- NOTE | 2023-01-07 13:17 | RAD.NOTE ---
Pt refusing to remove hearing aid for MRI despite thorough and lengthy conversation regarding the potential safety hazards for patient and the need for the MRI. Pt then concerned about damage to hearing aid if it is removed. Pt reassured that hearing aid will be safe on the table just outside MRI room and patient can remove and reinsert hearing aid when finished. Pt still refusing. 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 I spoke with [facility] medical records and their OP reports only go back to the s. Awaiting to see if radiologist will give MRI clearance by reviewing CT brain images. Once patient was taken back to his room he was then agreeable to remove hearing aid and proceed with MRI if cleared and requested medication. Dr Romo also updated.
--- NOTE | 2023-01-07 14:43 | CASEMGMT ---
Addendum entered by Laurel Sullivan 01/07/23 14:55: Social Work SW sent initial referral via [employer]. SW to follow up Monday. PEPE Tapia Original Note: Social Work SW met w/pt, sons Rosemary Pérezian and Homa present. SW spoke w/pt about options at discharge. Pt is agreeable to SNF. SW provided to pt a list of longterm facilities via [facility] complete with quality and resource use data, in insurance network and preferred geographic area. Pt would like to go to [facility]. As per sons, daughter Katy is more in charge, pt lives w/her. SW asked pt if okay to call daughter, pt agreeable. SW called Katy, reviewed w/her conversation SW had w/pt and sons. Pt's daughter also agreeable for referral to [facility]. SW to follow up w/referral to [facility], and pt will need precert also. SW did explain to pt and all family pt would be here all weekend as precert will be needed. PEPE Tapia
[2023-01-07 15:39] VITALS: BP 155/84; PULSE 84; RESP 18; TEMP 36.6; O2SAT 95
[2023-01-07] MEDS: Tamsulosin HCl 0.4 MG Capsule PO (16:05)
--- NOTE | 2023-01-07 17:45 | CASEMGMT ---
LISANDRA KHAN NOTE: Pt [place] and has had intermittent confusion. Call to pt's son/Clay GARCIA. [place] form explained re: Observation status for treatment of syncope and hip pain.? Explained hospitalization will be paid per?pt's insurance policy for Outpatient billing?and condition will continue to be evaluated for Inpt necessity. Also let son know that [facility] sends paper in the billing packet with their phone number if questions arise. Son verbalizes understanding and does not have further questions. ?Form signed by 2 RN's via telephone signature, copy made and placed in chart, and original placed in pt's room. Kim JIANG RN CM
[2023-01-07 20:18] VITALS: O2SAT 92
--- NOTE | 2023-01-07 22:58 | NURSING ---
pt will not leave tele monitor on. aware and stated okay to leave off
[2023-01-07 23:37] VITALS: BP 146/94; PULSE 95; RESP 18; TEMP 36.7; O2SAT 93
[2023-01-07] MEDS: oxyCODONE 5 MG Tablet PO (23:48)
[2023-01-07] MEDS: Doxepin Hcl 25 MG Capsule 50 MG PO (23:48)
[2023-01-07] MEDS: Atorvastatin Calcium 40 MG Tablet PO (23:48)
[2023-01-08 04:22] VITALS: BP 122/47; PULSE 86; RESP 18; TEMP 36.4; O2SAT 92
[2023-01-08 04:30] VITALS: O2SAT 92
[2023-01-08] MEDS: Acetaminophen 500 MG Tablet 1000 MG PO ×3 (06:13→20:59)
[2023-01-08 06:42] LABS: Absolute Lymphocyte Count 2.64 X10^3/uL (0.83-4.51); Absolute Neutrophil Count 5.6 X10^3/uL (2.0-7.7); Basophil# 0.05 X10^3/uL; Basophil% 0.6 % (0-1); Eosinophil# 0.24 X10^3/uL; Eosinophils% 2.6 % (0-5); Hematocrit 29.4 % (40-54); Hemoglobin 9.5 g/dL (13.0-16.5); Lymphocyte # 2.64 X10^3/ul (0.83-4.51); Lymphocyte % 29.1 % (19-41); Mean Corp Hgb Conc 32.3 g/dL (32-36); Mean Corpuscular Hgb 30.5 pg (27.0-32.0); Mean Corpuscular Volume 94.5 fL (80-94); Mean Platelet Vol. 9.6 fl (6.2-12.0); Monocyte# 0.49 X10^3/uL; Monocyte% 5.4 % (0-10); NRBC Flagged by Analyzer 0 % (0-5); Neutrophil # 5.58 X10^3/uL (2.7-7.7); Neutrophil % 61.5 % (47-70); Platelet Count 163 K/mm3 (150-450); RBC Distribution Width CV 15.5 % (11.6-14.6); RBC Distribution Width SD 53.2 fl (35.1-43.9); Red Blood Count 3.11 M/mm3 (4.6-6.2); White Blood Count 9.1 K/mm3 (4.4-11.0)
[2023-01-08 07:01] LABS: Anion Gap 6 (5-15); BUN 33 mg/dL (7-18); BUN/Creat Ratio 28.7 RATIO (10-20); Calcium,Total 8.4 mg/dL (8.5-10.1); Chloride 112 mmol/L (98-107); Creatinine, Serum 1.15 mg/dL (0.70-1.30); EST Glomerular Filtration Rate 64 mL/min (>60); Est Glom Filt Rate - Afr Amer 78 mL/min (>60); Estimated Creatinine Clearance 46.26 ml/min; Glucose 118 mg/dL (74-106); Potassium 3.9 mmol/L (3.5-5.1); Sodium Level 141 mmol/L (136-145)
[2023-01-08 08:10] VITALS: O2SAT 95
[2023-01-08 08:21] VITALS: BP 147/99; PULSE 66; RESP 18; TEMP 36.8; O2SAT 92
--- NOTE | 2023-01-08 08:32 | RAD.NOTE ---
CT brain images reviewed by radiologist and bilateral metallic objects in both inner ears, not cleared for MRI
[2023-01-08] MEDS: Aspirin 81 MG TAB.CHEW PO (08:39)
[2023-01-08] MEDS: Lisinopril 10 MG Tablet PO (08:39)
[2023-01-08] MEDS: Pantoprazole Sodium 40 MG Tablet PO (08:39)
[2023-01-08] MEDS: oxyCODONE 5 MG Tablet PO ×2 (08:40→14:36)
[2023-01-08] MEDS: Carvedilol 6.25 MG Tablet 12.5 MG PO ×2 (08:40→17:12)
--- NOTE | 2023-01-08 09:24 | PN.HOSP_ITS ---
Reason for Visit Reason for Visit: Diagnoses Insomnia, unspecified (01/06/23) Essential (primary) hypertension (01/06/23) Cerebral infarction, unspecified (01/06/23) Acute respiratory failure with hypoxia (01/06/23) Gastro-esophageal reflux disease without esophagitis (01/06/23) Acute kidney failure, unspecified (01/06/23) Benign prostatic hyperplasia without lower urinary tract symptoms (01/06/23) Transient alteration of awareness (01/06/23) Subjective Subjective Follow-up after unresponsive episode. Patient back to baseline. Objective Data Objective Data Vital Signs: Vital Signs Temp Pulse Resp BP Pulse Ox O2 Del Method O2 Flow Rate 98.2 F 66 18 147/99 H 92 Room Air 2 01/08/23 08:21 01/08/23 08:21 01/08/23 08:21 01/08/23 08:21 01/08/23 08:21 01/08/23 08:21 01/06/23 14:04 Oxygen Flow Rate (L/min) 2 Oxygen Delivery Method Room Air Weight: 199 lb 8.293 oz Body Mass Index (BMI) 30.3 Intake & Output: Intake and Output for Last 24 Hours 01/06/23 01/07/23 01/08/23 23:59 23:59 23:59 Intake Total 111.75 / 311.75 3970.00 / 3970.00 120 / 120 Output Total 650 / 950 1100 / 1100 200 / 200 Balance -538.25 / -638.25 2870.00 / 2870.00 -80 / -80 Lab / Micro Data Result Diagrams: 01/08/23 06:07 01/08/23 06:07 Labs: Laboratory Results - last 24 hr 01/08/23 06:07: WBC 9.1, RBC 3.11 L, Hgb 9.5 L, Hct 29.4 L, MCV 94.5 H, MCH 30.5, MCHC 32.3, RDW Std Deviation 53.2 H, RDW Coeff of Dania 15.5 H, Plt Count 163, MPV 9.6, Immature Gran % (Auto) 0.800, Neut % (Auto) 61.5, Lymph % (Auto) 29.1, [place] % (Auto) 5.4, Eos % (Auto) 2.6, Baso % (Auto) 0.6, Absolute Neuts (auto) 5.6, Absolute Lymphs (auto) 2.64, Nucleated RBC % 0 01/08/23 06:07: Sodium 141, Potassium 3.9, Chloride 112 H, Carbon Dioxide 23.0, Anion Gap 6, BUN 33 H, Creatinine 1.15, Estim Creat Clear Calc 46.26, Est GFR (MDRD) Af Amer 78, Est GFR (MDRD) Non-Af 64, BUN/Creatinine Ratio 28.7 H, Glucose 118 H, Calcium 8.4 L Radiography Diagnostic Testing: Radiology Impression Brain CT 01/06/23 13:03 IMPRESSION: Chronic involutional changes of the brain. Since prior study, there has been progression of the decreased attenuation in the right frontal lobe suggestive of progressive ischemic change. Electronically Signed: Abimael Isaac MD at 13:41 EDT , ADDENDUM: 01/07/23 1435 IMPRESSION: Patient does not clear for MRI due to presence of curvilinear metallic implants at the juncture of the middle and inner ears bilaterally. Electronically Signed: William Lewis MD, BERNARDA at 14:28 EDT , ADDENDUM: 01/07/23 1436 IMPRESSION: Chronic involutional changes of the brain. Since prior study, there has been progression of the decreased attenuation in the right frontal lobe suggestive of progressive ischemic change. 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 Uses hear ing aid on right ear which is better a year. Also had inner ear surgery with wire. MRI could not be done because of the metallic wire and surgery in the [place] air. Physical exam General: Alert, Oriented x3, Cooperative HEENT: Atraumatic, PERRLA, EOMI, Normocephalic, chronic profound hearing impair ment, left worse than right. Oral: Oral mucosa moist. No Gingival or Mucosal Lesions/ Ulcerations Neck: Supple, No JVD, Negative Carotid Bruits Lungs: Air entry diminished in bilateral lung bases. No crepitation/rhonchi Cardiovascular: Regular rate, Regular Rhythm, Normal S1, Normal S2, systolic murmur right second ICS and left SSB Abdomen: Bowel Sounds Present, Soft, Non Tender, Non-Distended : No renal angle tenderness. No suprapubic tenderness. Extremities: No ankle edema, Capillary Refill Less than 3 Seconds Skin: No rashes, No breakdown Musculoskeletal: No Tenderness to Palpation of Joints or Extremities, muscle strength 4/5 at knees and hip joints Neurological: Cranial nerves II-XII grossly intact, DTR 2+/4 and Symmetrical, Neuro grossly intact Psych/Mental Status: Flat affect. Assessment & Plan Assessment/Plan (1) Unresponsive episode: PLAN: Patient was at PCP office and his eyes rolled back and had an unresponsive/syncopal episode for approximately 2?3 minutes. No tonic-clonic seizure-like activity noted. Patient was started on CPR for questionable loss of pulse but the patient woke up and recognized his daughter and son. X-rays of the hip were negative. Patient did not had chest pain or shortness of breath or cough prior to passing out. 1. Unresponsiveness/Syncope: Exact etiology unclear. Patient is being admitted in PCU on telemetry. CTA chest was done which did not show PE or aortic dissection. Low lung volumes with probable scarring/atelectasis in both posterior lung bellamy worse on the right. Patient does not have acute symptoms of cough, fever or URI or acute shortness of breath therefore I do not think infectious process or pneumonia. Patient feels her breathing is normal baseline. 2D echo is done report pending. Serial troponins are negative. MRI was ordered but patient could not have it because of suspicion of metallic wire in inner ear surgery therefore contraindicated Patient was on 98% on 2 L of oxygen and then 93% on room air therefore no hypoxia or respiratory failure Patient has a history of a stroke back in April. It does not appear he is on aspirin. Continue aspirin and statin. Family reports residual weakness on his left side which has not changed recently. 2D echo is pending (2) Acute kidney injury: PLAN: Patient does appear dry on exam. Baseline creatinine 0.86. Admitted with creatinine 1.38 and after hydration 1.25. Continue IV fluid 75 mill per hour. Patient creatinine 1.15. MARISA resolved. (3) GERD (gastroesophageal reflux disease): PLAN: Stable. Will continue home medications. (4) Hypertension: PLAN: Blood pressure is mildly elevated. Will continue to monitor and continue home medications. (5) BPH (benign prostatic hyperplasia): PLAN: Stable. Will continue home medications. PLAN: Plan DNR CCA DNI, confirmed with family DVT prophylaxis - Ambulate patient Disposition - The patient is hemodynamically stable. Discussed with the casework supervisor. PT and OT. Patient might need SNF. Charges/Coding Visit Charges Inpatient E&M: 60839 Subs Hosp L2
[2023-01-08] MEDS: Meclizine 12.5 MG Tablet PO (17:12)
[2023-01-08] MEDS: Tamsulosin HCl 0.4 MG Capsule PO (17:12)
[2023-01-08] MEDS: Senna/Docusate Sodium 1 Tablet 2 TABLET PO (17:12)
[2023-01-08 17:23] VITALS: BP 147/52; PULSE 81; RESP 18; TEMP 36.9; O2SAT 94
[2023-01-08 20:55] VITALS: BP 156/81; PULSE 87; RESP 20; TEMP 36.8; O2SAT 93
[2023-01-08] MEDS: Atorvastatin Calcium 40 MG Tablet PO (20:59)
[2023-01-08] MEDS: Doxepin Hcl 25 MG Capsule 50 MG PO (20:59)
[2023-01-09] VITALS (10 sets, daily range): BP systolic 131–164; BP diastolic 49–97; PULSE 73–87; RESP 16–20; TEMP 36.6–37.1; O2SAT 89–96
[2023-01-09] MEDS: oxyCODONE 5 MG Tablet PO (03:19)
[2023-01-09 06:01] LABS: Absolute Lymphocyte Count 3.27 X10^3/uL (0.83-4.51); Basophil# 0.03 X10^3/uL; Basophil% 0.3 % (0-1); Eosinophil# 0.23 X10^3/uL; Eosinophils% 2.5 % (0-5); Hematocrit 29.4 % (40-54); Hemoglobin 9.4 g/dL (13.0-16.5); Lymphocyte # 3.27 X10^3/ul (0.83-4.51); Lymphocyte % 35.8 % (19-41); Mean Corpuscular Hgb 30.2 pg (27.0-32.0); Mean Corpuscular Volume 94.5 fL (80-94); Mean Platelet Vol. 9.7 fl (6.2-12.0); Monocyte# 0.54 X10^3/uL; Monocyte% 5.9 % (0-10); NRBC Flagged by Analyzer 0 % (0-5); Neutrophil # 5.01 X10^3/uL (2.7-7.7); Platelet Count 174 K/mm3 (150-450); RBC Distribution Width CV 15.6 % (11.6-14.6); RBC Distribution Width SD 53.3 fl (35.1-43.9); Red Blood Count 3.11 M/mm3 (4.6-6.2); White Blood Count 9.1 K/mm3 (4.4-11.0)
[2023-01-09] MEDS: Acetaminophen 500 MG Tablet 1000 MG PO ×3 (06:02→21:42)
[2023-01-09 06:33] LABS: Anion Gap 6 (5-15); BUN 30 mg/dL (7-18); BUN/Creat Ratio 26.8 RATIO (10-20); Calcium,Total 8.5 mg/dL (8.5-10.1); Chloride 109 mmol/L (98-107); Creatinine, Serum 1.12 mg/dL (0.70-1.30); EST Glomerular Filtration Rate 66 mL/min (>60); Est Glom Filt Rate - Afr Amer 80 mL/min (>60); Glucose 110 mg/dL (74-106); Potassium 3.9 mmol/L (3.5-5.1); Sodium Level 138 mmol/L (136-145)
--- NOTE | 2023-01-09 08:53 | CASEMGMT ---
Discharge Planning Updates sent to [facility]. Awaiting acceptance. Patient will need pre-cert. Leida Frederick, Discharge Planning Asst.
--- NOTE | 2023-01-09 10:33 | CASEMGMT ---
[facility] accepted patient. SRINIVAS notified patient's daughter Katy who was in the room with patient. Plan: [facility] pending insurance approval. Jenn Alba [facility] AL[facility]
[2023-01-09] MEDS: Lisinopril 20 MG Tablet PO (10:41)
[2023-01-09] MEDS: Carvedilol 6.25 MG Tablet 12.5 MG PO ×2 (10:42→17:48)
[2023-01-09] MEDS: Aspirin 81 MG TAB.CHEW PO (10:42)
[2023-01-09] MEDS: Pantoprazole Sodium 40 MG Tablet PO (10:42)
--- NOTE | 2023-01-09 11:13 | CASEMGMT ---
Discharge Planning Patient has been accepted by [facility]. Pre-cert will be submitted today. Leida Frederick, Discharge Planning Asst.
[2023-01-09] MEDS: Amox/Clavulanate 875 MG Tablet PO ×2 (13:18→21:41)
[2023-01-09] MEDS: RisperiDONE 0.25 MG Tablet PO (13:21)
--- NOTE | 2023-01-09 16:36 | CHAPLAIN ---
Type of Pastoral Visit _x__ Initial Visit ___ Follow-up Visit ___ On-call Visit ___ General Patient Visit ___ Spiritual Assessment ___ Family Conference ___ Bereavement ___ Rapid Response ___ Code Blue ___ Other (describe below) Pastoral Care Referral From _x__ Patient ___ Family ___ Nurse ___ Physician ___ Armature And Rotor Winder ___ Associate Account Executive ___ Other (describe below) Sacrament/Intervention _x__ Active listening ___ Anointing ___ Yazidism ___ Bereavement ___ Communion ___ Ciara exploration ___ ___ Life review ___ Prayer ___ Reconciliation ___ Sacrament of Sick _x__ Supportive presence ___ Wedding ___ Other (describe below) Pastoral Comments walking by room this patient is calling out for help with his telephone; pt wants to call family; instructed pt how to call but he was unable to complete the call; pt then asks and talks about his location and room and bed; pt knows he is in the [facility] and that he is going to [facility], however he is confused about being in bed and that there is a hole in the floor he might fall into; sat with patient and listened to him tell story about of his ; later patient referred twice to his and that she was still living; again later pt corrected himself and said, no she is not living; excused self after dietary called patient and this java web developer assisted with meal choice; pt said thank you for coming
--- NOTE | 2023-01-09 17:21 | PN.HOSP_ITS ---
Reason for Visit Reason for Visit: Unresponsive episode Subjective Subjective Mr. Knott is an 82-year-old white male who presented to the emergency department at [facility] on 01/06/2023 after an unresponsive episode that he suffered at the [facility] urgent care. Patient has dementia at baseline. Evidently the patient had had a fall the night prior to presentation while he was using the restroom. The patient has trouble with ADLs at baseline and was unable to pull up his pants typically and normally requires help however at that time he got up and his pants were down and he stumbled trying to get out of the bathroom. Son witnessed the fall and noted that he fell against the vanity and then down to the ground. He hit the left side of his back but did not hit his head or lose consciousness at that time. He complained of left hip pain following and he went to urgent care on the morning of presentation to have this checked out further. Imaging was negative for any acute fracture however while he was getting the results the patient's eyes rolled back in his head and he became unresponsive. History from the urgent care provider noted a couple of myoclonic jerks and some agonal breathing. Initially they were unable to find a pulse and CPR was initiated. Family did inform him that he was DNR/DNI so AED was not placed and the patient regained consciousness without any further management. Glucose was found to be normal at 119 but he was hypoxic at 89% on room air and he is not on oxygen at baseline. CTA was unremarkable for PE but did show some scarring and low lung volumes there did not appear to be an acute infectious process at presentation however the patient does have somewhat of a rhonchorous cough and sputum cultures were ordered today and are pending. I have ordered an echocardiogram to be done in the morning. Patient indicates he is feeling okay other than chest pain related to his CPR. It is worse with deep breathing and coughing. Family is at bedside and indicates that he does have some pretty significant baseline dementia and cognitive impairment. He is currently close to his baseline with regards to this. He will need further therapy at discharge and SNF acceptance is pending and patient will need pre-CERT. His telemetry has been unremarkable thus far. Objective Data Objective Data Vital Signs: Vital Signs Temp Pulse Resp BP Pulse Ox O2 Del Method O2 Flow Rate 98.6 F 77 16 131/49 H 93 Room Air 2 01/09/23 14:30 01/09/23 14:30 01/09/23 14:30 01/09/23 14:30 01/09/23 14:30 01/09/23 14:30 01/09/23 13:50 Oxygen Flow Rate (L/min) 2 Oxygen Delivery Method Room Air Weight: 90.5 kg Body Mass Index (BMI) 30.3 Intake & Output: Intake and Output for Last 24 Hours 01/07/23 01/08/23 01/09/23 23:59 23:59 23:59 Intake Total 3970.00 / 3970.00 840 / 840 480 / 480 Output Total 1100 / 1100 200 / 200 Balance 2870.00 / 2870.00 640 / 640 480 / 480 Lab / Micro Data Result Diagrams: 01/09/23 04:59 01/09/23 04:59 Labs: Laboratory Results - last 24 hr 01/09/23 04:59: WBC 9.1, RBC 3.11 L, Hgb 9.4 L, Hct 29.4 L, MCV 94.5 H, MCH 30.2, MCHC 32.0, RDW Std Deviation 53.3 H, RDW Coeff of Dania 15.6 H, Plt Count 174, MPV 9.7, Immature Gran % (Auto) 0.500, Neut % (Auto) 55.0, Lymph % (Auto) 35.8, [place] % (Auto) 5.9, Eos % (Auto) 2.5, Baso % (Auto) 0.3, Absolute Neuts (auto) 5.0, Absolute Lymphs (auto) 3.27, Nucleated RBC % 0 01/09/23 04:59: Sodium 138, Potassium 3.9, Chloride 109 H, Carbon Dioxide 23.0, Anion Gap 6, BUN 30 H, Creatinine 1.12, Estim Creat Clear Calc 47.50, Est GFR (MDRD) Af Amer 80, Est GFR (MDRD) Non-Af 66, BUN/Creatinine Ratio 26.8 H, Glucose 110 H, Calcium 8.5 Physical Exam Const alert, no apparent distress and well nourished Constitutional Narrative: Elderly, white male, overweight, sitting up in bed with family at bedside, appears comfortable and nontoxic, oriented only to self HEENT head/scalp atraumatic and moist oral mucous membranes HEENT Narrative: Dentition is poor, Mallampati is 2-3, no thrush Head and Scalp: normocephalic Resp normal respiratory effort, no retractions and no use of accessory muscles Resp Narrative: Moist sounding cough with rhonchi bilaterally more notably anteriorly, patient does wince when he takes a deep breath due to anterior chest pain from CPR Auscultation: rhonchi; Negative for rales or wheezes Cardio regular rate, regular rhythm, S1 normal heart sound, S2 normal heart sound, no murmurs, no rub, no gallops and no clicks GI normal to inspection, nondistended, normoactive bowel sounds, soft to palpation and non-tender Extremity no clubbing, cyanosis or edema Extremity Narrative: 2+ pedal pulses Neuro CN's II-XII intact bilaterally and moves all extremities Neuro Narrative: Right-sided weakness slightly greater than left but generalized weakness noted Sensorium / Orientation: awake, alert and oriented to person Speech: speech normal Psych Psych Narrative: Affect is somewhat flat, eye contact is good, mood is stable Assessment & Plan Assessment/Plan (1) Unresponsive episode: (2) Syncope: (3) Hypoxia: (4) Dehydration: (5) Creatinine elevation: PLAN: Plan Syncope/unresponsiveness -Telemetry has been unremarkable -Patient was slightly dry on presentation -Family did not want to pursue significantly aggressive measures and DNR CCA with no intubation CODE STATUS was made on admission -We will check echocardiogram as this has not been done -Will likely be done tomorrow -Patient with recent TSH on 09/09/2022 and was 2.46 -Mental status is back to baseline -We will discharge with event monitor given presentation Acute hypoxia -Patient with rhonchorous sounding cough but normalized white count with no left shift -Patient high risk for pneumonia with CPR in chest pain -Check sputum culture -Start empiric Augmentin -I-S -Acapella -Currently requiring 2 L nasal cannula at baseline does not use oxygen -Wean as possible Serum creatinine elevation/dehydration -Baseline serum creatinine appears to be between 0.8 and 1 -Serum creatinine was 1.38 on presentation but is resolving quickly -Close to baseline at this time -May have contributed to syncopal episode Generalized weakness/fall -PT/OT recommending ongoing therapy services at discharge -Patient has been accepted at facility and currently awaiting pre-CERT -Depending on echocardiogram patient may be able to be discharged in the next 24 hours History of stroke -Continue aspirin 81 mg daily -Continue statin Hypertension/hyperlipidemia -Continue atorvastatin -Continue carvedilol -Continue lisinopril Dementia -Suspect vascular -Patient with some sundowning and agitation -Start risperidone 0.25 mg in the morning and 0.5 at at bedtime Pain due to CPR and fall -Avoid oxycodone and other narcotics as these make patient significantly confused -Schedule Tylenol GERD -Continue PPI BPH -Continue Flomax Depression -Continue doxepin DVT prophylaxis -Start enoxaparin 40 mg daily today CODE STATUS -DNR CCA with no intubation Disposition: -Patient is close to medically stable for discharge. If echocardiogram is unremarkable we will plan on discharge as soon as pre-CERT is obtained.
[2023-01-09] MEDS: Tamsulosin HCl 0.4 MG Capsule PO (17:48)
[2023-01-09] MEDS: Doxepin Hcl 25 MG Capsule 50 MG PO (21:41)
[2023-01-09] MEDS: RisperiDONE 0.5 MG Tablet PO (21:41)
[2023-01-09] MEDS: Enoxaparin 40 MG/0.4 ML Syringe SC (21:41)
[2023-01-09] MEDS: Atorvastatin Calcium 40 MG Tablet PO (21:41)
[2023-01-10 03:30] VITALS: BP 156/71; PULSE 89; RESP 18; TEMP 36.9; O2SAT 92
[2023-01-10 06:11] LABS: Absolute Lymphocyte Count 3.14 X10^3/uL (0.83-4.51); Absolute Neutrophil Count 5.8 X10^3/uL (2.0-7.7); Basophil# 0.04 X10^3/uL; Basophil% 0.4 % (0-1); Eosinophil# 0.21 X10^3/uL; Eosinophils% 2.1 % (0-5); Hematocrit 26.9 % (40-54); Hemoglobin 8.9 g/dL (13.0-16.5); Lymphocyte # 3.14 X10^3/ul (0.83-4.51); Lymphocyte % 32.1 % (19-41); Mean Corp Hgb Conc 33.1 g/dL (32-36); Mean Corpuscular Hgb 30.3 pg (27.0-32.0); Mean Corpuscular Volume 91.5 fL (80-94); Mean Platelet Vol. 9.6 fl (6.2-12.0); Monocyte# 0.54 X10^3/uL; Monocyte% 5.5 % (0-10); NRBC Flagged by Analyzer 0 % (0-5); Neutrophil # 5.79 X10^3/uL (2.7-7.7); Neutrophil % 59.3 % (47-70); Platelet Count 172 K/mm3 (150-450); RBC Distribution Width CV 15.3 % (11.6-14.6); RBC Distribution Width SD 50.7 fl (35.1-43.9); Red Blood Count 2.94 M/mm3 (4.6-6.2); White Blood Count 9.8 K/mm3 (4.4-11.0)
[2023-01-10 06:36] LABS: Anion Gap 5 (5-15); BUN 25 mg/dL (7-18); Chloride 107 mmol/L (98-107); EST Glomerular Filtration Rate 76 mL/min (>60); Est Glom Filt Rate - Afr Amer 91 mL/min (>60); Glucose 103 mg/dL (74-106); Magnesium 1.8 mg/dL (1.6-2.6); Phosphorus 3.2 mg/dL (2.5-4.9); Potassium 3.7 mmol/L (3.5-5.1); Sodium Level 137 mmol/L (136-145)
[2023-01-10 07:32] VITALS: BP 165/96; PULSE 92; RESP 18; TEMP 37.4; O2SAT 93
[2023-01-10 07:43] VITALS: O2SAT 93
--- NOTE | 2023-01-10 07:48 | RAD_ITS ---
STUDY: X-RAY CHEST REASON FOR EXAM: Male, 82 years old. Shortness of breath TECHNIQUE: Frontal view of the chest COMPARISON: 01/06/2023 FINDINGS: The lungs are clear. There are no pleural effusions. There is no pneumothorax. The heart is normal in size. The visualized osseous structures are within normal limits. RAD/Chest 1 View (Portable) IMPRESSION: No acute thoracic pathology. Electronically Signed: Jaciel Gallardo MD at 10:25 EDT ,
[2023-01-10] MEDS: Enoxaparin 40 MG/0.4 ML Syringe SC (07:52)
[2023-01-10] MEDS: Lisinopril 20 MG Tablet PO (07:53)
[2023-01-10] MEDS: Carvedilol 6.25 MG Tablet 12.5 MG PO (07:53)
[2023-01-10] MEDS: Amox/Clavulanate 875 MG Tablet PO (07:53)
[2023-01-10] MEDS: Pantoprazole Sodium 40 MG Tablet PO (07:53)
[2023-01-10] MEDS: Aspirin 81 MG TAB.CHEW PO (07:53)
[2023-01-10] MEDS: Acetaminophen 500 MG Tablet 1000 MG PO ×2 (07:53→13:46)
[2023-01-10] MEDS: RisperiDONE 0.25 MG Tablet PO (07:54)
--- NOTE | 2023-01-10 09:03 | CASEMGMT ---
Discharge Planning Received call from [facility] that pre-cert has been recieved. SW made aware. Leida Frederick, Discharge Planning Asst.
--- NOTE | 2023-01-10 12:37 | PCM.TXEXTCAR ---
Diet Diet Order/Speech Therapy: 01/06/23 17:30 Diet: Cardiac - Heart Healthy Food consistency:: Regular Liquid Consistency:: Regular/Thin Is pt able to select menu?: Yes Routine Orders/Code Status O2 Liters per Minute: 2 O2 Frequency: PRN Keep PO Greater than or Equal to (%): 88 Routine Lab Work: CBC (3 days) and BMP (3 days) Code Status: DNRCC-A (no intubation) Therapies Weight Bearing: Full weight bearing Physical Therapy: Eval and Treat Occupational Therapy: Eval and Treat Speech Therapy: Eval and Treat Problem/Diagnosis (1) Unresponsive episode: Status: Acute Code(s): R40.4 - Transient alteration of awareness (2) Syncope: Status: Acute Code(s): R55 - Syncope and collapse (3) Hypoxia: Status: Acute Code(s): R09.02 - Hypoxemia (4) Dehydration: Status: Acute Code(s): E86.0 - Dehydration (5) Creatinine elevation: Status: Acute Code(s): R79.89 - Other specified abnormal findings of blood chemistry Allergies/Procedures Done in Hospital Allergies No Known Allergies Allergy (Verified 01/06/23 12:47) Procedures: 2-D Echocardiogram and EKG Type of Care/Length of Stay Estimated LOS: Convalescent Care Less Than 30 days Type of Care Needed: Skilled Rehab Potential: Fair Prognosis: Fair Additional Orders/Day of Discharge Additional Orders: Please have patient use incentive spirometry and Acapella every 2 hours x 10 and attempt to prevent pneumonia Day of Discharge: 01/10/23 Discharge Plan Admission Admit Date/Time: 01/06/23 16:26 Attending Provider: Halie Mo Primary Care Provider: Vinnie Perry Consulting Providers: Hayley White ; Oskar Romo Discharge Orders/Prescriptions Prescriptions: No Action atorvastatin 40 mg tablet 40 mg PO QHS carvedilol 6.25 mg tablet 12.5 mg PO BIDCM acetaminophen 500 mg tablet 1,000 mg PO TID tamsulosin 0.4 mg capsule 0.4 mg PO DAILY@1730 pantoprazole 40 mg tablet,delayed release (DR/EC) 40 mg PO DAILY lisinopril 10 mg tablet 10 mg PO DAILY doxepin 25 mg capsule 50 mg PO QHS sennosides-docusate sodium [Stool Softener-Stimulant Laxat] 8.6-50 mg tablet 2 tab PO BID PRN (Reason: Constipation) Referrals / Follow Up: Vinnie Perry MD [Primary Care Provider] -
--- NOTE | 2023-01-10 12:39 | DS.PCM_ITS ---
Providers Date of Admission: 01/06/23 Date of Discharge: 01/10/23 Primary Care Physician: Dr. Vinnie Perry MD Reason For Visit: ACUTE RESPIRATORY FAILURE WITH HYPOXIA Diagnosis Discharge Diagnosis (1) Unresponsive episode: Status: Acute Code(s): R40.4 - Transient alteration of awareness (2) Syncope: Status: Acute Code(s): R55 - Syncope and collapse (3) Hypoxia: Status: Acute Code(s): R09.02 - Hypoxemia (4) Dehydration: Status: Acute Code(s): E86.0 - Dehydration (5) Creatinine elevation: Status: Acute Code(s): R79.89 - Other specified abnormal findings of blood chemistry Medications at Discharge Home Medications acetaminophen 500 mg tablet 1,000 mg PO TID Pain 07/26/22 atorvastatin 40 mg tablet 40 mg PO QHS Cholesterol 07/26/22 carvedilol 6.25 mg tablet 12.5 mg PO BIDCM Check with primary doctor 07/26/22 lisinopril 10 mg tablet 10 mg PO DAILY Check with primary doctor 07/26/22 pantoprazole 40 mg tablet,delayed release 40 mg PO DAILY Check with primary doctor 07/26/22 tamsulosin 0.4 mg capsule 0.4 mg PO DAILY@1730 bladder spasms 07/26/22 doxepin 25 mg capsule 50 mg PO QHS Check with primary doctor 09/08/22 sennosides 8.6 mg-docusate sodium 50 mg tablet (Stool Softener-Stimulant Laxative) 2 tab PO BID PRN Constipation 09/08/22 amoxicillin 875 mg-potassium clavulanate 125 mg tablet 875 mg PO BID #0 tabs 01/10/23 aspirin 81 mg chewable tablet 81 mg PO DAILYCM #0 tabs 01/10/23 risperidone 0.25 mg tablet 0.25 mg PO DAILY #0 tabs 01/10/23 risperidone 0.5 mg tablet 0.5 mg PO QHS #0 tabs 01/10/23 Hospital Course Procedures 2-D Echocardiogram, EKG and - (Chest x-ray/CTA chest/CT brain) Summary of Care Provided Minutes Spent on Discharge: 38 Hospital Course: Mr. Knott is an 82-year-old white male who presented to the emergency department at [facility] on 01/06/2023 after an unresponsive episode that he suffered at the [facility] urgent care.? Patient has dementia at baseline.? Evidently the patient had had a fall the night prior to presentation while he was using the restroom.? The patient has trouble with ADLs at baseline and was unable to pull up his pants typically and normally requires help however at that time he got up and his pants were down and he stumbled trying to get out of the bathroom.? Son witnessed the fall and noted that he fell against the vanity and then down to the ground.? He hit the left side of his back but did not hit his head or lose consciousness at that time.? He complained of left hip pain following and he went to urgent care on the morning of presentation to have this checked out further.? Imaging was negative for any acute fracture however while he was getting the results the patient's eyes rolled back in his head and he became unresponsive.? History from the urgent care provider noted a couple of myoclonic jerks and some agonal breathing.? Initially they were unable to find a pulse and CPR was initiated.? Family did inform him that he was DNR/DNI so AED was not placed and the patient regained consciousness without any further management. I do suspect overall that this was more of a syncopal episode with low blood pressure which resulted in suspected pulselessness. Glucose was found to be normal at 119 but he was hypoxic at 89% on room air and he is not on oxygen at baseline.? CTA was unremarkable for PE but did show some scarring and low lung volumes there did not appear to be an acute infectious process at presentation. Chest x-ray is unremarkable. EKG was unremarkable for any acute findings. Patient was admitted to the telemetry floor and monitored on telemetry throughout his hospital course without any marked abnormalities. An echocardiogram was performed and showed a normal EF with no wall motion abnormality. The patient was having pain in his chest related to the CPR he got during his hospital course and was treated with scheduled Tylenol this did seem to help. Family did want avoid narcotics as it worsens his delirium in association with his dementia. Thyroid was unremarkable. His mentation was baseline during his hospital course. We did start him on empiric antibiotics for suspected pneumonia associated with syncopal episode possible aspiration. He will complete a course of Augmentin and has 6 more days at the time of discharge. He was also encouraged to perform aggressive pulmonary toilet with incentive spirometry and Acapella to avoid developing worsening pneumonia as patient is having increased pain in his chest related to his CPR. He initially required oxygen supplementation however we have been able to wean him to room air at the time of discharge with oxygen saturations anywhere between 90 and 95%. His oxygen saturations improved dramatically with induced cough and deep breathing. He was seen by physical and Occupational Therapy during his hospital course and they recommended discharge to skilled facility. Family agreed and he was accepted and pre-CERT was obtained on 01/10/2023. The patient was discharged to [facility] facility in stable condition on the same day. We did discharge him with a event monitor for 30 days to evaluate any arrhythmias over time. He was started on a baby aspirin with his history of stroke and again, antibiotics with Augmentin to be completed for the next 6 days. Discharge diagnoses: Syncope/unresponsiveness Acute hypoxia-resolved Serum creatinine elevation-resolved Dehydration-resolved Generalized weakness Falls History of stroke Hypertension Hyperlipidemia Dementia-suspect vascular -Pain due to CPR/fall GERD BPH Depression Physical Exam Const alert, oriented x3, no apparent distress, healthy appearing and well nourished Constitutional Narrative: Elderly, white male, overweight, sitting up in bed with family at bedside, appears comfortable and nontoxic, oriented only to self General Appearance: cooperative, comfortable, well kempt and well developed Orientation / Consciousness: awake, oriented to person and confused Exam Limitations: other limitations Nutritional Appearance: obese HEENT normocephalic, head/scalp atraumatic and moist oral mucous membranes; Negative for hearing grossly normal bilaterally HEENT Narrative: Dentition is poor, Mallampati is 2, extremely hard of hearing Eyes PERRL and conjunctivae normal Eyes Narrative: No scleral icterus Neck no lymphadenopathy and supple Neck Narrative: Trachea midline no thigh enlargement Resp normal respiratory effort, no retractions, no use of accessory muscles and clear to auscultation bilaterally Resp Narrative: Moist sounding cough with rhonchi bilaterally more notably anteriorly and it sounds like this is more upper airway as his breath sounds do clear with aggressive cough, patient does wince when he takes a deep breath due to anterior chest pain from CPR Auscultation: rhonchi; Negative for crackles, rales or wheezes Cardio regular rate, regular rhythm, S1 normal heart sound, S2 normal heart sound, no murmurs, no rub, no gallops and no clicks GI normal to inspection, nondistended, normoactive bowel sounds, soft to palpation and non-tender Palpation: tender other (mild generalized to palpation); Negative for guarding Extremity no clubbing, cyanosis or edema Extremity Narrative: 2+ pedal pulses Skin no wounds, skin turgor normal and no jaundice Skin Narrative: No bruising over back, no rashes appreciated Neuro oriented x3, CN's II-XII intact bilaterally and moves all extremities Neuro Narrative: Right-sided weakness slightly greater than left but generalized weakness noted Sensorium / Orientation: awake, alert and oriented to person Speech: speech normal Psych affect normal Psych Narrative: Affect is somewhat flat, eye contact is good, mood is stable Weight / BMI Weight Weight: 90.5 kg Body Mass Index (BMI) 30.3 ABG / Lab / Microbiology Data Result Diagrams: 01/10/23 05:37 01/10/23 05:37 Laboratory: Laboratory Results - last 24 hr 01/10/23 05:37: WBC 9.8, RBC 2.94 L, Hgb 8.9 L, Hct 26.9 L, MCV 91.5, MCH 30.3, MCHC 33.1, RDW Std Deviation 50.7 H, RDW Coeff of Dania 15.3 H, Plt Count 172, MPV 9.6, Immature Gran % (Auto) 0.600, Neut % (Auto) 59.3, Lymph % (Auto) 32.1, [place] % (Auto) 5.5, Eos % (Auto) 2.1, Baso % (Auto) 0.4, Absolute Neuts (auto) 5.8, Absolute Lymphs (auto) 3.14, Nucleated RBC % 0 01/10/23 05:37: Sodium 137, Potassium 3.7, Chloride 107, Carbon Dioxide 25.0, Anion Gap 5, BUN 25 H, Creatinine 1.00, Estim Creat Clear Calc 53.20, Est GFR (MDRD) Af Amer 91, Est GFR (MDRD) Non-Af 76, BUN/Creatinine Ratio 25.0 H, Glucose 103, Calcium 8.0 L, Phosphorus 3.2, Magnesium 1.8 Radiography Diagnostic Testing: Radiology Impression Chest X-Ray 01/10/23 07:48 IMPRESSION: No acute thoracic pathology. Electronically Signed: Jaciel Gallardo MD at 10:25 EDT , D/C Instructions Discharge Diet: Low fat / Low cholesterol Meaningful Use Info Meaningful Use Diagnoses (Choose all that apply): None applicable Discharge Plan Admission Admit Date/Time: 01/06/23 16:26 Primary Reason for Your Visit: Syncope Attending Provider: Halie Mo Primary Care Provider: Vinnie Perry Consulting Providers: Hayley White ; Oskar Romo Discharge Orders/Prescriptions Prescriptions: New risperidone 0.25 mg Tablet 0.25 mg PO DAILY Qty: 0 0RF risperidone 0.5 mg Tablet 0.5 mg PO QHS Qty: 0 0RF aspirin 81 mg Tablet,Chewable 81 mg PO DAILYCM Qty: 0 0RF amoxicillin-pot clavulanate 875-125 mg Tablet 875 mg PO BID Qty: 0 0RF Rx Instructions: 6 days then stop Continued atorvastatin 40 mg tablet 40 mg PO QHS carvedilol 6.25 mg tablet 12.5 mg PO BIDCM acetaminophen 500 mg tablet 1,000 mg PO TID tamsulosin 0.4 mg capsule 0.4 mg PO DAILY@1730 pantoprazole 40 mg tablet,delayed release (DR/EC) 40 mg PO DAILY lisinopril 10 mg tablet 10 mg PO DAILY doxepin 25 mg capsule 50 mg PO QHS sennosides-docusate sodium [Stool Softener-Stimulant Laxat] 8.6-50 mg tablet 2 tab PO BID PRN (Reason: Constipation) Other Ambulatory Orders: 30 Day Event Recorder Preventi (Urgent) Timeframe: 1 Day Facility: [facility] - Location: Cardiovascular Services Ordered By: Dr. Halie Mo Referrals / Follow Up: Vinnie Perry MD [Primary Care Provider] - Within 1 Month Disposition Disposition (needs filled in before D/C Order can be placed): [facility] Facility Charges/Coding Visit Charges Inpatient E&M: 54531 SNF Disch >30 Min
[2023-01-10 13:33] VITALS: BP 138/65; PULSE 76; RESP 18; TEMP 36.6; O2SAT 93
--- NOTE | 2023-01-10 13:40 | CASEMGMT ---
Discharge Planning Discharge orders and transport time sent to [facility] via [facility]. Physicians will transport patient by cot with pickup time at 2p. Nursing, SW, patient, and his daughter all notified. Leida Frederick, Discharge Planning Asst.
--- NOTE | 2023-01-10 14:13 | PHA.DC.MR ---
Pharmacy Service has performed discharge medication reconciliation for this patient. The patient's discharge medication list was reviewed for discrepancies and discrepancies were resolved. Home Medications acetaminophen 500 mg tablet 1,000 mg PO TID Pain 07/26/22 atorvastatin 40 mg tablet 40 mg PO QHS Cholesterol 07/26/22 carvedilol 6.25 mg tablet 12.5 mg PO BIDCM Check with primary doctor 07/26/22 lisinopril 10 mg tablet 10 mg PO DAILY Check with primary doctor 07/26/22 pantoprazole 40 mg tablet,delayed release 40 mg PO DAILY Check with primary doctor 07/26/22 tamsulosin 0.4 mg capsule 0.4 mg PO DAILY@1730 bladder spasms 07/26/22 doxepin 25 mg capsule 50 mg PO QHS Check with primary doctor 09/08/22 sennosides 8.6 mg-docusate sodium 50 mg tablet (Stool Softener-Stimulant Laxative) 2 tab PO BID PRN Constipation 09/08/22 amoxicillin 875 mg-potassium clavulanate 125 mg tablet 875 mg PO BID #0 tabs 01/10/23 aspirin 81 mg chewable tablet 81 mg PO DAILYCM #0 tabs 01/10/23 risperidone 0.25 mg tablet 0.25 mg PO DAILY #0 tabs 01/10/23 risperidone 0.5 mg tablet 0.5 mg PO QHS #0 tabs 01/10/23
--- NOTE | 2023-01-10 15:40 | NURSING ---
report called to [facility] patient left via squad family present
== END 2023-01-10 13:35 | disposition skilled nursing facility (03) ==
LOC: ED 16:04 → PCU 16:56
PROVIDERS: Internal Medicine; Admitting Provider Internal Medicine; Emergency Provider Emergency Medicine; PCP Internal Medicine; Visit Provider Internal Medicine
DX: R40.4 Transient alteration of awareness (principal); N17.9 Acute kidney failure, unspecified; F03.90 Unspecified dementia, unspecified severity, without behavioral disturbance, psychotic disturbance, mood disturbance, and anxiety; J96.01 Acute respiratory failure with hypoxia; Z86.73 Personal history of transient ischemic attack (TIA), and cerebral infarction without residual deficits; E78.5 Hyperlipidemia, unspecified; N40.0 Benign prostatic hyperplasia without lower urinary tract symptoms; H91.90 Unspecified hearing loss, unspecified ear; M25.552 Pain in left hip; E86.0 Dehydration; R55 Syncope and collapse; Z87.891 Personal history of nicotine dependence; K21.9 Gastro-esophageal reflux disease without esophagitis; I10 Essential (primary) hypertension; Z66 Do not resuscitate; Z79.899 Other long term (current) drug therapy; F32.A Depression, unspecified
CPT/HCPCS: 36415; 70450; 71045; 71275; 80048; 80053; 81001; 83605; 83735; 84100; 84484; 85025; 93005; 93306; 94668; 96360; 96361; 96372; 97162; 97166; 97530; 97535; 99221; 99252; 99285; J7030; P9612; Q9957; Q9967; A4216; G0378; G0463